=== PATIENT | male | born 1935 | race Caucasian/White ===

== ENCOUNTER 2016-10-31 09:42 | Emergency (ER) | payer MEDICARE, OTHER ==
[2016-10-31 09:55] VITALS: BP 160/97
--- NOTE | 2016-10-31 10:26 | EDM.PDOC ---
ED HPI GENERAL MEDICAL PROBLEM - General Chief Complaint: Back Pain or Injury Stated Complaint: BACK PAIN Time Seen by Provider: 10/31/16 09:56 Source of Information: Reports: Patient History Limitations: Reports: No Limitations - History of Present Illness INITIAL COMMENTS - FREE TEXT/NARRATIVE: The patient is a 81-year-old male with a chief complaint of low back pain. The patient states that he had trouble with his back a couple of years ago. He had an injection and improved. 3-4 weeks ago he fell while fishing and hit the side of his back against the edge of the boat. Since then he's had trouble with pain in his low back that started about a week after the fall. Pain is located in the very low back area on both sides just above the buttocks. The pain is constant and sharp. It is worse with movement. It is better with laying down. He occasionally has shooting pains that go down his legs. These pains are bilateral. No lower extremity weakness or numbness. No incontinence or retention. No fever or recent illness. He was seen at [facility] pain clinic in [facility] and had an injection placed in his low back 3 days ago. However he continues to have pain, so called the clinic, and was told to come to the emergency department "for an MRI". Lower Back Pain Score (Numeric/FACES): 10 - Related Data Allergies Allergy/AdvReac Type Severity Reaction Status Date / Time No Known Allergies Allergy Verified 10/31/16 09:55 Home Meds: Home Meds Hydrocodone/Acetaminophen [Hydrocodon-Acetaminophen 5-325] 1 each PO QID PRN # 24 tablet 10/31/16 [Rx] Moexipril [Univasc] 15 mg PO ACBREAKFAST 10/31/16 [History] Naproxen Sodium [Aleve] 220 mg PO BID PRN #60 tab 10/31/16 [Rx] Pravastatin [Pravachol] 20 mg PO MOTUWETHFR 10/31/16 [History] Verapamil HCl [Verelan] 240 mg PO DAILY 10/31/16 [History] Past Medical History Cardiovascular History: Reports: Hypertension Musculoskeletal History: Reports: Back Pain, Chronic - Past Surgical History GI Surgical History: Reports: Colonoscopy, Hernia, Inguinal Musculoskeletal Surgical History: Reports: Knee Replacement, Other (See Below) Social & Family History - Family History Family Medical History: Noncontributory - Tobacco Use Smoking Status *Q: Never Smoker - Recreational Drug Use Recreational Drug Use: No ED ROS GENERAL - Review of Systems Review Of Systems: See Below Constitutional: Denies: Fever Respiratory: Denies: Shortness of Breath, Cough Cardiovascular: Denies: Chest Pain GI/Abdominal: Denies: Abdominal Pain : Denies: Dysuria, Incontinence, Urinary Retention Musculoskeletal: Reports: Back Pain Neurological: Denies: Numbness, Paresthesia, Difficulty Walking, Weakness ED EXAM,LOWER BACK PAIN/INJURY - Physical Exam Exam: See Below Exam Limited By: No Limitations General Appearance: Alert, WD/WN, No Apparent Distress Eye Exam: Bilateral Eye: PERRL Ears: Normal External Exam Nose: Normal Inspection Throat/Mouth: Normal Inspection, Normal Voice, No Airway Compromise Head: Atraumatic, Normocephalic Neck: Normal Inspection, Supple, Non-Tender, Full Range of Motion Respiratory/Chest: No Respiratory Distress, Lungs Clear, Normal Breath Sounds Cardiovascular: Regular Rate, Rhythm, No Edema Back Exam: Normal Inspection, Other (bilat SI joint TTP, no palpable masses/ deformities, skin normal ). No: CVA Tenderness (L), CVA Tenderness (R), Vertebral Tenderness Neurological: Alert, Normal Mood/Affect, Normal Dorsiflexion, Normal Plantar Flexion, No Motor/Sensory Deficits, Oriented x 3 Psychiatric: Normal Affect, Normal Mood Skin Exam: Warm, Dry, Intact, Normal Color, No Rash Course - Vital Signs Last Recorded V/S: Last Vital Signs Temp 36.4 C 10/31/16 09:48 Pulse 81 10/31/16 09:48 Resp 16 10/31/16 09:48 BP 160/97 H 10/31/16 09:48 Pulse Ox 97 10/31/16 09:48 - Orders/Labs/Meds Orders: Active Orders 24 hr Category Date Time Status Lumbar Spine Min 4V [CR] Stat Exams 10/31/16 10:25 Taken - Re-Assessments/Exams Free Text/Narrative Re-Assessment/Exam: 10/31/16 10:54 Discussed with nurse at [facility] pain clinic in [place] who was able to review telephone note from this AM. States pt was advised to go to ED if severe pain or lower extremity weakness, no mention of MRI. 10/31/16 11:25 X-rays of the lumbar spine shows some degenerative changes but no evidence of fracture or bony metastasis lesions. No indication for MRI as patient has no neurological deficits or symptoms to suggest infection or other emergent explanation of his pain. He was told by the pain clinic that it would take about a week for his injection to be effective. Meanwhile his primary concern is pain control. He does tolerate Aleve, advised him to use that as his first- line medication with hydrocodone as needed for severe pain. He is to follow-up with his primary doctor for further care. Discussed return precautions. Patient and his understood. Departure - Departure Time of Disposition: 11:11 Disposition: Home, Self-Care 01 Clinical Impression: Low back pain Qualifiers: Chronicity: acute Back pain laterality: bilateral Sciatica presence: with sciatica Sciatica laterality: bilateral sciatica Qualified Code(s): M54.42 - Lumbago with sciatica, left side Sciatica Qualifiers: Laterality: bilateral Qualified Code(s): M54.31 - Sciatica, right side - Discharge Information Prescriptions: Hydrocodone/Acetaminophen [Hydrocodon-Acetaminophen 5-325] 1 each PO QID PRN # 24 tablet PRN Reason: Pain Naproxen Sodium [Aleve] 220 mg PO BID PRN #60 tab PRN Reason: Pain Instructions: Sciatica Referrals: Charlie Wilkerson MD [Primary Care Provider] - Forms: ED Department Discharge Additional Instructions: 1. Take aleve as prescribed for pain. Take with food. 2. Take hydrocodone as prescribed for severe pain. This medication may make you sleepy or dizzy or confused. Don't drive when taking this medication. Take the least amount that will control your pain adequately. Take a stool softener while using this medication as it causes constipation. 3. Follow up with Dr. Wilkerson as soon as possible for further care. 4. Return to the ED if: - you have weakness or numbness in the legs - you have difficulty urinating, or incontinence of urine or stool - you have a fever or feel ill - any other concerning symptoms - My Orders Last 24 Hours: My Active Orders 10/31/16 10:25 Lumbar Spine Min 4V [CR] Stat - Assessment/Plan Last 24 Hours: My Active Orders 10/31/16 10:25 Lumbar Spine Min 4V [CR] Stat
--- NOTE | 2016-10-31 11:28 | CR ---
Lumbar spine: AP, lateral and oblique views of the lumbar spine were obtained. Comparison: Previous MRI lumbar spine study of 02/01/15. Diffuse disc space narrowing throughout the lower thoracic and lumbar spine is seen. Diffuse endplate osteophytes are seen. Mild retrolisthesis is noted at L1-L2 and L2-L3. Slight scoliosis is noted. Pedicles are intact. No acute abnormality is seen. Impression: 1. Diffuse disc space narrowing and endplate osteophytes with mild scoliosis. Findings are fairly stable to previous MRI. Diagnostic code #2
== END 2016-10-31 11:26 | disposition home or self-care (01) ==
LOC: JD.ED 09:42
DX: M54.42 Lumbago with sciatica, left side (principal); M54.41 Lumbago with sciatica, right side; I10 Essential (primary) hypertension; Z96.659 Presence of unspecified artificial knee joint; Z79.899 Other long term (current) drug therapy; Z98.890 Other specified postprocedural states
CPT/HCPCS: 72110; 72110-26; 99283

== ENCOUNTER 2016-11-01 07:11 | Inpatient (IN) | payer MEDICARE, OTHER ==
[2016-11-01] MEDS ORDERED: Sodium Chloride 0.9% 10 ML Syringe FLUSH PRN (07:43)
[2016-11-01] MEDS ORDERED: Sodium Chloride 0.9% 1,000 ML IV ONE (07:43)
[2016-11-01] MEDS ORDERED: fentaNYL 100 MCG/2 ML SDV IVPUSH ONE (07:43)
--- NOTE | 2016-11-01 07:44 | EDM.PDOC ---
ED HPI GENERAL MEDICAL PROBLEM - General Chief Complaint: Lower Extremity Injury/Pain Stated Complaint: HIP PAIN Time Seen by Provider: 11/01/16 07:20 Source of Information: Reports: Patient History Limitations: Reports: No Limitations - History of Present Illness INITIAL COMMENTS - FREE TEXT/NARRATIVE: The patient is a 81-year-old male with a chief complaint of left hip pain. He has a history of hypertension and a left knee replacement, is otherwise healthy. A few weeks ago he had a fall in a boat while fishing, hit his low back against the edge of the boat, but did not seem to be injured at the time. Several days later he started to have low back pain. This is been gradually worsening. Initially, the pain was located in the low back area in the back of both of his hips, constant, waxing and waning, occasionally radiating down his legs. He was initially diagnosed with sciatica. He was seen in this emergency department yesterday for this pain at which time lumbar spine films were negative for acute abnormality. He was discharged with naproxen and hydrocodone. He's been taking these medications. He returns to the emergency department because now the pain is localized to the left hip. He states that he has constant pain in that area but it is much worse when he tries to bear weight. He is not really able to get out of bed or walk without assistance now due to pain in the hip. Pain is sharp, constant, nonradiating. No knee pain. No numbness or tingling or weakness. Denies fever or feeling ill. Overnight he took 2 tablets of Aleve 2 tablets of hydrocodone and continues to have fairly severe pain. Treatments INTERN RETAIL: Reports: Other (see below) Other Treatments INTERN RETAIL: hydrocodone Left Hip Pain Score (Numeric/FACES): 10 - Related Data Allergies Allergy/AdvReac Type Severity Reaction Status Date / Time No Known Allergies Allergy Verified 11/01/16 07:21 Home Meds: Home Meds Hydrocodone/Acetaminophen [Hydrocodon-Acetaminophen 5-325] 1 each PO QID PRN # 24 tablet 10/31/16 [Rx] Moexipril [Univasc] 15 mg PO ACBREAKFAST 10/31/16 [History] Naproxen Sodium [Aleve] 220 mg PO BID PRN #60 tab 10/31/16 [Rx] Pravastatin [Pravachol] 20 mg PO MOTUWETHFR 10/31/16 [History] Verapamil HCl [Verelan] 240 mg PO DAILY 10/31/16 [History] Past Medical History Cardiovascular History: Reports: Hypertension Musculoskeletal History: Reports: Back Pain, Chronic - Past Surgical History GI Surgical History: Reports: Colonoscopy, Hernia, Inguinal Musculoskeletal Surgical History: Reports: Knee Replacement, Other (See Below) Social & Family History - Family History Family Medical History: Noncontributory - Tobacco Use Smoking Status *Q: Never Smoker - Caffeine Use Caffeine Use: Reports: None - Recreational Drug Use Recreational Drug Use: No Review of Systems - Review of Systems Review Of Systems: See Below Constitutional: Denies: Fever Respiratory: Reports: No Symptoms Cardiovascular: Denies: Chest Pain GI/Abdominal: Denies: Abdominal Pain Musculoskeletal: Reports: Back Pain, Leg Pain ED EXAM, GENERAL - Physical Exam Exam: See Below Exam Limited By: No Limitations General Appearance: Alert, WD/WN, Mild Distress, Other (Uncomfortable appearing) Eye Exam: Bilateral Eye: EOMI, PERRL Ears: Normal External Exam Nose: Normal Inspection Throat/Mouth: Normal Inspection, Normal Voice, No Airway Compromise Head: Atraumatic, Normocephalic Neck: Normal Inspection, Supple, Non-Tender, Full Range of Motion Respiratory/Chest: No Respiratory Distress, Lungs Clear, Normal Breath Sounds, Chest Non-Tender Cardiovascular: Normal Peripheral Pulses, Regular Rate, Rhythm, No Murmur GI/Abdominal: Soft, Non-Tender, No Distention Back Exam: Normal Inspection, Paraspinal Tenderness (Left lumbar), Other ( Positive straight leg raise bilaterally produces pain in the left back area at about 45, no external abnormality, skin normal, no fluctuance or masses). No: CVA Tenderness (L), CVA Tenderness (R) Extremities: Normal Inspection, Normal Range of Motion, Non-Tender, No Pedal Edema Neurological: Alert, Oriented, Normal Cognition, No Motor/Sensory Deficits Psychiatric: Normal Affect, Normal Mood Skin Exam: Warm, Dry, Intact, Normal Color, No Rash Course - Vital Signs Last Recorded V/S: Last Vital Signs Temp 36.3 C 11/01/16 07:21 Pulse 76 11/01/16 07:21 Resp 20 11/01/16 07:21 BP 190/87 H 11/01/16 07:21 Pulse Ox 99 11/01/16 07:21 - Orders/Labs/Meds Orders: Active Orders 24 hr Category Date Time Status Intake and Output [RC] QSHIFT Care 11/01/16 14:43 Active Oxygen Therapy [RC] PRN Care 11/01/16 14:42 Active Peripheral IV Care [RC] . DIRECTED Care 11/01/16 07:43 Active RT Aerosol Therapy [RC] ASDIRECTED Care 11/01/16 14:44 Active Up With Assistance [RC] ASDIRECTED Care 11/01/16 14:42 Active Up ad Zhanna [RC] ASDIRECTED Care 11/01/16 14:42 Active VTE/DVT Education [RC] 09,21 Care 11/01/16 14:42 Active Vital Signs [RC] Q4H Care 11/01/16 14:42 Active Consult to Case Management [CONS] Routine Cons 11/01/16 14:45 Active Consult to Accelerator Systems Director [CONS] Routine Cons 11/01/16 14:45 Active Consult to Spiritual Care [CONS] Routine Cons 11/01/16 14:45 Active OT Evaluation and Treatment [CONS] Routine Cons 11/01/16 14:45 Active PT Evaluation and Treatment [CONS] Routine Cons 11/01/16 14:45 Active Regular Diet [DIET] Diet 11/01/16 Lunch Active BASIC METABOLIC PANEL,BMP [CHEM] AM Lab 11/02/16 05:11 Ordered BASIC METABOLIC PANEL,BMP [CHEM] AM Lab 11/03/16 05:11 Ordered CBC WITH AUTO DIFF [HEME] AM Lab 11/02/16 05:11 Ordered CBC WITH AUTO DIFF [HEME] AM Lab 11/03/16 05:11 Ordered MAGNESIUM [CHEM] AM Lab 11/02/16 05:11 Ordered MAGNESIUM [CHEM] AM Lab 11/03/16 05:11 Ordered MAGNESIUM [CHEM] AM Lab 11/04/16 05:11 Ordered Acetaminophen [Tylenol] Med 11/01/16 14:42 Active 650 mg PO Q4H PRN Albuterol/Ipratropium [DuoNeb 3.0-0.5 MG/3 ML] Med 11/01/16 14:42 Active 3 ml NEB Q4H PRN Bisacodyl [Dulcolax] Med 11/01/16 14:42 Active 5 mg PO DAILY PRN Docusate Sodium [Colace] Med 11/01/16 21:00 Active 100 mg PO BID Docusate Sodium/Sennosides [Senna Plus] Med 11/01/16 14:42 Active 1 tab PO BID PRN Enoxaparin [Lovenox] Med 11/02/16 09:00 Active 40 mg SUBCUT DAILY Famotidine [Pepcid] Med 11/01/16 21:00 Active 20 mg PO BID HYDROmorphone [Dilaudid] Med 11/01/16 09:45 Active 0.5 mg IVPUSH Q1H PRN HYDROmorphone [Dilaudid] Med 11/01/16 14:42 Active 0.5 mg IVPUSH Q4H PRN LORazepam [Ativan] Med 11/01/16 14:42 Active 1 mg IV Q6H PRN LORazepam [Ativan] Med 11/01/16 14:41 Active 2 mg IVPUSH Q4H PRN Lisinopril [Prinivil] Med 11/02/16 06:00 Active 10 mg PO ACBREAKFAST Magnesium Rep Pharmacy to Dose [Pharmacy to Dose - Med 11/01/16 14:45 Active Magnesium Replacement] 1 dose .XX ASDIRECTED Metoprolol Tartrate [Lopressor] Med 11/01/16 14:41 Active 5 mg IVPUSH Q4H PRN Naproxen [Naprosyn] Med 11/01/16 21:00 Active 500 mg PO BID PRN Ondansetron [Zofran] Med 11/01/16 14:42 Active 4 mg IV Q6H PRN Polyethylene Glycol 3350 [MiraLAX] Med 11/01/16 14:42 Active 17 gm PO DAILY PRN Potassium Rep Pharmacy to Dose [Pharmacy to Dose - Med 11/01/16 14:45 Active Potassium Replacement] 1 dose .XX ASDIRECTED Promethazine [Phenergan] 12.5 mg Med 11/01/16 14:42 Active Sodium Chloride 0.9% [Normal Saline] 50 ml IV Q6H Remove Patch Med 11/04/16 15:30 Active 0 ea TRDERM Q72H Simvastatin [Zocor] Med 11/01/16 14:45 Active 10 mg PO MOTUWETHFR Sodium Chloride 0.9% [Saline Flush] Med 11/01/16 07:43 Active 10 ml FLUSH ASDIRECTED PRN Temazepam [Restoril] Med 11/01/16 14:42 Active 15 mg PO BEDTIME PRN Verapamil [Calan SR] Med 11/02/16 09:00 Active 240 mg PO DAILY fentaNYL [Duragesic] Med 11/01/16 15:30 Active 12 mcg TRDERM Q72H hydrALAZINE [Apresoline] Med 11/01/16 14:41 Active 20 mg IVPUSH Q4H PRN oxyCODONE Med 11/01/16 14:42 Active 5 mg PO Q4H PRN tiZANidine [Zanaflex] Med 11/01/16 15:30 Active 4 mg PO Q6H Ice Pack [Ice Therapy] [OM.PC] Routine Oth 11/01/16 14:48 Ordered Peripheral IV Insertion Adult [OM.PC] Routine Oth 11/01/16 07:43 Ordered Resuscitation Status Routine Resus Stat 11/01/16 14:42 Ordered Medication Orders Acetaminophen (Tylenol) 650 mg PO Q4H PRN PRN Reason: Pain (Mild 1-3)/fever Albuterol/Ipratropium (Duoneb 3.0-0.5 Mg/3 Ml) 3 ml NEB Q4H PRN PRN Reason: Shortness Of Breath/wheezing Bisacodyl (Dulcolax) 5 mg PO DAILY PRN PRN Reason: Constipation Docusate Sodium (Colace) 100 mg PO BID YUKI Enoxaparin Sodium (Lovenox) 40 mg SUBCUT DAILY YUKI Famotidine (Pepcid) 20 mg PO BID YUKI Fentanyl (Duragesic) 12 mcg TRDERM Q72H YUKI Gabapentin (Neurontin) 100 mg PO BID YUKI Hydralazine HCl (Apresoline) 20 mg IVPUSH Q4H PRN PRN Reason: Hypertension Hydromorphone HCl (Dilaudid) 0.5 mg IVPUSH Q1H PRN PRN Reason: Pain Last Admin: 11/01/16 12:41 Dose: 0.5 mg Admin: 11/01/16 10:50 Dose: 0.5 mg Hydromorphone HCl (Dilaudid) 0.5 mg IVPUSH Q4H PRN PRN Reason: Pain (severe 7-10) Promethazine HCl 12.5 mg/ (Sodium Chloride) 50.5 mls @ 100 mls/hr IV Q6H PRN PRN Reason: Nausea/Vomiting Lisinopril (Prinivil) 10 mg PO ACBREAKFAST REPLACED BY [facility] Lorazepam (Ativan) 2 mg IVPUSH Q4H PRN PRN Reason: Seizures Lorazepam (Ativan) 1 mg IV Q6H PRN PRN Reason: Anxiety Magnesium Sulfate (Pharmacy To Dose - Magnesium Replacement) 1 dose .XX ASDIRECTED REPLACED BY [facility] Metoprolol Tartrate (Lopressor) 5 mg IVPUSH Q4H PRN PRN Reason: Tachycardia Miscellaneous Information (Remove Patch) 0 ea TRDERM Q72H REPLACED BY [facility] Naproxen (Naprosyn) 500 mg PO BID PRN PRN Reason: Pain Ondansetron HCl (Zofran) 4 mg IV Q6H PRN PRN Reason: Nausea/Vomiting Oxycodone HCl (Oxycodone) 5 mg PO Q4H PRN PRN Reason: Pain (moderate 4-6) Polyethylene Glycol (Miralax) 17 gm PO DAILY PRN PRN Reason: Constipation Potassium Chloride (Pharmacy To Dose - Potassium Replacement) 1 dose .XX ASDIRECTED REPLACED BY [facility] Senna/Docusate Sodium (Senna Plus) 1 tab PO BID PRN PRN Reason: Constipation Simvastatin (Zocor) 10 mg PO MOTUWETHFR REPLACED BY [facility] Sodium Chloride (Saline Flush) 10 ml FLUSH ASDIRECTED PRN PRN Reason: Keep Vein Open Last Admin: 11/01/16 08:08 Dose: 10 ml Temazepam (Restoril) 15 mg PO BEDTIME PRN PRN Reason: Sleep Tizanidine HCl (Zanaflex) 4 mg PO Q6H REPLACED BY [facility] Verapamil HCl (Calan Sr) 240 mg PO DAILY REPLACED BY [facility] Labs: Laboratory Tests 11/01/16 11/01/16 11/01/16 Range/Units 07:45 07:45 07:45 WBC 9.36 H (4.23-9.07) K/mm3 RBC 5.17 (4.63-6.08) M/mm3 Hgb 16.1 (13.7-17.5) gm/L Hct 46.6 (40.1-51.0) % MCV 90.1 (79.0-92.2) fl MCH 31.1 (25.7-32.2) pg MCHC 34.5 (32.2-35.5) g/dl RDW Std Deviation 42.5 (35.1-43.9) fL Plt Count 199 (163-337) K/mm3 MPV 10.5 (9.4-12.3) fl Neut % (Auto) 75.5 H (34.0-67.9) % Lymph % (Auto) 8.9 L (21.8-53.1) % Grayson % (Auto) 14.1 H (5.3-12.2) % Eos % (Auto) 0.9 (0.8-7.0) Baso % (Auto) 0.2 (0.1-1.2) % Neut # (Auto) 7.07 H (1.78-5.38) K/mm3 Lymph # (Auto) 0.83 L (1.32-3.57) K/mm3 Grayson # (Auto) 1.32 H (0.30-0.82) K/mm3 Eos # (Auto) 0.08 (0.04-0.54) K/mm3 Baso # (Auto) 0.02 (0.01-0.08) K/mm3 Manual Slide Review Abnormal smear ESR 13 (0-15) mm/hr Sodium 132 L (136-145) mEq/L Potassium 3.6 (3.5-5.1) mEq/L Chloride 96 L (98-107) mEq/L Carbon Dioxide 25 (21-32) mEq/L Anion Gap 14.6 (5-15) BUN 19 H (7-18) mg/dL Creatinine 1.1 (0.7-1.3) mg/dL Est Cr Clr Drug Dosing 54.45 mL/min Estimated GFR (MDRD) > 60 (>60) mL/min BUN/Creatinine Ratio 17.3 (14-18) Glucose 117 H (83-115) mg/dL Calcium 9.3 (8.5-10.1) mg/dL Total Bilirubin 1.2 H (0.2-1.0) mg/dL AST 19 (15-37) U/L ALT 17 (16-63) U/L Alkaline Phosphatase 132 H (46-116) U/L C-Reactive Protein 0.9 (<1.0) mg/dL Total Protein 7.5 (6.4-8.2) g/dl Albumin 4.1 (3.4-5.0) g/dl Globulin 3.4 gm/dL Albumin/Globulin Ratio 1.2 (1-2) Meds: Medications Generic Name Dose Route Start Last Admin Trade Name Freq PRN Reason Stop Dose Admin Acetaminophen 650 mg 11/01/16 14:42 Tylenol PO Q4H PRN Pain (Mild 1-3)/fever Albuterol/Ipratropium 3 ml 11/01/16 14:42 Duoneb 3.0-0.5 Mg/3 Ml NEB Q4H PRN Shortness Of Breath/wheezing Bisacodyl 5 mg 11/01/16 14:42 Dulcolax PO DAILY PRN Constipation Docusate Sodium 100 mg 11/01/16 21:00 Colace PO BID REPLACED BY [facility] Enoxaparin Sodium 40 mg 11/02/16 09:00 Lovenox SUBCUT DAILY REPLACED BY [facility] Famotidine 20 mg 11/01/16 21:00 Pepcid PO BID REPLACED BY [facility] Fentanyl 12 mcg 11/01/16 15:30 Duragesic TRDERM Q72H REPLACED BY [facility] Gabapentin 100 mg 11/01/16 15:30 Neurontin PO BID REPLACED BY [facility] Hydralazine HCl 20 mg 11/01/16 14:41 Apresoline IVPUSH Q4H PRN Hypertension Hydromorphone HCl 0.5 mg 11/01/16 09:45 11/01/16 12:41 Dilaudid IVPUSH 0.5 mg Q1H PRN Administration Pain Hydromorphone HCl 0.5 mg 11/01/16 14:42 Dilaudid IVPUSH Q4H PRN Pain (severe 7-10) Promethazine HCl 12.5 mg/ 50.5 mls @ 100 mls/hr 11/01/16 14:42 Sodium Chloride IV Q6H PRN Nausea/Vomiting Lisinopril 10 mg 11/02/16 06:00 Prinivil PO ACBREAKFAST REPLACED BY [facility] Lorazepam 2 mg 11/01/16 14:41 Ativan IVPUSH Q4H PRN Seizures Lorazepam 1 mg 11/01/16 14:42 Ativan IV Q6H PRN Anxiety Magnesium Sulfate 1 dose 11/01/16 14:45 Pharmacy To Dose - Magnesium Replacement .XX ASDIRECTED REPLACED BY [facility] Metoprolol Tartrate 5 mg 11/01/16 14:41 Lopressor IVPUSH Q4H PRN Tachycardia Miscellaneous Information 0 ea 11/04/16 15:30 Remove Patch TRDERM Q72H REPLACED BY [facility] Naproxen 500 mg 11/01/16 21:00 Naprosyn PO BID PRN Pain Ondansetron HCl 4 mg 11/01/16 14:42 Zofran IV Q6H PRN Nausea/Vomiting Oxycodone HCl 5 mg 11/01/16 14:42 Oxycodone PO Q4H PRN Pain (moderate 4-6) Polyethylene Glycol 17 gm 11/01/16 14:42 Miralax PO DAILY PRN Constipation Potassium Chloride 1 dose 11/01/16 14:45 Pharmacy To Dose - Potassium Replacement .XX ASDIRECTED YUKI Senna/Docusate Sodium 1 tab 11/01/16 14:42 Senna Plus PO BID PRN Constipation Simvastatin 10 mg 11/01/16 14:45 Zocor PO MOTUWETHFR REPLACED BY [facility] Sodium Chloride 10 ml 11/01/16 07:43 11/01/16 08:08 Saline Flush FLUSH 10 ml ASDIRECTED PRN Administration Keep Vein Open Temazepam 15 mg 11/01/16 14:42 Restoril PO BEDTIME PRN Sleep Tizanidine HCl 4 mg 11/01/16 15:30 Zanaflex PO Q6H YUKI Verapamil HCl 240 mg 11/02/16 09:00 Calan Sr PO DAILY REPLACED BY [facility] Discontinued Medications Generic Name Dose Route Start Last Admin Trade Name Freq PRN Reason Stop Dose Admin Cyclobenzaprine HCl 10 mg 11/01/16 09:12 11/01/16 09:22 Flexeril PO 11/01/16 09:13 10 mg ONETIME ONE Administration Diazepam 5 mg 11/01/16 14:30 Valium IVPUSH 11/01/16 14:31 ONETIME ONE Fentanyl 50 mcg 11/01/16 07:43 11/01/16 08:09 Sublimaze IVPUSH 11/01/16 07:44 50 mcg ONETIME ONE Administration Gabapentin 100 mg 11/01/16 15:25 Neurontin PO 11/01/16 15:26 ONETIME ONE Hydromorphone HCl 0.5 mg 11/01/16 14:31 11/01/16 16:17 Dilaudid IVPUSH 11/01/16 14:32 0.5 mg ONETIME ONE Administration Sodium Chloride 1,000 mls @ 1,000 mls/hr 11/01/16 07:43 11/01/16 08:08 Normal Saline IV 11/01/16 08:42 1,000 mls/hr ONETIME ONE Administration Ketorolac Tromethamine 30 mg 11/01/16 14:30 11/01/16 16:21 Toradol IVPUSH 11/01/16 14:31 30 mg ONETIME ONE Administration Lidocaine 700 mg 11/01/16 15:00 Lidoderm 5% TOP Q24H YUKI Methylprednisolone Sodium Succinate 125 mg 11/01/16 09:32 11/01/16 09:44 Solu-Medrol IVPUSH 11/01/16 09:33 125 mg ONETIME ONE Administration Tizanidine HCl 4 mg 11/02/16 14:46 Zanaflex PO 11/02/16 14:47 DAILY ONE - Re-Assessments/Exams Free Text/Narrative Re-Assessment/Exam: 11/01/16 09:44 Inflammatory markers negative. Still with marked pain, unable to ambulate. MRI pending, may not be able to be completed until this afternoon. Will also trial cyclobenzaprine and solu-medrol. Still with significant pain after fentanyl. 11/01/16 15:[address] Silveira who agrees that infection is highly unlikely given time course and negative inflammatory markers. She will leave message for the patient's doctor, Dr. Hess, who is expected to return to the office on Friday. Meanwhile, we will admit the patient here for pain control. Discussed with Dr. Huynh who agrees to admit the patient. The patient is still unable to ambulate due to pain and this is after cyclobenzaprine, Solu-Medrol, fentanyl, Dilaudid, diazepam, and Toradol over the course of several hours. 11/01/16 16:53 Departure - Departure Time of Disposition: 15:06 Disposition: Admitted As Inpatient 68 Clinical Impression: Intractable pain Back pain Qualifiers: Back pain location: low back pain Chronicity: acute Back pain laterality: midline Sciatica presence: with sciatica Sciatica laterality: sciatica of left side Qualified Code(s): M54.42 - Lumbago with sciatica, left side Sacral fracture Qualifiers: Encounter type: initial encounter Zone of sacrum fracture: unspecified portion of sacrum Fracture type: closed Qualified Code(s): S32.10XA - Unspecified fracture of sacrum, initial encounter for closed fracture - Discharge Information - My Orders Last 24 Hours: My Active Orders 11/01/16 07:43 Peripheral IV Care [RC] . DIRECTED Sodium Chloride 0.9% [Saline Flush] 10 ml FLUSH ASDIRECTED PRN Peripheral IV Insertion Adult [OM.PC] Routine 11/01/16 09:45 HYDROmorphone [Dilaudid] 0.5 mg IVPUSH Q1H PRN - Assessment/Plan Last 24 Hours: My Active Orders 11/01/16 07:43 Peripheral IV Care [RC] . DIRECTED Sodium Chloride 0.9% [Saline Flush] 10 ml FLUSH ASDIRECTED PRN Peripheral IV Insertion Adult [OM.PC] Routine 11/01/16 09:45 HYDROmorphone [Dilaudid] 0.5 mg IVPUSH Q1H PRN
--- NOTE | 2016-11-01 08:27 | CR ---
Pelvis and left hip: AP view of the pelvis was obtained as well as AP and frog-leg lateral views of the left hip. Comparison: No previous study. Degenerative change is noted within the visualized lower lumbar spine. Vascular calcification is seen. Bony structures are osteopenic. Minimal joint space narrowing is seen within the right hip. Joint space within the left hip is preserved. No acute fracture or other abnormality is seen. Impression: 1. Degenerative change as noted above. Osteopenia and vascular calcification is present. Diagnostic code #2
[2016-11-01] MEDS ORDERED: Cyclobenzaprine 10 MG Tab PO ONE (09:12)
[2016-11-01] MEDS ORDERED: methylPREDNISolone Sodium Succinate 125 MG/2 ML SDV IVPUSH ONE (09:32)
[2016-11-01] MEDS: HYDROmorphone 0.5 MG/0.5 ML Syringe IVPUSH PRN ×2 (10:50→12:41)
--- NOTE | 2016-11-01 13:20 | MR ---
MRI lumbar spine Technique: T1 and T2-weighted axial images were obtained from above the T1-T2 disc inferiorly through the L5-S1 disc. T1, T2 and fat-suppressed inversion recovery sagittal images were reviewed. Comparison: Previous MRI lumbar spine exam of 02/01/15 is available. Findings: T11-T12: Disc space narrowing with Schmorl's node deformity is seen. Slight circumferential disc bulge is noted. No central canal stenosis is seen. Neural foramina not seen well enough to make comment about. T12-L1: Posterior disc space narrowing is seen. Slight Schmorl's node deformity is noted. Slight circumferential disc bulge is seen. No central canal stenosis is seen. Mild bilateral neural foraminal stenosis is seen. L1-L2: Severe disc space narrowing is seen. Mild circumferential disc bulge is present. Posterior disc maintains a concave margin. No central canal stenosis is seen. Neural foramina are patent where the nerve roots exit. L2-L3: Severe disc space narrowing is seen. Circumferential disc bulge is present. Posterior disc maintains a mostly planar margin. Mild to moderate degenerative apophyseal change is seen. No central canal stenosis is noted. Mild right-sided neural foraminal stenosis is seen. Nerve roots appear to exit without definite compromise. L3-L4: Moderate to severe disc space narrowing is seen. Circumferential disc bulge is noted. Mild degenerative apophyseal change is seen. Thickening of the ligamentum flavum is seen. Findings cause mild central canal stenosis. Bilateral neural foraminal stenosis is noted. Nerve roots appear to exit without definite compromise. L4-L5: Severe disc space narrowing is seen. Circumferential disc bulge is noted. Mild degenerative apophyseal change is seen. Thickening of the ligamentum flavum is noted. Moderate to severe central canal stenosis is noted. Neural foramina are narrowed on both sides. Nerve roots appear to exit without definite compromise. L5-S1: Severe disc space narrowing is seen. Fairly severe degenerative apophyseal change is seen. Fairly severe bilateral neural foraminal stenosis is seen Conus medullaris and cauda equina show no abnormal signal or mass. Degenerative dehydration change noted throughout the lower thoracic and lumbar discs. Diffuse anterior endplate osteophytes are seen. Edema is identified within the sacrum which will be described on MRI pelvis exam. Impression: 1. Diffuse degenerative change. Findings remain fairly stable from previous study. No findings to indicate infection within the lumbar spine. Diagnostic code #3
[2016-11-01] MEDS ORDERED: Ketorolac 30 MG/ML SDV IVPUSH ONE (14:30)
[2016-11-01] MEDS ORDERED: HYDROmorphone 1 MG/ML Syringe IVPUSH ONE (14:31)
--- NOTE | 2016-11-01 14:31 | MR ---
MRI pelvis Technique: T1 and T2 fat-suppressed axial; T2 fat-suppressed inversion recovery , T2-weighted, T1-weighted T2 fat-suppressed coronal; thin T1 and T2 fat- suppressed coronal images through the sacrum were obtained as well as T2 fat- suppressed and T1 fat-suppressed sagittal images through the sacrum and coccyx. Findings: Bone marrow edema is identified within the sacrum on both sides. This abnormal signal does not extend across the sacroiliac joint into the iliac bones. On the T1 sequence there is low signal fracture lines being seen in a horizontal location within the upper sacrum. No other bone marrow edema is seen within the pelvis or within the hips. No soft tissue abnormality seen on this exam within the pelvis. No abnormal signal seen within the right or left hips. No muscle edema is identified. Impression: 1. Edema being seen throughout the mid and upper sacrum. Low signal fracture line is seen within the sacrum. Findings most likely due to insufficiency fracture. Since edema does not cross the sacroiliac joint as well as no fluid seen within the sacroiliac joints this is felt not to represent infection. 2. No additional abnormality seen on MRI study of the pelvis. Diagnostic code #3 MTDD
--- NOTE | 2016-11-01 14:40 | PCM.HP ---
H&P History of Present Illness - General Date of Service: 11/01/16 Admit Problem/Dx: Acute Back Pain Source of Information: Patient, Old Records, Provider, RN Notes Reviewed History Limitations: Reports: Physical Impairment - History of Present Illness Initial Comments - Free Text/Narative: This is a 81 yo elderly white male with past medical hx/o hypertension and chronic back pain who presents to the emergency department with left hip pain. His chief complaint is associated to recent a fall in a boat while fishing. Per patient his low back, hit the back of the boat but didn't seem injured at that time. Several days later his back pain seemed to be worse than usual and since then has been gradually worsening. Patient describes his pain as constant and at times waxing and waning. Occasionally the pain radiates down to his legs. Patient was initially seen in the emergency department yesterday for back pain. Initial diagnostic workup revealed no acute abnormality. From there, he was discharged with NSAID and hydrocodone. Patient has been compliant with those medications. However he returns the emergency department for more intense pain localized to his left hip. This pain is aggravated by weight bear. Patient is now unable to get out of bed or walk without assistance due to severe pain. Patient denies any numbness or tingling or weakness. He is able to void and defecate. Initial workup in emergency department shows a CBC remarkable for WBC of 9.36, neutrophil counts of 7.07, lymphocyte count of 0.83, and monocyte count of 1.3 to. His ESR is 13. Chemistry is remarkable for sodium of 132, chloride of 96, BUN of 19, glucose of 117, total bilirubin of 1.2, and alkaline phosphatase of 132. Pelvis and left hip x-ray report reads: Degenerative change noted within the lower lumbar spine. Osteopenia and vascular calcification is present. No acute fracture or other abnormality seen. MRI lumbar spine report reads: Diffuse degenerative change. No findings to indicate infection within the lumbar spine. MRI of the pelvis report reads: Edema seen throughout the median upper sacrum. Low signal fracture line is seen within the sacrum. Finding most likely due to insufficiency fracture. No additional abnormalities seen on MRI study of the pelvis. The patient received initial treatment in ED with cyclobenzaprine, solu-medrol, fentanyl, dilaudid, diazepam, and toradol over the course of several hours. He is being admitted for intractable pain. He is DNR/DNI. Left Hip Pain Score (Numeric/FACES): 10 - Related Data Allergies/Adverse Reactions: Allergies Allergy/AdvReac Type Severity Reaction Status Date / Time No Known Allergies Allergy Verified 11/01/16 07:21 Home Medications: Home Meds Hydrocodone/Acetaminophen [Hydrocodon-Acetaminophen 5-325] 1 each PO QID PRN # 24 tablet 10/31/16 [Rx] Moexipril [Univasc] 15 mg PO ACBREAKFAST 10/31/16 [History] Naproxen Sodium [Aleve] 220 mg PO BID PRN #60 tab 10/31/16 [Rx] Pravastatin [Pravachol] 10 mg PO MOTUWETHFR 10/31/16 [History] Verapamil HCl [Verelan] 240 mg PO DAILY 10/31/16 [History] Past Medical History Cardiovascular History: Reports: Hypertension Musculoskeletal History: Reports: Back Pain, Chronic - Past Surgical History GI Surgical History: Reports: Colonoscopy, Hernia, Inguinal Musculoskeletal Surgical History: Reports: Knee Replacement, Other (See Below) Social & Family History - Family History Family Medical History: Noncontributory - Tobacco Use Smoking Status *Q: Never Smoker Second Hand Smoke Exposure: No - Caffeine Use Caffeine Use: Reports: None - Recreational Drug Use Recreational Drug Use: No H&P Review of Systems - Review of Systems: Review Of Systems: See Below General: Reports: Weakness. Denies: Fever, Chills, Malaise, Fatigue HEENT: Reports: No Symptoms Pulmonary: Denies: Shortness of Breath Gastrointestinal: Denies: Abdominal Pain, Nausea, Vomiting Musculoskeletal: Reports: Back Pain, Leg Pain, Other (pain rdiation to his left thigh stop at the lateral knee) Skin: Denies: Cyanosis, Rash, Wound Psychiatric: Denies: Depression, Anxiety, Agitation, Hallucinations, Suicidal Ideation Neurological: Reports: Pre-Existing Deficit, Difficulty Walking, Weakness, Gait Disturbance. Denies: Confusion Hematologic/Lymphatic: Reports: No Symptoms Immunologic: Reports: No Symptoms Exam - Exam Exam: See Below - Vital Signs Vital Signs: Last Vital Signs Temp 36.3 C 11/01/16 07:21 Pulse 76 11/01/16 07:21 Resp 20 11/01/16 07:21 BP 190/87 H 11/01/16 07:21 Pulse Ox 99 11/01/16 07:21 Weight: 94.347 kg - Exam General: Alert, Oriented, Cooperative. No: Mild Distress HEENT: Conjunctiva Clear, EACs Clear, EOMI, Hearing Intact, Mucosa Moist & [place] , Nares Patent, Normal Nasal Septum, Posterior Pharynx Clear, Pupils Equal, Pupils Reactive, TMs Clear Neck: Supple, Trachea Midline, +2 Carotid Pulse wo Bruit, Full Range of Motion. No: JVD Lungs: Clear to Auscultation, Normal Respiratory Effort Cardiovascular: Regular Rate, Regular Rhythm GI/Abdominal Exam: Normal Bowel Sounds, Soft, Non-Tender, No Organomegaly, No Distention, No Abnormal Bruit, No Mass (Male) Exam: Cremasteric Reflex, Other (No numbness or tingling on inner thighs) Rectal (Males) Exam: Deferred Back Exam: Normal Inspection (unable to inspect due to pain with movement), Decreased Range of Motion, Muscle Spasm, Paraspinal Tenderness, Vertebral Tenderness. No: CVA Tenderness (L), CVA Tenderness (R) Extremities: Normal Inspection, Normal Range of Motion, Non-Tender, No Pedal Edema, Normal Capillary Refill, Other (Positive SLT on left leg) Skin: Warm, Dry, Intact Neuro Extensive - Mental Status: Oriented x3, Normal Cognition, Memory Intact Neuro Extensive - Motor, Sensory, Reflexes: CN II-XII Intact (limited but fairly intact) Psychiatric: Alert, Normal Affect, Normal Mood - Patient Data Lab Results Last 24 hrs: Laboratory Results - last 24 hr 11/01/16 11/01/16 11/01/16 Range/Units 07:45 07:45 07:45 WBC 9.36 H (4.23-9.07) K/mm3 RBC 5.17 (4.63-6.08) M/mm3 Hgb 16.1 (13.7-17.5) gm/L Hct 46.6 (40.1-51.0) % MCV 90.1 (79.0-92.2) fl MCH 31.1 (25.7-32.2) pg MCHC 34.5 (32.2-35.5) g/dl RDW Std Deviation 42.5 (35.1-43.9) fL Plt Count 199 (163-337) K/mm3 MPV 10.5 (9.4-12.3) fl Neut % (Auto) 75.5 H (34.0-67.9) % Lymph % (Auto) 8.9 L (21.8-53.1) % [place] % (Auto) 14.1 H (5.3-12.2) % Eos % (Auto) 0.9 (0.8-7.0) Baso % (Auto) 0.2 (0.1-1.2) % Neut # (Auto) 7.07 H (1.78-5.38) K/mm3 Lymph # (Auto) 0.83 L (1.32-3.57) K/mm3 [place] # (Auto) 1.32 H (0.30-0.82) K/mm3 Eos # (Auto) 0.08 (0.04-0.54) K/mm3 Baso # (Auto) 0.02 (0.01-0.08) K/mm3 Manual Slide Review Abnormal smear ESR 13 (0-15) mm/hr Sodium 132 L (136-145) mEq/L Potassium 3.6 (3.5-5.1) mEq/L Chloride 96 L (98-107) mEq/L Carbon Dioxide 25 (21-32) mEq/L Anion Gap 14.6 (5-15) BUN 19 H (7-18) mg/dL Creatinine 1.1 (0.7-1.3) mg/dL Est Cr Clr Drug Dosing 54.45 mL/min Estimated GFR (MDRD) > 60 (>60) mL/min BUN/Creatinine Ratio 17.3 (14-18) Glucose 117 H (83-115) mg/dL Calcium 9.3 (8.5-10.1) mg/dL Total Bilirubin 1.2 H (0.2-1.0) mg/dL AST 19 (15-37) U/L ALT 17 (16-63) U/L Alkaline Phosphatase 132 H (46-116) U/L C-Reactive Protein 0.9 (<1.0) mg/dL Total Protein 7.5 (6.4-8.2) g/dl Albumin 4.1 (3.4-5.0) g/dl Globulin 3.4 gm/dL Albumin/Globulin Ratio 1.2 (1-2) Result Diagrams: 11/02/16 05:45 11/01/16 07:45 *Q Meaningful Use (ADM) - VTE *Q VTE Criteria *Q: - Stroke *Q Stroke Criteria *Q: - AMI *Q AMI Criteria *Q: Problem List Initiated/Reviewed/Updated: Yes Orders Last 24hrs: Active Orders 24 hr Category Date Time Status Peripheral IV Care [RC] . DIRECTED Care 11/01/16 07:43 Active HYDROmorphone [Dilaudid] Med 11/01/16 09:45 Active 0.5 mg IVPUSH Q1H PRN Sodium Chloride 0.9% [Saline Flush] Med 11/01/16 07:43 Active 10 ml FLUSH ASDIRECTED PRN Peripheral IV Insertion Adult [OM.PC] Routine Oth 11/01/16 07:43 Ordered Medication Orders Hydromorphone HCl (Dilaudid) 0.5 mg IVPUSH Q1H PRN PRN Reason: Pain Last Admin: 11/01/16 12:41 Dose: 0.5 mg Admin: 11/01/16 10:50 Dose: 0.5 mg Sodium Chloride (Saline Flush) 10 ml FLUSH ASDIRECTED PRN PRN Reason: Keep Vein Open Last Admin: 11/01/16 08:08 Dose: 10 ml Assessment/Plan Comment:: Assessment/Plan: Acute: Intractable Back Pain With Hx/o Sciatica - Acute on Chronic: He has received multiple back injection in the past and has seen Dr. Hess in [place] for it - Risk Factor: Hx/o Degenerative Spine Changes, Chronic Back Pain, Hx/o Sciatica - Status Post Mechanical Fall - Stable Sacral Bone Fracture - Supportive Care - Anti-inflammatory agent, anti-spasm, anti-neuropathic pain and narcotic pain meds Acute Sacral Bone Fracture with Edema - S/P Fall - No bladder or Bowel Incontinence - Seen on MRI - ED provider discussed case with Dr. Silveira, Neurosurgeon in [place] - Neurosurgeon felt sacral edema is not related to infection - Supportive care/Pain management and follow up with patient's specialist Dr. Hess Chronic: HTN Diffuse Spinal Degenerative Change Plan: Admit to Med-Surg Routine AM Labs Resume Home Meds Fall Precautions Supportive care PT/OT consult SW/CM for d/c planning Code status: DNR/DNI
[2016-11-01] MEDS ORDERED: Metoprolol Tartrate 5 MG/5 ML SDV IVPUSH PRN (14:41)
[2016-11-01] MEDS ORDERED: LORazepam 2 MG/ML MDV IVPUSH PRN (14:41)
[2016-11-01] MEDS ORDERED: Albuterol/Ipratropium 3.0-0.5 MG/3 ML Neb Soln NEB PRN (14:42)
[2016-11-01] MEDS ORDERED: Acetaminophen 325 MG Tab PO PRN (14:42)
[2016-11-01] MEDS ORDERED: Temazepam 15 MG Cap PO PRN (14:42)
[2016-11-01] MEDS ORDERED: LORazepam 2 MG/ML MDV IV PRN (14:42)
[2016-11-01] MEDS ORDERED: Promethazine 12.5 MG in Sodium Chloride 0.9% 50 ML IV PRN (14:42)
[2016-11-01] MEDS ORDERED: Bisacodyl 5 MG Tab PO PRN (14:42)
[2016-11-01] MEDS ORDERED: Lidocaine 5% 700 MG Patch TOP SCH (15:00)
[2016-11-01] MEDS ORDERED: Gabapentin 100 MG Cap PO ONE (15:25)
[2016-11-01] MEDS ORDERED: tiZANidine 4 MG Tab PO SCH (15:30)
[2016-11-01] MEDS: Simvastatin 10 MG Tab PO SCH (18:06)
[2016-11-01] MEDS: fentaNYL 12 MCG/HR Transdermal Patch TRDERM SCH (18:07)
[2016-11-01] MEDS: Gabapentin 100 MG Cap PO SCH ×2 (18:07→21:03)
[2016-11-01] MEDS: Docusate Sodium 100 MG Cap PO SCH (21:03)
[2016-11-01] MEDS: Famotidine 20 MG Tab PO SCH (21:03)
[2016-11-02] MEDS: tiZANidine 4 MG Tab PO SCH ×4 (00:32→17:09)
[2016-11-02] MEDS: HYDROmorphone 0.5 MG/0.5 ML Syringe IVPUSH PRN ×2 (06:14→23:39)
[2016-11-02] MEDS: Lisinopril 10 MG Tab PO SCH (06:15)
--- NOTE | 2016-11-02 07:44 | PCM.PN ---
- General Info Date of Service: 11/02/16 Admission Dx/Problem (Free Text): Acute Back Pain Subjective Update: Follow Up Functional Status: Reports: Pain Controlled, Tolerating Diet, Urinating Pain Score: 0 - Review of Systems General: Denies: Fever, Weakness, Fatigue, Malaise HEENT: Reports: No Symptoms Pulmonary: Denies: Shortness of Breath Cardiovascular: Denies: Chest Pain, Dyspnea on Exertion Gastrointestinal: Denies: Abdominal Pain, Nausea, Vomiting Genitourinary: Reports: No Symptoms Musculoskeletal: Reports: Back Pain Skin: Reports: No Symptoms Neurological: Reports: Numbness (left leg (not new)), Tingling (left leg (not new)), Difficulty Walking, Gait Disturbance. Denies: Confusion Psychiatric: Denies: Mood Lability, Anxiety, Agitation, Hallucinations Systems Review Comment:: No overnight or acute issues. He slept really good. His pain is controlled, 0 at rest. However it goes up to 10/10 if he tries to get out of bed. He could not sit up due to severe pain on his bottom. His morning labs are fairly unremarkable. He has no new complaints. - Patient Data Vitals - Most Recent: Last Vital Signs Temp 36.7 C 11/02/16 04:15 Pulse 64 11/02/16 04:15 Resp 16 11/02/16 04:15 BP 136/82 11/02/16 06:15 Pulse Ox 94 L 11/02/16 04:15 Weight - Most Recent: 94.347 kg I&O - Last 24 Hours: Intake & Output 11/01/16 11/02/16 11/02/16 22:59 06:59 14:59 Intake Total 240 800 Output Total 1050 Balance 240 -250 Lab Results Last 24 Hours: Laboratory Results - last 24 hr 11/02/16 11/02/16 Range/Units 05:45 05:45 WBC 12.62 H (4.23-9.07) K/mm3 RBC 5.02 (4.63-6.08) M/mm3 Hgb 15.9 (13.7-17.5) gm/L Hct 45.7 (40.1-51.0) % MCV 91.0 (79.0-92.2) fl MCH 31.7 (25.7-32.2) pg MCHC 34.8 (32.2-35.5) g/dl RDW Std Deviation 44.0 H (35.1-43.9) fL Plt Count 206 (163-337) K/mm3 MPV 10.9 (9.4-12.3) fl Neut % (Auto) 79.9 H (34.0-67.9) % Lymph % (Auto) 7.4 L (21.8-53.1) % [place] % (Auto) 12.3 H (5.3-12.2) % Eos % (Auto) 0 L (0.8-7.0) Baso % (Auto) 0.0 L (0.1-1.2) % Neut # (Auto) 10.09 H (1.78-5.38) K/mm3 Lymph # (Auto) 0.93 L (1.32-3.57) K/mm3 [place] # (Auto) 1.55 H (0.30-0.82) K/mm3 Eos # (Auto) 0.00 L (0.04-0.54) K/mm3 Baso # (Auto) 0.00 L (0.01-0.08) K/mm3 Manual Slide Review Abnormal smear Sodium 135 L (136-145) mEq/L Potassium 4.2 (3.5-5.1) mEq/L Chloride 99 (98-107) mEq/L Carbon Dioxide 27 (21-32) mEq/L Anion Gap 13.2 (5-15) BUN 24 H (7-18) mg/dL Creatinine 1.0 (0.7-1.3) mg/dL Est Cr Clr Drug Dosing 61.85 mL/min Estimated GFR (MDRD) > 60 (>60) mL/min BUN/Creatinine Ratio 24.0 H (14-18) Glucose 112 (83-115) mg/dL Calcium 9.2 (8.5-10.1) mg/dL Magnesium 1.9 (1.8-2.4) mg/dl Med Orders - Current: Current Medications Acetaminophen (Tylenol) 650 mg PO Q4H PRN PRN Reason: Pain (Mild 1-3)/fever Albuterol/Ipratropium (Duoneb 3.0-0.5 Mg/3 Ml) 3 ml NEB Q4H PRN PRN Reason: Shortness Of Breath/wheezing Bisacodyl (Dulcolax) 5 mg PO DAILY PRN PRN Reason: Constipation Docusate Sodium (Colace) 100 mg PO BID [facility] Last Admin: 11/01/16 21:03 Dose: Not Given Enoxaparin Sodium (Lovenox) 40 mg SUBCUT DAILY [facility] Famotidine (Pepcid) 20 mg PO BID [facility] Last Admin: 11/01/16 21:03 Dose: Not Given Fentanyl (Duragesic) 12 mcg TRDERM Q72H [facility] Last Admin: 11/01/16 18:07 Dose: 12 mcg Gabapentin (Neurontin) 100 mg PO BID [facility] Last Admin: 11/01/16 21:03 Dose: Not Given Hydralazine HCl (Apresoline) 20 mg IVPUSH Q4H PRN PRN Reason: Hypertension Hydromorphone HCl (Dilaudid) 0.5 mg IVPUSH Q4H PRN PRN Reason: Pain (severe 7-10) Last Admin: 11/02/16 06:14 Dose: 0.5 mg Promethazine HCl 12.5 mg/ (Sodium Chloride) 50.5 mls @ 100 mls/hr IV Q6H PRN PRN Reason: Nausea/Vomiting Lisinopril (Prinivil) 10 mg PO ACBREAKFAST [facility] Last Admin: 11/02/16 06:15 Dose: 10 mg Lorazepam (Ativan) 2 mg IVPUSH Q4H PRN PRN Reason: Seizures Lorazepam (Ativan) 1 mg IV Q6H PRN PRN Reason: Anxiety Magnesium Sulfate (Pharmacy To Dose - Magnesium Replacement) 1 dose .XX ASDIRECTED [facility] Metoprolol Tartrate (Lopressor) 5 mg IVPUSH Q4H PRN PRN Reason: Tachycardia Miscellaneous Information (Remove Patch) 0 ea TRDERM Q72H [facility] Naproxen (Naprosyn) 500 mg PO BID PRN PRN Reason: Pain Ondansetron HCl (Zofran) 4 mg IV Q6H PRN PRN Reason: Nausea/Vomiting Oxycodone HCl (Oxycodone) 5 mg PO Q4H PRN PRN Reason: Pain (moderate 4-6) Polyethylene Glycol (Miralax) 17 gm PO DAILY PRN PRN Reason: Constipation Potassium Chloride (Pharmacy To Dose - Potassium Replacement) 1 dose .XX ASDIRECTED [facility] Senna/Docusate Sodium (Senna Plus) 1 tab PO BID PRN PRN Reason: Constipation Simvastatin (Zocor) 10 mg PO MOTUWETHFR [facility] Last Admin: 11/01/16 18:06 Dose: 10 mg Sodium Chloride (Saline Flush) 10 ml FLUSH ASDIRECTED PRN PRN Reason: Keep Vein Open Last Admin: 11/01/16 08:08 Dose: 10 ml Temazepam (Restoril) 15 mg PO BEDTIME PRN PRN Reason: Sleep Tizanidine HCl (Zanaflex) 4 mg PO Q6H [facility] Last Admin: 11/02/16 06:16 Dose: 4 mg Verapamil HCl (Calan Sr) 240 mg PO DAILY [facility] Discontinued Medications Cyclobenzaprine HCl (Flexeril) 10 mg PO ONETIME ONE Stop: 11/01/16 09:13 Last Admin: 11/01/16 09:22 Dose: 10 mg Diazepam (Valium) 5 mg IVPUSH ONETIME ONE Stop: 11/01/16 14:31 Last Admin: 11/01/16 17:47 Dose: Not Given Fentanyl (Sublimaze) 50 mcg IVPUSH ONETIME ONE Stop: 11/01/16 07:44 Last Admin: 11/01/16 08:09 Dose: 50 mcg Gabapentin (Neurontin) 100 mg PO ONETIME ONE Stop: 11/01/16 15:26 Last Admin: 11/01/16 19:28 Dose: Not Given Hydromorphone HCl (Dilaudid) 0.5 mg IVPUSH Q1H PRN PRN Reason: Pain Last Admin: 11/01/16 12:41 Dose: 0.5 mg Hydromorphone HCl (Dilaudid) 0.5 mg IVPUSH ONETIME ONE Stop: 11/01/16 14:32 Last Admin: 11/01/16 16:17 Dose: 0.5 mg Sodium Chloride (Normal Saline) 1,000 mls @ 1,000 mls/hr IV ONETIME ONE Stop: 11/01/16 08:42 Last Admin: 11/01/16 08:08 Dose: 1,000 mls/hr Ketorolac Tromethamine (Toradol) 30 mg IVPUSH ONETIME ONE Stop: 11/01/16 14:31 Last Admin: 11/01/16 16:21 Dose: 30 mg Lidocaine (Lidoderm 5%) 700 mg TOP Q24H [facility] Last Admin: 11/01/16 19:27 Dose: Not Given Methylprednisolone Sodium Succinate (Solu-Medrol) 125 mg IVPUSH ONETIME ONE Stop: 11/01/16 09:33 Last Admin: 11/01/16 09:44 Dose: 125 mg Tizanidine HCl (Zanaflex) 4 mg PO Q6H [facility] Last Admin: 11/01/16 18:07 Dose: 4 mg Tizanidine HCl (Zanaflex) 4 mg PO DAILY ONE Stop: 11/02/16 14:47 - Exam General: Alert, Oriented, Cooperative, No Acute Distress HEENT: Pupils Equal, Pupils Reactive, EOMI, Mucous Membr. Moist/[place] Neck: Supple, Trachea Midline, No JVD, No Thyromegaly Lungs: Clear to Auscultation, Normal Respiratory Effort Cardiovascular: Regular Rate, Regular Rhythm GI/Abdominal Exam: Normal Bowel Sounds, Soft, Non-Tender, No Organomegaly, No Distention, No Abnormal Bruit, No Mass (Male) Exam: Deferred Back Exam: Other (deferred due to pain) Extremities: Normal Inspection, Normal Range of Motion, Non-Tender, No Pedal Edema, Normal Capillary Refill Peripheral Pulses: 2+: Dorsalis Pedis (L), Dorsalis Pedis (R) Skin: Warm, Dry, Intact Neurological: No New Focal Deficit Psy/Mental Status: Alert, Normal Affect, Normal Mood - Problem List Review Problem List Initiated/Reviewed/Updated: Yes - My Orders Last 24 Hours: My Active Orders 11/01/16 14:42 Resuscitation Status Routine 11/02/16 00:00 tiZANidine [Zanaflex] 4 mg PO Q6H - Plan Plan:: Assessment/Plan: Acute: Intractable Back Pain With Hx/o Sciatica, Improved - Acute on Chronic: He has received multiple back injection in the past and has seen Dr. Hess in [place] for it - Risk Factor: Hx/o Degenerative Spine Changes, Chronic Back Pain, Hx/o Sciatica - Status Post Mechanical Fall - Stable Sacral Bone Fracture - Supportive Care - Anti-inflammatory agent, anti-spasm, anti-neuropathic pain and narcotic pain meds Acute Sacral Bone Fracture with Edema, still bothers him specially when they tried getting him to sit up - S/P Fall - No bladder or Bowel Incontinence - Seen on MRI - ED provider discussed case with Dr. Silveira, Neurosurgeon in [place] - Neurosurgeon felt sacral edema is not related to infection - Supportive care/Pain management and follow up with patient's specialist Dr. Hess Chronic: HTN Diffuse Spinal Degenerative Change Back Pain with Radiculopathy Plan: He is clinically stable Routine AM Labs Continue current treatment Fall Precautions Continue PT/OT SW/CM for d/c planning Code status: DNR/DNI D/c possibly in 1-2 days
[2016-11-02] MEDS: Verapamil 120 MG Tab.ER PO SCH (09:03)
[2016-11-02] MEDS: Docusate Sodium 100 MG Cap PO SCH ×2 (09:04→20:09)
[2016-11-02] MEDS: Famotidine 20 MG Tab PO SCH ×2 (09:04→20:09)
[2016-11-02] MEDS: Enoxaparin 40 MG/0.4 ML Syringe SUBCUT SCH (09:04)
[2016-11-02] MEDS: Gabapentin 100 MG Cap PO SCH ×2 (09:04→20:09)
[2016-11-02] MEDS ORDERED: tiZANidine 4 MG Tab PO ONE (14:46)
[2016-11-02] MEDS: oxyCODONE 5 MG Tab PO PRN ×2 (17:09→21:08)
[2016-11-02] MEDS: hydrALAZINE 20 MG/ML SDV IVPUSH PRN (20:26)
[2016-11-02] MEDS: Ondansetron 4 MG/2 ML SDV IV PRN (21:08)
[2016-11-03] MEDS: tiZANidine 4 MG Tab PO SCH ×4 (00:44→16:59)
[2016-11-03] MEDS: Lisinopril 10 MG Tab PO SCH (06:18)
[2016-11-03] MEDS: Ondansetron 4 MG/2 ML SDV IV PRN (06:23)
--- NOTE | 2016-11-03 07:48 | PCM.PN ---
- General Info Date of Service: 11/03/16 Admission Dx/Problem (Free Text): Acute Back Pain Subjective Update: Follow Up Functional Status: Reports: Pain Controlled, Tolerating Diet, Urinating. Denies : Ambulating, New Symptoms - Review of Systems General: Denies: Fever, Weakness, Fatigue, Malaise, Chills HEENT: Reports: No Symptoms Pulmonary: Denies: Shortness of Breath Cardiovascular: Reports: No Symptoms Gastrointestinal: Denies: Abdominal Pain, Nausea, Vomiting Genitourinary: Reports: No Symptoms Musculoskeletal: Reports: Back Pain Skin: Reports: No Symptoms Neurological: Reports: Difficulty Walking, Gait Disturbance. Denies: Confusion , Numbness, Tingling Psychiatric: Denies: Depression, Anxiety, Agitation, Hallucinations Systems Review Comment:: No significant overnight issues. He had four emesis overnight. He is currently asymptomatic. Pain is controlled at rest but not when he tries to get up or out of bed. HR dropped in the 40s last night. Patient has no new neurologic deficits other than his baseline sciatica/radiculopathy. - Patient Data Vitals - Most Recent: Last Vital Signs Temp 36.7 C 11/03/16 02:53 Pulse 82 11/03/16 02:53 Resp 14 11/03/16 02:53 BP 128/56 L 11/03/16 06:18 Pulse Ox 96 11/03/16 02:53 Weight - Most Recent: 89.766 kg I&O - Last 24 Hours: Intake & Output 11/02/16 11/03/16 11/03/16 22:59 06:59 14:59 Intake Total 1080 800 Output Total 1000 2000 Balance 80 -1200 Lab Results Last 24 Hours: Laboratory Results - last 24 hr 11/03/16 11/03/16 Range/Units 06:10 06:10 WBC 11.92 H (4.23-9.07) K/mm3 RBC 5.09 (4.63-6.08) M/mm3 Hgb 15.8 (13.7-17.5) gm/L Hct 47.0 (40.1-51.0) % MCV 92.3 H (79.0-92.2) fl MCH 31.0 (25.7-32.2) pg MCHC 33.6 (32.2-35.5) g/dl RDW Std Deviation 45.6 H (35.1-43.9) fL Plt Count 213 (163-337) K/mm3 MPV 10.9 (9.4-12.3) fl Neut % (Auto) 77.2 H (34.0-67.9) % Lymph % (Auto) 9.0 L (21.8-53.1) % [place] % (Auto) 12.6 H (5.3-12.2) % Eos % (Auto) 0.3 L (0.8-7.0) Baso % (Auto) 0.2 (0.1-1.2) % Neut # (Auto) 9.22 H (1.78-5.38) K/mm3 Lymph # (Auto) 1.07 L (1.32-3.57) K/mm3 [place] # (Auto) 1.50 H (0.30-0.82) K/mm3 Eos # (Auto) 0.03 L (0.04-0.54) K/mm3 Baso # (Auto) 0.02 (0.01-0.08) K/mm3 Sodium 138 (136-145) mEq/L Potassium 4.4 (3.5-5.1) mEq/L Chloride 100 (98-107) mEq/L Carbon Dioxide 31 (21-32) mEq/L Anion Gap 11.4 (5-15) BUN 32 H (7-18) mg/dL Creatinine 1.1 (0.7-1.3) mg/dL Est Cr Clr Drug Dosing 56.22 mL/min Estimated GFR (MDRD) > 60 (>60) mL/min BUN/Creatinine Ratio 29.1 H (14-18) Glucose 105 (83-115) mg/dL Calcium 9.0 (8.5-10.1) mg/dL Magnesium 2.2 (1.8-2.4) mg/dl Med Orders - Current: Current Medications Acetaminophen (Tylenol) 650 mg PO Q4H PRN PRN Reason: Pain (Mild 1-3)/fever Albuterol/Ipratropium (Duoneb 3.0-0.5 Mg/3 Ml) 3 ml NEB Q4H PRN PRN Reason: Shortness Of Breath/wheezing Bisacodyl (Dulcolax) 5 mg PO DAILY PRN PRN Reason: Constipation Docusate Sodium (Colace) 100 mg PO BID [facility] Last Admin: 11/02/16 20:09 Dose: 100 mg Enoxaparin Sodium (Lovenox) 40 mg SUBCUT DAILY [facility] Last Admin: 11/02/16 09:04 Dose: 40 mg Famotidine (Pepcid) 20 mg PO BID [facility] Last Admin: 11/02/16 20:09 Dose: 20 mg Fentanyl (Duragesic) 12 mcg TRDERM Q72H [facility] Last Admin: 11/01/16 18:07 Dose: 12 mcg Gabapentin (Neurontin) 100 mg PO BID [facility] Last Admin: 11/02/16 20:09 Dose: 100 mg Hydralazine HCl (Apresoline) 20 mg IVPUSH Q4H PRN PRN Reason: Hypertension Last Admin: 11/02/16 20:26 Dose: 20 mg Hydromorphone HCl (Dilaudid) 0.5 mg IVPUSH Q4H PRN PRN Reason: Pain (severe 7-10) Last Admin: 11/02/16 23:39 Dose: 0.5 mg Promethazine HCl 12.5 mg/ (Sodium Chloride) 50.5 mls @ 100 mls/hr IV Q6H PRN PRN Reason: Nausea/Vomiting Lisinopril (Prinivil) 10 mg PO ACBREAKFAST [facility] Last Admin: 11/03/16 06:18 Dose: 10 mg Lorazepam (Ativan) 2 mg IVPUSH Q4H PRN PRN Reason: Seizures Lorazepam (Ativan) 1 mg IV Q6H PRN PRN Reason: Anxiety Magnesium Sulfate (Pharmacy To Dose - Magnesium Replacement) 1 dose .XX ASDIRECTED [facility] Metoprolol Tartrate (Lopressor) 5 mg IVPUSH Q4H PRN PRN Reason: Tachycardia Miscellaneous Information (Remove Patch) 0 ea TRDERM Q72H [facility] Naproxen (Naprosyn) 500 mg PO BID PRN PRN Reason: Pain Ondansetron HCl (Zofran) 4 mg IV Q6H PRN PRN Reason: Nausea/Vomiting Last Admin: 11/03/16 06:23 Dose: 4 mg Oxycodone HCl (Oxycodone) 5 mg PO Q4H PRN PRN Reason: Pain (moderate 4-6) Last Admin: 11/02/16 21:08 Dose: 5 mg Polyethylene Glycol (Miralax) 17 gm PO DAILY PRN PRN Reason: Constipation Potassium Chloride (Pharmacy To Dose - Potassium Replacement) 1 dose .XX ASDIRECTED [facility] Senna/Docusate Sodium (Senna Plus) 1 tab PO BID PRN PRN Reason: Constipation Simvastatin (Zocor) 10 mg PO MOTUWETHFR [facility] Last Admin: 11/01/16 18:06 Dose: 10 mg Sodium Chloride (Saline Flush) 10 ml FLUSH ASDIRECTED PRN PRN Reason: Keep Vein Open Last Admin: 11/01/16 08:08 Dose: 10 ml Temazepam (Restoril) 15 mg PO BEDTIME PRN PRN Reason: Sleep Tizanidine HCl (Zanaflex) 4 mg PO Q6H [facility] Last Admin: 11/03/16 06:18 Dose: 4 mg Verapamil HCl (Calan Sr) 240 mg PO DAILY [facility] Last Admin: 11/02/16 09:03 Dose: 240 mg Discontinued Medications Cyclobenzaprine HCl (Flexeril) 10 mg PO ONETIME ONE Stop: 11/01/16 09:13 Last Admin: 11/01/16 09:22 Dose: 10 mg Diazepam (Valium) 5 mg IVPUSH ONETIME ONE Stop: 11/01/16 14:31 Last Admin: 11/01/16 17:47 Dose: Not Given Fentanyl (Sublimaze) 50 mcg IVPUSH ONETIME ONE Stop: 11/01/16 07:44 Last Admin: 11/01/16 08:09 Dose: 50 mcg Gabapentin (Neurontin) 100 mg PO ONETIME ONE Stop: 11/01/16 15:26 Last Admin: 11/01/16 19:28 Dose: Not Given Hydromorphone HCl (Dilaudid) 0.5 mg IVPUSH Q1H PRN PRN Reason: Pain Last Admin: 11/01/16 12:41 Dose: 0.5 mg Hydromorphone HCl (Dilaudid) 0.5 mg IVPUSH ONETIME ONE Stop: 11/01/16 14:32 Last Admin: 11/01/16 16:17 Dose: 0.5 mg Sodium Chloride (Normal Saline) 1,000 mls @ 1,000 mls/hr IV ONETIME ONE Stop: 11/01/16 08:42 Last Admin: 11/01/16 08:08 Dose: 1,000 mls/hr Ketorolac Tromethamine (Toradol) 30 mg IVPUSH ONETIME ONE Stop: 11/01/16 14:31 Last Admin: 11/01/16 16:21 Dose: 30 mg Lidocaine (Lidoderm 5%) 700 mg TOP Q24H [facility] Last Admin: 11/01/16 19:27 Dose: Not Given Methylprednisolone Sodium Succinate (Solu-Medrol) 125 mg IVPUSH ONETIME ONE Stop: 11/01/16 09:33 Last Admin: 11/01/16 09:44 Dose: 125 mg Tizanidine HCl (Zanaflex) 4 mg PO Q6H [facility] Last Admin: 11/01/16 18:07 Dose: 4 mg Tizanidine HCl (Zanaflex) 4 mg PO DAILY ONE Stop: 11/02/16 14:47 - Exam General: Alert, Oriented, Cooperative, No Acute Distress HEENT: Pupils Equal, Pupils Reactive, EOMI, Mucous Membr. Moist/[place] Neck: Supple, Trachea Midline, No JVD Lungs: Clear to Auscultation, Normal Respiratory Effort Cardiovascular: Regular Rate, Regular Rhythm GI/Abdominal Exam: Normal Bowel Sounds, Soft, Non-Tender, No Organomegaly, No Distention, No Abnormal Bruit, No Mass (Male) Exam: Deferred Back Exam: Muscle Spasm, Vertebral Tenderness, Other (Unable to fully examine due to back with movement) Extremities: Normal Inspection, Normal Range of Motion, Non-Tender, No Pedal Edema, Normal Capillary Refill Peripheral Pulses: 2+: Dorsalis Pedis (L), Dorsalis Pedis (R) Skin: Warm, Dry, Intact Neurological: No New Focal Deficit Psy/Mental Status: Alert, Normal Affect, Normal Mood - Problem List Review Problem List Initiated/Reviewed/Updated: Yes - Plan Plan:: Assessment/Plan: Acute: Intractable Back Pain With Hx/o Sciatica, Improved - Acute on Chronic: He has received multiple back injection in the past and has seen Dr. Hess in [place] for it - Risk Factor: Hx/o Degenerative Spine Changes, Chronic Back Pain, Hx/o Sciatica - Status Post Mechanical Fall - Stable Sacral Bone Fracture - Supportive Care - Anti-inflammatory agent, anti-spasm, anti-neuropathic pain and narcotic pain meds Acute Sacral Bone Fracture with Edema, still bothers him specially when they tried getting him to sit up - S/P Fall - No bladder or Bowel Incontinence - Seen on MRI - ED provider discussed case with Dr. Silveira, Neurosurgeon in [place] - Neurosurgeon felt sacral edema is not related to infection - Supportive care/Pain management and follow up with patient's specialist Dr. Hess - Consider calling Dr. Hess in AM if he back in town - May consider Ortho help with possible spinal injection Leukocytosis - Likely from stress - He is not on steroids - He is so far afebrile - Will continue to monitor S/p Nausea/Vomiting Chronic: HTN Diffuse Spinal Degenerative Change Back Pain with Radiculopathy Plan: He remains clinically stable Routine AM Labs Continue current treatment Fall Precautions Continue PT/OT SW/CM for d/c planning Code status: DNR/DNI D/c possibly in 1-2 days Patient had so much difficulty getting out of bed and could not sit up due to pain from his bottom. He may need short term rehab. PT continues to see him. At this point, they are recommending outpatient PT.
[2016-11-03] MEDS: Docusate Sodium 100 MG Cap PO SCH ×2 (10:08→20:25)
[2016-11-03] MEDS: Gabapentin 100 MG Cap PO SCH ×2 (10:09→20:25)
[2016-11-03] MEDS: Famotidine 20 MG Tab PO SCH ×2 (10:09→20:25)
[2016-11-03] MEDS: Enoxaparin 40 MG/0.4 ML Syringe SUBCUT SCH (10:09)
[2016-11-03] MEDS: oxyCODONE 5 MG Tab PO PRN ×2 (11:28→20:25)
[2016-11-03] MEDS: Verapamil 120 MG Tab.ER PO SCH (11:29)
[2016-11-03] MEDS: hydrALAZINE 20 MG/ML SDV IVPUSH PRN (20:29)
[2016-11-04] MEDS: tiZANidine 4 MG Tab PO SCH ×5 (00:20→23:52)
[2016-11-04] MEDS: Lisinopril 10 MG Tab PO SCH (06:41)
[2016-11-04] MEDS ORDERED: Diphtheria,Pertussis(Acell),Tetanus Vaccine 0.5 ML SDV IM ONE (08:30)
[2016-11-04] MEDS: Docusate Sodium 100 MG Cap PO SCH ×2 (08:33→20:49)
[2016-11-04] MEDS: Famotidine 20 MG Tab PO SCH ×2 (08:33→20:49)
[2016-11-04] MEDS: Verapamil 120 MG Tab.ER PO SCH (08:33)
[2016-11-04] MEDS: Polyethylene Glycol 3350 Powder 17 GM Packet PO PRN (08:33)
[2016-11-04] MEDS: oxyCODONE 5 MG Tab PO PRN ×2 (08:34→15:18)
[2016-11-04] MEDS: Enoxaparin 40 MG/0.4 ML Syringe SUBCUT SCH (08:34)
[2016-11-04] MEDS: Gabapentin 100 MG Cap PO SCH ×2 (08:34→20:49)
--- NOTE | 2016-11-04 13:50 | PCM.PN ---
- General Info Date of Service: 11/04/16 Admission Dx/Problem (Free Text): Acute Back Pain Patient seen this morning on team rounding. Continues to have pain with attempts to get up/stand up and sitting up. He is requiring 2 assist to sit up and stand up. PT attempted to teach log rolling but was unable to do this without increased pain. Once he is up he is able to ambulate with walker with moderate pain per PT reports. He continues to have intermittent radiculopathy down his left leg to mid calf area. No bowel or bladder dysfunction. Feels pain overall may be slightly improved but is vague when trying to answer this. Functional Status: Reports: Tolerating Diet, Ambulating, Urinating - Review of Systems General: Reports: Weakness HEENT: Reports: No Symptoms Pulmonary: Reports: No Symptoms. Denies: Shortness of Breath Cardiovascular: Reports: No Symptoms. Denies: Chest Pain, Palpitations Gastrointestinal: Reports: No Symptoms. Denies: Abdominal Pain, Diarrhea, Nausea, Vomiting Genitourinary: Reports: No Symptoms. Denies: Incontinence, Retention Musculoskeletal: Reports: Back Pain, Leg Pain Neurological: Reports: Tingling, Difficulty Walking Psychiatric: Reports: No Symptoms - Patient Data Vitals - Most Recent: Last Vital Signs Temp 97.3 F 11/04/16 08:31 Pulse 83 11/04/16 08:33 Resp 16 11/04/16 08:31 BP 96/55 L 11/04/16 08:33 Pulse Ox 94 L 11/04/16 08:31 Weight - Most Recent: 195 lb 4.8 oz I&O - Last 24 Hours: Intake & Output 11/03/16 11/04/16 11/04/16 22:59 06:59 14:59 Intake Total 420 1000 120 Output Total 550 700 Balance -130 300 120 Lab Results Last 24 Hours: Laboratory Results - last 24 hr 11/04/16 Range/Units 06:10 Sodium 138 (136-145) mEq/L Potassium 4.6 (3.5-5.1) mEq/L Chloride 102 (98-107) mEq/L Carbon Dioxide 31 (21-32) mEq/L Anion Gap 9.6 (5-15) BUN 27 H (7-18) mg/dL Creatinine 1.2 (0.7-1.3) mg/dL Est Cr Clr Drug Dosing 51.54 mL/min Estimated GFR (MDRD) 58 (>60) mL/min BUN/Creatinine Ratio 22.5 H (14-18) Glucose 98 (83-115) mg/dL Calcium 9.0 (8.5-10.1) mg/dL Magnesium 2.3 (1.8-2.4) mg/dl Med Orders - Current: Current Medications Acetaminophen (Tylenol) 650 mg PO Q4H PRN PRN Reason: Pain (Mild 1-3)/fever Albuterol/Ipratropium (Duoneb 3.0-0.5 Mg/3 Ml) 3 ml NEB Q4H PRN PRN Reason: Shortness Of Breath/wheezing Bisacodyl (Dulcolax) 5 mg PO DAILY PRN PRN Reason: Constipation Docusate Sodium (Colace) 100 mg PO BID [facility] Last Admin: 11/04/16 08:33 Dose: 100 mg Enoxaparin Sodium (Lovenox) 40 mg SUBCUT DAILY [facility] Last Admin: 11/04/16 08:34 Dose: 40 mg Famotidine (Pepcid) 20 mg PO BID [facility] Last Admin: 11/04/16 08:33 Dose: 20 mg Fentanyl (Duragesic) 12 mcg TRDERM Q72H [facility] Last Admin: 11/01/16 18:07 Dose: 12 mcg Gabapentin (Neurontin) 100 mg PO BID [facility] Last Admin: 11/04/16 08:34 Dose: 100 mg Hydralazine HCl (Apresoline) 20 mg IVPUSH Q4H PRN PRN Reason: Hypertension Last Admin: 11/03/16 20:29 Dose: 20 mg Hydromorphone HCl (Dilaudid) 0.5 mg IVPUSH Q4H PRN PRN Reason: Pain (severe 7-10) Last Admin: 11/02/16 23:39 Dose: 0.5 mg Promethazine HCl 12.5 mg/ (Sodium Chloride) 50.5 mls @ 100 mls/hr IV Q6H PRN PRN Reason: Nausea/Vomiting Lisinopril (Prinivil) 10 mg PO ACBREAKFAST [facility] Last Admin: 11/04/16 06:41 Dose: 10 mg Lorazepam (Ativan) 2 mg IVPUSH Q4H PRN PRN Reason: Seizures Lorazepam (Ativan) 1 mg IV Q6H PRN PRN Reason: Anxiety Magnesium Sulfate (Pharmacy To Dose - Magnesium Replacement) 1 dose .XX ASDIRECTED [facility] Metoprolol Tartrate (Lopressor) 5 mg IVPUSH Q4H PRN PRN Reason: Tachycardia Miscellaneous Information (Remove Patch) 0 ea TRDERM Q72H [facility] Naproxen (Naprosyn) 500 mg PO BID PRN PRN Reason: Pain Ondansetron HCl (Zofran) 4 mg IV Q6H PRN PRN Reason: Nausea/Vomiting Last Admin: 11/03/16 06:23 Dose: 4 mg Oxycodone HCl (Oxycodone) 5 mg PO Q4H PRN PRN Reason: Pain (moderate 4-6) Last Admin: 11/04/16 08:34 Dose: 5 mg Polyethylene Glycol (Miralax) 17 gm PO DAILY PRN PRN Reason: Constipation Last Admin: 11/04/16 08:33 Dose: 17 gm Potassium Chloride (Pharmacy To Dose - Potassium Replacement) 1 dose .XX ASDIRECTED [facility] Senna/Docusate Sodium (Senna Plus) 1 tab PO BID PRN PRN Reason: Constipation Simvastatin (Zocor) 10 mg PO MOTUWETHFR [facility] Last Admin: 11/01/16 18:06 Dose: 10 mg Sodium Chloride (Saline Flush) 10 ml FLUSH ASDIRECTED PRN PRN Reason: Keep Vein Open Last Admin: 11/01/16 08:08 Dose: 10 ml Temazepam (Restoril) 15 mg PO BEDTIME PRN PRN Reason: Sleep Tizanidine HCl (Zanaflex) 4 mg PO Q6H [facility] Last Admin: 11/04/16 12:37 Dose: 4 mg Verapamil HCl (Calan Sr) 240 mg PO DAILY [facility] Last Admin: 11/04/16 08:33 Dose: Not Given Discontinued Medications Cyclobenzaprine HCl (Flexeril) 10 mg PO ONETIME ONE Stop: 11/01/16 09:13 Last Admin: 11/01/16 09:22 Dose: 10 mg Diazepam (Valium) 5 mg IVPUSH ONETIME ONE Stop: 11/01/16 14:31 Last Admin: 11/01/16 17:47 Dose: Not Given Diphtheria/Tetanus/Acell Pertussis (Adacel) 0.5 ml IM .ONCE ONE Stop: 08/07/17 08:31 Fentanyl (Sublimaze) 50 mcg IVPUSH ONETIME ONE Stop: 11/01/16 07:44 Last Admin: 11/01/16 08:09 Dose: 50 mcg Gabapentin (Neurontin) 100 mg PO ONETIME ONE Stop: 11/01/16 15:26 Last Admin: 11/01/16 19:28 Dose: Not Given Hydromorphone HCl (Dilaudid) 0.5 mg IVPUSH Q1H PRN PRN Reason: Pain Last Admin: 11/01/16 12:41 Dose: 0.5 mg Hydromorphone HCl (Dilaudid) 0.5 mg IVPUSH ONETIME ONE Stop: 11/01/16 14:32 Last Admin: 11/01/16 16:17 Dose: 0.5 mg Sodium Chloride (Normal Saline) 1,000 mls @ 1,000 mls/hr IV ONETIME ONE Stop: 11/01/16 08:42 Last Admin: 11/01/16 08:08 Dose: 1,000 mls/hr Ketorolac Tromethamine (Toradol) 30 mg IVPUSH ONETIME ONE Stop: 11/01/16 14:31 Last Admin: 11/01/16 16:21 Dose: 30 mg Lidocaine (Lidoderm 5%) 700 mg TOP Q24H [facility] Last Admin: 11/01/16 19:27 Dose: Not Given Methylprednisolone Sodium Succinate (Solu-Medrol) 125 mg IVPUSH ONETIME ONE Stop: 11/01/16 09:33 Last Admin: 11/01/16 09:44 Dose: 125 mg Tizanidine HCl (Zanaflex) 4 mg PO Q6H [facility] Last Admin: 11/01/16 18:07 Dose: 4 mg Tizanidine HCl (Zanaflex) 4 mg PO DAILY ONE Stop: 11/02/16 14:47 - Exam Quality Assessment: DVT Prophylaxis General: Alert, Oriented, Cooperative HEENT: Pupils Equal, Pupils Reactive, EOMI, Mucous Membr. Moist/[place] Neck: Supple Lungs: Clear to Auscultation, Normal Respiratory Effort Cardiovascular: Regular Rate, Regular Rhythm GI/Abdominal Exam: Normal Bowel Sounds, Soft, Non-Tender, No Organomegaly (Male) Exam: Deferred Extremities: Normal Inspection, No Pedal Edema Peripheral Pulses: 2+: Dorsalis Pedis (L), Dorsalis Pedis (R) Psy/Mental Status: Alert, Normal Affect, Normal Mood - Problem List & Annotations (1) Sacral fracture SNOMED Code(s): 472533013 Code(s): S32.10XA - UNSP FRACTURE OF SACRUM, INIT ENCNTR FOR CLOSED FRACTURE Status: Acute Priority: High Current Visit: Yes Qualifiers: Encounter type: initial encounter Zone of sacrum fracture: unspecified portion of sacrum Fracture type: closed Qualified Code(s): S32.10XA - Unspecified fracture of sacrum, initial encounter for closed fracture (2) Intractable pain SNOMED Code(s): 96860870 Code(s): R52 - PAIN, UNSPECIFIED Status: Acute Priority: High Current Visit: Yes (3) Low back pain SNOMED Code(s): 603530996 Code(s): M54.5 - LOW BACK PAIN Status: Acute Priority: High Current Visit: Yes Qualifiers: Chronicity: acute Back pain laterality: bilateral Sciatica presence: with sciatica Sciatica laterality: sciatica of left side Qualified Code(s): M54.42 - Lumbago with sciatica, left side (4) Sciatica SNOMED Code(s): 97339139 Code(s): M54.30 - SCIATICA, UNSPECIFIED SIDE Status: Acute Priority: High Current Visit: Yes Qualifiers: Laterality: left Qualified Code(s): M54.32 - Sciatica, left side - Problem List Review Problem List Initiated/Reviewed/Updated: Yes - Plan Plan:: Assessment/Plan: Acute: Intractable Back Pain With Hx/o Sciatica, Improved - Acute on Chronic: He has received multiple back injection in the past and has seen Dr. Hess in [place] for it - Risk Factor: Hx/o Degenerative Spine Changes, Chronic Back Pain, Hx/o Sciatica - Status Post Mechanical Fall - Stable Sacral Bone Fracture - Supportive Care - Anti-inflammatory agent, anti-spasm, anti-neuropathic pain and narcotic pain meds Acute Sacral Bone Fracture with Edema, still bothers him specially when they tried getting him to sit up - S/P Fall - No bladder or Bowel Incontinence - Seen on MRI - ED provider discussed case with Dr. Silveira, Neurosurgeon in [place] - Neurosurgeon felt sacral edema is not related to infection - Supportive care/Pain management and follow up with patient's specialist Dr. Hess; likely as outpatient Leukocytosis - Likely from stress - He is not on steroids - He is so far afebrile - Will continue to monitor S/p Nausea/Vomiting Chronic: HTN Diffuse Spinal Degenerative Change Back Pain with Radiculopathy Plan: He remains clinically stable Routine AM Labs Continue current treatment Fall Precautions Continue PT/OT SW/CM for d/c planning Code status: DNR/DNI D/c possibly in 1-2 days Patient had so much difficulty getting out of bed and could not sit up due to pain from his bottom. He may need short term rehab. PT continues to see him. At this point, they are recommending outpatient PT.
[2016-11-04] MEDS: fentaNYL 12 MCG/HR Transdermal Patch TRDERM SCH (15:17)
[2016-11-04] MEDS: Simvastatin 10 MG Tab PO SCH (15:18)
[2016-11-04] MEDS: Naproxen 500 MG Tab PO PRN (20:50)
[2016-11-05] MEDS ORDERED: Furosemide 20 MG/2 ML VIAL IVPUSH ONE (00:13)
[2016-11-05] MEDS ORDERED: amLODIPine 5 MG Tab PO ONE (00:14)
[2016-11-05] MEDS: tiZANidine 4 MG Tab PO SCH ×4 (05:38→23:32)
[2016-11-05] MEDS: Lisinopril 10 MG Tab PO SCH (05:38)
--- NOTE | 2016-11-05 07:41 | PCM.PN ---
- General Info Date of Service: 11/05/16 Admission Dx/Problem (Free Text): Acute Back Pain Subjective Update: Follow Up Functional Status: Reports: Pain Controlled, Tolerating Diet, Urinating. Denies : Ambulating - Review of Systems General: Denies: Fever, Weakness, Fatigue, Malaise, Chills HEENT: Reports: No Symptoms Pulmonary: Denies: Shortness of Breath Gastrointestinal: Denies: Abdominal Pain, Nausea, Vomiting Genitourinary: Reports: No Symptoms Musculoskeletal: Reports: Back Pain Skin: Reports: No Symptoms Neurological: Reports: Gait Disturbance. Denies: Confusion, Weakness Psychiatric: Denies: Depression, Anxiety, Hallucinations Systems Review Comment:: No overnight or acute issues. Pain is controlled. He finally had a bowel movement after 5 attempts. He has been ambulating. He still has trouble sitting up but he is much better now. - Patient Data Vitals - Most Recent: Last Vital Signs Temp 36.4 C 11/05/16 04:51 Pulse 72 11/05/16 04:51 Resp 18 11/05/16 04:51 BP 122/73 11/05/16 05:38 Pulse Ox 95 11/05/16 04:51 Weight - Most Recent: 88.677 kg I&O - Last 24 Hours: Intake & Output 11/04/16 11/05/16 11/05/16 22:59 06:59 14:59 Intake Total 1220 1100 Output Total 1200 1675 Balance 20 -575 Lab Results Last 24 Hours: Laboratory Results - last 24 hr 11/05/16 11/05/16 Range/Units 04:35 04:35 WBC 9.55 H (4.23-9.07) K/mm3 RBC 4.82 (4.63-6.08) M/mm3 Hgb 14.9 (13.7-17.5) gm/L Hct 44.9 (40.1-51.0) % MCV 93.2 H (79.0-92.2) fl MCH 30.9 (25.7-32.2) pg MCHC 33.2 (32.2-35.5) g/dl RDW Std Deviation 45.4 H (35.1-43.9) fL Plt Count 196 (163-337) K/mm3 MPV 11.0 (9.4-12.3) fl Neut % (Auto) 64.0 (34.0-67.9) % Lymph % (Auto) 14.0 L (21.8-53.1) % [place] % (Auto) 17.7 H (5.3-12.2) % Eos % (Auto) 3.2 (0.8-7.0) Baso % (Auto) 0.3 (0.1-1.2) % Neut # (Auto) 6.10 H (1.78-5.38) K/mm3 Lymph # (Auto) 1.34 (1.32-3.57) K/mm3 [place] # (Auto) 1.69 H (0.30-0.82) K/mm3 Eos # (Auto) 0.31 (0.04-0.54) K/mm3 Baso # (Auto) 0.03 (0.01-0.08) K/mm3 Manual Slide Review Normal smear Sodium 137 (136-145) mEq/L Potassium 4.1 (3.5-5.1) mEq/L Chloride 101 (98-107) mEq/L Carbon Dioxide 28 (21-32) mEq/L Anion Gap 12.1 (5-15) BUN 23 H (7-18) mg/dL Creatinine 1.1 (0.7-1.3) mg/dL Est Cr Clr Drug Dosing 56.22 mL/min Estimated GFR (MDRD) > 60 (>60) mL/min BUN/Creatinine Ratio 20.9 H (14-18) Glucose 102 (83-115) mg/dL Calcium 8.7 (8.5-10.1) mg/dL Med Orders - Current: Current Medications Acetaminophen (Tylenol) 650 mg PO Q4H PRN PRN Reason: Pain (Mild 1-3)/fever Albuterol/Ipratropium (Duoneb 3.0-0.5 Mg/3 Ml) 3 ml NEB Q4H PRN PRN Reason: Shortness Of Breath/wheezing Bisacodyl (Dulcolax) 5 mg PO DAILY PRN PRN Reason: Constipation Docusate Sodium (Colace) 100 mg PO BID [facility] Last Admin: 11/04/16 20:49 Dose: 100 mg Enoxaparin Sodium (Lovenox) 40 mg SUBCUT DAILY [facility] Last Admin: 11/04/16 08:34 Dose: 40 mg Famotidine (Pepcid) 20 mg PO BID [facility] Last Admin: 11/04/16 20:49 Dose: 20 mg Fentanyl (Duragesic) 12 mcg TRDERM Q72H [facility] Last Admin: 11/04/16 15:17 Dose: 12 mcg Gabapentin (Neurontin) 100 mg PO BID [facility] Last Admin: 11/04/16 20:49 Dose: 100 mg Hydralazine HCl (Apresoline) 20 mg IVPUSH Q4H PRN PRN Reason: Hypertension Last Admin: 11/03/16 20:29 Dose: 20 mg Hydromorphone HCl (Dilaudid) 0.5 mg IVPUSH Q4H PRN PRN Reason: Pain (severe 7-10) Last Admin: 11/02/16 23:39 Dose: 0.5 mg Promethazine HCl 12.5 mg/ (Sodium Chloride) 50.5 mls @ 100 mls/hr IV Q6H PRN PRN Reason: Nausea/Vomiting Lisinopril (Prinivil) 10 mg PO ACBREAKFAST [facility] Last Admin: 11/05/16 05:38 Dose: 10 mg Lorazepam (Ativan) 2 mg IVPUSH Q4H PRN PRN Reason: Seizures Lorazepam (Ativan) 1 mg IV Q6H PRN PRN Reason: Anxiety Magnesium Sulfate (Pharmacy To Dose - Magnesium Replacement) 1 dose .XX ASDIRECTED [facility] Metoprolol Tartrate (Lopressor) 5 mg IVPUSH Q4H PRN PRN Reason: Tachycardia Miscellaneous Information (Remove Patch) 0 ea TRDERM Q72H [facility] Last Admin: 11/04/16 15:19 Dose: 1 ea Naproxen (Naprosyn) 500 mg PO BID PRN PRN Reason: Pain Last Admin: 11/04/16 20:50 Dose: 500 mg Ondansetron HCl (Zofran) 4 mg IV Q6H PRN PRN Reason: Nausea/Vomiting Last Admin: 11/03/16 06:23 Dose: 4 mg Oxycodone HCl (Oxycodone) 5 mg PO Q4H PRN PRN Reason: Pain (moderate 4-6) Last Admin: 11/04/16 15:18 Dose: 5 mg Polyethylene Glycol (Miralax) 17 gm PO DAILY PRN PRN Reason: Constipation Last Admin: 11/04/16 08:33 Dose: 17 gm Potassium Chloride (Pharmacy To Dose - Potassium Replacement) 1 dose .XX ASDIRECTED [facility] Senna/Docusate Sodium (Senna Plus) 1 tab PO BID PRN PRN Reason: Constipation Simvastatin (Zocor) 10 mg PO MOTUWETHFR [facility] Last Admin: 11/04/16 15:18 Dose: 10 mg Sodium Chloride (Saline Flush) 10 ml FLUSH ASDIRECTED PRN PRN Reason: Keep Vein Open Last Admin: 11/01/16 08:08 Dose: 10 ml Temazepam (Restoril) 15 mg PO BEDTIME PRN PRN Reason: Sleep Tizanidine HCl (Zanaflex) 4 mg PO Q6H [facility] Last Admin: 11/05/16 05:38 Dose: 4 mg Verapamil HCl (Calan Sr) 240 mg PO DAILY [facility] Last Admin: 11/04/16 08:33 Dose: Not Given Discontinued Medications Amlodipine Besylate (Norvasc) 5 mg PO ONETIME ONE Stop: 11/05/16 00:15 Last Admin: 11/05/16 01:03 Dose: 5 mg Cyclobenzaprine HCl (Flexeril) 10 mg PO ONETIME ONE Stop: 11/01/16 09:13 Last Admin: 11/01/16 09:22 Dose: 10 mg Diazepam (Valium) 5 mg IVPUSH ONETIME ONE Stop: 11/01/16 14:31 Last Admin: 11/01/16 17:47 Dose: Not Given Diphtheria/Tetanus/Acell Pertussis (Adacel) 0.5 ml IM .ONCE ONE Stop: 11/04/16 08:31 Fentanyl (Sublimaze) 50 mcg IVPUSH ONETIME ONE Stop: 11/01/16 07:44 Last Admin: 11/01/16 08:09 Dose: 50 mcg Furosemide (Lasix) 20 mg IVPUSH ONETIME ONE Stop: 11/05/16 00:14 Last Admin: 11/05/16 01:03 Dose: 20 mg Gabapentin (Neurontin) 100 mg PO ONETIME ONE Stop: 11/01/16 15:26 Last Admin: 11/01/16 19:28 Dose: Not Given Hydromorphone HCl (Dilaudid) 0.5 mg IVPUSH Q1H PRN PRN Reason: Pain Last Admin: 11/01/16 12:41 Dose: 0.5 mg Hydromorphone HCl (Dilaudid) 0.5 mg IVPUSH ONETIME ONE Stop: 11/01/16 14:32 Last Admin: 11/01/16 16:17 Dose: 0.5 mg Sodium Chloride (Normal Saline) 1,000 mls @ 1,000 mls/hr IV ONETIME ONE Stop: 11/01/16 08:42 Last Admin: 11/01/16 08:08 Dose: 1,000 mls/hr Ketorolac Tromethamine (Toradol) 30 mg IVPUSH ONETIME ONE Stop: 11/01/16 14:31 Last Admin: 11/01/16 16:21 Dose: 30 mg Lidocaine (Lidoderm 5%) 700 mg TOP Q24H [facility] Last Admin: 11/01/16 19:27 Dose: Not Given Methylprednisolone Sodium Succinate (Solu-Medrol) 125 mg IVPUSH ONETIME ONE Stop: 11/01/16 09:33 Last Admin: 11/01/16 09:44 Dose: 125 mg Tizanidine HCl (Zanaflex) 4 mg PO Q6H [facility] Last Admin: 11/01/16 18:07 Dose: 4 mg Tizanidine HCl (Zanaflex) 4 mg PO DAILY ONE Stop: 11/02/16 14:47 - Exam General: Alert, Oriented, Cooperative, No Acute Distress HEENT: Pupils Equal, Pupils Reactive, EOMI, Mucous Membr. Moist/[place] Neck: Supple, Trachea Midline, No JVD, No Thyromegaly Lungs: Clear to Auscultation, Normal Respiratory Effort Cardiovascular: Regular Rate, Regular Rhythm GI/Abdominal Exam: Normal Bowel Sounds, Soft, Non-Tender, No Organomegaly, No Distention, No Abnormal Bruit, No Mass (Male) Exam: Deferred Back Exam: Normal Inspection, Decreased Range of Motion Extremities: Normal Inspection, Normal Range of Motion, Non-Tender, No Pedal Edema, Normal Capillary Refill Peripheral Pulses: 2+: Dorsalis Pedis (L), Dorsalis Pedis (R) Skin: Warm, Dry, Intact Neurological: No New Focal Deficit Psy/Mental Status: Alert, Normal Affect, Normal Mood - Problem List Review Problem List Initiated/Reviewed/Updated: Yes - My Orders Last 24 Hours: My Active Orders 11/04/16 07:47 Vaccines to be Administered [RC] 1000 11/06/16 05:11 BMP [BASIC METABOLIC PANEL,BMP] [CHEM] AM - Plan Plan:: Assessment/Plan: Acute: Intractable Back Pain With Hx/o Sciatica, Much Improved - Acute on Chronic: He has received multiple back injection in the past and has seen Dr. Hess in [place] for it - Risk Factor: Hx/o Degenerative Spine Changes, Chronic Back Pain, Hx/o Sciatica - Status Post Mechanical Fall - Stable Sacral Bone Fracture - Supportive Care - Anti-inflammatory agent, anti-spasm, anti-neuropathic pain and narcotic pain meds Acute Sacral Bone Fracture with Edema, Improved - S/P Fall - No bladder or Bowel Incontinence - Seen on MRI - ED provider discussed case with Dr. Silveira, Neurosurgeon in [place] - Neurosurgeon felt sacral edema is not related to infection - Supportive care/Pain management and follow up outpatient with patient's specialist Dr. Hess Leukocytosis, Continues to improve - Likely from stress - He is not on steroids - He is so far afebrile S/p Nausea/Vomiting Chronic: HTN Diffuse Spinal Degenerative Change Back Pain with Radiculopathy Plan: He remains clinically stable and doing much better today Routine AM Labs Continue current treatment Fall Precautions Continue PT/OT SW/CM for d/c planning Code status: DNR/DNI LOS > 96 hrs due to slow response to treatment. He could benefit with additional PT/OT prior to discharge.
[2016-11-05] MEDS: Naproxen 500 MG Tab PO PRN (09:18)
[2016-11-05] MEDS: oxyCODONE 5 MG Tab PO PRN ×2 (09:19→21:11)
[2016-11-05] MEDS: Famotidine 20 MG Tab PO SCH ×2 (09:20→21:11)
[2016-11-05] MEDS: Verapamil 120 MG Tab.ER PO SCH (09:20)
[2016-11-05] MEDS: Polyethylene Glycol 3350 Powder 17 GM Packet PO PRN (09:21)
[2016-11-05] MEDS: Docusate Sodium 100 MG Cap PO SCH ×2 (09:21→21:13)
[2016-11-05] MEDS: Enoxaparin 40 MG/0.4 ML Syringe SUBCUT SCH (09:21)
[2016-11-05] MEDS: Gabapentin 100 MG Cap PO SCH ×2 (09:21→21:13)
[2016-11-05] MEDS: Simvastatin 10 MG Tab PO SCH ×2 (13:19→15:31)
[2016-11-06] MEDS: Lisinopril 10 MG Tab PO SCH ×2 (03:40→05:29)
[2016-11-06] MEDS: tiZANidine 4 MG Tab PO SCH ×2 (05:11→12:05)
[2016-11-06] MEDS: Naproxen 500 MG Tab PO PRN (05:43)
--- NOTE | 2016-11-06 06:58 | PCM.DCSUM1 ---
Discharge Summary - Hospital Course Brief History: This is a 81 yo elderly white male with past medical hx/o hypertension and chronic back pain who presents to the emergency department with worsening back pain and was admitted of medical management of intractable pain. - Discharge Data Discharge Date: 11/06/16 Discharge Disposition: Home, Self-Care 01 Condition: Good - Discharge Diagnosis/Problem(s) (1) Intractable pain SNOMED Code(s): 19551498 ICD Code: R52 - PAIN, UNSPECIFIED Status: Acute Priority: High (2) Sacral fracture SNOMED Code(s): 934854844 ICD Code: S32.10XA - UNSP FRACTURE OF SACRUM, INIT ENCNTR FOR CLOSED FRACTURE Status: Acute Priority: High Qualifiers: Encounter type: initial encounter Zone of sacrum fracture: unspecified portion of sacrum Fracture type: closed Qualified Code(s): S32.10XA - Unspecified fracture of sacrum, initial encounter for closed fracture (3) Sciatica SNOMED Code(s): 95858732 ICD Code: M54.30 - SCIATICA, UNSPECIFIED SIDE Status: Chronic Priority: High Qualifiers: Laterality: left Qualified Code(s): M54.32 - Sciatica, left side (4) Leukocytosis, unspecified SNOMED Code(s): 447418114, 908387950 ICD Code: D72.829 - ELEVATED WHITE BLOOD CELL COUNT, UNSPECIFIED Status: Acute Qualifiers: Leukocytosis type: unspecified Qualified Code(s): D72.829 - Elevated white blood cell count, unspecified (5) Nausea & vomiting SNOMED Code(s): 60927908 ICD Code: R11.2 - NAUSEA WITH VOMITING, UNSPECIFIED Status: Resolved Qualifiers: Vomiting type: unspecified Vomiting Intractability: non-intractable Qualified Code(s): R11.2 - Nausea with vomiting, unspecified - Patient Summary/Data Operative Procedure(s) Performed: None Consults: Tele-consult with Dr. Hess Recommended Follow-up Testing/Procedures: None Hospital Course: The patient was primarily admitted for medical management of intractable back pain with intermittent radiculopathy. Imaging studies showed the patient had stable sacral fracture. [facility] neurosurgeon was consulted and recommended conservative management. Patient was provided supportive care and medications to manage his pain. PT/OT were consulted for exercise and mobilization. Initially patient refused to follow PT/OT's instructions. But after we optimized his pain regimen, his back pain slowly improved. Patient was able to ambulate, stand and sit up without much pain. He also had a good bowel movement yesterday after laying in bed for a few days now. During this admission Dr. Hess was consulted per patient's request. However, he recommended no additional testing or treatment but to continue current medical management. Patient's hospital course was uncomplicated. The rest of his chronic medical illness remained stable during this admission. He is now ready for discharge. He will go home with the same medication regimen as he was on here for continued treatment of his intractable back pain. He was advised to continue PT/ OT outpatient. He was further advised to follow-up with his primary care doctor and to see Dr. Hess in [facility] follow-up on his sacral fracture. The patient expressed understanding and in agreement sudden with the plans as discussed above. All questions were answered. - Patient Instructions Diet: Usual Diet as Tolerated Activity: As Tolerated Driving: Do Not Drive Showering/Bathing: May Shower Notify Provider of: Fever, Increased Pain, Swelling and Redness, Nausea and/or Vomiting Other/Special Instructions: - Please take all medications as directed. - Avoid alcohol while you are taking all your pain medications. - Caution on operating any motor vehicles or machines, newly prescribed medications could imapir your memory or attention. - Follow PT/OT recommendations. - Follow up with your family doctor in 1-2 week. - Recommend you see Dr. Hess in [place] after discharge - Discharge Plan Prescriptions/Med Rec: Bisacodyl 10 mg RC DAILY PRN #10 supp.rect PRN Reason: Constipation Docusate Sodium [Colace] 100 mg PO BID #60 cap Gabapentin [Neurontin] 100 mg PO BID #60 cap Hydrochlorothiazide 12.5 mg PO BID #60 cap fentaNYL [Duragesic] 12 mcg TRDERM Q72H #1 patch tiZANidine [Zanaflex] 4 mg PO Q6H PRN #60 tablet PRN Reason: Other Home Medications: Home Meds Hydrocodone/Acetaminophen [Hydrocodon-Acetaminophen 5-325] 1 each PO QID PRN # 24 tablet 10/31/16 [Rx] Moexipril [Univasc] 15 mg PO ACBREAKFAST 10/31/16 [History] Naproxen Sodium [Aleve] 220 mg PO BID PRN #60 tab 10/31/16 [Rx] Pravastatin [Pravachol] 10 mg PO MOTUWETHFR 10/31/16 [History] Verapamil HCl [Verelan] 240 mg PO DAILY 10/31/16 [History] Bisacodyl 10 mg RC DAILY PRN #10 supp.rect 11/06/16 [Rx] Docusate Sodium [Colace] 100 mg PO BID #60 cap 11/06/16 [Rx] Gabapentin [Neurontin] 100 mg PO BID #60 cap 11/06/16 [Rx] Hydrochlorothiazide 12.5 mg PO BID #60 cap 11/06/16 [Rx] fentaNYL [Duragesic] 12 mcg TRDERM Q72H #1 patch 11/06/16 [Rx] tiZANidine [Zanaflex] 4 mg PO Q6H PRN #60 tablet 11/06/16 [Rx] Patient Handouts: Simple Pelvic Fracture, Adult Referrals: Charlie Wilkerson MD [Primary Care Provider] - Jeroem Hess MD [Consulting Physician] - 11/19/16 1:30 pm (Neurosurgery referral. This appt is in Central Standard Time, 12:30 pm Mountain Time. Please arrive 15 minutes early at the [facility], [address] - Discharge Summary/Plan Comment DC Time >30 min.: Yes (45 mins) Discharge Summary/Plan Comment: Discharge to Home - General Info Date of Service: 11/06/16 Admission Dx/Problem (Free Text: Acute Back Pain Subjective Update: Follow Up Functional Status: Reports: Pain Controlled, Tolerating Diet, Ambulating, Urinating. Denies: New Symptoms - Review of Systems General: Denies: Fever, Weakness, Fatigue, Malaise, Chills HEENT: Reports: No Symptoms Pulmonary: Denies: Shortness of Breath Cardiovascular: Denies: Chest Pain Gastrointestinal: Reports: Flatus. Denies: Abdominal Pain, Constipation, Difficulty Swallowing, Nausea, Vomiting Genitourinary: Reports: No Symptoms Musculoskeletal: Reports: Back Pain, Leg Pain Skin: Denies: Cyanosis Neurological: Reports: Gait Disturbance. Denies: Confusion, Difficulty Walking , Weakness Psychiatric: Reports: No Symptoms - Patient Data Vitals - Most Recent: Last Vital Signs Temp 36.3 C 11/06/16 03:31 Pulse 25 L 11/06/16 03:31 Resp 14 11/06/16 03:31 BP 160/90 H 11/06/16 05:11 Pulse Ox 95 11/06/16 03:31 Weight - Most Recent: 88.224 kg I&O - Last 24 hours: Intake & Output 11/05/16 11/05/16 11/06/16 14:59 22:59 06:59 Intake Total 120 920 500 Output Total 800 2100 Balance 120 120 -1600 Lab Results - Last 24 hrs: Laboratory Results - last 24 hr 11/06/16 Range/Units 05:34 Sodium 136 (136-145) mEq/L Potassium 3.9 (3.5-5.1) mEq/L Chloride 101 (98-107) mEq/L Carbon Dioxide 29 (21-32) mEq/L Anion Gap 9.9 (5-15) BUN 17 (7-18) mg/dL Creatinine 1.1 (0.7-1.3) mg/dL Est Cr Clr Drug Dosing 56.22 mL/min Estimated GFR (MDRD) > 60 (>60) mL/min BUN/Creatinine Ratio 15.5 (14-18) Glucose 103 (83-115) mg/dL Calcium 9.2 (8.5-10.1) mg/dL Med Orders - Current: Current Medications Acetaminophen (Tylenol) 650 mg PO Q4H PRN PRN Reason: Pain (Mild 1-3)/fever Albuterol/Ipratropium (Duoneb 3.0-0.5 Mg/3 Ml) 3 ml NEB Q4H PRN PRN Reason: Shortness Of Breath/wheezing Bisacodyl (Dulcolax) 5 mg PO DAILY PRN PRN Reason: Constipation Docusate Sodium (Colace) 100 mg PO BID [facility] Last Admin: 11/05/16 21:13 Dose: 100 mg Enoxaparin Sodium (Lovenox) 40 mg SUBCUT DAILY [facility] Last Admin: 11/05/16 09:21 Dose: 40 mg Famotidine (Pepcid) 20 mg PO BID [facility] Last Admin: 11/05/16 21:11 Dose: 20 mg Fentanyl (Duragesic) 12 mcg TRDERM Q72H [facility] Last Admin: 11/04/16 15:17 Dose: 12 mcg Gabapentin (Neurontin) 100 mg PO BID [facility] Last Admin: 11/05/16 21:13 Dose: 100 mg Hydromorphone HCl (Dilaudid) 0.5 mg IVPUSH Q4H PRN PRN Reason: Pain (severe 7-10) Last Admin: 11/02/16 23:39 Dose: 0.5 mg Promethazine HCl 12.5 mg/ (Sodium Chloride) 50.5 mls @ 100 mls/hr IV Q6H PRN PRN Reason: Nausea/Vomiting Lisinopril (Prinivil) 10 mg PO ACBREAKFAST [facility] Last Admin: 11/06/16 05:29 Dose: Not Given Lorazepam (Ativan) 2 mg IVPUSH Q4H PRN PRN Reason: Seizures Lorazepam (Ativan) 1 mg IV Q6H PRN PRN Reason: Anxiety Magnesium Sulfate (Pharmacy To Dose - Magnesium Replacement) 1 dose .XX ASDIRECTED [facility] Metoprolol Tartrate (Lopressor) 5 mg IVPUSH Q4H PRN PRN Reason: Tachycardia Miscellaneous Information (Remove Patch) 0 ea TRDERM Q72H [facility] Last Admin: 11/04/16 15:19 Dose: 1 ea Naproxen (Naprosyn) 500 mg PO BID PRN PRN Reason: Pain Last Admin: 11/06/16 05:43 Dose: 500 mg Ondansetron HCl (Zofran) 4 mg IV Q6H PRN PRN Reason: Nausea/Vomiting Last Admin: 11/03/16 06:23 Dose: 4 mg Oxycodone HCl (Oxycodone) 5 mg PO Q4H PRN PRN Reason: Pain (moderate 4-6) Last Admin: 11/05/16 21:11 Dose: 5 mg Polyethylene Glycol (Miralax) 17 gm PO DAILY PRN PRN Reason: Constipation Last Admin: 11/05/16 09:21 Dose: 17 gm Potassium Chloride (Pharmacy To Dose - Potassium Replacement) 1 dose .XX ASDIRECTED [facility] Senna/Docusate Sodium (Senna Plus) 1 tab PO BID PRN PRN Reason: Constipation Simvastatin (Zocor) 10 mg PO MOTUWETHFR [facility] Last Admin: 11/05/16 15:31 Dose: Not Given Sodium Chloride (Saline Flush) 10 ml FLUSH ASDIRECTED PRN PRN Reason: Keep Vein Open Last Admin: 11/01/16 08:08 Dose: 10 ml Temazepam (Restoril) 15 mg PO BEDTIME PRN PRN Reason: Sleep Tizanidine HCl (Zanaflex) 4 mg PO Q6H [facility] Last Admin: 11/06/16 05:11 Dose: 4 mg Verapamil HCl (Calan Sr) 240 mg PO DAILY [facility] Last Admin: 11/05/16 09:20 Dose: 240 mg Discontinued Medications Amlodipine Besylate (Norvasc) 5 mg PO ONETIME ONE Stop: 11/05/16 00:15 Last Admin: 11/05/16 01:03 Dose: 5 mg Cyclobenzaprine HCl (Flexeril) 10 mg PO ONETIME ONE Stop: 11/01/16 09:13 Last Admin: 11/01/16 09:22 Dose: 10 mg Diazepam (Valium) 5 mg IVPUSH ONETIME ONE Stop: 11/01/16 14:31 Last Admin: 11/01/16 17:47 Dose: Not Given Diphtheria/Tetanus/Acell Pertussis (Adacel) 0.5 ml IM .ONCE ONE Stop: 11/04/16 08:31 Fentanyl (Sublimaze) 50 mcg IVPUSH ONETIME ONE Stop: 11/01/16 07:44 Last Admin: 11/01/16 08:09 Dose: 50 mcg Furosemide (Lasix) 20 mg IVPUSH ONETIME ONE Stop: 11/05/16 00:14 Last Admin: 11/05/16 01:03 Dose: 20 mg Gabapentin (Neurontin) 100 mg PO ONETIME ONE Stop: 11/01/16 15:26 Last Admin: 11/01/16 19:28 Dose: Not Given Hydralazine HCl (Apresoline) 20 mg IVPUSH Q4H PRN PRN Reason: Hypertension Last Admin: 11/03/16 20:29 Dose: 20 mg Hydromorphone HCl (Dilaudid) 0.5 mg IVPUSH Q1H PRN PRN Reason: Pain Last Admin: 11/01/16 12:41 Dose: 0.5 mg Hydromorphone HCl (Dilaudid) 0.5 mg IVPUSH ONETIME ONE Stop: 11/01/16 14:32 Last Admin: 11/01/16 16:17 Dose: 0.5 mg Sodium Chloride (Normal Saline) 1,000 mls @ 1,000 mls/hr IV ONETIME ONE Stop: 11/01/16 08:42 Last Admin: 11/01/16 08:08 Dose: 1,000 mls/hr Ketorolac Tromethamine (Toradol) 30 mg IVPUSH ONETIME ONE Stop: 11/01/16 14:31 Last Admin: 11/01/16 16:21 Dose: 30 mg Lidocaine (Lidoderm 5%) 700 mg TOP Q24H [facility] Last Admin: 11/01/16 19:27 Dose: Not Given Methylprednisolone Sodium Succinate (Solu-Medrol) 125 mg IVPUSH ONETIME ONE Stop: 11/01/16 09:33 Last Admin: 11/01/16 09:44 Dose: 125 mg Tizanidine HCl (Zanaflex) 4 mg PO Q6H [facility] Last Admin: 11/01/16 18:07 Dose: 4 mg Tizanidine HCl (Zanaflex) 4 mg PO DAILY ONE Stop: 11/02/16 14:47 - Exam General: Reports: Alert, Oriented, Cooperative, No Acute Distress HEENT: Reports: Pupils Equal, Pupils Reactive, EOMI, Mucous Membr. Moist/[place] Neck: Reports: Supple, Trachea Midline, No JVD, No Thyromegaly Lungs: Reports: Clear to Auscultation, Normal Respiratory Effort Cardiovascular: Reports: Regular Rate, Regular Rhythm GI/Abdominal Exam: Normal Bowel Sounds, Soft, Non-Tender, No Organomegaly, No Distention, No Abnormal Bruit, No Mass (Male) Exam: Deferred Rectal (Males) Exam: Deferred Back Exam: Reports: Normal Inspection, Decreased Range of Motion, Muscle Spasm, Vertebral Tenderness Extremities: Normal Inspection, Normal Range of Motion, Non-Tender, No Pedal Edema, Normal Capillary Refill Skin: Reports: Warm, Dry, Intact Neurological: Reports: No New Focal Deficit Psy/Mental Status: Reports: Alert, Normal Affect, Normal Mood *Q Meaningful Use (DIS) - VTE *Q VTE Criteria *Q: - Stroke *Q Stroke Criteria *Q: - AMI *Q AMI Criteria *Q:
[2016-11-06] MEDS: Docusate Sodium 100 MG Cap PO SCH (08:11)
[2016-11-06] MEDS: Gabapentin 100 MG Cap PO SCH (08:11)
[2016-11-06] MEDS: oxyCODONE 5 MG Tab PO PRN (08:12)
[2016-11-06] MEDS: Enoxaparin 40 MG/0.4 ML Syringe SUBCUT SCH (08:12)
[2016-11-06] MEDS: Famotidine 20 MG Tab PO SCH (08:12)
[2016-11-06] MEDS: Verapamil 120 MG Tab.ER PO SCH (08:18)
[2016-11-06 08:22] VITALS: BP 152/83
[2016-11-06] MEDS ORDERED: fentaNYL 12 MCG/HR Transdermal Patch TRDERM ONE (11:00)
== END 2016-11-06 11:30 | disposition home or self-care (01) | DRG 552 ==
LOC: JD.ED 07:11 → JD.MS 15:25 → UNDOADMIN 15:25 → JD.MS 18:39 → UNDODISIN 11-06 11:30
PROVIDERS: ADMIT Internal Medicine; ATTEND Internal Medicine
DX: M25.552 Pain in left hip (principal); M54.42 Lumbago with sciatica, left side; S32.10XA Unspecified fracture of sacrum, initial encounter for closed fracture; G89.29 Other chronic pain; M54.5 Low back pain; M54.16 Radiculopathy, lumbar region; R11.2 Nausea with vomiting, unspecified; I10 Essential (primary) hypertension; Z96.652 Presence of left artificial knee joint; Z66 Do not resuscitate; V91.29XA Fall due to collision between unspecified watercraft and other watercraft or other object, initial encounter; Z79.899 Other long term (current) drug therapy
CPT/HCPCS: 36415; 72148; 72195; 73502; 80053; 85025; 85652; 86140; 96361; 96374; 96375; 96376; 99285; A9270; J1170 ×2; J2930; J3010; J7040; J7050; 80048; 83735; 97110-GP; 97116-GP; 97162-GP; 97167-GO; 97530-GO; 97530-GP; 97535-GO; 99284; J0360; J1650; J1885; J2405

== ENCOUNTER 2016-11-07 10:12 | Emergency (ER) | payer MEDICARE, OTHER ==
--- NOTE | 2016-11-07 12:11 | EDM.PDOC ---
ED HPI GENERAL MEDICAL PROBLEM - General Chief Complaint: Lower Extremity Injury/Pain Stated Complaint: Low back pain Time Seen by Provider: 11/07/16 10:50 Source of Information: Reports: Patient, RN Notes Reviewed History Limitations: Reports: No Limitations - History of Present Illness INITIAL COMMENTS - FREE TEXT/NARRATIVE: 81 year old male presents to the ED with complaints of severe low back and left hip pain. The pain radiates down his left left. The pain is severe with movement , sitting, and walking but is better when at rest. He was evaluated in the ED for this same complaint on 11/01/16 and was subsequently admitted for intractable pain. He had an MRI which revealed a sacral fracture. Dr. Abrams was consulted and conservative management was recommended. The pain was started on pain medication and was discharged home yesterday. He was referred to PT/OT and was to f/u with Dr. Abrams on 11/19/16. The patient returns today because he feels something needs to be done immediately. He is requesting ambulance transfer to [place] so he can see Dr. Abrams immediately. He feels he needs to be admitted to the hospital in [place]. He says he's willing to pay out of pocket for transfer. Patient denies fever, chills, numbness, tingling, or loss of bowel or bladder function. Left Hip Pain Score (Numeric/FACES): 6 - Related Data Allergies Allergy/AdvReac Type Severity Reaction Status Date / Time No Known Allergies Allergy Verified 11/07/16 11:13 Home Meds: Home Meds Hydrocodone/Acetaminophen [Hydrocodon-Acetaminophen 5-325] 1 each PO QID PRN # 24 tablet 10/31/16 [Rx] Moexipril [Univasc] 15 mg PO ACBREAKFAST 10/31/16 [History] Naproxen Sodium [Aleve] 220 mg PO BID PRN #60 tab 10/31/16 [Rx] Pravastatin [Pravachol] 10 mg PO MOTUWETHFR 10/31/16 [History] Verapamil HCl [Verelan] 240 mg PO DAILY 10/31/16 [History] Bisacodyl 10 mg RC DAILY PRN #10 supp.rect 11/06/16 [Rx] Docusate Sodium [Colace] 100 mg PO BID #60 cap 11/06/16 [Rx] Gabapentin [Neurontin] 100 mg PO BID #60 cap 11/06/16 [Rx] Hydrochlorothiazide 12.5 mg PO BID #60 cap 11/06/16 [Rx] fentaNYL [Duragesic] 12 mcg TRDERM Q72H #1 patch 11/06/16 [Rx] tiZANidine [Zanaflex] 4 mg PO Q6H PRN #60 tablet 11/06/16 [Rx] Past Medical History HEENT History: Reports: Hard of Hearing Cardiovascular History: Reports: Hypertension Musculoskeletal History: Reports: Back Pain, Chronic - Infectious Disease History Infectious Disease History: Reports: Chicken Pox - Past Surgical History GI Surgical History: Reports: Colonoscopy, Hernia, Inguinal Musculoskeletal Surgical History: Reports: Knee Replacement, Other (See Below) Social & Family History - Family History Family Medical History: Noncontributory - Tobacco Use Smoking Status *Q: Never Smoker Second Hand Smoke Exposure: No - Caffeine Use Caffeine Use: Reports: None - Recreational Drug Use Recreational Drug Use: No ED ROS GENERAL - Review of Systems Review Of Systems: See Below Constitutional: Reports: No Symptoms. Denies: Fever, Chills, Diaphoresis Respiratory: Reports: No Symptoms. Denies: Shortness of Breath Cardiovascular: Reports: No Symptoms. Denies: Chest Pain GI/Abdominal: Reports: Abdominal Pain. Denies: Constipation, Diarrhea, Nausea, Vomiting Musculoskeletal: Reports: Back Pain, Joint Pain Skin: Reports: No Symptoms Neurological: Reports: Difficulty Walking. Denies: Numbness, Tingling, Weakness ED EXAM,LOWER BACK PAIN/INJURY - Physical Exam Exam: See Below Exam Limited By: No Limitations General Appearance: Alert, WD/WN, No Apparent Distress, Anxious Respiratory/Chest: No Respiratory Distress, Lungs Clear, Normal Breath Sounds Cardiovascular: Regular Rate, Rhythm GI/Abdominal: Normal Bowel Sounds, Soft, Non-Tender Extremities: Normal Inspection, Normal Range of Motion, Non-Tender Neurological: Alert, Normal Mood/Affect, Normal Dorsiflexion, CN II-XII Intact, Normal Plantar Flexion, No Motor/Sensory Deficits, Oriented x 3 Psychiatric: Anxious, Flat Affect Skin Exam: Warm, Dry, Intact Course - Vital Signs Last Recorded V/S: Last Vital Signs Temp 98.8 F 11/07/16 11:13 Pulse 76 11/07/16 11:13 Resp 20 11/07/16 11:13 BP 164/99 H 11/07/16 11:13 Pulse Ox 100 11/07/16 11:13 - Re-Assessments/Exams Free Text/Narrative Re-Assessment/Exam: The patient was offered pain medication while in the ED but declined. He says the pain is manageable as long as he is lying down. 1200 I called and spoke to Dr. Huynh, Hospitalist who cared for the patient while in the hospital. The patient was requesting transfer to [place] while in the hospital but it was explained to him that Medicare would not pay for transfer as hew as on oral pain medications. Again, Neurosurgery was consulted and recommended conservative management. I then called [facility] and was able to speak to Dr. Abrams who is very familiar with the case. He said that he does not treat sacral fractures. His recommendation would be to consider sacralplasty with interventional radiology. I was then able to speak to IR Dr. Lux. He reviewed the patient's MRI and said he would recommend sacralplasty for this patient and feels it would offer substantial pain relief. He said that unfortunately, the procedure is not covered by insurance and is a philip pay service. He then referred us to his SPORTS PHYSIOTHERAPIST Bonita Izquierdo who arranges these procedures. I called and left a message with Bonita and I am awaiting a phone call back. 11/07/16 12:34 Spoke to Bonita Izquierdo. Will fax over the patient's records and will refer to their clinic for further treatment. They will call the patient to make arrangements. The patient and his were thoroughly educated on plan of care at this time. They are agreeable to treatment plan. Patient was really hoping to have the procedure today. I explained that isn't possible but that the IR clinic is working to get him in as soon as possible. He does not meet inpatient criteria and is well controlled on his outpatient pain medication regimen. Departure - Departure Time of Disposition: 13:02 Disposition: Home, Self-Care 01 Condition: Fair Clinical Impression: Intractable pain Sacral fracture Qualifiers: Encounter type: initial encounter Zone of sacrum fracture: unspecified portion of sacrum Fracture type: closed Qualified Code(s): S32.10XA - Unspecified fracture of sacrum, initial encounter for closed fracture - Discharge Information Referrals: Charlie Wilkerson MD [Primary Care Provider] - Forms: ED Department Discharge Additional Instructions: Continue with your current pain regimen Dr. Lux's staff with the [facility] office will be calling you, likely his Nurse Practitioner Bonita Izquierdo will call you. Their office number is [phone]. Their address is: [facility] [address] Plan will be for you to undergo a sacralplasty as we discussed. Cancel your appointment with Dr. Abrams. Take 1-2 pain pills before driving to [facility]
[2016-11-07 16:28] VITALS: BP 171/108
== END 2016-11-07 13:40 | disposition home or self-care (01) ==
LOC: JD.ED 10:12
DX: S32.10XA Unspecified fracture of sacrum, initial encounter for closed fracture (principal); I10 Essential (primary) hypertension; Z98.890 Other specified postprocedural states; Z79.899 Other long term (current) drug therapy; Z96.649 Presence of unspecified artificial hip joint; X58.XXXA Exposure to other specified factors, initial encounter
CPT/HCPCS: 99283; 99284-25

== ENCOUNTER 2016-11-27 12:38 | Emergency (ER) | payer MEDICARE, OTHER ==
[2016-11-27] MEDS ORDERED: Dextrose 5%-0.9% NaCl 1,000 ML ONE (12:49)
--- NOTE | 2016-11-27 12:54 | EDM.PDOC ---
ED HPI GENERAL MEDICAL PROBLEM - General Chief Complaint: Neurological Problem Stated Complaint: [facility] Time Seen by Provider: 11/27/16 12:40 Source of Information: Reports: Other ( someone called lower from [place] to relay information the patient was being transferred here. Patient is too confused to answer any questions.) History Limitations: Reports: Altered Mental Status ( patient was too confused to be able to understand what was being asked of him. He appears to be hard of hearing as well.) - History of Present Illness INITIAL COMMENTS - FREE TEXT/NARRATIVE: 81-year-old male sent across from the [place] clinic where he apparently was demonstrating altered level of consciousness. he was scheduled for an MRI on his left hip.however the sprinkler repair technician appreciated that he was out of it in terms that he was confused and disoriented and cool and clammy certainly not a candidate to get him up on the table. He was therefore sent to the walk-in clinic whom promptly call the ambulance and sent across the street to the hospital.. Patient went unresponsive and we don't know for what length of time. There was no reported seizure-like activity. Patient is very confused and disoriented as to where he is and what is happened to him acting postictal. Blood sugar here is 157. He reports he is not diabetic. Initial blood pressure is quite low 88 systolic. heart rate is irregular irregularly. There are numerous PVCs. Likely is in sinus rhythm with first-degree AV block. Medication list is being obtained. is not able to provide any useful history as he is too confused. It is unclear whether he received any medication to sedate him for the procedure. Onset: Today Onset Date: 11/27/16 Onset Time: 12:15 Duration: Minutes: Location: Reports: Generalized ( Confusion apparently after experiencing a syncopal event. Is occurred while he was in the MRI over at [place] in the MRI trailer. No history is otherwise availablethere was any seizure-like activity as he is acting postictal.) Quality: Reports: Other Severity: Moderate (ing in any pain) Improves with: Reports: None Context: Reports: Other ( fairly lost consciousness while in an MRI at [place]. He was having an MRI on his left knee looking for potential infection.) Associated Symptoms: Reports: Confusion, Malaise, Other ( Appears obtunded.). Denies: Chest Pain ( Very confused and disoriented upon arrival.), Cough, cough w sputum Treatments GATE WATCH: Reports: Other (see below) - Related Data Allergies Allergy/AdvReac Type Severity Reaction Status Date / Time No Known Allergies Allergy Verified 11/27/16 12:52 Home Meds: Home Meds Hydrocodone/Acetaminophen [Hydrocodon-Acetaminophen 5-325] 1 each PO QID PRN # 24 tablet 10/31/16 [Rx] Moexipril [Univasc] 15 mg PO ACBREAKFAST 10/31/16 [History] Naproxen Sodium [Aleve] 220 mg PO BID PRN #60 tab 10/31/16 [Rx] Pravastatin [Pravachol] 10 mg PO MOTUWETHFR 10/31/16 [History] Verapamil HCl [Verelan] 240 mg PO DAILY 10/31/16 [History] Bisacodyl 10 mg RC DAILY PRN #10 supp.rect 11/06/16 [Rx] Docusate Sodium [Colace] 100 mg PO BID #60 cap 11/06/16 [Rx] Gabapentin [Neurontin] 100 mg PO BID #60 cap 11/06/16 [Rx] Hydrochlorothiazide 12.5 mg PO BID #60 cap 11/06/16 [Rx] fentaNYL [Duragesic] 12 mcg TRDERM Q72H #1 patch 11/06/16 [Rx] tiZANidine [Zanaflex] 4 mg PO Q6H PRN #60 tablet 11/06/16 [Rx] Past Medical History HEENT History: Reports: Hard of Hearing Cardiovascular History: Reports: Hypertension Musculoskeletal History: Reports: Back Pain, Chronic - Infectious Disease History Infectious Disease History: Reports: Chicken Pox - Past Surgical History GI Surgical History: Reports: Colonoscopy, Hernia, Inguinal Musculoskeletal Surgical History: Reports: Knee Replacement, Other (See Below) Social & Family History - Family History Family Medical History: Noncontributory - Tobacco Use Smoking Status *Q: Never Smoker Second Hand Smoke Exposure: No - Caffeine Use Caffeine Use: Reports: None - Recreational Drug Use Recreational Drug Use: No - Living Situation & Occupation Living situation: Reports: Occupation: Retired ED ROS GENERAL - Review of Systems Review Of Systems: See Below Constitutional: Reports: Weakness, Fatigue. Denies: Fever, Chills, Malaise HEENT: Reports: Hearing Loss Respiratory: Denies: Shortness of Breath Cardiovascular: Reports: Blood Pressure Problem. Denies: Chest Pain, Claudication, Orthopnea GI/Abdominal: Reports: Constipation : Reports: Frequency, Other ( Nocturia 3 or 4. Known BPH.) Skin: Reports: Diaphoresis, Other ( Appears to lost control of his bladder. His T-shirt is soaking wet as well.) Neurological: Reports: Confusion, Syncope Psychiatric: Reports: No Symptoms Hematologic/Lymphatic: Reports: No Symptoms Immunologic: Reports: No Symptoms - Physical Exam Exam: See Below Exam Limited By: Altered Mental Status (Has the very confused. Has the picture of a post ictal phase.) General Appearance: Lethargic. No: Anxious (viously disoriented to time and place and is unsure what is happened to him.) Eye Exam: Bilateral Eye: Normal Inspection, PERRL Ears: Normal TMs Throat/Mouth: Normal Inspection, Normal Lips, Normal Oropharynx, Other ( There is no evidence of tongue being bitten or blood in the oral cavity.). No: Evidence of Tongue Biting Head Exam: Atraumatic, Normocephalic Neck: Normal Inspection, Supple. No: Lymphadenopathy (L), Lymphadenopathy (R) Respiratory/Chest: Lungs Clear, Normal Breath Sounds, No Accessory Muscle Use Cardiovascular: No Gallop, No Murmur, No Rub, Irregularly Irregular ( Frequent multifocal PVCs on the monitor.). No: Normal Peripheral Pulses GI/Abdominal: Normal Bowel Sounds, Soft, Non-Tender, No Organomegaly, Other ( Scaphoid abdomen is obese lost weight recently. Large ecchymoses central lower abdomen compatible with low recent Lovenox injections.) Neuro Exam (Abbreviated): CN II-XII Intact. No: Oriented, Normal Cognition, Normal Gait, Normal Reflexes DTR: 0: Patella (R), Patella (L), Achilles (R), Achilles (L), 1+: Bicep (R), Bicep (L) Back Exam: Normal Inspection, Full Range of Motion. No: CVA Tenderness (L), CVA Tenderness (R) Extremities: Other ( Evidence of previous total knee replacement on the left side. Apparently has been done twice. This is what was being MRI today to see if there was any infection in the joint.) Skin Exam: Cool, Diaphoretic, Other ( He is cool and clammy. T-shirt is soaking wet as if he's had water splashed on him. He appears to lost control of his bladder has a short silhouette although water could've been splashed on him as well.) EKG INTERPRETATION EKG Date: 11/27/16 Time: 12:55 Rhythm: NSR Rate (Beats/Min): 63 [place]: Normal P-Wave: Present QRS: Other (Multiple multifocal PVCs present.) ST-T: Other (T waves are inverted in 1 and aVL.) QT: Prolonged (Prolonged at 441.) Course - Vital Signs Last Recorded V/S: Last Vital Signs Temp 35.9 C 11/27/16 15:10 Pulse 76 11/27/16 15:10 Resp 18 11/27/16 15:10 BP 124/73 11/27/16 15:10 Pulse Ox 100 11/27/16 15:10 - Orders/Labs/Meds Orders: Active Orders 24 hr Category Date Time Status EKG Documentation Completion [RC] STAT Care 11/27/16 12:47 Active EKG Documentation Completion [RC] STAT Care 11/27/16 13:15 Inactive Oxygen Therapy [RC] ASDIRECTED Care 11/27/16 12:48 Active Dextrose 5%-0.9% NaCl [Dextrose 5%-Normal Saline] 1,000 Med 11/27/16 13:00 Active ml IV ASDIRECTED Medication Orders Dextrose/Sodium Chloride (Dextrose 5%-Normal Saline) 1,000 mls @ 999 mls/hr IV ASDIRECTED YUKI Last Admin: 11/27/16 12:50 Dose: 999 mls/hr Labs: Laboratory Tests 11/27/16 11/27/16 11/27/16 Range/Units 12:45 13:26 13:26 WBC 10.10 H (4.23-9.07) K/mm3 RBC 2.90 L (4.63-6.08) M/mm3 Hgb 9.1 L (13.7-17.5) gm/L Hct 26.9 L (40.1-51.0) % MCV 92.8 H (79.0-92.2) fl MCH 31.4 (25.7-32.2) pg MCHC 33.8 (32.2-35.5) g/dl RDW Std Deviation 43.9 (35.1-43.9) fL Plt Count 213 (163-337) K/mm3 MPV 8.9 L (9.4-12.3) fl Neutrophils % (Manual) 93 H (40-60) % Band Neutrophils % 1 (0-10) % Lymphocytes % (Manual) 4 L (20-40) % Atypical Lymphs % 0 % Monocytes % (Manual) 2 (2-10) % Eosinophils % (Manual) 0 L (0.8-7.0) % Basophils % (Manual) 0 L (0.2-1.2) Platelet Estimate Adequate Polychromasia 1+ slight Anisocytosis 1+ slight RBC Morph Comment Abnormal PT 11.4 (8.0-13.0) SECONDS INR 1.04 Sodium (136-145) mEq/L Potassium (3.5-5.1) mEq/L Chloride (98-107) mEq/L Carbon Dioxide (21-32) mEq/L Anion Gap (5-15) BUN (7-18) mg/dL Creatinine (0.7-1.3) mg/dL Est Cr Clr Drug Dosing mL/min Estimated GFR (MDRD) (>60) mL/min BUN/Creatinine Ratio (14-18) Glucose (83-115) mg/dL POC Glucose 157 H (83-110) mg/dL Calcium (8.5-10.1) mg/dL Magnesium (1.8-2.4) mg/dl Total Bilirubin (0.2-1.0) mg/dL AST (15-37) U/L ALT (16-63) U/L Alkaline Phosphatase (46-116) U/L CK-MB (CK-2) (0-3.6) ng/ml Troponin I (0.00-0.056) ng/mL C-Reactive Protein (<1.0) mg/dL NT-Pro-B Natriuret Pep (0-450) pg/mL Total Protein (6.4-8.2) g/dl Albumin (3.4-5.0) g/dl Globulin gm/dL Albumin/Globulin Ratio (1-2) 11/27/16 11/27/16 Range/Units 13:26 13:26 WBC (4.23-9.07) K/mm3 RBC (4.63-6.08) M/mm3 Hgb (13.7-17.5) gm/L Hct (40.1-51.0) % MCV (79.0-92.2) fl MCH (25.7-32.2) pg MCHC (32.2-35.5) g/dl RDW Std Deviation (35.1-43.9) fL Plt Count (163-337) K/mm3 MPV (9.4-12.3) fl Neutrophils % (Manual) (40-60) % Band Neutrophils % (0-10) % Lymphocytes % (Manual) (20-40) % Atypical Lymphs % % Monocytes % (Manual) (2-10) % Eosinophils % (Manual) (0.8-7.0) % Basophils % (Manual) (0.2-1.2) Platelet Estimate Polychromasia Anisocytosis RBC Morph Comment PT (8.0-13.0) SECONDS INR Sodium 129 L (136-145) mEq/L Potassium 3.5 (3.5-5.1) mEq/L Chloride 95 L (98-107) mEq/L Carbon Dioxide 24 (21-32) mEq/L Anion Gap 13.5 (5-15) BUN 24 H (7-18) mg/dL Creatinine 1.2 (0.7-1.3) mg/dL Est Cr Clr Drug Dosing 51.54 mL/min Estimated GFR (MDRD) 58 (>60) mL/min BUN/Creatinine Ratio 20.0 H (14-18) Glucose 301 H (83-115) mg/dL POC Glucose (83-110) mg/dL Calcium 8.2 L (8.5-10.1) mg/dL Magnesium 1.6 L (1.8-2.4) mg/dl Total Bilirubin 0.4 (0.2-1.0) mg/dL AST 19 (15-37) U/L ALT 17 (16-63) U/L Alkaline Phosphatase 90 (46-116) U/L CK-MB (CK-2) 0.7 (0-3.6) ng/ml Troponin I 0.019 (0.00-0.056) ng/mL C-Reactive Protein 1.5 H* (<1.0) mg/dL NT-Pro-B Natriuret Pep 165 (0-450) pg/mL Total Protein 5.4 L (6.4-8.2) g/dl Albumin 2.7 L (3.4-5.0) g/dl Globulin 2.7 gm/dL Albumin/Globulin Ratio 1.0 (1-2) Meds: Medications Generic Name Dose Route Start Last Admin Trade Name Rocio PRN Reason Stop Dose Admin Dextrose/Sodium Chloride 1,000 mls @ 999 mls/hr 11/27/16 13:00 11/27/16 12:50 Dextrose 5%-Normal Saline IV 999 mls/hr ASDIRECTED YUKI Administration Discontinued Medications Generic Name Dose Route Start Last Admin Trade Name Rocio PRN Reason Stop Dose Admin Dextrose/Sodium Chloride Confirm 11/27/16 12:49 11/27/16 12:51 Dextrose 5%-Normal Saline Administered 11/27/16 12:50 Not Given Dose 1,000 mls @ as directed .ROUTE .STK-MED ONE Naloxone HCl 1 mg 11/27/16 13:09 11/27/16 13:11 Narcan IVPUSH 11/27/16 13:10 1 mg ONETIME ONE Administration Naloxone HCl Confirm 11/27/16 13:12 11/27/16 13:24 Narcan Administered 11/27/16 13:13 Not Given Dose 0.4 mg .ROUTE .STK-MED ONE - Radiology Interpretation Free Text/Narrative:: 81-year-old male presents to the ED per 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 Patient was scheduled for an MRI of his left hip looking for an infective process. I was able to speak finally to the sprinkler repair technician who states that the patient was very confused and disoriented even before getting on the table. He did have any MRI started. He was confused disoriented cool and clammy and obviously could not understand verbal communication. Recognizing his distress the ambulance was called. He never did lose consciousness completely and exhibited no seizure activity. Apparently the tech feels that the patient did take some oxycodone prior to the procedure but doesn't know of any other medicines he may have taken or received. We knew that he was on a fentanyl patch when he was in hospital but search of his skin did not reveal any signs of a fentanyl patch. Upon arrival in the ED his blood pressure was low such as 84 systolic. He was confused and disoriented and not able to answer any questions verbally except that he did not have any pain. He appears to have lost control of his bladder and is T-shirt was soaking wet as well. I'm not sure if this is all from diaphoresis. Patient has had recent interventional radiology try to help with the severe sacral pain after fracturing his sacrum from a fall 6 weeks ago. He underwent this procedure by Dr. Lux in [place] last week. IV was started he was given D5 normal saline at open. Bedside blood sugar was 157 when we started. He shows sinus rhythm in the 60s with multifocal PVCs. Lab work to be drawn and CT head will be done. A chest x-ray one view will be done as well. D-dimer not ordered as he has had numerous interventional processes as well as evidence of Lovenox injections to his abdominal wall therefore the d-dimer will be positive. I'm now going to go ahead given Narcan one milligram IV and see what kind of response we get. - Re-Assessments/Exams Free Text/Narrative Re-Assessment/Exam: 11/27/16 13:20: there was a prompt improvement in his blood pressure after the Narcan was given. He became somewhat agitated and belligerent because we took away his pain medication. The history suggests that he is taking Flexeril and oxycodone and fairly high concentrations at fairly regular intervals and this is what precipitated his confusional state this morning as well as his hypotension. Patient will be continued to be monitored in the ED until he get his blood work back.CT head reveal age apprropriate changes with diminished density noted within the periventricular white matter and subcortical white matter as well as portions of the basal ganglia due to small vessel ischemic demyelination changes. There is also some slight calcification within the left basal ganglia. No intracranial have hemorrhage mass effect or midline shift is seen. There is scattered extensive atherosclerotic calcifications seen within the carotid siphon and left vertebral vessel. His ECG had revealed sinus rhythm at 71/m with multifocal PVCs. Has a right bundle branch block pattern which is chronic. There is early R-wave transition to suggest right ventricular hypertrophy or pulmonary hypertension. Waves noted in 3 and aVF but with possible old inferior wall myocardial infarction.chest x-ray reveals normal- sized heart and clear lung atkinson.there is tortuous thoracic aorta producing a slightly prominent superior mediastinum due to this. Cord coincidental degenerative changes are appreciated within the left shoulder. Poor inspirational effort appreciated. 11/27/16 14:06 Labs are pending. His white count was 10.10 with differential pending hemoglobin is low at 9.1 hematocrit of 26.9 platelets normal 213,000. Awaiting his chemistry and differential white count. 11/27/16 14:26 remainder of his labs are now back. The differential on his white count at 10.10 is 93% neutrophils and 1% band cells. Sodium is 129 which is low-dose potassium low-normal at 3. 5/4/95 bicarbonate 24 and a gap is 13.5 creatinine is 1.2 EGFR is 58. Glucose is 301 CRP is 1.5. Therefore I will advise him to restrict his fluid intake i.e. less than. Water and taking more Gatorade Powerade or juices. His hemoglobin is low for a man of his age which is likely secondary to recent surgery. I believe he is being followed closely to see if there is an infection in his left hip and that's what the MRI was scheduled for today but it'll have to be rescheduled at this point time. Departure - Departure Time of Disposition: 14:27 Disposition: Home, Self-Care 01 Condition: Fair Clinical Impression: Altered level of consciousness Adverse effects of medication Qualifiers: Encounter type: initial encounter Qualified Code(s): T88.7XXA - Unspecified adverse effect of drug or medicament, initial encounter Hypotension Qualifiers: Hypotension type: hypotension due to drug Qualified Code(s): I95.2 - Hypotension due to drugs - Discharge Information Instructions: Confusion, Hypotension Referrals: Charlie Wilkerson MD [Primary Care Provider] - Forms: ED Department Discharge Additional Instructions: evaluation in the emergency room today carried out due to presentation to [facility] today for MRI of your left hip. The MRI was never completed because you had altered level of consciousness with confusional and disoriented state. You could barely walk in your blood pressure was identified to be quite low. It appears that the combination of oxycodone and Flexeril taken this morning prior to the MRI contributed to lowering of your blood pressure and your confusional disoriented state. Flexeril is usually taken only at bedtime to help sleep but does place you at risk of falling. Pain medication can lower your blood pressure especially if he have not had much to eat or drink. CT of the brain today revealed no signs of stroke or injury. There is age-related changes. Chest x-ray was normal heart tracing revealed several extra steps in the heartbeat but no other signs of heart attack or injury. Lab work reveals a normal white count however you are anemic with a hemoglobin of only 9.1. This would contribute to low blood pressure due to poor circulation of oxygen to your brain term transiently. The other problem identified was a low serum sodium level at 129. Normal is 140. This is secondary to taking in too much water and on the juices or electrolytes. Suggest supplementing with Gatorade Powerade and/or other juices instead appear water to restore her electrolyte status. Therefore you're discharged home in the care of your . MRI of your left hip will have to be rebooked at a later date. I will send the booking slip over to the x-ray department and have them call you with the date and time for MRI of your left hip and lumbar spine. I would suggest discontinuing the Flexeril completely as I find it too sedating an older patients making a very prone to fall leading and causing confusion. May continue the gabapentin for the sciatica pain and pain mid tablet as needed. Pain medication taken every 4-6 hours as needed with some food in the stomach. - My Orders Last 24 Hours: My Active Orders 11/27/16 12:47 EKG Documentation Completion [RC] STAT 11/27/16 12:48 Oxygen Therapy [RC] ASDIRECTED 11/27/16 13:00 Dextrose 5%-0.9% NaCl [Dextrose 5%-Normal Saline] 1,000 ml IV ASDIRECTED 11/27/16 13:15 EKG Documentation Completion [RC] STAT - Assessment/Plan Last 24 Hours: My Active Orders 11/27/16 12:47 EKG Documentation Completion [RC] STAT 11/27/16 12:48 Oxygen Therapy [RC] ASDIRECTED 11/27/16 13:00 Dextrose 5%-0.9% NaCl [Dextrose 5%-Normal Saline] 1,000 ml IV ASDIRECTED 11/27/16 13:15 EKG Documentation Completion [RC] STAT
[2016-11-27] MEDS ORDERED: Dextrose 5%-0.9% NaCl 1,000 ML IV SCH (13:00)
[2016-11-27] MEDS ORDERED: Naloxone 0.4 MG/ML SDV ONE (13:12)
--- NOTE | 2016-11-27 13:14 | CT ---
Head CT Technique: Multiple axial sections through the brain were obtained. Intravenous contrast was not utilized. Comparison: No previous intracranial imaging. Findings: Ventricles along with basal cisterns and sulci over the convexities are moderately prominent. Diminished density is noted within the periventricular white matter and subcortical white matter as well as within portions of the basal ganglia which is felt compatible with small vessel ischemic demyelination change. Slight basal ganglia calcification is noted on the left side. No evidence of intracranial hemorrhage. No midline shift or mass effect is seen. Atherosclerotic calcification is seen within the carotid siphon and left vertebral vessel. Bone window settings shows the visualized sinuses to appear clear. No acute calvarial abnormality is appreciated. Impression: 1. Senescent change as described above. No acute intracranial abnormality is identified. Diagnostic code #2
--- NOTE | 2016-11-27 14:09 | CR ---
Chest: Portable view of the chest was obtained. Comparison: No previous chest x-ray. Heart size is normal. Tortuous thoracic aorta is seen. Slightly prominent superior mediastinum is seen most likely representing tortuous great vessels. Lungs are clear with no acute infiltrates. Degenerative change is noted within the left shoulder. Impression: 1. Incidental findings. Nothing acute is suspected. Diagnostic code #2
[2016-11-27 15:34] VITALS: BP 124/73
== END 2016-11-27 15:10 | disposition home or self-care (01) ==
LOC: JD.ED 12:38
DX: R40.4 Transient alteration of awareness (principal); T88.7XXA Unspecified adverse effect of drug or medicament, initial encounter; I95.2 Hypotension due to drugs; I10 Essential (primary) hypertension; Z98.890 Other specified postprocedural states; Z96.659 Presence of unspecified artificial knee joint; Z79.899 Other long term (current) drug therapy
CPT/HCPCS: 36415; 70450; 71010; 80053; 82553; 82962; 83735; 83880; 84484; 85025; 85610; 86140; 93005; 96361; 96374; 99285; J2310; J7042

== ENCOUNTER 2016-12-18 09:20 | Inpatient (IN) | payer MEDICARE, OTHER ==
[~2016-12-18 09:20] MED LIST: Polyethylene Glycol/Electrolytes 4,000 ML Bottle PO ONE
[2016-12-18] MEDS ORDERED: Sodium Chloride 0.9% 10 ML Syringe FLUSH PRN (09:43)
[2016-12-18] MEDS ORDERED: Famotidine 20 MG/2 ML SDV IVPUSH ONE (09:54)
[2016-12-18] MEDS ORDERED: Sodium Chloride 0.9% 500 ML IV ONE (09:54)
--- NOTE | 2016-12-18 09:54 | EDM.PDOC ---
ED HPI GENERAL MEDICAL PROBLEM - General Chief Complaint: Syncope Stated Complaint: [facility] Time Seen by Provider: 12/18/16 09:53 Source of Information: Reports: Patient, RN Notes Reviewed - History of Present Illness INITIAL COMMENTS - FREE TEXT/NARRATIVE: 81-year-old gentleman has been referred here from the clinic after a presyncopal event. He was in for routine follow-up visit with history of prior fall and pelvic fracture about 1 month ago. He apparently has been doing okay from that standpoint. He did require interventional radiology treatment at [facility], details unknown at this time after a 3 or 4 day hospitalization here in [place]. He states his discharge home after the interventional radiology procedure. He states that he has had lower energy than usual this past month also episodes of lightheadedness and dizziness when standing and walking. States that his stools have been dark, sometimes black for the past week or 2. Should be dated that to a laxative that he takes on a regular basis. He did have 2 or 3 bowel movements yesterday. Does not recall how dark they were but has not ever visualized gross blood. He does get intermittent heartburn but denies any significant abdominal discomfort over the past one or 2 weeks. There has been no nausea or vomiting. When at the clinic he states he became weak, lightheaded and dizzy and may of had brief syncope of about 20 or 30 seconds. He was laid down on the floor and recovered quite quickly. He does feel back to normal at time of my exam. He's had no chest pain or difficulty breathing. He is not on any known blood thinner type therapy at this time. - Related Data Allergies Allergy/AdvReac Type Severity Reaction Status Date / Time No Known Allergies Allergy Verified 12/18/16 09:32 Home Meds: Home Meds Moexipril [Univasc] 15 mg PO ACBREAKFAST 10/31/16 [History] Pravastatin [Pravachol] 10 mg PO MOTUWETHFR 10/31/16 [History] Verapamil HCl [Verelan] 240 mg PO DAILY 10/31/16 [History] Acetaminophen/oxyCODONE [Percocet 325-5 MG] 1 - 2 tab PO QID PRN 12/18/16 [ History] Polyethylene Glycol 3350 [MiraLAX] 1 pack PO DAILY 12/18/16 [History] Past Medical History HEENT History: Reports: Hard of Hearing Cardiovascular History: Reports: High Cholesterol, Hypertension Musculoskeletal History: Reports: Back Pain, Chronic Hematologic History: Reports: Anemia - Infectious Disease History Infectious Disease History: Reports: Chicken Pox - Past Surgical History GI Surgical History: Reports: Colonoscopy, Hernia, Inguinal Musculoskeletal Surgical History: Reports: Knee Replacement Social & Family History - Family History Family Medical History: Noncontributory - Tobacco Use Smoking Status *Q: Never Smoker Second Hand Smoke Exposure: No - Caffeine Use Caffeine Use: Reports: None - Recreational Drug Use Recreational Drug Use: No - Living Situation & Occupation Living situation: Reports: Occupation: Retired ED ROS GENERAL - Review of Systems Review Of Systems: See Below Constitutional: Reports: Malaise, Weakness (Generalized), Fatigue HEENT: Denies: Sinus Problem, Throat Pain Respiratory: Denies: Shortness of Breath, Pleuritic Chest Pain, Hemoptysis GI/Abdominal: Reports: Abdominal Pain (Occasional heartburn or acid reflux type discomfort, no abdominal pain at this time), Melena (Patient has had dark stools at least intermittently for the past week or 2). Denies: Diarrhea Musculoskeletal: Reports: No Symptoms Skin: Reports: No Symptoms Neurological: Reports: Dizziness - Physical Exam Exam: See Below General Appearance: Alert, No Apparent Distress Eye Exam: Bilateral Eye: PERRL Throat/Mouth: Normal Inspection, Normal Oropharynx Head Exam: Atraumatic. No: Facial Swelling Neck: Supple, Full Range of Motion Respiratory/Chest: No Respiratory Distress, Lungs Clear, Normal Breath Sounds Cardiovascular: Regular Rate, Rhythm GI/Abdominal: Soft, Non-Tender. No: Guarding Rectal (Males) Exam: Heme + Stool, Other (dark brown to black stool, moderately heme positive. ) Neuro Exam (Abbreviated): Alert, Oriented, No Motor/Sensory Deficits Extremities: Normal Inspection, Normal Range of Motion Skin Exam: Warm, Dry, Normal Color Course - Vital Signs Last Recorded V/S: Last Vital Signs Temp 97.4 F 12/18/16 09:25 Pulse 57 L 12/18/16 09:25 Resp 16 12/18/16 09:25 BP 130/96 H 12/18/16 09:25 Pulse Ox 100 12/18/16 09:25 Orthostatic Blood Pressure [ 129/75 Standing] Orthostatic Blood Pressure [ 134/80 Sitting] Orthostatic Blood Pressure [ 161/65 Supine] - Orders/Labs/Meds Orders: Active Orders 24 hr Category Date Time Status EKG 12 Lead [EKG Documentation Completion] [RC] STAT Care 12/18/16 09:44 Active Peripheral IV Care [RC] . DIRECTED Care 12/18/16 09:44 Active Sodium Chloride 0.9% [Normal Saline] 1,000 ml Med 12/18/16 10:40 Active IV ONETIME Sodium Chloride 0.9% [Saline Flush] Med 12/18/16 09:43 Active 10 ml FLUSH ASDIRECTED PRN Peripheral IV Insertion Adult [OM.PC] Stat Oth 12/18/16 09:44 Ordered Medication Orders Sodium Chloride (Normal Saline) 1,000 mls @ 150 mls/hr IV ONETIME ONE Stop: 12/18/16 17:19 Sodium Chloride (Saline Flush) 10 ml FLUSH ASDIRECTED PRN PRN Reason: Keep Vein Open Last Admin: 12/18/16 09:46 Dose: 10 ml Labs: Laboratory Tests 12/18/16 12/18/16 Range/Units 10:05 10:05 WBC 7.92 (4.23-9.07) K/mm3 RBC 3.06 L (4.63-6.08) M/mm3 Hgb 9.1 L (13.7-17.5) gm/L Hct 28.2 L (40.1-51.0) % MCV 92.2 (79.0-92.2) fl MCH 29.7 (25.7-32.2) pg MCHC 32.3 (32.2-35.5) g/dl RDW Std Deviation 49.2 H (35.1-43.9) fL Plt Count 311 (163-337) K/mm3 MPV 8.3 L (9.4-12.3) fl Neut % (Auto) 80.2 H (34.0-67.9) % Lymph % (Auto) 6.6 L (21.8-53.1) % [place] % (Auto) 11.9 (5.3-12.2) % Eos % (Auto) 0.8 (0.8-7.0) Baso % (Auto) 0.1 (0.1-1.2) % Neut # (Auto) 6.36 H (1.78-5.38) K/mm3 Lymph # (Auto) 0.52 L (1.32-3.57) K/mm3 [place] # (Auto) 0.94 H (0.30-0.82) K/mm3 Eos # (Auto) 0.06 (0.04-0.54) K/mm3 Baso # (Auto) 0.01 (0.01-0.08) K/mm3 Manual Slide Review Abnormal smear Sodium 132 L (136-145) mEq/L Potassium 3.7 (3.5-5.1) mEq/L Chloride 96 L (98-107) mEq/L Carbon Dioxide 28 (21-32) mEq/L Anion Gap 11.7 (5-15) BUN 9 (7-18) mg/dL Creatinine 0.9 (0.7-1.3) mg/dL Est Cr Clr Drug Dosing 68.72 mL/min Estimated GFR (MDRD) > 60 (>60) mL/min BUN/Creatinine Ratio 10.0 L (14-18) Glucose 117 H (83-115) mg/dL Calcium 8.5 (8.5-10.1) mg/dL Total Bilirubin 0.4 (0.2-1.0) mg/dL AST 15 (15-37) U/L ALT 12 L (16-63) U/L Alkaline Phosphatase 85 (46-116) U/L Total Protein 6.0 L (6.4-8.2) g/dl Albumin 2.8 L (3.4-5.0) g/dl Globulin 3.2 gm/dL Albumin/Globulin Ratio 0.9 L (1-2) Meds: Medications Generic Name Dose Route Start Last Admin Trade Name Freq PRN Reason Stop Dose Admin Sodium Chloride 1,000 mls @ 150 mls/hr 12/18/16 10:40 Normal Saline IV 12/18/16 17:19 ONETIME ONE Sodium Chloride 10 ml 12/18/16 09:43 12/18/16 09:46 Saline Flush FLUSH 10 ml ASDIRECTED PRN Administration Keep Vein Open Discontinued Medications Generic Name Dose Route Start Last Admin Trade Name Freq PRN Reason Stop Dose Admin Famotidine 20 mg 12/18/16 09:54 12/18/16 10:05 Pepcid IVPUSH 12/18/16 09:55 20 mg ONETIME ONE Administration Sodium Chloride 500 mls @ 999 mls/hr 12/18/16 09:54 12/18/16 10:04 Normal Saline IV 12/18/16 10:24 999 mls/hr .BOLUS ONE Administration Departure - Departure Time of Disposition: 12:05 Disposition: Admitted As Inpatient 68 Condition: Fair Clinical Impression: Upper GI hemorrhage Syncope Qualifiers: Syncope type: unspecified Qualified Code(s): R55 - Syncope and collapse Anemia Qualifiers: Anemia type: unspecified type Qualified Code(s): D64.9 - Anemia, unspecified - Discharge Information Referrals: Charlie Wilkerson MD [Primary Care Provider] - Forms: ED Department Discharge ED Communication - Discussed Case With (1) Discussed Case With (1): Admitting Provider (Betzy, decision to admit this at about 11:40) - My Orders Last 24 Hours: My Active Orders 12/18/16 09:43 Sodium Chloride 0.9% [Saline Flush] 10 ml FLUSH ASDIRECTED PRN 12/18/16 09:44 EKG 12 Lead [EKG Documentation Completion] [RC] STAT Peripheral IV Care [RC] . DIRECTED Peripheral IV Insertion Adult [OM.PC] Stat 12/18/16 10:40 Sodium Chloride 0.9% [Normal Saline] 1,000 ml IV ONETIME - Assessment/Plan Last 24 Hours: My Active Orders 12/18/16 09:43 Sodium Chloride 0.9% [Saline Flush] 10 ml FLUSH ASDIRECTED PRN 12/18/16 09:44 EKG 12 Lead [EKG Documentation Completion] [RC] STAT Peripheral IV Care [RC] . DIRECTED Peripheral IV Insertion Adult [OM.PC] Stat 12/18/16 10:40 Sodium Chloride 0.9% [Normal Saline] 1,000 ml IV ONETIME
[2016-12-18] MEDS ORDERED: Sodium Chloride 0.9% 1,000 ML IV ONE (10:40)
--- NOTE | 2016-12-18 13:49 | PCM.HP ---
H&P History of Present Illness - General Date of Service: 12/18/16 Admit Problem/Dx: GI Bleed Source of Information: Patient, Family, Old Records, Provider, RN Notes Reviewed History Limitations: Reports: No Limitations - History of Present Illness Initial Comments - Free Text/Narative: This is a 81 yo elderly white female with past medical hx/o impaired hearing, hypertension, hypercholesterolemia, chronic back pain, anemia, and history of pelvic fracture status post IR procedure who presents to his primary care's office after an episode of presyncope. Patient reports low energy state more than usual, lightheadedness and dizziness when standing and walking. Patient reports his stools have been dark and sometimes black for the past week or so. He denies taking any [id number] NSAIDs. Patient reports no history of GI bleed, diverticulosis or hemorrhoids. No peptic ulcers disease or GERD but admits to having acid reflux from time to time. He denies any nausea or vomiting. No signs of systemic infections. His initial workup in the emergency department shows a CBC remarkable for RBC of 3.06, hemoglobin of 9.1, hematocrit of 28.2, RDW 29.2, MPV of 8.3, neutrophils of 80.2 %, and lymphocytes of 6.6%. His chemistry is remarkable for sodium of 132, chloride of 96, glucose of 117, ALT of 12, total protein of 6, albumin of 2.8. Patient is being admitted for workup of presyncopal episode in relation to melena. He is full code. - Related Data Allergies/Adverse Reactions: Allergies Allergy/AdvReac Type Severity Reaction Status Date / Time No Known Allergies Allergy Verified 12/18/16 09:32 Home Medications: Home Meds Moexipril [Univasc] 15 mg PO DAILY 10/31/16 [History] Pravastatin [Pravachol] 10 mg PO BEDTIME 10/31/16 [History] Verapamil HCl [Verelan] 240 mg PO BEDTIME 10/31/16 [History] Acetaminophen/oxyCODONE [Percocet 325-5 MG] 1 - 2 tab PO QID PRN 12/18/16 [ History] Polyethylene Glycol 3350 [MiraLAX] 1 pack PO DAILY 12/18/16 [History] Past Medical History HEENT History: Reports: Hard of Hearing Cardiovascular History: Reports: High Cholesterol, Hypertension Musculoskeletal History: Reports: Back Pain, Chronic Hematologic History: Reports: Anemia - Infectious Disease History Infectious Disease History: Reports: Chicken Pox - Past Surgical History GI Surgical History: Reports: Colonoscopy, Hernia, Inguinal Musculoskeletal Surgical History: Reports: Knee Replacement Social & Family History - Family History Family Medical History: Noncontributory - Tobacco Use Smoking Status *Q: Never Smoker Second Hand Smoke Exposure: No - Caffeine Use Caffeine Use: Reports: None - Recreational Drug Use Recreational Drug Use: No - Living Situation & Occupation Living situation: Reports: Occupation: Retired H&P Review of Systems - Review of Systems: Review Of Systems: See Below General: Reports: Malaise, Weakness. Denies: Fever, Chills HEENT: Reports: No Symptoms Pulmonary: Denies: Shortness of Breath Cardiovascular: Reports: Other. Denies: Chest Pain, Palpitations, Dyspnea on Exertion, Lightheadedness, Syncope Gastrointestinal: Reports: Flatus, Melena, Other (Acid Reflux). Denies: Abdominal Pain, Anorexia, Black Stool, Bloody Stool, Constipation, Diarrhea, Decreased Appetite, Difficulty Swallowing, Distension, Hematemesis, Nausea, Vomiting Genitourinary: Reports: No Symptoms Musculoskeletal: Reports: No Symptoms Skin: Denies: Jaundice, Pallor, Diaphoresis Psychiatric: Denies: Confusion, Depression, Mood Lability, Anxiety, Agitation, Cravings, Hallucinations, Suicidal Ideation Neurological: Reports: Dizziness, Weakness, Gait Disturbance. Denies: Confusion , Difficulty Walking Hematologic/Lymphatic: Reports: No Symptoms Immunologic: Reports: No Symptoms Exam - Exam Exam: See Below - Vital Signs Vital Signs: Last Vital Signs Temp 36.3 C 12/18/16 09:25 Pulse 57 L 12/18/16 09:25 Resp 16 12/18/16 09:25 BP 130/96 H 12/18/16 09:25 Pulse Ox 100 12/18/16 09:25 Orthostatic Blood Pressure [ 129/75 Standing] Orthostatic Blood Pressure [ 134/80 Sitting] Orthostatic Blood Pressure [ 161/65 Supine] Weight: 78.925 kg - Exam General: Alert, Oriented, Cooperative, Mild Distress HEENT: Conjunctiva Clear, EACs Clear, EOMI, Hearing Intact, Mucosa Moist & [place] , Nares Patent, Normal Nasal Septum, Posterior Pharynx Clear, Pupils Equal, Pupils Reactive Neck: Supple, Trachea Midline, Full Range of Motion. No: JVD Lungs: Clear to Auscultation, Normal Respiratory Effort Cardiovascular: Regular Rate, Regular Rhythm GI/Abdominal Exam: Normal Bowel Sounds, Soft, Non-Tender, No Organomegaly, No Distention, No Abnormal Bruit (Male) Exam: Deferred Rectal (Males) Exam: Deferred Back Exam: CVA Tenderness (R), Decreased Range of Motion Extremities: Normal Inspection, Normal Range of Motion, Non-Tender, No Pedal Edema, Normal Capillary Refill Skin: Warm, Dry, Intact Neuro Extensive - Mental Status: Oriented x3, Normal Cognition, Memory Intact Neuro Extensive - Motor, Sensory, Reflexes: CN II-XII Intact, Abnormal Gait Psychiatric: Alert, Normal Affect, Normal Mood - Patient Data Lab Results Last 24 hrs: Laboratory Results - last 24 hr 12/18/16 12/18/16 Range/Units 10:05 10:05 WBC 7.92 (4.23-9.07) K/mm3 RBC 3.06 L (4.63-6.08) M/mm3 Hgb 9.1 L (13.7-17.5) gm/L Hct 28.2 L (40.1-51.0) % MCV 92.2 (79.0-92.2) fl MCH 29.7 (25.7-32.2) pg MCHC 32.3 (32.2-35.5) g/dl RDW Std Deviation 49.2 H (35.1-43.9) fL Plt Count 311 (163-337) K/mm3 MPV 8.3 L (9.4-12.3) fl Neut % (Auto) 80.2 H (34.0-67.9) % Lymph % (Auto) 6.6 L (21.8-53.1) % [place] % (Auto) 11.9 (5.3-12.2) % Eos % (Auto) 0.8 (0.8-7.0) Baso % (Auto) 0.1 (0.1-1.2) % Neut # (Auto) 6.36 H (1.78-5.38) K/mm3 Lymph # (Auto) 0.52 L (1.32-3.57) K/mm3 [place] # (Auto) 0.94 H (0.30-0.82) K/mm3 Eos # (Auto) 0.06 (0.04-0.54) K/mm3 Baso # (Auto) 0.01 (0.01-0.08) K/mm3 Manual Slide Review Abnormal smear Sodium 132 L (136-145) mEq/L Potassium 3.7 (3.5-5.1) mEq/L Chloride 96 L (98-107) mEq/L Carbon Dioxide 28 (21-32) mEq/L Anion Gap 11.7 (5-15) BUN 9 (7-18) mg/dL Creatinine 0.9 (0.7-1.3) mg/dL Est Cr Clr Drug Dosing 68.72 mL/min Estimated GFR (MDRD) > 60 (>60) mL/min BUN/Creatinine Ratio 10.0 L (14-18) Glucose 117 H (83-115) mg/dL Calcium 8.5 (8.5-10.1) mg/dL Total Bilirubin 0.4 (0.2-1.0) mg/dL AST 15 (15-37) U/L ALT 12 L (16-63) U/L Alkaline Phosphatase 85 (46-116) U/L Total Protein 6.0 L (6.4-8.2) g/dl Albumin 2.8 L (3.4-5.0) g/dl Globulin 3.2 gm/dL Albumin/Globulin Ratio 0.9 L (1-2) Result Diagrams: 12/18/16 10:05 12/18/16 10:05 *Q Meaningful Use (ADM) - VTE *Q VTE Criteria *Q: - Stroke *Q Stroke Criteria *Q: - AMI *Q AMI Criteria *Q: Problem List Initiated/Reviewed/Updated: Yes Orders Last 24hrs: Active Orders 24 hr Category Date Time Status EKG 12 Lead [EKG Documentation Completion] [RC] STAT Care 12/18/16 09:44 Active Peripheral IV Care [RC] . DIRECTED Care 12/18/16 09:44 Active Sodium Chloride 0.9% [Normal Saline] 1,000 ml Med 12/18/16 10:40 Active IV ONETIME Sodium Chloride 0.9% [Saline Flush] Med 12/18/16 09:43 Active 10 ml FLUSH ASDIRECTED PRN Peripheral IV Insertion Adult [OM.PC] Stat Oth 12/18/16 09:44 Ordered Medication Orders Sodium Chloride (Normal Saline) 1,000 mls @ 150 mls/hr IV ONETIME ONE Stop: 12/18/16 17:19 Sodium Chloride (Saline Flush) 10 ml FLUSH ASDIRECTED PRN PRN Reason: Keep Vein Open Last Admin: 12/18/16 09:46 Dose: 10 ml Assessment/Plan Comment:: Assessment/Plan: Acute: Pre-syncopal Episode - Risk Factors: BP Meds, Poor Fluid Intake and Anemia - Received initial IV fluid in ED - Fall Precautions - Check for Orthotasis - Head CT scan, 2D echo and Carotid U/S Anemia - Had Black stools - Hemoccult not done yet - Hgb is 9.1 - Consult Dr. Weathers for further evaluation Black Tarry Stools/Melena - Denies using any NSAIDS - No hx/o PUD or GERD - Likely Upper GI in etiology - Supportive Care - Anti-acids and GS consult Chronic: Impaired Hearing HTN HLD Chronic Back Pain Anemia Hx/o Pelvic Fracture S/p IR Procedure Plan: Admit to Med-Surg Routine AM Labs Resume Home Meds Fall Precautions PO status as per Dr. Weathers PT/OT consult SW/CM for d/c planning Consult GS Code status: 1
[2016-12-18] MEDS ORDERED: LORazepam 2 MG/ML MDV IV PRN (13:55)
[2016-12-18] MEDS ORDERED: Ondansetron 4 MG/2 ML SDV IV PRN (13:55)
[2016-12-18] MEDS ORDERED: Acetaminophen 325 MG Tab PO PRN (13:55)
[2016-12-18] MEDS ORDERED: Promethazine 12.5 MG in Sodium Chloride 0.9% 50 ML IV PRN (13:55)
[2016-12-18] MEDS ORDERED: Polyethylene Glycol 3350 Powder 17 GM Packet PO PRN (13:55)
[2016-12-18] MEDS ORDERED: Docusate Sodium 100 MG Cap PO PRN (13:55)
[2016-12-18] MEDS ORDERED: Acetaminophen/HYDROcodone 325-5 MG Tab PO PRN (13:55)
[2016-12-18] MEDS ORDERED: Temazepam 7.5 MG Cap PO PRN (13:55)
[2016-12-18] MEDS ORDERED: Bisacodyl 5 MG Tab PO PRN (13:55)
[2016-12-18] MEDS ORDERED: HYDROmorphone 0.5 MG/0.5 ML Syringe IVPUSH PRN (13:55)
[2016-12-18] MEDS ORDERED: Albuterol/Ipratropium 3.0-0.5 MG/3 ML Neb Soln NEB PRN (13:55)
[2016-12-18] MEDS ORDERED: Simvastatin 10 MG Tab PO SCH (14:15)
[2016-12-18] MEDS ORDERED: hydrALAZINE 20 MG/ML SDV IVPUSH PRN (14:17)
[2016-12-18] MEDS ORDERED: Metoprolol Tartrate 5 MG/5 ML SDV IVPUSH PRN (14:17)
[2016-12-18] MEDS ORDERED: LORazepam 2 MG/ML MDV IVPUSH PRN (14:17)
--- NOTE | 2016-12-18 15:16 | CT ---
Head CT Technique: Multiple axial sections through the brain were obtained. Intravenous contrast was not utilized. Comparison: Previous head CT study of 11/27/16. Findings: Ventricles along with basal cisterns and sulci over the convexities are moderately prominent. Mild areas of diminished density are seen within the periventricular and subcortical white matter as well as basal ganglia which is compatible with small vessel ischemic demyelination change. Minimal basal ganglia calcification is incidentally noted. Atherosclerotic change is seen within the left vertebral vessel and within the carotid siphon. No evidence of intracranial hemorrhage. No midline shift or mass effect is seen. Bone window settings were reviewed which show no acute calvarial abnormality. Retention cysts are seen within the right maxillary sinus measuring 2.1 cm and within the left maxillary sinus measuring 5 mm. Minimal areas of mucosal thickening are seen within the ethmoid sinuses. Impression: 1. Incidental sinus findings. 2. Senescent change as noted above. 3. No acute intracranial abnormality is identified on noncontrast head CT study. Diagnostic code #2
--- NOTE | 2016-12-18 16:51 | PCM.CONSN ---
- General Info Date of Service: 12/18/16 - Patient Data Vitals - Most Recent: Last Vital Signs Temp 97.4 F 12/18/16 09:25 Pulse 81 12/18/16 14:40 Resp 12 12/18/16 14:40 BP 163/91 H 12/18/16 14:40 Pulse Ox 98 12/18/16 14:40 Weight - Most Recent: 78.925 kg I&O - Last 24 Hours: Intake & Output 12/18/16 12/18/16 12/18/16 07:59 15:59 23:59 Intake Total 1500 Balance 1500 Med Orders - Current: Current Medications Acetaminophen (Tylenol) 650 mg PO Q4H PRN PRN Reason: Pain (Mild 1-3)/fever Hydrocodone Bitart/Acetaminophen ([place] 325-5 Mg) 1 tab PO Q4H PRN PRN Reason: Pain (moderate 4-6) Albuterol/Ipratropium (Duoneb 3.0-0.5 Mg/3 Ml) 3 ml NEB Q4H PRN PRN Reason: Shortness Of Breath/wheezing Bisacodyl (Dulcolax) 5 mg PO DAILY PRN PRN Reason: Constipation Docusate Sodium (Colace) 100 mg PO BID PRN PRN Reason: Constipation Hydralazine HCl (Apresoline) 20 mg IVPUSH Q4H PRN PRN Reason: Hypertension Hydromorphone HCl (Dilaudid) 0.25 mg IVPUSH Q2H PRN PRN Reason: Pain (severe 7-10) Sodium Chloride (Normal Saline) 1,000 mls @ 150 mls/hr IV ONETIME ONE Stop: 12/18/16 17:19 Last Admin: 12/18/16 15:31 Dose: Not Given Dextrose/Sodium Chloride (Dextrose 5%-1/2 Ns) 1,000 mls @ 125 mls/hr IV ASDIRECTED YUKI Promethazine HCl 12.5 mg/ (Sodium Chloride) 50.5 mls @ 100 mls/hr IV Q6H PRN PRN Reason: Nausea/Vomiting Lisinopril (Prinivil) 10 mg PO ACBREAKFAST YUKI Lorazepam (Ativan) 0.5 mg IV Q6H PRN PRN Reason: Anxiety Lorazepam (Ativan) 2 mg IVPUSH Q4H PRN PRN Reason: Seizures Magnesium Sulfate (Pharmacy To Dose - Magnesium Replacement) 1 dose .XX ASDIRECTED [facility] Metoprolol Tartrate (Lopressor) 5 mg IVPUSH Q4H PRN PRN Reason: Tachycardia Ondansetron HCl (Zofran) 4 mg IV Q6H PRN PRN Reason: Nausea/Vomiting Polyethylene Glycol (Miralax) 17 gm PO DAILY PRN PRN Reason: Constipation Polyethylene Glycol (Miralax) 17 gm PO DAILY [facility] Potassium Chloride (Pharmacy To Dose - Potassium Replacement) 1 dose .XX ASDIRECTED [facility] Senna/Docusate Sodium (Senna Plus) 1 tab PO BID PRN PRN Reason: Constipation Simvastatin (Zocor) 5 mg PO MOTUWETHFR [facility] Sodium Chloride (Saline Flush) 10 ml FLUSH ASDIRECTED PRN PRN Reason: Keep Vein Open Last Admin: 12/18/16 09:46 Dose: 10 ml Temazepam (Restoril) 7.5 mg PO BEDTIME PRN PRN Reason: Sleep Verapamil HCl (Calan Sr) 240 mg PO DAILY [facility] Discontinued Medications Famotidine (Pepcid) 20 mg IVPUSH ONETIME ONE Stop: 12/18/16 09:55 Last Admin: 12/18/16 10:05 Dose: 20 mg Sodium Chloride (Normal Saline) 500 mls @ 999 mls/hr IV .BOLUS ONE Stop: 12/18/16 10:24 Last Admin: 12/18/16 10:04 Dose: 999 mls/hr Consult PN Assessment/Plan Procedures: Procedures ASSAY OF MAGNESIUM (11/27/16) ASSAY OF NATRIURETIC PEPTIDE (11/27/16) ASSAY OF TROPONIN QUANT (11/27/16) C-REACTIVE PROTEIN (11/27/16) CHEST X-RAY 1 VIEW FRONTAL (11/27/16) COMPLETE CBC W/AUTO DIFF WBC (11/27/16) COMPREHEN METABOLIC PANEL (11/27/16) CREATINE MB FRACTION (11/27/16) CT HEAD/BRAIN W/O DYE (11/27/16) ELECTROCARDIOGRAM TRACING (11/27/16) EMERGENCY DEPT VISIT (11/27/16) EMERGENCY DEPT VISIT (11/07/16) EMERGENCY DEPT VISIT (11/01/16) EMERGENCY DEPT VISIT (10/31/16) EMERGENCY DEPT VISIT (08/26/15) GAIT TRAINING THERAPY (11/01/16) GLUCOSE BLOOD TEST (11/27/16) HYDRATE IV INFUSION ADD-ON (11/27/16) METABOLIC PANEL TOTAL CA (11/01/16) MRI LUMBAR SPINE W/O DYE (11/01/16) MRI PELVIS W/O DYE (11/01/16) OT EVAL HIGH COMPLEX 60 MIN (11/01/16) PROTHROMBIN TIME (11/27/16) PT EVAL MOD COMPLEX 30 MIN (11/01/16) RBC SED RATE AUTOMATED (11/01/16) ROUTINE VENIPUNCTURE (11/27/16) SELF CARE MNGMENT TRAINING (11/01/16) THER/PROPH/DIAG INJ IV PUSH (11/27/16) THER/PROPH/DIAG IV INF INIT (09/30/15) THERAPEUTIC ACTIVITIES (11/01/16) THERAPEUTIC EXERCISES (11/01/16) TX/PRO/DX INJ NEW DRUG ADDON (11/01/16) TX/PRO/DX INJ SAME DRUG FIELD OPERATOR (11/01/16) X-RAY EXAM HIP UNI 2-3 VIEWS (11/01/16) X-RAY EXAM L-2 SPINE 4/>VWS (10/31/16) Problem List Initiated/Reviewed/Updated: Yes My Orders Last 24 Hours: My Active Orders 12/18/16 06:00 KCl/Na Sulf,Bicarb,Cl/PEG 3351 [GoLytely] 4,000 ml PO ONETIME ONE 12/18/16 16:48 Verify Patient Consent Obtain [RC] ASDIRECTED 12/18/16 Dinner Clear Liquid Diet [DIET] Nothing per Oral After Midnight Diet [DIET] 12/19/16 11:00 Schedule Procedure [COMM] Routine Plan: surgical consult dictated MARK
--- NOTE | 2016-12-18 16:59 | US ---
Carotid ultrasound: Duplex and color flow imaging was obtained of the carotid arteries. Mild to moderate amount of scattered plaque identified within the distal common, carotid bulb and proximal internal and external carotid arteries. Most of the plaque appears to be calcified showing irregular surface margins. Velocity measurements Right side: CCA has a peak systolic velocity of 0.69 m/s. ICA has a peak systolic velocity of 0.99 m/s and peak end-diastolic velocity of 0.32 m/s. ECA has a peak systolic velocity of 0.91 m/s. Vertebral artery not visualized ICA/CCA ratio is 1.43. Left side: CCA has a peak systolic velocity of 0.96 m/s. ICA has a peak systolic velocity of 0.86 m/s and peak end-diastolic velocity of 0.26 m/s. ECA has a peak systolic velocity of 1.13 m/s. Vertebral artery has a peak systolic velocity of 0.59 m/s. Impression: 1. Mild to moderate amount of scattered plaque which is mostly calcified showing irregular surface margins. 2. Velocity measurements within both internal carotid arteries correspond to stenosis in the range of 1-49%. 3. Nonvisualized right vertebral artery, difficult to exclude occlusion. CTA or MRA neck study could be considered on a nonemergent basis to further evaluate. Diagnostic code #3
[2016-12-18] MEDS: Dextrose 5%-0.45% NaCl 1,000 ML IV SCH (17:48)
[2016-12-18] MEDS: Verapamil 120 MG Tab.ER PO SCH ×2 (18:51→21:03)
[2016-12-18] MEDS ORDERED: Polyethylene Glycol/Electrolytes 4,000 ML Bottle PO ONE (19:00)
[2016-12-18] MEDS: Simvastatin 10 MG Tab PO SCH (20:17)
[2016-12-19] MEDS: Dextrose 5%-0.45% NaCl 1,000 ML IV SCH ×3 (01:19→20:39)
[2016-12-19] MEDS ORDERED: Lisinopril 10 MG Tab PO SCH (06:00)
[2016-12-19] MEDS: Polyethylene Glycol 3350 Powder 17 GM Packet PO SCH (08:21)
--- NOTE | 2016-12-19 08:48 | CONS ---
CONSULTING PHYSICIAN: Jasen Weathers MD DATE OF CONSULTATION: 12/18/2016 HISTORY OF PRESENT ILLNESS: This is a 81-year-old, who has seen Dr. Wilkerson in the office over an issue of low hemoglobin and possible bleeding, when he became dizzy and faint. He was placed on the floor and then brought here through the ambulance to the emergency room, and then admitted for possible GI bleed. He gives a history of last 3 weeks of black tarry stools and his hemoglobin has dropped to 9.1. The patient has over the last 3 weeks had a history of fall with injury to his pelvis or hip. It is unclear where his surgery was. Percutaneous surgery was done and issue resolved. He has, over the summer, had an infected knee which has resolved with antibiotics. He denies any use of non-steroidals. The last colonoscopy was about 3 years ago and possibly due for another one now. He has chronic back pain, hypertension, and hard of hearing. SOCIAL HISTORY: Noncontributory. He has never smoked or drank. No recreational drug. ALLERGIES: No known allergies. REVIEW OF SYSTEMS: No chest pain, shortness of breath, cough, hoarseness, or wheezing. He does have little fainting and weakness. LABORATORY DATA: A 12-lead EKG is pending. Lab work shows platelet count normal range. Creatinine is 0.9 with estimated creatinine greater than 60. PHYSICAL EXAMINATION: GENERAL: Reveals an alert, cooperative male. VITAL SIGNS: Blood pressure 160/91, pulse 81, sats normal. EYES: Sclerae white. Extraocular muscle motion normal. Oral cavity: Healthy mucous membrane with mouth and tongue. NECK: Supple. No nodes. No thyromegaly. LUNGS: Clear. No rales, rhonchi, fremitus, or dullness. HEART: Heart tones: No S3, S4. There is jugular venous distention. ABDOMEN: Soft. No tenderness, guarding, or rebound. NEUROLOGIC: Normal. Cranial nerves 3 through 12 intact. No sensorineural deficit. SKIN: Warm and dry. PSYCHIATRIC: Normal. ASSESSMENT: 1. Anemia. 2. History of black tarry stools. 3. Fainting episode. PLAN: For upper GI endoscopy and EGD. Discussed the procedure, the risks, and the complications. He understands and consents. MMODAL /[id number]
[2016-12-19] MEDS ORDERED: Verapamil 120 MG Tab.ER PO SCH (09:00)
[2016-12-19] MEDS ORDERED: Famotidine 20 MG/2 ML SDV IVPUSH SCH (09:30)
[2016-12-19] MEDS ORDERED: Potassium Chloride 20 MEQ Tab.ER PO SCH (09:30)
--- NOTE | 2016-12-19 10:40 | PCM.PREANE ---
Preanesthetic Assessment - Anesthesia/Transfusion/Family Hx Anesthesia History: Prior Anesthesia Without Reaction Family History of Anesthesia Reaction: No Transfusion History: No Prior Transfusion(s) - Review of Systems General: No Symptoms Pulmonary: No Symptoms Cardiovascular: No Symptoms Gastrointestinal: No Symptoms Neurological: No Symptoms Other: Reports: Easy Bleeding - Physical Assessment NPO Status Date: 12/19/16 NPO Status Time: 12:00 Pulse: 60 O2 Sat by Pulse Oximetry: 98 Respiratory Rate: 14 Blood Pressure: 128/83 Temperature: 37.2 C Vital Signs: Last Vital Signs Temp 37.2 C 12/19/16 07:58 Pulse 98 12/19/16 07:58 Resp 14 12/19/16 07:58 BP 128/83 12/19/16 07:58 Pulse Ox 84 L 12/19/16 07:58 Orthostatic Blood Pressure [ 126/99 Standing] Orthostatic Blood Pressure [ 129/98 Sitting] Orthostatic Blood Pressure [ 143/68 Supine] Height: 1.78 m Weight: 78.834 kg ASA Class: 2 Mental Status: Alert & Oriented x3 Airway Class: Mallampati = 1 Dentition: Reports: Normal Dentition Thyro-Mental Finger Breadths: 3 Mouth Opening Finger Breadths: 3 ROM/Head Extension: Full Lungs: Clear to Auscultation, Normal Respiratory Effort Cardiovascular: Regular Rate, Regular Rhythm - Lab Values: Laboratory Last Values WBC 6.58 K/mm3 (4.23-9.07) 12/19/16 05:53 RBC 2.83 M/mm3 (4.63-6.08) L 12/19/16 05:53 Hgb 8.4 gm/L (13.7-17.5) L 12/19/16 05:53 Hct 26.2 % (40.1-51.0) L 12/19/16 05:53 MCV 92.6 fl (79.0-92.2) H 12/19/16 05:53 MCH 29.7 pg (25.7-32.2) 12/19/16 05:53 MCHC 32.1 g/dl (32.2-35.5) L 12/19/16 05:53 RDW Std Deviation 49.6 fL (35.1-43.9) H 12/19/16 05:53 Plt Count 265 K/mm3 (163-337) 12/19/16 05:53 MPV 8.9 fl (9.4-12.3) L 12/19/16 05:53 Neut % (Auto) 71.2 % (34.0-67.9) H 12/19/16 05:53 Lymph % (Auto) 11.1 % (21.8-53.1) L 12/19/16 05:53 [place] % (Auto) 15.8 % (5.3-12.2) H 12/19/16 05:53 Eos % (Auto) 1.4 (0.8-7.0) 12/19/16 05:53 Baso % (Auto) 0.2 % (0.1-1.2) 12/19/16 05:53 Neut # (Auto) 4.69 K/mm3 (1.78-5.38) 12/19/16 05:53 Lymph # (Auto) 0.73 K/mm3 (1.32-3.57) L 12/19/16 05:53 [place] # (Auto) 1.04 K/mm3 (0.30-0.82) H 12/19/16 05:53 Eos # (Auto) 0.09 K/mm3 (0.04-0.54) 12/19/16 05:53 Baso # (Auto) 0.01 K/mm3 (0.01-0.08) 12/19/16 05:53 Manual Slide Review Abnormal smear 12/19/16 05:53 Sodium 135 mEq/L (136-145) L 12/19/16 05:53 Potassium 3.4 mEq/L (3.5-5.1) L 12/19/16 05:53 Chloride 102 mEq/L (98-107) 12/19/16 05:53 Carbon Dioxide 25 mEq/L (21-32) 12/19/16 05:53 Anion Gap 11.4 (5-15) 12/19/16 05:53 BUN 5 mg/dL (7-18) L 12/19/16 05:53 Creatinine 0.8 mg/dL (0.7-1.3) 12/19/16 05:53 Est Cr Clr Drug Dosing 77.31 mL/min 12/19/16 05:53 Estimated GFR (MDRD) > 60 mL/min (>60) 12/19/16 05:53 BUN/Creatinine Ratio 6.3 (14-18) L 12/19/16 05:53 Glucose 137 mg/dL (83-115) H 12/19/16 05:53 Calcium 8.4 mg/dL (8.5-10.1) L 12/19/16 05:53 Magnesium 1.8 mg/dl (1.8-2.4) 12/19/16 05:53 Total Bilirubin 0.4 mg/dL (0.2-1.0) 12/18/16 10:05 AST 15 U/L (15-37) 12/18/16 10:05 ALT 12 U/L (16-63) L 12/18/16 10:05 Alkaline Phosphatase 85 U/L (46-116) 12/18/16 10:05 Total Protein 6.0 g/dl (6.4-8.2) L 12/18/16 10:05 Albumin 2.8 g/dl (3.4-5.0) L 12/18/16 10:05 Globulin 3.2 gm/dL 12/18/16 10:05 Albumin/Globulin Ratio 0.9 (1-2) L 12/18/16 10:05 Urine Color Light yellow (Yellow) 12/18/16 17:30 Urine Appearance Clear (Clear) 12/18/16 17:30 Urine pH 7.0 (5.0-8.0) 12/18/16 17:30 Ur Specific [place] 1.015 (1.005-1.030) 12/18/16 17:30 Urine Protein Negative (Negative) 12/18/16 17:30 Urine Glucose (UA) Negative (Negative) 12/18/16 17:30 Urine Ketones Negative (Negative) 12/18/16 17:30 Urine Occult Blood Negative (Negative) 12/18/16 17:30 Urine Nitrite Negative (Negative) 12/18/16 17:30 Urine Bilirubin Negative (Negative) 12/18/16 17:30 Urine Urobilinogen 0.2 (0.2-1.0) 12/18/16 17:30 Ur Leukocyte Esterase Negative (Negative) 12/18/16 17:30 Urine RBC Not seen /hpf (0-5) 12/18/16 17:30 Urine WBC Not seen /hpf (0-5) 12/18/16 17:30 Ur Epithelial Cells Not seen /hpf (0-5) 12/18/16 17:30 Urine Bacteria Not seen /hpf (FEW) 12/18/16 17:30 Urine Mucus Not seen /hpf (FEW) 12/18/16 17:30 - Allergies Allergies/Adverse Reactions: Allergies Allergy/AdvReac Type Severity Reaction Status Date / Time No Known Allergies Allergy Verified 12/18/16 09:32 - Anesthesia Plan Pre-Op Medication Ordered: None - Acknowledgements Anesthesia Type Planned: MAC Pt an Appropriate Candidate for the Planned Anesthesia: Yes Alternatives and Risks of Anesthesia Discussed w Pt/Guardian: Yes Pt/Guardian Understands and Agrees with Anesthesia Plan: Yes PreAnesthesia Questionnaire HEENT History: Reports: Hard of Hearing Cardiovascular History: Reports: High Cholesterol, Hypertension Musculoskeletal History: Reports: Back Pain, Chronic Hematologic History: Reports: Anemia - Infectious Disease History Infectious Disease History: Reports: Chicken Pox - Past Surgical History GI Surgical History: Reports: Colonoscopy, Hernia, Inguinal Musculoskeletal Surgical History: Reports: Knee Replacement - SUBSTANCE USE Smoking Status *Q: Never Smoker Second Hand Smoke Exposure: No Days Per Week of Alcohol Use: 0 Number of Drinks Per Day: 0 Total Drinks Per Week: 0 Recreational Drug Use History: No - HOME MEDS Home Medications: Home Meds Moexipril [Univasc] 15 mg PO DAILY 10/31/16 [History] Pravastatin [Pravachol] 10 mg PO BEDTIME 10/31/16 [History] Verapamil HCl [Verelan] 240 mg PO BEDTIME 10/31/16 [History] Acetaminophen/oxyCODONE [Percocet 325-5 MG] 1 - 2 tab PO QID PRN 12/18/16 [ History] Polyethylene Glycol 3350 [MiraLAX] 1 pack PO DAILY 12/18/16 [History] - CURRENT (IN HOUSE) MEDS Current Meds: Current Medications Acetaminophen (Tylenol) 650 mg PO Q4H PRN PRN Reason: Pain (Mild 1-3)/fever Hydrocodone Bitart/Acetaminophen ([place] 325-5 Mg) 1 tab PO Q4H PRN PRN Reason: Pain (moderate 4-6) Albuterol/Ipratropium (Duoneb 3.0-0.5 Mg/3 Ml) 3 ml NEB Q4H PRN PRN Reason: Shortness Of Breath/wheezing Bisacodyl (Dulcolax) 5 mg PO DAILY PRN PRN Reason: Constipation Docusate Sodium (Colace) 100 mg PO BID PRN PRN Reason: Constipation Famotidine (Pepcid) 20 mg IVPUSH BID [facility] Last Admin: 12/19/16 10:01 Dose: 20 mg Hydralazine HCl (Apresoline) 20 mg IVPUSH Q4H PRN PRN Reason: Hypertension Hydromorphone HCl (Dilaudid) 0.25 mg IVPUSH Q2H PRN PRN Reason: Pain (severe 7-10) Last Admin: 12/19/16 08:55 Dose: 0.25 mg Dextrose/Sodium Chloride (Dextrose 5%-1/2 Ns) 1,000 mls @ 125 mls/hr IV ASDIRECTED [facility] Last Admin: 12/19/16 09:28 Dose: 125 mls/hr Promethazine HCl 12.5 mg/ (Sodium Chloride) 50.5 mls @ 100 mls/hr IV Q6H PRN PRN Reason: Nausea/Vomiting Lisinopril (Prinivil) 10 mg PO ACBREAKFAST [facility] Last Admin: 12/19/16 07:18 Dose: 10 mg Lorazepam (Ativan) 0.5 mg IV Q6H PRN PRN Reason: Anxiety Lorazepam (Ativan) 2 mg IVPUSH Q4H PRN PRN Reason: Seizures Magnesium Sulfate (Pharmacy To Dose - Magnesium Replacement) 1 dose .XX ASDIRECTED [facility] Metoprolol Tartrate (Lopressor) 5 mg IVPUSH Q4H PRN PRN Reason: Tachycardia Ondansetron HCl (Zofran) 4 mg IV Q6H PRN PRN Reason: Nausea/Vomiting Polyethylene Glycol (Miralax) 17 gm PO DAILY PRN PRN Reason: Constipation Polyethylene Glycol (Miralax) 17 gm PO DAILY [facility] Last Admin: 12/19/16 08:21 Dose: Not Given Potassium Chloride (Pharmacy To Dose - Potassium Replacement) 1 dose .XX ASDIRECTED [facility] Potassium Chloride (Klor-Con M20) 40 meq PO Q4H [facility] Stop: 12/19/16 19:01 Senna/Docusate Sodium (Senna Plus) 1 tab PO BID PRN PRN Reason: Constipation Simvastatin (Zocor) 5 mg PO MoTuWeThFr@2100 [facility] Last Admin: 12/18/16 20:17 Dose: 5 mg Sodium Chloride (Saline Flush) 10 ml FLUSH ASDIRECTED PRN PRN Reason: Keep Vein Open Last Admin: 12/18/16 09:46 Dose: 10 ml Temazepam (Restoril) 7.5 mg PO BEDTIME PRN PRN Reason: Sleep Verapamil HCl (Calan Sr) 240 mg PO BEDTIME [facility] Last Admin: 12/18/16 21:03 Dose: Not Given Discontinued Medications Famotidine (Pepcid) 20 mg IVPUSH ONETIME ONE Stop: 12/18/16 09:55 Last Admin: 12/18/16 10:05 Dose: 20 mg Sodium Chloride (Normal Saline) 500 mls @ 999 mls/hr IV .BOLUS ONE Stop: 12/18/16 10:24 Last Admin: 12/18/16 10:04 Dose: 999 mls/hr Sodium Chloride (Normal Saline) 1,000 mls @ 150 mls/hr IV ONETIME ONE Stop: 12/18/16 17:19 Last Admin: 12/18/16 15:31 Dose: Not Given Polyethylene Glycol/Electrolytes (Golytely) 4,000 ml PO ONETIME ONE Stop: 12/18/16 06:01 Last Admin: 12/18/16 18:50 Dose: Not Given Polyethylene Glycol/Electrolytes (Golytely) 4,000 ml PO ONETIME ONE Stop: 12/18/16 19:01 Last Admin: 12/18/16 20:17 Dose: 4,000 ml Potassium Chloride (Klor-Con M20) 40 meq PO Q4H [facility] Stop: 12/19/16 13:31 Simvastatin (Zocor) 5 mg PO MOTUWETHFR [facility] Last Admin: 12/18/16 17:14 Dose: Not Given Verapamil HCl (Calan Sr) 240 mg PO DAILY [facility]
[2016-12-19] MEDS ORDERED: fentaNYL 100 MCG/2 ML SDV ONE (11:19)
[2016-12-19] MEDS ORDERED: Lidocaine 1% 4 ML ONE (11:20)
[2016-12-19] MEDS ORDERED: Propofol 200 MG/20 ML SDV ONE ×2 (11:20→11:49)
--- NOTE | 2016-12-19 11:44 | PCM.OPNOTE ---
- General Post-Op/Procedure Note Date of Surgery/Procedure: 12/19/16 Operative Procedure(s): egd with bx/colonoscopy Findings: large duodenal ulcer in the posterior portion of the bulb Pre Op Diagnosis: gi bleeding anemia Post-Op Diagnosis: Same Anesthesia Technique: MAC Primary Surgeon: Jasen Weathers EBL in mLs: 0 Complications: None Condition: Good Free Text/Narrative:: Intake & Output 12/18/16 12/19/16 12/19/16 23:59 07:59 15:59 Intake Total 1750 5149 Output Total 500 800 Balance 1250 4349
--- NOTE | 2016-12-19 11:54 | PCM48HPAN ---
Post Anesthesia Note - EVALUATION WITHIN 48HRS OF ANESTHETIC Vital Signs in Normal Range: Yes Patient Participated in Evaluation: Yes Respiratory Function Stable: Yes Airway Patent: Yes Cardiovascular Function Stable: Yes Hydration Status Stable: Yes Pain Control Satisfactory: Yes Nausea and Vomiting Control Satisfactory: Yes Mental Status Recovered: Yes
[2016-12-19] MEDS ORDERED: Pantoprazole 40 MG Vial ONE (12:48)
[2016-12-19] MEDS: Sucralfate Suspension 1 GM/10 ML Cup PO SCH ×3 (13:11→23:25)
[2016-12-19] MEDS: Pantoprazole 80 MG in Sodium Chloride 0.9% 100 ML IV SCH ×2 (13:11→23:35)
--- NOTE | 2016-12-19 13:18 | PCM.PN ---
- General Info Date of Service: 12/19/16 Admission Dx/Problem (Free Text): GI Bleed Subjective Update: Follow Up Functional Status: Reports: Pain Controlled, Ambulating, Urinating, New Symptoms (He did not sleep well last night due to frequent bathroom breaks) - Review of Systems General: Denies: Fever, Weakness, Fatigue, Malaise, Chills HEENT: Reports: No Symptoms Pulmonary: Denies: Shortness of Breath Cardiovascular: Denies: Chest Pain Gastrointestinal: Denies: Abdominal Pain, Nausea, Vomiting Genitourinary: Reports: No Symptoms Musculoskeletal: Reports: No Symptoms Skin: Denies: Cyanosis, Jaundice, Mottled, Pallor, Diaphoresis, Rash Neurological: Reports: Difficulty Walking, Gait Disturbance. Denies: Confusion , Dizziness, Headache, Numbness, Seizure, Syncope, Tingling, Weakness Psychiatric: Denies: Confusion, Depression, Mood Lability, Anxiety, Agitation, Cravings, Hallucinations, Homicidal Ideation Systems Review Comment:: No significant or overnight or acute issues. His Hgb this am is 8.4 and K is 3.4. He has no new complaints. - Patient Data Vitals - Most Recent: Last Vital Signs Temp 37.2 C 12/19/16 10:43 Pulse 60 12/19/16 10:43 Resp 14 12/19/16 10:43 BP 128/83 12/19/16 10:43 Pulse Ox 98 12/19/16 10:43 Orthostatic Blood Pressure [ 126/99 Standing] Orthostatic Blood Pressure [ 129/98 Sitting] Orthostatic Blood Pressure [ 143/68 Supine] Weight - Most Recent: 78.834 kg I&O - Last 24 Hours: Intake & Output 12/18/16 12/19/16 12/19/16 22:59 06:59 14:59 Intake Total 1750 5149 Output Total 500 800 Balance 1250 4349 Imaging Impressions - Last 24 Hours: 2-D echo: Left ventricular ejection fraction 60-65%. No significant valvular dysfunctions. No regional wall motion abnormalities. Lab Results Last 24 Hours: Laboratory Results - last 24 hr 12/18/16 12/19/16 12/19/16 Range/Units 17:30 05:53 05:53 WBC 6.58 (4.23-9.07) K/mm3 RBC 2.83 L (4.63-6.08) M/mm3 Hgb 8.4 L (13.7-17.5) gm/L Hct 26.2 L (40.1-51.0) % MCV 92.6 H (79.0-92.2) fl MCH 29.7 (25.7-32.2) pg MCHC 32.1 L (32.2-35.5) g/dl RDW Std Deviation 49.6 H (35.1-43.9) fL Plt Count 265 (163-337) K/mm3 MPV 8.9 L (9.4-12.3) fl Neut % (Auto) 71.2 H (34.0-67.9) % Lymph % (Auto) 11.1 L (21.8-53.1) % [place] % (Auto) 15.8 H (5.3-12.2) % Eos % (Auto) 1.4 (0.8-7.0) Baso % (Auto) 0.2 (0.1-1.2) % Neut # (Auto) 4.69 (1.78-5.38) K/mm3 Lymph # (Auto) 0.73 L (1.32-3.57) K/mm3 [place] # (Auto) 1.04 H (0.30-0.82) K/mm3 Eos # (Auto) 0.09 (0.04-0.54) K/mm3 Baso # (Auto) 0.01 (0.01-0.08) K/mm3 Manual Slide Review Abnormal smear Sodium 135 L (136-145) mEq/L Potassium 3.4 L (3.5-5.1) mEq/L Chloride 102 (98-107) mEq/L Carbon Dioxide 25 (21-32) mEq/L Anion Gap 11.4 (5-15) BUN 5 L (7-18) mg/dL Creatinine 0.8 (0.7-1.3) mg/dL Est Cr Clr Drug Dosing 77.31 mL/min Estimated GFR (MDRD) > 60 (>60) mL/min BUN/Creatinine Ratio 6.3 L (14-18) Glucose 137 H (83-115) mg/dL Calcium 8.4 L (8.5-10.1) mg/dL Magnesium 1.8 (1.8-2.4) mg/dl Urine Color Light yellow (Yellow) Urine Appearance Clear (Clear) Urine pH 7.0 (5.0-8.0) Ur Specific [place] 1.015 (1.005-1.030) Urine Protein Negative (Negative) Urine Glucose (UA) Negative (Negative) Urine Ketones Negative (Negative) Urine Occult Blood Negative (Negative) Urine Nitrite Negative (Negative) Urine Bilirubin Negative (Negative) Urine Urobilinogen 0.2 (0.2-1.0) Ur Leukocyte Esterase Negative (Negative) Urine RBC Not seen (0-5) /hpf Urine WBC Not seen (0-5) /hpf Ur Epithelial Cells Not seen (0-5) /hpf Urine Bacteria Not seen (FEW) /hpf Urine Mucus Not seen (FEW) /hpf [place] Results Last 24 Hours: Microbiology 12/18/16 14:16 Stool Occult Blood (NENO) - Final Stool / Feces POSITIVE OCCULT BLOOD Med Orders - Current: Current Medications Acetaminophen (Tylenol) 650 mg PO Q4H PRN PRN Reason: Pain (Mild 1-3)/fever Hydrocodone Bitart/Acetaminophen ([place] 325-5 Mg) 1 tab PO Q4H PRN PRN Reason: Pain (moderate 4-6) Albuterol/Ipratropium (Duoneb 3.0-0.5 Mg/3 Ml) 3 ml NEB Q4H PRN PRN Reason: Shortness Of Breath/wheezing Bisacodyl (Dulcolax) 5 mg PO DAILY PRN PRN Reason: Constipation Docusate Sodium (Colace) 100 mg PO BID PRN PRN Reason: Constipation Hydralazine HCl (Apresoline) 20 mg IVPUSH Q4H PRN PRN Reason: Hypertension Hydromorphone HCl (Dilaudid) 0.25 mg IVPUSH Q2H PRN PRN Reason: Pain (severe 7-10) Last Admin: 12/19/16 08:55 Dose: 0.25 mg Dextrose/Sodium Chloride (Dextrose 5%-1/2 Ns) 1,000 mls @ 125 mls/hr IV ASDIRECTED [facility] Last Admin: 12/19/16 09:28 Dose: 125 mls/hr Promethazine HCl 12.5 mg/ (Sodium Chloride) 50.5 mls @ 100 mls/hr IV Q6H PRN PRN Reason: Nausea/Vomiting Pantoprazole Sodium 80 mg/ (Sodium Chloride) 100 mls @ 10 mls/hr IV .Continuous [facility] Last Admin: 12/19/16 13:11 Dose: 10 mls/hr Lisinopril (Prinivil) 10 mg PO ACBREAKFAST [facility] Last Admin: 12/19/16 07:18 Dose: 10 mg Lorazepam (Ativan) 0.5 mg IV Q6H PRN PRN Reason: Anxiety Lorazepam (Ativan) 2 mg IVPUSH Q4H PRN PRN Reason: Seizures Magnesium Sulfate (Pharmacy To Dose - Magnesium Replacement) 1 dose .XX ASDIRECTED [facility] Metoprolol Tartrate (Lopressor) 5 mg IVPUSH Q4H PRN PRN Reason: Tachycardia Ondansetron HCl (Zofran) 4 mg IV Q6H PRN PRN Reason: Nausea/Vomiting Polyethylene Glycol (Miralax) 17 gm PO DAILY PRN PRN Reason: Constipation Polyethylene Glycol (Miralax) 17 gm PO DAILY [facility] Last Admin: 12/19/16 08:21 Dose: Not Given Potassium Chloride (Pharmacy To Dose - Potassium Replacement) 1 dose .XX ASDIRECTED [facility] Potassium Chloride (Klor-Con M20) 40 meq PO Q4H [facility] Stop: 12/19/16 19:01 Senna/Docusate Sodium (Senna Plus) 1 tab PO BID PRN PRN Reason: Constipation Simvastatin (Zocor) 5 mg PO MoTuWeThFr@2100 [facility] Last Admin: 12/18/16 20:17 Dose: 5 mg Sodium Chloride (Saline Flush) 10 ml FLUSH ASDIRECTED PRN PRN Reason: Keep Vein Open Last Admin: 12/18/16 09:46 Dose: 10 ml Sucralfate (Carafate) 1 gm PO Q6H [facility] Last Admin: 12/19/16 13:11 Dose: 1 gm Temazepam (Restoril) 7.5 mg PO BEDTIME PRN PRN Reason: Sleep Verapamil HCl (Calan Sr) 240 mg PO BEDTIME [facility] Last Admin: 12/18/16 21:03 Dose: Not Given Discontinued Medications Famotidine (Pepcid) 20 mg IVPUSH ONETIME ONE Stop: 12/18/16 09:55 Last Admin: 12/18/16 10:05 Dose: 20 mg Famotidine (Pepcid) 20 mg IVPUSH BID [facility] Last Admin: 12/19/16 10:01 Dose: 20 mg Fentanyl (Sublimaze) Confirm Administered Dose 100 mcg .ROUTE .STK-MED ONE Stop: 12/19/16 11:20 Sodium Chloride (Normal Saline) 500 mls @ 999 mls/hr IV .BOLUS ONE Stop: 12/18/16 10:24 Last Admin: 12/18/16 10:04 Dose: 999 mls/hr Sodium Chloride (Normal Saline) 1,000 mls @ 150 mls/hr IV ONETIME ONE Stop: 12/18/16 17:19 Last Admin: 12/18/16 15:31 Dose: Not Given Lidocaine HCl (Xylocaine-Mpf 1%) Confirm Administered Dose 4 mls @ as directed .ROUTE .STK-MED ONE Stop: 12/19/16 11:21 Pantoprazole Sodium (Protonix Iv) Confirm Administered Dose 80 mg .ROUTE .STK -MED ONE Stop: 12/19/16 12:49 Polyethylene Glycol/Electrolytes (Golytely) 4,000 ml PO ONETIME ONE Stop: 12/18/16 06:01 Last Admin: 12/18/16 18:50 Dose: Not Given Polyethylene Glycol/Electrolytes (Golytely) 4,000 ml PO ONETIME ONE Stop: 12/18/16 19:01 Last Admin: 12/18/16 20:17 Dose: 4,000 ml Potassium Chloride (Klor-Con M20) 40 meq PO Q4H [facility] Stop: 12/19/16 13:31 Last Admin: 12/19/16 11:37 Dose: Not Given Propofol (Diprivan 20 Ml) Confirm Administered Dose 200 mg .ROUTE .STK-MED ONE Stop: 12/19/16 11:21 Propofol (Diprivan 20 Ml) Confirm Administered Dose 200 mg .ROUTE .STK-MED ONE Stop: 12/19/16 11:50 Simvastatin (Zocor) 5 mg PO MOTUWETHFR [facility] Last Admin: 12/18/16 17:14 Dose: Not Given Verapamil HCl (Calan Sr) 240 mg PO DAILY [facility] - Exam General: Alert, Oriented, Cooperative, No Acute Distress HEENT: Pupils Equal, Pupils Reactive, EOMI, Mucous Membr. Moist/[place] Neck: Supple, Trachea Midline, No JVD Lungs: Clear to Auscultation, Normal Respiratory Effort Cardiovascular: Regular Rate, Regular Rhythm GI/Abdominal Exam: Normal Bowel Sounds, Soft, Non-Tender, No Organomegaly, No Distention, No Abnormal Bruit, No Mass (Male) Exam: Deferred Back Exam: Normal Inspection, Decreased Range of Motion Extremities: Normal Inspection, Normal Range of Motion, Non-Tender, No Pedal Edema, Normal Capillary Refill Peripheral Pulses: 2+: Dorsalis Pedis (L), Dorsalis Pedis (R) Skin: Warm, Dry, Intact Neurological: No New Focal Deficit Psy/Mental Status: Alert, Normal Affect, Normal Mood - Problem List Review Problem List Initiated/Reviewed/Updated: Yes - My Orders Last 24 Hours: My Active Orders 12/18/16 14:16 Precautions [COMM] Routine 12/18/16 14:17 LORazepam [Ativan] 2 mg IVPUSH Q4H PRN Metoprolol Tartrate [Lopressor] 5 mg IVPUSH Q4H PRN hydrALAZINE [Apresoline] 20 mg IVPUSH Q4H PRN 12/18/16 14:30 Magnesium Rep Pharmacy to Dose [Pharmacy to Dose - Magnesium Replacement] 1 dose .XX ASDIRECTED Potassium Rep Pharmacy to Dose [Pharmacy to Dose - Potassium Replacement] 1 dose .XX ASDIRECTED 12/18/16 18:16 Verapamil [Calan SR] 240 mg PO BEDTIME 12/18/16 18:57 Simvastatin [Zocor] 5 mg PO MoTuWeThFr@2100 12/18/16 19:19 Orthostatic Vital Signs [RC] ASDIRECTED 12/19/16 15:00 Potassium Chloride [Klor-Con M20] 40 meq PO Q4H - Plan Plan:: Assessment/Plan: Acute: Pre-syncopal Episode - Risk Factors: BP Meds, Poor Fluid Intake and Anemia - Received initial IV fluid in ED - Fall Precautions - Orthotasis negative - Head CT scan: No acute intracranial abnormalities - 2D echo: Left ventricular ejection fraction of 60-65%. - Carotid U/S: Mild to moderate amount of scattered plaque which is mostly calcified showing irregular surface margins. Non-visualized right vertebral artery, difficult to exclude occlusion. CTA or MRA neck study on non -emergent basis for further evaluation (defer outpatient) Anemia - Had Black stools - Hemoccult not done yet - Hgb is 9.1 ---> 8.4 - Consult Dr. Weathers for further evaluation Black Tarry Stools/Melena - Denies using any NSAIDS - No hx/o PUD or GERD - Likely Upper GI in etiology - Supportive Care - Anti-acids and GS consult - Scheduled for endoscopy today Chronic: Impaired Hearing HTN HLD Chronic Back Pain Anemia Hx/o Pelvic Fracture S/p IR Procedure Plan: He is clinically stable Routine AM Labs Fall Precautions Continue PT/OT SW/CM for d/c planning Additional orders as above and pending endoscopy Code status: 1
[2016-12-19] MEDS: Potassium Chloride 20 MEQ Tab.ER PO SCH ×2 (15:18→18:53)
[2016-12-19] MEDS ORDERED: diphenhydrAMINE 50 MG/ML SDV IVPUSH ONE (20:10)
[2016-12-19] MEDS ORDERED: Dexamethasone 4 MG/ML SDV IVPUSH ONE (20:10)
[2016-12-19] MEDS: Simvastatin 10 MG Tab PO SCH (20:51)
[2016-12-19] MEDS: Verapamil 120 MG Tab.ER PO SCH (20:53)
[2016-12-19] MEDS: Hydrochlorothiazide 25 MG Tab PO SCH (23:25)
[2016-12-20] MEDS: Dextrose 5%-0.45% NaCl 1,000 ML IV SCH (04:44)
[2016-12-20] MEDS: Sucralfate Suspension 1 GM/10 ML Cup PO SCH ×4 (07:37→23:00)
[2016-12-20] MEDS: Hydrochlorothiazide 25 MG Tab PO SCH ×2 (07:38→13:45)
[2016-12-20] MEDS: Lisinopril 10 MG Tab PO SCH (07:38)
--- NOTE | 2016-12-20 08:24 | OR ---
DATE OF OPERATION: 12/19/2016 SURGEON: Jasen Weathers MD PREOPERATIVE DIAGNOSIS: GI bleed, anemia. POSTOPERATIVE DIAGNOSIS: GI bleed, anemia. OPERATION PERFORMED: EGD with biopsy. FINDINGS: Second portion of the duodenum normal, but the posterior bulb showed a large ulcer measuring approximately a little over 1 cm. Edges showed some inflamed granulation tissue and some duodenitis in the duodenal bulb. Pyloric channel was unremarkable. Antrum, body and cardia of the stomach and fundus were normal. The GE junction showed some irritation and irregularity, and this was biopsied. It was located at 41 cm. The balance of the esophagus was free of any disease. ANESTHESIA: IV sedation. DESCRIPTION OF PROCEDURE: The patient was taken to the operating room, placed in supine position, connected to monitoring equipment, given IV sedation, and placed in the left lateral position and bite block was inserted. Video Olympus gastroscope was placed in the posterior oropharynx and threaded past the cricopharyngeus, down the esophagus, and into the stomach. The stomach was insufflated and the scope placed in the duodenal bulb, which showed inflammation consistent with duodenitis. It was passed down to the second portion of the duodenum, was normal and as it pulled out, the posterior portion of the duodenal bulb showed a large 1 cm plus ulcer with granulation tissue around it. There were 2 black spots noted, but no bone red spots. The duodenal bulb was biopsied. The scope was pulled through the antrum, pyloric channel was normal. Biopsies of the antrum were performed. Body and cardia and fundus of stomach unremarkable. J-maneuver was performed and did not see any hiatal hernia. Scope was withdrawn. The GE junction was located at 40 cm. This showed irregularity and some inflammation, and this was biopsied. The rest of the esophagus viewed as the scope was withdrawn and was normal. The patient tolerated the procedure well. IV sedation was continued for colonoscopy. ESTIMATED BLOOD LOSS: MMODAL /[id number]
[2016-12-20] MEDS ORDERED: Dexamethasone 4 MG/ML SDV IVPUSH ONE (08:30)
[2016-12-20] MEDS ORDERED: diphenhydrAMINE 50 MG/ML SDV IVPUSH ONE (08:30)
[2016-12-20] MEDS: Pantoprazole 80 MG in Sodium Chloride 0.9% 100 ML IV SCH ×2 (09:43→21:29)
[2016-12-20] MEDS: Polyethylene Glycol 3350 Powder 17 GM Packet PO SCH (10:01)
[2016-12-20] MEDS ORDERED: Magnesium Sulfate/Water 2 GM in Premix Bag 1 BAG IV ONE (13:24)
--- NOTE | 2016-12-20 13:35 | PCM.PN ---
- General Info Date of Service: 12/20/16 Admission Dx/Problem (Free Text): GI Bleed Ramírez is seen this morning, resting comfortably in bed. Denies c/o pain. No abd pain or discomfort, no nausea. Has not had BM. Tolerated full liquid breakfast and is hungry for "real food". Does still feel fatigued and tired. Finishing iron infusion now; no ADR noted thus far. Functional Status: Reports: Pain Controlled, Tolerating Diet, Ambulating, Urinating. Denies: New Symptoms - Review of Systems General: Reports: Weakness, Fatigue, Appetite. Denies: Fever HEENT: Reports: No Symptoms Pulmonary: Reports: No Symptoms. Denies: Shortness of Breath, Cough Cardiovascular: Reports: No Symptoms. Denies: Chest Pain, Palpitations Gastrointestinal: Reports: No Symptoms. Denies: Abdominal Pain, Diarrhea, Nausea, Vomiting Genitourinary: Reports: No Symptoms - Patient Data Vitals - Most Recent: Last Vital Signs Temp 97.2 F 12/20/16 12:06 Pulse 80 12/20/16 12:06 Resp 18 12/20/16 12:06 BP 135/98 H 12/20/16 12:06 Pulse Ox 99 12/20/16 12:06 Orthostatic Blood Pressure [ 126/99 Standing] Orthostatic Blood Pressure [ 129/98 Sitting] Orthostatic Blood Pressure [ 143/68 Supine] Weight - Most Recent: 172 lb I&O - Last 24 Hours: Intake & Output 12/19/16 12/20/16 12/20/16 22:59 06:59 14:59 Intake Total 2043 1589 300 Output Total 550 2600 Balance 1493 -1011 300 Lab Results Last 24 Hours: Laboratory Results - last 24 hr 12/20/16 12/20/16 Range/Units 06:04 06:04 WBC 4.18 L (4.23-9.07) K/mm3 RBC 3.10 L (4.63-6.08) M/mm3 Hgb 9.1 L (13.7-17.5) gm/L Hct 28.9 L (40.1-51.0) % MCV 93.2 H (79.0-92.2) fl MCH 29.4 (25.7-32.2) pg MCHC 31.5 L (32.2-35.5) g/dl RDW Std Deviation 51.1 H (35.1-43.9) fL Plt Count 285 (163-337) K/mm3 MPV 9.1 L (9.4-12.3) fl Neut % (Auto) 85.9 H (34.0-67.9) % Lymph % (Auto) 5.7 L (21.8-53.1) % [place] % (Auto) 7.2 (5.3-12.2) % Eos % (Auto) 0.5 L (0.8-7.0) Baso % (Auto) 0.2 (0.1-1.2) % Neut # (Auto) 3.59 (1.78-5.38) K/mm3 Lymph # (Auto) 0.24 L (1.32-3.57) K/mm3 [place] # (Auto) 0.30 (0.30-0.82) K/mm3 Eos # (Auto) 0.02 L (0.04-0.54) K/mm3 Baso # (Auto) 0.01 (0.01-0.08) K/mm3 Manual Slide Review Abnormal smear Sodium 134 L (136-145) mEq/L Potassium 4.1 (3.5-5.1) mEq/L Chloride 101 (98-107) mEq/L Carbon Dioxide 24 (21-32) mEq/L Anion Gap 13.1 (5-15) BUN 2 L (7-18) mg/dL Creatinine 0.8 (0.7-1.3) mg/dL Est Cr Clr Drug Dosing 77.31 mL/min Estimated GFR (MDRD) > 60 (>60) mL/min BUN/Creatinine Ratio 2.5 L (14-18) Glucose 168 H (83-115) mg/dL Calcium 8.6 (8.5-10.1) mg/dL Magnesium 1.5 L (1.8-2.4) mg/dl Neno Results Last 24 Hours: Microbiology 12/18/16 17:30 Urine Culture - Final Urine, Voided MIXED MISHA SUGGESTIVE OF CONTAMINATION. Med Orders - Current: Current Medications Acetaminophen (Tylenol) 650 mg PO Q4H PRN PRN Reason: Pain (Mild 1-3)/fever Hydrocodone Bitart/Acetaminophen ([place] 325-5 Mg) 1 tab PO Q4H PRN PRN Reason: Pain (moderate 4-6) Albuterol/Ipratropium (Duoneb 3.0-0.5 Mg/3 Ml) 3 ml NEB Q4H PRN PRN Reason: Shortness Of Breath/wheezing Bisacodyl (Dulcolax) 5 mg PO DAILY PRN PRN Reason: Constipation Docusate Sodium (Colace) 100 mg PO BID PRN PRN Reason: Constipation Hydralazine HCl (Apresoline) 20 mg IVPUSH Q4H PRN PRN Reason: Hypertension Hydrochlorothiazide (Hydrochlorothiazide) 25 mg PO BIDDIURETIC [facility] Last Admin: 12/20/16 07:38 Dose: 25 mg Hydromorphone HCl (Dilaudid) 0.25 mg IVPUSH Q2H PRN PRN Reason: Pain (severe 7-10) Last Admin: 12/19/16 08:55 Dose: 0.25 mg Promethazine HCl 12.5 mg/ (Sodium Chloride) 50.5 mls @ 100 mls/hr IV Q6H PRN PRN Reason: Nausea/Vomiting Pantoprazole Sodium 80 mg/ (Sodium Chloride) 100 mls @ 10 mls/hr IV .Continuous [facility] Last Admin: 12/20/16 09:43 Dose: 10 mls/hr Magnesium Sulfate 2 gm/ Premix 50 mls @ 25 mls/hr IV ONETIME ONE Stop: 12/20/16 15:23 Lisinopril (Prinivil) 20 mg PO ACBREAKFAST [facility] Last Admin: 12/20/16 07:38 Dose: 20 mg Lorazepam (Ativan) 0.5 mg IV Q6H PRN PRN Reason: Anxiety Lorazepam (Ativan) 2 mg IVPUSH Q4H PRN PRN Reason: Seizures Magnesium Sulfate (Pharmacy To Dose - Magnesium Replacement) 1 dose .XX ASDIRECTED [facility] Metoprolol Tartrate (Lopressor) 5 mg IVPUSH Q4H PRN PRN Reason: Tachycardia Ondansetron HCl (Zofran) 4 mg IV Q6H PRN PRN Reason: Nausea/Vomiting Polyethylene Glycol (Miralax) 17 gm PO DAILY PRN PRN Reason: Constipation Polyethylene Glycol (Miralax) 17 gm PO DAILY [facility] Last Admin: 12/20/16 10:01 Dose: 17 gm Potassium Chloride (Pharmacy To Dose - Potassium Replacement) 1 dose .XX ASDIRECTED YUKI Senna/Docusate Sodium (Senna Plus) 1 tab PO BID PRN PRN Reason: Constipation Simvastatin (Zocor) 5 mg PO [id number] [facility] Last Admin: 12/19/16 20:51 Dose: 5 mg Sodium Chloride (Saline Flush) 10 ml FLUSH ASDIRECTED PRN PRN Reason: Keep Vein Open Last Admin: 12/18/16 09:46 Dose: 10 ml Sucralfate (Carafate) 1 gm PO Q6H [facility] Last Admin: 12/20/16 11:27 Dose: 1 gm Temazepam (Restoril) 7.5 mg PO BEDTIME PRN PRN Reason: Sleep Verapamil HCl (Calan Sr) 240 mg PO BEDTIME [facility] Last Admin: 12/19/16 20:53 Dose: 240 mg Discontinued Medications Dexamethasone (Dexamethasone) 4 mg IVPUSH ONETIME ONE Stop: 12/19/16 20:11 Last Admin: 12/19/16 20:54 Dose: 4 mg Dexamethasone (Dexamethasone) 4 mg IVPUSH ONETIME ONE Stop: 12/20/16 08:31 Last Admin: 12/20/16 09:46 Dose: 4 mg Diphenhydramine HCl (Benadryl) 25 mg IVPUSH ONETIME ONE Stop: 12/19/16 20:11 Last Admin: 12/19/16 20:54 Dose: 25 mg Diphenhydramine HCl (Benadryl) 25 mg IVPUSH ONETIME ONE Stop: 12/20/16 08:31 Last Admin: 12/20/16 09:47 Dose: 25 mg Famotidine (Pepcid) 20 mg IVPUSH ONETIME ONE Stop: 12/18/16 09:55 Last Admin: 12/18/16 10:05 Dose: 20 mg Famotidine (Pepcid) 20 mg IVPUSH BID [facility] Last Admin: 12/19/16 10:01 Dose: 20 mg Fentanyl (Sublimaze) Confirm Administered Dose 100 mcg .ROUTE .STK-MED ONE Stop: 12/19/16 11:20 Sodium Chloride (Normal Saline) 500 mls @ 999 mls/hr IV .BOLUS ONE Stop: 12/18/16 10:24 Last Admin: 12/18/16 10:04 Dose: 999 mls/hr Sodium Chloride (Normal Saline) 1,000 mls @ 150 mls/hr IV ONETIME ONE Stop: 12/18/16 17:19 Last Admin: 12/18/16 15:31 Dose: Not Given Dextrose/Sodium Chloride (Dextrose 5%-1/2 Ns) 1,000 mls @ 125 mls/hr IV ASDIRECTED YUKI Last Admin: 12/20/16 04:44 Dose: 125 mls/hr Lidocaine HCl (Xylocaine-Mpf 1%) Confirm Administered Dose 4 mls @ as directed .ROUTE .STK-MED ONE Stop: 12/19/16 11:21 Iron Sucrose 200 mg/ Sodium (Chloride) 260 mls @ 83 mls/hr IV ONETIME ONE Stop: 12/19/16 23:13 Last Admin: 12/19/16 23:19 Dose: Not Given Sodium Ferric Gluconat/Sucrose (250 mg/ Sodium Chloride) 120 mls @ 60 mls/hr IV ONETIME ONE Stop: 12/19/16 22:29 Last Admin: 12/19/16 23:19 Dose: Not Given Sodium Ferric Gluconat/Sucrose (250 mg/ Sodium Chloride) 120 mls @ 60 mls/hr IV ONETIME ONE Stop: 12/20/16 10:59 Last Admin: 12/20/16 09:45 Dose: 60 mls/hr Lisinopril (Prinivil) 10 mg PO ACBREAKFAST [facility] Last Admin: 12/19/16 07:18 Dose: 10 mg Pantoprazole Sodium (Protonix Iv) Confirm Administered Dose 80 mg .ROUTE .STK -MED ONE Stop: 12/19/16 12:49 Last Admin: 12/19/16 15:13 Dose: Not Given Polyethylene Glycol/Electrolytes (Golytely) 4,000 ml PO ONETIME ONE Stop: 12/18/16 06:01 Last Admin: 12/18/16 18:50 Dose: Not Given Polyethylene Glycol/Electrolytes (Golytely) 4,000 ml PO ONETIME ONE Stop: 12/18/16 19:01 Last Admin: 12/18/16 20:17 Dose: 4,000 ml Potassium Chloride (Klor-Con M20) 40 meq PO Q4H YUKI Stop: 12/19/16 13:31 Last Admin: 12/19/16 11:37 Dose: Not Given Potassium Chloride (Klor-Con M20) 40 meq PO Q4H YUKI Stop: 12/19/16 19:01 Last Admin: 12/19/16 18:53 Dose: 40 meq Propofol (Diprivan 20 Ml) Confirm Administered Dose 200 mg .ROUTE .STK-MED ONE Stop: 12/19/16 11:21 Propofol (Diprivan 20 Ml) Confirm Administered Dose 200 mg .ROUTE .STK-MED ONE Stop: 12/19/16 11:50 Simvastatin (Zocor) 5 mg PO MOTUWETHFR [facility] Last Admin: 12/18/16 17:14 Dose: Not Given Verapamil HCl (Calan Sr) 240 mg PO DAILY YUKI - Exam Quality Assessment: DVT Prophylaxis (SCD's) General: Alert, Oriented, Cooperative, No Acute Distress HEENT: Pupils Equal, EOMI, Mucous Membr. Moist/Drain Neck: Supple Lungs: Clear to Auscultation, Normal Respiratory Effort Cardiovascular: Regular Rate, Regular Rhythm GI/Abdominal Exam: Normal Bowel Sounds, Soft, Non-Tender, No Distention. No: Guarding, Rigid, Rebound, Tender (Male) Exam: Deferred Back Exam: Normal Inspection Extremities: Normal Inspection, No Pedal Edema, Normal Capillary Refill Peripheral Pulses: 1+: Dorsalis Pedis (L), Dorsalis Pedis (R) Neurological: No New Focal Deficit Psy/Mental Status: Alert, Normal Affect, Normal Mood - Problem List & Annotations (1) Duodenal ulcer SNOMED Code(s): 16221566 Code(s): K26.9 - DUODENAL ULCER, UNSP ACUTE OR CHRONIC, W/O HEMOR OR PERF Status: Acute Priority: High Current Visit: Yes (2) Upper GI hemorrhage SNOMED Code(s): 16712101 Code(s): K92.2 - GASTROINTESTINAL HEMORRHAGE, UNSPECIFIED Status: Acute Priority: High Current Visit: Yes (3) Anemia SNOMED Code(s): 174366859 Code(s): D64.9 - ANEMIA, UNSPECIFIED Status: Acute Priority: High Current Visit: Yes Qualifiers: Anemia type: other cause Other causes of anemia: acute posthemorrhagic Qualified Code(s): D62 - Acute posthemorrhagic anemia (4) Syncope SNOMED Code(s): 760215778 Code(s): R55 - SYNCOPE AND COLLAPSE Status: Resolved Priority: High Current Visit: Yes Qualifiers: Syncope type: unspecified Qualified Code(s): R55 - Syncope and collapse - Problem List Review Problem List Initiated/Reviewed/Updated: Yes - My Orders Last 24 Hours: My Active Orders 12/20/16 13:24 Magnesium Sulfate/Water [Magnesium Sulfate 2 GM in Water 50 ML] 2 gm Premix Bag 1 bag IV ONETIME 12/20/16 Lunch Full Liquid Diet [DIET] 12/21/16 05:11 CBC WITH AUTO DIFF [HEME] AM - Plan Plan:: Assessment/Plan: Acute: Duodenal Ulcer -Via EGD done yesterday with Dr. Weathers -Protonix drip per Dr. Weathers -Carafate -Advance diet per Dr. Weathers direction; tolerated full liq breakfast well this am and is hungry. -Taking in adequate PO fluids now, will DC IVF Pre-syncopal Episode--Resolved - Risk Factors: BP Meds, Poor Fluid Intake and Anemia---etiology is duodenal ulcer/GIB - Received initial IV fluid in ED - Fall Precautions - Orthotasis negative - Head CT scan: No acute intracranial abnormalities - 2D echo: Left ventricular ejection fraction of 60-65%. - Carotid U/S: Mild to moderate amount of scattered plaque which is mostly calcified showing irregular surface margins. Non-visualized right vertebral artery, difficult to exclude occlusion. CTA or MRA neck study on non -emergent basis for further evaluation (defer outpatient) Anemia--etiology as above- duodenal ulcer - Iron infusion today- tolerated well thus far - Had Black stools - Hemoccult stool is + - Hgb is 9.1 ---> 8.4-- up to 9.1 today - Consult Dr. Weathers for further evaluation; as noted above Black Tarry Stools/Melena - Denies using any NSAIDS - No hx/o PUD or GERD - Upper GI in etiology - Supportive Care - Anti-acids and GS consult Hypomagnesemia -Replete and cont close monitoring with daily lab Hypokalemia -Replete and cont close monitoring with daily lab Chronic: Impaired Hearing HTN HLD Chronic Back Pain Anemia Hx/o Pelvic Fracture S/p IR Procedure Plan: He is clinically stable; doing much better today, feels and looks better Routine AM Labs Fall Precautions Continue PT/OT SW/CM for d/c planning--likely dc home in next 24-48 hours pending continues to have forward progress. Additional orders as above Code status: 1
[2016-12-20] MEDS: Simvastatin 10 MG Tab PO SCH (21:24)
[2016-12-20] MEDS: Verapamil 120 MG Tab.ER PO SCH (21:25)
[2016-12-21] MEDS: Hydrochlorothiazide 25 MG Tab PO SCH (05:00)
[2016-12-21] MEDS: Lisinopril 10 MG Tab PO SCH (05:00)
[2016-12-21] MEDS: Sucralfate Suspension 1 GM/10 ML Cup PO SCH ×2 (05:00→11:29)
[2016-12-21] MEDS ORDERED: Magnesium Sulfate/Water 2 GM in Premix Bag 1 BAG IV ONE (09:30)
[2016-12-21] MEDS: Polyethylene Glycol 3350 Powder 17 GM Packet PO SCH (09:36)
--- NOTE | 2016-12-21 10:18 | PCM.DCSUM1 ---
Discharge Summary - Hospital Course Brief History: This is a 81 yo elderly white female with past medical hx/o impaired hearing, hypertension, hypercholesterolemia, chronic back pain, anemia , and history of pelvic fracture status post IR procedure who presents to his primary care's office after an episode of presyncope. Patient was found to have reduced level of Hgb and was admitted for anemia work up. - Discharge Data Discharge Date: 12/21/16 Discharge Disposition: Home, Self-Care 01 Condition: Good - Discharge Diagnosis/Problem(s) (1) Near syncope SNOMED Code(s): 013266701 ICD Code: R55 - SYNCOPE AND COLLAPSE Status: Resolved Current Visit: Yes (2) Anemia SNOMED Code(s): 493943350 ICD Code: D64.9 - ANEMIA, UNSPECIFIED Status: Acute Priority: High Current Visit: Yes Qualifiers: Anemia type: other cause Other causes of anemia: acute posthemorrhagic Qualified Code(s): D62 - Acute posthemorrhagic anemia (3) Duodenal ulcer SNOMED Code(s): 82757472 ICD Code: K26.9 - DUODENAL ULCER, UNSP ACUTE OR CHRONIC, W/O HEMOR OR PERF Status: Acute Priority: High Current Visit: Yes (4) Upper GI hemorrhage SNOMED Code(s): 37191538 ICD Code: K92.2 - GASTROINTESTINAL HEMORRHAGE, UNSPECIFIED Status: Resolved Priority: High Current Visit: Yes - Patient Summary/Data Operative Procedure(s) Performed: egd with bx/colonoscopy Complications: None Consults: Dr. Weathers Labs Pending at D/C: None Recommended Follow-up Testing/Procedures: CBC in 2 weeks with follow up appointment with Dr. Weathers Hospital Course: Patient was primarily admitted for near syncopal episode. On presentation, he was found to have a reduced level of hemoglobin at 9.1. His baseline hemoglobin was in the 14-15 range. Patient underwent anemia workup to include endoscopic procedures performed by Dr. Weathers. The patient tolerated the procedure well without complications. Patient was found to have a large duodenal ulcer. He was put on PPI and Carafate along with his H2 sherman for treatment of his duodenal ulcer. He also received one-time infusion of iron prior to discharge to further improve his Hgb level. His is hospital course was uncomplicated. The rest of his chronic medical illness remained stable during his admission. Patient was advised to avoid acidic foods and NSAIDs. Patient is now stable for discharge. He will go home with triple therapy of PPI, H2 sherman and Carafate. He is to follow-up with Dr. Weathers in 2 weeks for biopsy result and a repeat CBC. He is to come back or seek immediate care should his symptom persist or get worse. Patient expressed understanding and in agreement with the plans as discussed above. All questions were answered. - Patient Instructions Diet: Usual Diet as Tolerated Activity: As Tolerated Driving: Do Not Drive Showering/Bathing: May Shower Notify Provider of: Fever, Increased Pain, Swelling and Redness, Nausea and/or Vomiting Other/Special Instructions: - Please take all medications as directed. - Avoid acidic foods! - Absolutely NO NSADs!: Motrin, Ibuprofen, Aleve, BC or Goody's Powder. - Follow up with Dr. Weathers in 2 weeks. - Call or See your family doctor if your symptoms persist or get worse - Discharge Plan Prescriptions/Med Rec: Famotidine 20 mg PO BID #30 tablet Pantoprazole Sodium [Protonix] 40 mg PO DAILY #30 tablet. Sucralfate [Carafate] 1 gm PO Q6H #120 cup Home Medications: Home Meds Moexipril [Univasc] 15 mg PO DAILY 10/31/16 [History] Pravastatin [Pravachol] 10 mg PO BEDTIME 10/31/16 [History] Verapamil HCl [Verelan] 240 mg PO BEDTIME 10/31/16 [History] Acetaminophen/oxyCODONE [Percocet 325-5 MG] 1 - 2 tab PO QID PRN 12/18/16 [ History] Polyethylene Glycol 3350 [MiraLAX] 1 pack PO DAILY 12/18/16 [History] Famotidine 20 mg PO BID #30 tablet 12/21/16 [Rx] Pantoprazole Sodium [Protonix] 40 mg PO DAILY #30 tablet. 12/21/16 [Rx] Sucralfate [Carafate] 1 gm PO Q6H #120 cup 12/21/16 [Rx] Patient Handouts: Near-Syncope, [id number], Gastrointestinal Bleeding, Easy- to-Read Referrals: Charlie Wilkerson MD [Primary Care Provider] - - Discharge Summary/Plan Comment DC Time >30 min.: Yes (45 mins) Discharge Summary/Plan Comment: Discharge to Home - General Info Date of Service: 12/21/16 Admission Dx/Problem (Free Text: GI Bleed Ramírez is seen this morning, resting comfortably in bed. Denies c/o pain. No abd pain or discomfort, no nausea. Has not had BM. Tolerated full liquid breakfast and is hungry for "real food". Does still feel fatigued and tired. Finishing iron infusion now; no ADR noted thus far. Subjective Update: Follow Up Functional Status: Reports: Pain Controlled, Tolerating Diet, Ambulating, Urinating. Denies: New Symptoms - Review of Systems General: Denies: Fever, Weakness, Fatigue, Malaise, Chills HEENT: Reports: No Symptoms Pulmonary: Denies: Shortness of Breath, Cough Cardiovascular: Denies: Chest Pain, Palpitations, Dyspnea on Exertion, Edema, Lightheadedness Gastrointestinal: Reports: Flatus. Denies: Abdominal Pain, Decreased Appetite, Difficulty Swallowing, Hematochezia, Melena, Nausea, Vomiting Genitourinary: Reports: No Symptoms Musculoskeletal: Reports: No Symptoms Skin: Denies: Cyanosis, Jaundice, Mottled, Pallor, Diaphoresis, Rash Neurological: Denies: Confusion, Difficulty Walking, Weakness, Gait Disturbance Psychiatric: Denies: Confusion, Depression, Anxiety, Agitation, Hallucinations Systems Review Comment: No overnight or acute issues. His Hgb is 9.3 this am better than his admission level. He reports no rectal bleed or black stools. He feels good and has no new complaints. - Patient Data Vitals - Most Recent: Last Vital Signs Temp 36.7 C 12/21/16 04:42 Pulse 69 12/21/16 04:42 Resp 16 12/21/16 04:42 BP 117/65 12/21/16 05:00 Pulse Ox 98 12/21/16 04:42 Orthostatic Blood Pressure [ 126/99 Standing] Orthostatic Blood Pressure [ 129/98 Sitting] Orthostatic Blood Pressure [ 143/68 Supine] Weight - Most Recent: 77.61 kg I&O - Last 24 hours: Intake & Output 12/20/16 12/21/16 12/21/16 22:59 06:59 14:59 Intake Total 2009 Output Total 0153 5762 Balance -1415 -1500 Lab Results - Last 24 hrs: Laboratory Results - last 24 hr 12/21/16 12/21/16 Range/Units 07:19 07:19 WBC 11.01 H (4.23-9.07) K/mm3 RBC 3.13 L (4.63-6.08) M/mm3 Hgb 9.3 L (13.7-17.5) gm/L Hct 28.9 L (40.1-51.0) % MCV 92.3 H (79.0-92.2) fl MCH 29.7 (25.7-32.2) pg MCHC 32.2 (32.2-35.5) g/dl RDW Std Deviation 50.8 H (35.1-43.9) fL Plt Count 327 (163-337) K/mm3 MPV 8.7 L (9.4-12.3) fl Neut % (Auto) 79.7 H (34.0-67.9) % Lymph % (Auto) 7.1 L (21.8-53.1) % [place] % (Auto) 12.6 H (5.3-12.2) % Eos % (Auto) 0.1 L (0.8-7.0) Baso % (Auto) 0.1 (0.1-1.2) % Neut # (Auto) 8.78 H (1.78-5.38) K/mm3 Lymph # (Auto) 0.78 L (1.32-3.57) K/mm3 [place] # (Auto) 1.39 H (0.30-0.82) K/mm3 Eos # (Auto) 0.01 L (0.04-0.54) K/mm3 Baso # (Auto) 0.01 (0.01-0.08) K/mm3 Manual Slide Review Abnormal smear Sodium 135 L (136-145) mEq/L Potassium 3.7 (3.5-5.1) mEq/L Chloride 101 (98-107) mEq/L Carbon Dioxide 26 (21-32) mEq/L Anion Gap 11.7 (5-15) BUN 6 L (7-18) mg/dL Creatinine 1.0 (0.7-1.3) mg/dL Est Cr Clr Drug Dosing 61.85 mL/min Estimated GFR (MDRD) > 60 (>60) mL/min BUN/Creatinine Ratio 6.0 L (14-18) Glucose 106 (83-115) mg/dL Calcium 8.9 (8.5-10.1) mg/dL Magnesium 1.8 (1.8-2.4) mg/dl MARYCARMEN Results - Last 24 hrs: Microbiology 12/18/16 17:30 Urine Culture - Final Urine, Voided MIXED MISHA SUGGESTIVE OF CONTAMINATION. Med Orders - Current: Current Medications Acetaminophen (Tylenol) 650 mg PO Q4H PRN PRN Reason: Pain (Mild 1-3)/fever Hydrocodone Bitart/Acetaminophen ([place] 325-5 Mg) 1 tab PO Q4H PRN PRN Reason: Pain (moderate 4-6) Albuterol/Ipratropium (Duoneb 3.0-0.5 Mg/3 Ml) 3 ml NEB Q4H PRN PRN Reason: Shortness Of Breath/wheezing Bisacodyl (Dulcolax) 5 mg PO DAILY PRN PRN Reason: Constipation Docusate Sodium (Colace) 100 mg PO BID PRN PRN Reason: Constipation Hydralazine HCl (Apresoline) 20 mg IVPUSH Q4H PRN PRN Reason: Hypertension Hydrochlorothiazide (Hydrochlorothiazide) 25 mg PO BIDDIURETIC YUKI Last Admin: 12/21/16 05:00 Dose: 25 mg Hydromorphone HCl (Dilaudid) 0.25 mg IVPUSH Q2H PRN PRN Reason: Pain (severe 7-10) Last Admin: 12/19/16 08:55 Dose: 0.25 mg Promethazine HCl 12.5 mg/ (Sodium Chloride) 50.5 mls @ 100 mls/hr IV Q6H PRN PRN Reason: Nausea/Vomiting Pantoprazole Sodium 80 mg/ (Sodium Chloride) 100 mls @ 10 mls/hr IV .Continuous YUKI Last Admin: 12/20/16 21:29 Dose: 10 mls/hr Magnesium Sulfate 2 gm/ Premix 50 mls @ 25 mls/hr IV ONETIME ONE Stop: 12/21/16 11:29 Last Admin: 12/21/16 09:36 Dose: 25 mls/hr Lisinopril (Prinivil) 20 mg PO ACBREAKFAST YUKI Last Admin: 12/21/16 05:00 Dose: 20 mg Lorazepam (Ativan) 0.5 mg IV Q6H PRN PRN Reason: Anxiety Lorazepam (Ativan) 2 mg IVPUSH Q4H PRN PRN Reason: Seizures Magnesium Sulfate (Pharmacy To Dose - Magnesium Replacement) 1 dose .XX ASDIRECTED [facility] Metoprolol Tartrate (Lopressor) 5 mg IVPUSH Q4H PRN PRN Reason: Tachycardia Ondansetron HCl (Zofran) 4 mg IV Q6H PRN PRN Reason: Nausea/Vomiting Polyethylene Glycol (Miralax) 17 gm PO DAILY PRN PRN Reason: Constipation Polyethylene Glycol (Miralax) 17 gm PO DAILY [facility] Last Admin: 12/21/16 09:36 Dose: Not Given Potassium Chloride (Pharmacy To Dose - Potassium Replacement) 1 dose .XX ASDIRECTED [facility] Senna/Docusate Sodium (Senna Plus) 1 tab PO BID PRN PRN Reason: Constipation Simvastatin (Zocor) 5 mg PO [id number] [facility] Last Admin: 12/20/16 21:24 Dose: 5 mg Sodium Chloride (Saline Flush) 10 ml FLUSH ASDIRECTED PRN PRN Reason: Keep Vein Open Last Admin: 12/18/16 09:46 Dose: 10 ml Sucralfate (Carafate) 1 gm PO Q6H [facility] Last Admin: 12/21/16 05:00 Dose: 1 gm Temazepam (Restoril) 7.5 mg PO BEDTIME PRN PRN Reason: Sleep Verapamil HCl (Calan Sr) 240 mg PO BEDTIME [facility] Last Admin: 12/20/16 21:25 Dose: 240 mg Discontinued Medications Dexamethasone (Dexamethasone) 4 mg IVPUSH ONETIME ONE Stop: 12/19/16 20:11 Last Admin: 12/19/16 20:54 Dose: 4 mg Dexamethasone (Dexamethasone) 4 mg IVPUSH ONETIME ONE Stop: 12/20/16 08:31 Last Admin: 12/20/16 09:46 Dose: 4 mg Diphenhydramine HCl (Benadryl) 25 mg IVPUSH ONETIME ONE Stop: 12/19/16 20:11 Last Admin: 12/19/16 20:54 Dose: 25 mg Diphenhydramine HCl (Benadryl) 25 mg IVPUSH ONETIME ONE Stop: 12/20/16 08:31 Last Admin: 12/20/16 09:47 Dose: 25 mg Famotidine (Pepcid) 20 mg IVPUSH ONETIME ONE Stop: 12/18/16 09:55 Last Admin: 12/18/16 10:05 Dose: 20 mg Famotidine (Pepcid) 20 mg IVPUSH BID [facility] Last Admin: 12/19/16 10:01 Dose: 20 mg Fentanyl (Sublimaze) Confirm Administered Dose 100 mcg .ROUTE .STK-MED ONE Stop: 12/19/16 11:20 Sodium Chloride (Normal Saline) 500 mls @ 999 mls/hr IV .BOLUS ONE Stop: 12/18/16 10:24 Last Admin: 12/18/16 10:04 Dose: 999 mls/hr Sodium Chloride (Normal Saline) 1,000 mls @ 150 mls/hr IV ONETIME ONE Stop: 12/18/16 17:19 Last Admin: 12/18/16 15:31 Dose: Not Given Dextrose/Sodium Chloride (Dextrose 5%-1/2 Ns) 1,000 mls @ 125 mls/hr IV ASDIRECTED [facility] Last Admin: 12/20/16 04:44 Dose: 125 mls/hr Lidocaine HCl (Xylocaine-Mpf 1%) Confirm Administered Dose 4 mls @ as directed .ROUTE .STK-MED ONE Stop: 12/19/16 11:21 Iron Sucrose 200 mg/ Sodium (Chloride) 260 mls @ 83 mls/hr IV ONETIME ONE Stop: 12/19/16 23:13 Last Admin: 12/19/16 23:19 Dose: Not Given Sodium Ferric Gluconat/Sucrose (250 mg/ Sodium Chloride) 120 mls @ 60 mls/hr IV ONETIME ONE Stop: 12/19/16 22:29 Last Admin: 12/19/16 23:19 Dose: Not Given Sodium Ferric Gluconat/Sucrose (250 mg/ Sodium Chloride) 120 mls @ 60 mls/hr IV ONETIME ONE Stop: 12/20/16 10:59 Last Admin: 12/20/16 09:45 Dose: 60 mls/hr Magnesium Sulfate 2 gm/ Premix 50 mls @ 25 mls/hr IV ONETIME ONE Stop: 12/20/16 15:23 Last Admin: 12/20/16 13:45 Dose: 25 mls/hr Lisinopril (Prinivil) 10 mg PO ACBREAKFAST [facility] Last Admin: 12/19/16 07:18 Dose: 10 mg Pantoprazole Sodium (Protonix Iv) Confirm Administered Dose 80 mg .ROUTE .STK -MED ONE Stop: 12/19/16 12:49 Last Admin: 12/19/16 15:13 Dose: Not Given Polyethylene Glycol/Electrolytes (Golytely) 4,000 ml PO ONETIME ONE Stop: 12/18/16 06:01 Last Admin: 12/18/16 18:50 Dose: Not Given Polyethylene Glycol/Electrolytes (Golytely) 4,000 ml PO ONETIME ONE Stop: 12/18/16 19:01 Last Admin: 12/18/16 20:17 Dose: 4,000 ml Potassium Chloride (Klor-Con M20) 40 meq PO Q4H [facility] Stop: 12/19/16 13:31 Last Admin: 12/19/16 11:37 Dose: Not Given Potassium Chloride (Klor-Con M20) 40 meq PO Q4H YUKI Stop: 12/19/16 19:01 Last Admin: 12/19/16 18:53 Dose: 40 meq Propofol (Diprivan 20 Ml) Confirm Administered Dose 200 mg .ROUTE .STK-MED ONE Stop: 12/19/16 11:21 Propofol (Diprivan 20 Ml) Confirm Administered Dose 200 mg .ROUTE .STK-MED ONE Stop: 12/19/16 11:50 Simvastatin (Zocor) 5 mg PO MOTUWETHFR [facility] Last Admin: 12/18/16 17:14 Dose: Not Given Verapamil HCl (Calan Sr) 240 mg PO DAILY YUKI - Exam General: Reports: Alert, Oriented, Cooperative, No Acute Distress HEENT: Reports: Pupils Equal, Pupils Reactive, EOMI, Mucous Membr. Moist/[place] Neck: Reports: Supple, Trachea Midline, No JVD, No Thyromegaly Lungs: Reports: Clear to Auscultation, Normal Respiratory Effort Cardiovascular: Reports: Regular Rate, Regular Rhythm GI/Abdominal Exam: Normal Bowel Sounds, Soft, Non-Tender, No Organomegaly, No Distention, No Abnormal Bruit, No Mass (Male) Exam: Deferred Rectal (Males) Exam: Deferred Back Exam: Reports: Normal Inspection, Decreased Range of Motion, Muscle Spasm Extremities: Normal Inspection, Normal Range of Motion, Non-Tender, No Pedal Edema, Normal Capillary Refill Skin: Reports: Warm, Dry, Intact Neurological: Reports: No New Focal Deficit Psy/Mental Status: Reports: Alert, Normal Affect, Normal Mood *Q Meaningful Use (DIS) - VTE *Q VTE Criteria *Q: - Stroke *Q Stroke Criteria *Q: - AMI *Q AMI Criteria *Q:
[2016-12-21 13:49] VITALS: BP 120/69
--- NOTE | 2017-01-09 11:12 | OR ---
DATE OF OPERATION: 12/19/2016 SURGEON: Jaesn Weathers MD PREOPERATIVE DIAGNOSIS: Gastrointestinal bleed, anemia. POSTOPERATIVE DIAGNOSIS: Gastrointestinal bleed, anemia. OPERATION PERFORMED: Colonoscopy to cecum. FINDINGS: Some diverticulosis, mild internal hemorrhoids. There are no angiodysplasia, neoplasias, large tumor masses, ulcerations, or bleeding lesions. DESCRIPTION OF PROCEDURE: The patient having been taken to the GI room and connected monitoring equipment, given IV sedation for upper GI endoscopy, the IV sedation was continued for colonoscopy. He was placed in the left lateral position. Perianal area inspected, unremarkable. Rectal exam showed good sphincter tone. A video Olympus colonoscope was then introduced into the rectum and threaded up without problem to the cecum, where the ileocecal valve and appendicular orifice was noted. Prep was adequate. [place] Cleansing Score grade B and the scope was slowly withdrawn showing the cecum, ascending colon, transverse colon, descending colon, sigmoid colon, and rectum. Retroflexed view was done. Some diverticulosis was noted. There was no evidence of lesions that could cause GI bleeding in the colon. The patient tolerated the procedure and sent to recovery room in a stable condition. ANESTHESIA: ESTIMATED BLOOD LOSS: MMODAL /[id number]
== END 2016-12-21 13:11 | disposition home or self-care (01) | DRG 312 ==
LOC: SUPCPDRO 09:20 → JD.ED 09:20 → UNDOADMIN 14:06 → JD.MS 14:06
PROVIDERS: ADMIT Internal Medicine; ATTEND Internal Medicine
PROC: 0DB98ZX Excision of Duodenum, Via Natural or Artificial Opening Endoscopic, Diagnostic (ICD-10-PCS; principal; 2016-12-19)
PROC: 0DB48ZX Excision of Esophagogastric Junction, Via Natural or Artificial Opening Endoscopic, Diagnostic (ICD-10-PCS; 2016-12-19)
PROC: 0DB68ZX Excision of Stomach, Via Natural or Artificial Opening Endoscopic, Diagnostic (ICD-10-PCS; 2016-12-19)
PROC: 0DJD8ZZ Inspection of Lower Intestinal Tract, Via Natural or Artificial Opening Endoscopic (ICD-10-PCS; 2016-12-19)
DX: K92.2 Gastrointestinal hemorrhage, unspecified (principal); R55 Syncope and collapse; K92.1 Melena; D64.9 Anemia, unspecified; E78.00 Pure hypercholesterolemia, unspecified; I10 Essential (primary) hypertension; E78.5 Hyperlipidemia, unspecified; G89.29 Other chronic pain; M54.9 Dorsalgia, unspecified; H91.90 Unspecified hearing loss, unspecified ear; K57.30 Diverticulosis of large intestine without perforation or abscess without bleeding; K64.8 Other hemorrhoids; Z79.899 Other long term (current) drug therapy; Z96.659 Presence of unspecified artificial knee joint
CPT/HCPCS: 93880; 96361; 82270; 99285; 93005; 96374; 85025; 36415; 80053; J7040; J7050; 00810; 70450; 70450-26; 80048; 81001; 82272; 83013; 83735; 87086; 88305; 93306; 97161-GP; 97165-GO; 99223; 99232; 99239; A9270-GY; C9113; J1100; J1170; J1200; J2704; J2916; J3010; J3475; J7030; J7042

== ENCOUNTER 2019-10-31 17:47 | Emergency (ER) | payer MEDICARE, OTHER ==
[2019-10-31 18:10] VITALS: BP 203/115; PULSE 76
[2019-10-31] MEDS ORDERED: Acetaminophen 325 MG Tab PO ONE (19:13)
[2019-10-31] MEDS ORDERED: predniSONE 20 MG Tab PO ONE (19:14)
--- NOTE | 2019-10-31 19:16 | CR ---
Lumbar spine: AP, lateral and coned-down lateral view centered to the lumbosacral junction were obtained. Comparison: Prior lumbar spine plain film study of 10/31/16. Diffuse disc space narrowing is seen throughout the lower thoracic and lumbar spine. Diffuse anterior and lateral endplate osteophytes are seen. Cement appears to be present within both sides of the sacrum as an interval change from prior exam. Minimal scoliosis is noted. Mild vascular calcification seen. Nothing acute is appreciated. Impression: 1. Diffuse degenerative change. Cement is noted within both sides of the sacrum. Minimal scoliosis. 2. Nothing acute is appreciated on three-view lumbar spine study. Diagnostic code #2 This report was dictated in MDT
--- NOTE | 2019-10-31 19:22 | EDM.PDOC ---
ED HPI GENERAL MEDICAL PROBLEM - General Chief Complaint: Back Pain or Injury Stated Complaint: BACK PAIN Time Seen by Provider: 10/31/19 18:28 Source of Information: Reports: Patient History Limitations: Reports: No Limitations - History of Present Illness INITIAL COMMENTS - FREE TEXT/NARRATIVE: Patient is an 84 year old male who presents to he ER with c/o right buttocks pain that started Friday. He states that he was mowing the lawn on a riding lawnmower which was bumpy for an extended period of time on Friday afternoon. Shortly thereafter he developed pain in his rt buttock. Pain is worse with sitting and improves with standing or lying down. Pain does not radiate down his leg. He was been icing it throughout that day which he states does help, but pain returns. He has take OTC aleve with little relieve. He denies a previous history of similar pain. Right Buttock Pain Score (Numeric/FACES): 8 - Related Data Allergies Allergy/AdvReac Type Severity Reaction Status Date / Time No Known Allergies Allergy Verified 10/31/19 18:09 Home Meds: Home Meds Moexipril [Univasc] 15 mg PO DAILY 10/31/16 [History] Verapamil HCl [Verelan] 240 mg PO BEDTIME 10/31/16 [History] Polyethylene Glycol 3350 [MiraLAX] 1 pack PO DAILY PRN 12/18/16 [History] Lovastatin [Altoprev] 20 mg PO DAILY 10/31/19 [History] predniSONE [Prednisone] 20 mg PO ASDIRECTED #11 tablet 10/31/19 [Rx] Past Medical History HEENT History: Reports: Hard of Hearing Cardiovascular History: Reports: High Cholesterol, Hypertension Musculoskeletal History: Reports: Back Pain, Chronic Hematologic History: Reports: Anemia - Infectious Disease History Infectious Disease History: Reports: Chicken Pox - Past Surgical History GI Surgical History: Reports: Colonoscopy, Hernia, Inguinal Musculoskeletal Surgical History: Reports: Knee Replacement Social & Family History - Family History Family Medical History: Noncontributory - Tobacco Use Smoking Status *Q: Never Smoker - Caffeine Use Caffeine Use: Reports: None - Recreational Drug Use Recreational Drug Use: No - Living Situation & Occupation Living situation: Reports: Occupation: Retired ED ROS GENERAL - Review of Systems Review Of Systems: See Below Constitutional: Reports: No Symptoms. Denies: Fever, Chills, Weakness HEENT: Reports: No Symptoms Respiratory: Reports: No Symptoms Cardiovascular: Reports: No Symptoms Endocrine: Reports: No Symptoms GI/Abdominal: Reports: No Symptoms : Reports: No Symptoms Musculoskeletal: Reports: Other (right buttocks pain) Skin: Reports: No Symptoms Neurological: Reports: No Symptoms Psychiatric: Reports: No Symptoms Hematologic/Lymphatic: Reports: No Symptoms Immunologic: Reports: No Symptoms ED EXAM,LOWER BACK PAIN/INJURY - Physical Exam Exam: See Below General Appearance: Alert, WD/WN, No Apparent Distress Respiratory/Chest: No Respiratory Distress, Lungs Clear, Normal Breath Sounds, No Accessory Muscle Use, Chest Non-Tender Cardiovascular: Normal Peripheral Pulses, Regular Rate, Rhythm, No Edema, No Gallop, No JVD, No Murmur, No Rub Back Exam: Normal Inspection, Full Range of Motion, NT Extremities: Other (tenderness to palpation over the right SI joint.) Neurological: Alert, Normal Mood/Affect, Normal Dorsiflexion, CN II-XII Intact, Normal Plantar Flexion, Normal Gait, Normal Reflexes, No Motor/Sensory Deficits, Oriented x 3 Skin Exam: Warm, Dry, Intact, Normal Color, No Rash Course - Vital Signs Last Recorded V/S: Last Vital Signs Temp 97.6 F 10/31/19 18:04 Pulse 76 10/31/19 18:04 Resp 16 10/31/19 18:04 BP 203/115 H 10/31/19 18:04 Pulse Ox 98 10/31/19 18:04 - Orders/Labs/Meds Meds: Medications Discontinued Medications Generic Name Dose Route Start Last Admin Trade Name Freq PRN Reason Stop Dose Admin Acetaminophen 975 mg 10/31/19 19:13 10/31/19 19:28 Tylenol PO 10/31/19 19:14 975 mg NOW ONE Administration Prednisone 20 mg 10/31/19 19:14 10/31/19 19:29 Prednisone PO 10/31/19 19:15 20 mg ONETIME ONE Administration - Re-Assessments/Exams Free Text/Narrative Re-Assessment/Exam: On exam, patient has tenderness directly over his right-sided SI joint. X-rays were completed of the lumbar spine and right hip and pelvis. There were no abnormalities seen with the exception of degenerative changes. Patient's blood pressure was initially found to be elevated at 203/115. Recheck showed a blood pressure of 189/100. Recommended that we monitor the patient to ensure the blood pressure comes on, however he states he would like to go home. He is not concerned with his elevated blood pressure and states that he is "been in pain for 2 days "which is why his blood pressure is elevated. Patient was given a dose of Tylenol and prednisone in the ER. A prescription for prednisone has been sent to [facility] pharmacy. We will discharge home with recommendations to monitor his blood pressure and follow-up with his primary care doctor. Discharge instructions as documented. Departure - Departure Time of Disposition: 19:35 Disposition: Home, Self-Care 01 Condition: Good Clinical Impression: SI (sacroiliac) joint inflammation - Discharge Information *PRESCRIPTION DRUG MONITORING PROGRAM REVIEWED*: No *COPY OF PRESCRIPTION DRUG MONITORING REPORT IN PATIENT MAIRA: No Prescriptions: predniSONE [Prednisone] 20 mg PO ASDIRECTED #11 tablet Instructions: Sacroiliac Joint Dysfunction Referrals: Charlie Wilkerson MD [Primary Care Provider] - Forms: ED Department Discharge Additional Instructions: You were seen in the emergency department for pain to your right buttocks. Xrays were completed and were found to be overall normal with the exception of arthritis. While in the ER, you received tylenol and prednisone. A prescription for prednisone which is an antiinflammatory has been sent to the [facility]. Take this as prescribed. You may continue to ice over the are intermittently and use over the counter tylenol for pain. Recommend that you call tomorrow to schedule a follow-up appointment with your primary care provider. Return to the ER for any worsening symptoms. Sepsis Event Note (ED) - Evaluation Sepsis Screening Result: No Definite Risk
--- NOTE | 2019-10-31 20:11 | CR ---
Pelvis and right hip: AP view of the pelvis was obtained as well as AP and frog-leg lateral views of the right hip. Slight chondrocalcinosis is noted within the superior labrum. Cement is noted within both sides of the sacrum. Disc space narrowing is noted within the lower lumbar spine. Mild joint space narrowing is seen within the superior right hip. Bony structures are osteopenic. No discrete fracture or other abnormality is appreciated. Impression: 1. Degenerative change as noted above. Vertebroplasty cement is seen within both sides of the sacrum. Osteopenia is present. 2. Nothing acute is appreciated. Diagnostic code #2 This report was dictated in MDT
== END 2019-10-31 19:43 | disposition home or self-care (01) ==
LOC: JD.ED 17:47
DX: M46.1 Sacroiliitis, not elsewhere classified (principal); E78.00 Pure hypercholesterolemia, unspecified; I10 Essential (primary) hypertension; Z79.899 Other long term (current) drug therapy
CPT/HCPCS: 72100; 73502; 99283; A9270; J7512

== ENCOUNTER 2019-11-14 13:54 | Emergency (ER) | payer MEDICARE, OTHER ==
[2019-11-14] MEDS ORDERED: Mupirocin Oint 22 GM Tube TOP ONE (14:08)
--- NOTE | 2019-11-14 14:13 | EDM.PDOC ---
ED HPI GENERAL MEDICAL PROBLEM - General Chief Complaint: Skin Complaint Stated Complaint: SORE ON R LEG Time Seen by Provider: 11/14/19 13:56 Source of Information: Reports: Patient History Limitations: Reports: No Limitations - History of Present Illness INITIAL COMMENTS - FREE TEXT/NARRATIVE: 84-year-old male presents to the ED with an open wound in his right groin that he discovered this morning after showering. He has been placing Kenalog cream on the area for a lengthy period of time due to a rash in this area which most likely unfortunately was fungal or candidal purposes. The wound opened up today and was bleeding. He states it sore in his right in the groin crease. No systemic signs of infection such as fever chills nausea or vomiting. He was wondering if other medicines that he was taking were contributing to this problem and they are not. Onset: Today, Sudden Onset Date: 11/14/19 Onset Time: 10:00 Duration: Hour(s):, Getting Worse (Wound continues to ooze blood.) Location: Reports: Lower Extremity, Right (The wound is in the right groin at the crease between the leg and torso.) Quality: Reports: Burning, Sharp, Stabbing Severity: Moderate Improves with: Reports: None Worsens with: Reports: Other (And ambulation touch and walking.) Context: Reports: Other (He claims spontaneous occurrence discovered in the shower this morning but it looks to me like it has been chronic and just discovered this morning.). Denies: Activity, Exercise, Lifting, Sick Contact, Trauma Associated Symptoms: Reports: No Other Symptoms Treatments [employer]PER[employer]: Reports: Other (see below) (None.) - Related Data Allergies Allergy/AdvReac Type Severity Reaction Status Date / Time No Known Allergies Allergy Verified 11/14/19 14:00 Home Meds: Home Meds Moexipril [Univasc] 15 mg PO DAILY 10/31/16 [History] Verapamil HCl [Verelan] 240 mg PO BEDTIME 10/31/16 [History] Polyethylene Glycol 3350 [MiraLAX] 1 pack PO DAILY PRN 12/18/16 [History] Lovastatin [Altoprev] 20 mg PO DAILY 10/31/19 [History] Doxycycline [Vibra-Tabs] 100 mg PO Q12HR #24 tab 11/14/19 [Rx] Past Medical History HEENT History: Reports: Hard of Hearing Cardiovascular History: Reports: High Cholesterol, Hypertension Musculoskeletal History: Reports: Back Pain, Chronic Hematologic History: Reports: Anemia - Infectious Disease History Infectious Disease History: Reports: Chicken Pox - Past Surgical History GI Surgical History: Reports: Colonoscopy, Hernia, Inguinal Musculoskeletal Surgical History: Reports: Knee Replacement Social & Family History - Family History Family Medical History: Noncontributory - Caffeine Use Caffeine Use: Reports: None - Living Situation & Occupation Living situation: Reports: Occupation: Retired ED ROS GENERAL - Review of Systems Review Of Systems: See Below Constitutional: Denies: Fever, Chills, Malaise, Weakness, Fatigue, Decreased Appetite, Weight Loss HEENT: Reports: Glasses Cardiovascular: Reports: Blood Pressure Problem Endocrine: Reports: No Symptoms GI/Abdominal: Reports: No Symptoms : Reports: Frequency, Other (Nocturia x2 or 3.) Musculoskeletal: Reports: Joint Pain (Knees hips lower back shoulders at times) Skin: Reports: Other (Skin breakdown right groin that he noticed today. Appears to me that it is been a chronic problem that finally just broke down.) Neurological: Reports: No Symptoms Psychiatric: Reports: No Symptoms Hematologic/Lymphatic: Reports: No Symptoms Immunologic: Reports: No Symptoms ED EXAM, SKIN/RASH Exam: See Below Exam Limited By: No Limitations General Appearance: Alert, WD/WN, No Apparent Distress, Other (Temperature is 36.6 heart rate 78 sinus respiratory to 16 pulse ox 97 blood pressure markedly elevated on initial assessment at 202/113. He did slowly come down to 184/94) Extremities: Other (Examination was primarily to the right groin in the inguinal crease joining the pelvis to the leg. He has approximately a 3 cm linear laceration that is approximately 1/4 inch deep in this area with tissue exposed. There is mild surrounding erythema around the wound as if it was infected. He reports due to itchy has been placing Kenalog cream on this area for a lengthy period of time. I suspect he probably had a primary candidiasis infection that became secondarily infected causing the skin to breakdown and the wound to form. He just discovered the wound this morning.) Psychiatric: Normal Affect, Normal Mood Skin: Warm, Dry, Normal Color, Wound/Incision (He has an open wound along the right inguinal skin fold that he discovered this morning with no known trauma.) Location, Skin: Groin (Right groin) Course - Vital Signs Last Recorded V/S: Last Vital Signs Temp 36.6 C 11/14/19 13:55 Pulse 78 11/14/19 13:55 Resp 16 11/14/19 13:55 BP 202/113 H 11/14/19 13:55 Pulse Ox 97 11/14/19 13:55 - Orders/Labs/Meds Meds: Medications Discontinued Medications Generic Name Dose Route Start Last Admin Trade Name Rocio PRN Reason Stop Dose Admin Mupirocin 15 gm 11/14/19 14:08 Bactroban Oint TOP 11/14/19 14:09 ONETIME ONE - Radiology Interpretation Free Text/Narrative:: 84-year-old male presents the ED with a open wound in the right inguinal crease of his leg. He states he discovered it this morning in the shower. By history has been placing Kenalog cream in this area for a lengthy period of time due to itch which I presume is likely due to candidiasis as it is in his skin fold. It appears this may have precipitated wound breakdown information of a linear open wound. The wound is approximately 3 cm in length and 1/4 inch deep. It is been actively bleeding as if it was torn open this morning. Plan will be to daily cleanse the wound with soap and water in the shower. Then apply topical Bactroban ointment and use oral antibiotic doxycycline 100 mg twice daily for the next 12 days to clear up infection. If he is not completely cleared up in 10 days time he is to follow-up with his personal care physician. Departure - Departure Time of Disposition: 14:09 Disposition: Home, Self-Care 01 Condition: Fair Clinical Impression: Non-healing right groin open wound Qualifiers: Encounter type: initial encounter Qualified Code(s): S31.103A - Unspecified open wound of abdominal wall, right lower quadrant without penetration into peritoneal cavity, initial encounter - Discharge Information *PRESCRIPTION DRUG MONITORING PROGRAM REVIEWED*: Not Applicable *COPY OF PRESCRIPTION DRUG MONITORING REPORT IN PATIENT MAIRA: Not Applicable Prescriptions: Doxycycline [Vibra-Tabs] 100 mg PO Q12HR #24 tab Instructions: Skin Tear Referrals: Charlie Wilkerson MD [Primary Care Provider] - Forms: ED Department Discharge Additional Instructions: Evaluation in the emergency room today in regards to an open laceration or wound to the inner aspect of your right groin. The skin is obviously broke down in the skin crease likely due to a original yeast infection that became secondarily infected with bacterial infection and then broke down the skin. There is approximately a 3 cm linear laceration in the inner right groin that has been bleeding. It appears that it was infected or is still mildly infected. But is to cleanse the area daily with soap and water. Showering is fine. Suggest soap such as Dove or Ivory. Then apply topical antibiotic Bactroban that was given to you through the ED on the area and covered to keep clean and from clothing rubbing on the area. You will need to take oral antibiotic doxycycline 100 mg twice daily for the next 12 days to clear up infection completely. If wound is not healing appropriately in 7 to 10 days time you should be reviewed in the clinic or return to the ED. Sepsis Event Note (ED) - Focused Exam Vital Signs: Vital Signs Temp Pulse Resp BP Pulse Ox 11/14/19 13:55 36.6 C 78 16 202/113 H 97
[2019-11-14 14:30] VITALS: BP 200/100; PULSE 66
== END 2019-11-14 14:35 | disposition home or self-care (01) ==
LOC: JD.ED 13:54
DX: S31.113A Laceration without foreign body of abdominal wall, right lower quadrant without penetration into peritoneal cavity, initial encounter (principal); E78.00 Pure hypercholesterolemia, unspecified; I10 Essential (primary) hypertension; Z79.899 Other long term (current) drug therapy; X58.XXXA Exposure to other specified factors, initial encounter
CPT/HCPCS: 99282; A9270; 99283

== ENCOUNTER 2020-12-11 14:47 | Inpatient (IN) | payer MEDICARE, OTHER ==
--- NOTE | 2020-12-11 14:57 | EDM.PDOC ---
ED HPI GENERAL MEDICAL PROBLEM - General Chief Complaint: General Stated Complaint: [facility] Time Seen by Provider: 12/11/20 14:55 Source of Information: Reports: Patient, EMS History Limitations: Reports: Physical Impairment (very hard of hearing. ) - History of Present Illness INITIAL COMMENTS - FREE TEXT/NARRATIVE: 85-year-old male presents to the ED per [facility]. History of generalized weakness starting yesterday. No recognized fever by him but definitely is febrile upon arrival in the ED. He claims he has a nonproductive cough. He has complete loss of appetite although he did have a few crackers this morning and a sip of milk. No diarrhea no vomiting although he is complaining of nausea at the time I seen him in the ED. He scraped up the anterior aspect of his left leg yesterday. Usually does not have to use a walker around home but he started using it yesterday due to weakness and fear of falling. He is concerned that he may have contracted coronavirus. He did receive the majority of vaccine he believes in March and May of this year. Cough is nonproductive. Denies any problems with urinary hesitancy although his flow was quite slow. Nocturia x2 and sometimes 3. No definitive chills or rigors. Apparently he fell while trying to get to the door after the doorbell rang just before arrival in the ED. Ambulance was summoned to his fall inside his home. He states he did not get hurt from this fall. Onset: Gradual Onset Date: 12/10/20 (Noted to feel weak yesterday.) Duration: Day(s):, Getting Worse Location: Reports: Generalized (With loss of appetite and mild nonproductive cough) Quality: Reports: Other (Generalized weakness) Severity: Moderate Improves with: Reports: Rest Worsens with: Reports: Other (Very weak when he tries to get up and stand or walk) Context: Reports: Trauma (Fall at home while using his walker trying to get to the door after the doorbell ring.). Denies: Activity ( or get to the bathroom), Exercise, Lifting, Sick Contact Associated Symptoms: Reports: Cough, Fever/Chills, Malaise, Nausea/Vomiting, Shortness of Breath, Weakness (Mild nausea without vomiting generalized severe weakness particular trying to get to the bathroom from the bedroom.). 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 (see below) (Only medications as prescribed) - Related Data Allergies Allergy/AdvReac Type Severity Reaction Status Date / Time No Known Allergies Allergy Verified 12/11/20 14:58 Home Meds: Home Meds Moexipril [Univasc] 15 mg PO DAILY 10/31/16 [History] Verapamil HCl [Verelan] 240 mg PO BEDTIME 10/31/16 [History] Polyethylene Glycol 3350 [MiraLAX] 1 pack PO DAILY PRN 12/18/16 [History] Lovastatin [Altoprev] 20 mg PO DAILY 10/31/19 [History] Doxycycline [Vibra-Tabs] 100 mg PO Q12HR #24 tab 11/14/19 [Rx] Past Medical History HEENT History: Reports: Hard of Hearing Cardiovascular History: Reports: High Cholesterol, Hypertension Musculoskeletal History: Reports: Back Pain, Chronic Hematologic History: Reports: Anemia - Infectious Disease History Infectious Disease History: Reports: Chicken Pox - Past Surgical History GI Surgical History: Reports: Colonoscopy, Hernia, Inguinal Musculoskeletal Surgical History: Reports: Knee Replacement Social & Family History - Family History Family Medical History: No Pertinent Family History - Caffeine Use Caffeine Use: Reports: None - Living Situation & Occupation Living situation: Reports: Occupation: Retired ED ROS GENERAL - Review of Systems Review Of Systems: See Below Constitutional: Reports: Fatigue, Decreased Appetite HEENT: Reports: Glasses, Other (Apparently has some degree of macular degeneration as well) Respiratory: Reports: Shortness of Breath, Cough. Denies: Wheezing (Mild COPD), Pleuritic Chest Pain, Sputum (Currently has a nonproductive cough), Hemoptysis Cardiovascular: Reports: Blood Pressure Problem, Dyspnea on Exertion. Denies: Chest Pain, Claudication, Edema, Lightheadedness, Orthopnea (On medication for hypertension) Endocrine: Reports: Fatigue (Sometimes) GI/Abdominal: Reports: Constipation : Reports: Frequency, Other (Slow urinary stream. Nocturia x2-3 nightly) Musculoskeletal: Reports: Back Pain, Joint Pain (Knees hips neck at times) Skin: Reports: Bruising (Jerzy.) Neurological: Reports: Dizziness, Difficulty Walking (Particular the last day or 2.), Weakness. Denies: Confusion, Headache, Numbness, Syncope, Tingling, Tremors, Trouble Speaking ( Has a walker and started using it yesterday after he fell), Change in Speech Psychiatric: Reports: No Symptoms Hematologic/Lymphatic: Reports: No Symptoms Immunologic: Reports: No Symptoms ED EXAM, GENERAL - Physical Exam Exam: See Below Exam Limited By: Physical Impairment (He is very hard of hearing) General Appearance: Alert, WD/WN, No Apparent Distress, Other (Patient is definitely febrile on examination nurses recorded temperature 36.9 but he is definitely much warmer than this. Heart rate is 103 at the bedside respiratory rate is 18 with O2 sats of 93 to 94%. BP 130/83) Eye Exam: Bilateral Eye: Normal Inspection (No blepharal pallor or scleral icterus), PERRL Ears: Normal TMs Throat/Mouth: Normal Inspection, Normal Oropharynx, Other (Tongue is mildly coated and dry.) Head: Atraumatic, Normocephalic, Other (No outward signs of facial or head trauma) Neck: Normal Inspection, Limited Range of Motion (Loss of 10 degrees lateral extension and flexion loss of 5 degrees flexion loss of 10 degrees extension of the neck). No: Full Range of Motion, Carotid Bruit, Lymphadenopathy (L), Lymphadenopathy (R) Respiratory/Chest: Lungs Clear (Decreased air entry the lower 20% lung atkinson posteriorly), Normal Breath Sounds, Respiratory Distress (Mildly tachypneic at rest.), Decreased Breath Sounds. No: Rhonchi, Wheezing Cardiovascular: Regular Rate, Rhythm, No Gallop, No Murmur, No Rub. No: Normal Peripheral Pulses, No Edema Peripheral Pulses: 1+: Posterior Tibial (L), Posterior Tibial (R), Dorsalis Pedis (L), Dorsalis Pedis (R), 2+: Carotid (L), Carotid (R) GI/Abdominal: Normal Bowel Sounds, Soft, Non-Tender, No Organomegaly, No Abnormal Bruit, No Mass, Pelvis Stable, Rebound. No: Guarding, Rigid Back Exam: No: CVA Tenderness (L), CVA Tenderness (R) Extremities: Normal Inspection, No Pedal Edema, Pedal Edema (Trace pedal edema both lower extremities), Other (Patient has numerous superficial abrasions left anterior lopez which appear to be recent) Neurological: Alert, Oriented, CN II-XII Intact, Normal Cognition Psychiatric: Normal Affect, Normal Mood Skin Exam: Warm, Dry, Intact, Normal Color, No Rash #1 Interpretation EKG Date: 12/11/20 Time: 15:37 Rhythm: NSR Rate (Beats/Min): 100 (Frequent premature atrial contractions and premature ventricular contractions) [place]: LAD-Left [place] Deviation (-19 degrees) P-Wave: Present QRS: Other (Q waves present in leads II, III and aVF 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) ST-T: Other (Diffuse early repolarization pattern T wave inversion V4 to V6.) QT: Prolonged (Moderately prolonged) EKG Interpretation Comments: Abnormal ECG Course - Vital Signs Last Recorded V/S: Last Vital Signs Temp 36.3 C 12/11/20 18:35 Pulse 103 H 12/11/20 14:55 Resp 18 12/11/20 14:55 BP 130/83 12/11/20 14:55 Pulse Ox 96 12/11/20 16:14 - Orders/Labs/Meds Orders: Active Orders 24 hr Category Date Time Status Oxygen Therapy [RC] ASDIRECTED Care 12/11/20 16:14 Active BLOOD CULTURE [MREF] Stat Lab 12/11/20 15:33 Received BLOOD CULTURE [MREF] Stat Lab 12/11/20 15:36 Received Dextrose 5%-0.9% NaCl [Dextrose 5%-Normal Saline] 1,000 Med 12/11/20 15:15 Active ml IV ASDIRECTED Blood Culture x2 Reflex Set [OM.PC] Stat Oth 12/11/20 15:08 Ordered Medication Orders Dextrose/Sodium Chloride (Dextrose 5%-Normal Saline) 1,000 mls @ 250 mls/hr IV ASDIRECTED [facility] Last Admin: 12/11/20 15:40 Dose: 250 mls/hr Documented by: EDUARDO Labs: Laboratory Tests 12/11/20 12/11/20 12/11/20 Range/Units 15:06 15:33 15:33 WBC 17.87 H (4.23-9.07) K/mm3 RBC 5.10 (4.63-6.08) M/mm3 Hgb 16.1 (13.7-17.5) gm/dl Hct 46.3 (40.1-51.0) % MCV 90.8 (79.0-92.2) fl MCH 31.6 (25.7-32.2) pg MCHC 34.8 (32.2-35.5) g/dl RDW Std Deviation 42.6 (35.1-43.9) fL Plt Count 130 L (163-337) K/mm3 MPV 10.8 (9.4-12.3) fl Neutrophils % (Manual) 81 H (40-60) % Band Neutrophils % 0 (0-10) % Lymphocytes % (Manual) 6 L (20-40) % Atypical Lymphs % 0 % Monocytes % (Manual) 13 H (2-10) % Eosinophils % (Manual) 0 L (0.8-7.0) % Basophils % (Manual) 0 L (0.2-1.2) Platelet Estimate Adequate RBC Morph Comment Normal PT 12.3 H (9.7-12.0) SECONDS INR 1.11 APTT (21.7-31.4) SECONDS Sodium (136-145) mEq/L Potassium (3.5-5.1) mEq/L Chloride (98-107) mEq/L Carbon Dioxide (21-32) mEq/L Anion Gap (5-15) BUN (7-18) mg/dL Creatinine (0.7-1.3) mg/dL Est Cr Clr Drug Dosing mL/min Estimated GFR (MDRD) (>60) mL/min BUN/Creatinine Ratio (14-18) Glucose (70-99) mg/dL Lactic Acid (0.4-2.0) mmol/L Calcium (8.5-10.1) mg/dL Magnesium (1.8-2.4) mg/dL Total Bilirubin (0.2-1.0) mg/dL AST (15-37) U/L ALT (16-63) U/L Alkaline Phosphatase (46-116) U/L Troponin I (0.00-0.056) ng/mL C-Reactive Protein (<1.0) mg/dL NT-Pro-B Natriuret Pep (0-450) pg/mL Total Protein (6.4-8.2) g/dl Albumin (3.4-5.0) g/dl Globulin gm/dL Albumin/Globulin Ratio (1-2) Urine Color (Yellow) Urine Appearance (Clear) Urine pH (5.0-8.0) Ur Specific [place] (1.005-1.030) Urine Protein (Negative) Urine Glucose (UA) (Negative) Urine Ketones (Negative) Urine Occult Blood (Negative) Urine Nitrite (Negative) Urine Bilirubin (Negative) Urine Urobilinogen (0.2-1.0) Ur Leukocyte Esterase (Negative) U Hyaline Cast (Auto) (0-5) /lpf Urine RBC (0-5) /hpf Urine WBC (0-5) /hpf Ur Squamous Epith Cells (0-5) /hpf Urine Bacteria (FEW) /hpf Urine Mucus (FEW) /hpf SARS-CoV-2 RNA (ERWIN) Negative (NEGATIVE) 12/11/20 12/11/20 12/11/20 Range/Units 15:33 15:33 15:33 WBC (4.23-9.07) K/mm3 RBC (4.63-6.08) M/mm3 Hgb (13.7-17.5) gm/dl Hct (40.1-51.0) % MCV (79.0-92.2) fl MCH (25.7-32.2) pg MCHC (32.2-35.5) g/dl RDW Std Deviation (35.1-43.9) fL Plt Count (163-337) K/mm3 MPV (9.4-12.3) fl Neutrophils % (Manual) (40-60) % Band Neutrophils % (0-10) % Lymphocytes % (Manual) (20-40) % Atypical Lymphs % % Monocytes % (Manual) (2-10) % Eosinophils % (Manual) (0.8-7.0) % Basophils % (Manual) (0.2-1.2) Platelet Estimate RBC Morph Comment PT (9.7-12.0) SECONDS INR APTT 30.0 (21.7-31.4) SECONDS Sodium 124 L D (136-145) mEq/L Potassium 4.0 (3.5-5.1) mEq/L Chloride 90 L D (98-107) mEq/L Carbon Dioxide 23 (21-32) mEq/L Anion Gap 15.0 (5-15) BUN 34 H (7-18) mg/dL Creatinine 1.4 H (0.7-1.3) mg/dL Est Cr Clr Drug Dosing 1.46 mL/min Estimated GFR (MDRD) 48 (>60) mL/min BUN/Creatinine Ratio 24.3 H (14-18) Glucose 132 H (70-99) mg/dL Lactic Acid 2.0 (0.4-2.0) mmol/L Calcium 8.4 L (8.5-10.1) mg/dL Magnesium 2.0 (1.8-2.4) mg/dL Total Bilirubin 2.6 H (0.2-1.0) mg/dL AST 40 H (15-37) U/L ALT 40 (16-63) U/L Alkaline Phosphatase 59 (46-116) U/L Troponin I 0.034 (0.00-0.056) ng/mL C-Reactive Protein 3.7 H* (<1.0) mg/dL NT-Pro-B Natriuret Pep (0-450) pg/mL Total Protein 7.0 (6.4-8.2) g/dl Albumin 3.3 L (3.4-5.0) g/dl Globulin 3.7 gm/dL Albumin/Globulin Ratio 0.9 L (1-2) Urine Color (Yellow) Urine Appearance (Clear) Urine pH (5.0-8.0) Ur Specific [place] (1.005-1.030) Urine Protein (Negative) Urine Glucose (UA) (Negative) Urine Ketones (Negative) Urine Occult Blood (Negative) Urine Nitrite (Negative) Urine Bilirubin (Negative) Urine Urobilinogen (0.2-1.0) Ur Leukocyte Esterase (Negative) U Hyaline Cast (Auto) (0-5) /lpf Urine RBC (0-5) /hpf Urine WBC (0-5) /hpf Ur Squamous Epith Cells (0-5) /hpf Urine Bacteria (FEW) /hpf Urine Mucus (FEW) /hpf SARS-CoV-2 RNA (ERWIN) (NEGATIVE) 12/11/20 12/11/20 Range/Units 15:33 16:49 WBC (4.23-9.07) K/mm3 RBC (4.63-6.08) M/mm3 Hgb (13.7-17.5) gm/dl Hct (40.1-51.0) % MCV (79.0-92.2) fl MCH (25.7-32.2) pg MCHC (32.2-35.5) g/dl RDW Std Deviation (35.1-43.9) fL Plt Count (163-337) K/mm3 MPV (9.4-12.3) fl Neutrophils % (Manual) (40-60) % Band Neutrophils % (0-10) % Lymphocytes % (Manual) (20-40) % Atypical Lymphs % % Monocytes % (Manual) (2-10) % Eosinophils % (Manual) (0.8-7.0) % Basophils % (Manual) (0.2-1.2) Platelet Estimate RBC Morph Comment PT (9.7-12.0) SECONDS INR APTT (21.7-31.4) SECONDS Sodium (136-145) mEq/L Potassium (3.5-5.1) mEq/L Chloride (98-107) mEq/L Carbon Dioxide (21-32) mEq/L Anion Gap (5-15) BUN (7-18) mg/dL Creatinine (0.7-1.3) mg/dL Est Cr Clr Drug Dosing mL/min Estimated GFR (MDRD) (>60) mL/min BUN/Creatinine Ratio (14-18) Glucose (70-99) mg/dL Lactic Acid (0.4-2.0) mmol/L Calcium (8.5-10.1) mg/dL Magnesium (1.8-2.4) mg/dL Total Bilirubin (0.2-1.0) mg/dL AST (15-37) U/L ALT (16-63) U/L Alkaline Phosphatase (46-116) U/L Troponin I (0.00-0.056) ng/mL C-Reactive Protein (<1.0) mg/dL NT-Pro-B Natriuret Pep 665 H (0-450) pg/mL Total Protein (6.4-8.2) g/dl Albumin (3.4-5.0) g/dl Globulin gm/dL Albumin/Globulin Ratio (1-2) Urine Color Yellow (Yellow) Urine Appearance Clear (Clear) Urine pH 5.5 (5.0-8.0) Ur Specific [place] > or = 1.030 (1.005-1.030) Urine Protein 2+ H (Negative) Urine Glucose (UA) Negative (Negative) Urine Ketones 1+ H (Negative) Urine Occult Blood 2+ H (Negative) Urine Nitrite Positive H (Negative) Urine Bilirubin 2+ H (Negative) Urine Urobilinogen 1.0 (0.2-1.0) Ur Leukocyte Esterase Negative (Negative) U Hyaline Cast (Auto) 0-5 (0-5) /lpf Urine RBC 10-20 H (0-5) /hpf Urine WBC 0-5 (0-5) /hpf Ur Squamous Epith Cells 0-5 (0-5) /hpf Urine Bacteria Many H (FEW) /hpf Urine Mucus Moderate H (FEW) /hpf SARS-CoV-2 RNA (ERWIN) (NEGATIVE) Meds: Medications Generic Name Dose Route Start Last Admin Trade Name Freq PRN Reason Stop Dose Admin Dextrose/Sodium Chloride 1,000 mls @ 250 mls/hr 12/11/20 15:15 12/11/20 15:40 Dextrose 5%-Normal Saline IV 250 mls/hr ASDIRECTED YUKI Administration Discontinued Medications Generic Name Dose Route Start Last Admin Trade Name Freq PRN Reason Stop Dose Admin Acetaminophen 650 mg 12/11/20 15:05 12/11/20 15:40 Acetaminophen 325 Mg Tab PO 12/11/20 15:06 650 mg ONETIME ONE Administration Ceftriaxone Sodium 2 gm/ 100 mls @ 200 mls/hr 12/11/20 16:37 12/11/20 16:50 Sodium Chloride IV 12/11/20 17:06 200 mls/hr ONETIME ONE Administration Metoclopramide HCl 7.5 mg 12/11/20 15:05 12/11/20 15:40 Metoclopramide 10 Mg/2 Ml Sdv IVPUSH 12/11/20 15:06 7.5 mg ONETIME ONE Administration - Radiology Interpretation Free Text/Narrative:: 85-year-old male presents to the ED for evaluation of generalized weakness with fall at home prior to coming to the ED. The doorbell rang and he was using his walker to go to the door when he lost his balance and fell to the floor. He states he started to feel unwell yesterday with increased weakness and a fall skin scraping up his left anterior leg yesterday. He started using his walker after this. Normally he does not need it. Patient was unaware that he had a fever he had loss of appetite took only few crackers this morning. Tongue is dry and coated and he appears volume depleted. He has a mild nonproductive cough. Ear nose and throat exam is otherwise normal he denies any dysuria urgency or frequency. He has received his [employer] Covid vaccinations back in March and May of this year. Plan he will require septic work-up and a repeat coronavirus screen. IV will be D5 normal saline to 50 mils per hour Tylenol 650 mg p.o. after Reglan 7.5 mg IV for nausea relief. - Re-Assessments/Exams Free Text/Narrative Re-Assessment/Exam: 12/11/20 16:12 portable chest x-ray reveals left hemidiaphragm to be elevated. Additional density is seen slightly above the hemidiaphragm presumably due to atelectasis. Cannot exclude a pleural effusion in this area. lungs otherwise are clear. Heart size is normal. Tortuous thoracic aorta is appreciated. Degenerative changes seen within the left shoulder. Elevated left hemidiaphragm which is an interval change from previous chest x-rays etiology for this is unclear. 12/11/20 16:27 White count is elevated at 17.87 differential pending. Hemoglobin is 16.1 with hematocrit of 46.3 platelet counts 130,000 slightly low. PT is 12.3 with an INR of 1.11 slightly elevated and PTT is 30.0. COVID-19 screen is negative. 12/11/20 16:33 patient's is in the room and I did discuss with both him and his that his Covid test is negative as the had grave concerns about this. He does appear to have an infection somewhere else. Apparently all samples including blood tests and urine tests have been collected. I am going to go ahead and start him on Rocephin 2 g IV at this time. 12/11/20 17:40 Differential on the white count is 81% neutrophils no bands cells and 6% lymphocytes. PT was 12.3 with an INR of 1.11 and a PTT of 30. Sodium is very low at 124 with a potassium of 4.0 chloride is 90 with a bicarb of 23. Anion anion gap is 15.0 BUN is 34 with a creatinine of 1.4 and a GFR of 48. Glucose is 132 lactic acid is 2.0 calcium is 8.4 with a magnesium of 2.0 bilirubin elevated at 2.6 AST is 40 with an ALT of 40 and an alk phosphatase of 59. Troponin I is less than 0. 034. C-reactive protein is 3.7 BNP is 665 total protein 7.0 with an albumin fraction of 3.3 urinalysis shows 2+ proteinuria 1+ ketonuria 2+ occult blood positive nitrate 2+ bilirubin negative leukocyte esterase 10-20 RBCs per high-power field and no white cells with many bacteria COVID-19 screen was negative. Source of infection therefore is not apparent. I am going to CT his chest to look behind his heart and the left lower lung field. O2 sats are staying at 97% on 2 L/min heart rate is 88 and sinus. 12/11/20 18:52 CT of the chest has been completed without IV contrast due to poor kidney function. Thoracic aorta is slightly ectatic with atherosclerotic calcification. Diffuse coronary artery calcification is appreciated. Mediastinum shows scattered lymph nodes which are within normal limits. Calcified lymph nodes are seen within portions of the mediastinum and left hilar region. No axillary adenopathy is seen. No pericardial thickening is seen. Small portion of the visualized upper abdominal structures show a cyst within the left kidney which measures 3.4 cm. Several calcifications are seen adjacent or within the wall of the cyst. Second cyst is also noted within the left kidney measuring 1.8 cm calcifications are felt to be incidental given the patient's age. Lung window settings were reviewed. Slight parenchymal density is noted within the left lung base. This could represent a small area of pneumonia lungs otherwise are clear without additional acute parenchymal changes. Bone window settings were reviewed which show diffuse degenerative change throughout the spine. No definite acute osseous abnormality is appreciated. Slight parenchymal density within the left lung base identified 12/11/20 19:00: I have spoken to on-call hospitalist Dr. Reyes and he is excepted the patient to the only bed that is available at this time. Patient will be admitted with left lower lobar pneumonia mild confusion ( delirium due to fever and mild hyoxia) and hyponatremia . Bridge orders will be written by me. Departure - Departure Time of Disposition: 19:31 Disposition: Admitted As Inpatient 68 Condition: Fair Clinical Impression: Acute febrile illness, Delirium, Hypoxia, Dilutional hyponatremia Left lower lobe pneumonia Qualifiers: Pneumonia type: due to unspecified organism Qualified Code(s): J18.9 - Pneumonia, unspecified organism - Discharge Information *PRESCRIPTION DRUG MONITORING PROGRAM REVIEWED*: Not Applicable *COPY OF PRESCRIPTION DRUG MONITORING REPORT IN PATIENT MAIRA: Not Applicable Sepsis Event Note (ED) - Focused Exam Vital Signs: Vital Signs Temp Temp Pulse Resp BP Pulse Ox Pulse Ox 12/11/20 18:35 36.3 C 12/11/20 16:14 96 12/11/20 15:40 38.0 C 12/11/20 14:55 36.9 C 103 H 18 130/83 93 L - My Orders Last 24 Hours: My Active Orders 12/11/20 15:08 Blood Culture x2 Reflex Set [OM.PC] Stat 12/11/20 15:15 Dextrose 5%-0.9% NaCl [Dextrose 5%-Normal Saline] 1,000 ml IV ASDIRECTED 12/11/20 15:33 BLOOD CULTURE [MREF] Stat 12/11/20 15:36 BLOOD CULTURE [MREF] Stat 12/11/20 16:14 Oxygen Therapy [RC] ASDIRECTED - Assessment/Plan Last 24 Hours: My Active Orders 12/11/20 15:08 Blood Culture x2 Reflex Set [OM.PC] Stat 12/11/20 15:15 Dextrose 5%-0.9% NaCl [Dextrose 5%-Normal Saline] 1,000 ml IV ASDIRECTED 12/11/20 15:33 BLOOD CULTURE [MREF] Stat 12/11/20 15:36 BLOOD CULTURE [MREF] Stat 12/11/20 16:14 Oxygen Therapy [RC] ASDIRECTED
[2020-12-11] MEDS ORDERED: Metoclopramide 10 MG/2 ML SDV IVPUSH ONE (15:05)
[2020-12-11] MEDS ORDERED: Acetaminophen 325 MG Tab PO ONE (15:05)
[2020-12-11] MEDS ORDERED: Dextrose 5%-0.9% NaCl 1,000 ML IV SCH (15:15)
--- NOTE | 2020-12-11 15:40 | CR ---
Chest: Frontal view of the chest was obtained. Comparison: Prior chest x-rays of 11/27/16 and 05/23/10. Left hemidiaphragm is elevated. Additional density is seen slightly above the hemidiaphragm presumably due to atelectasis. Lungs otherwise are clear. Heart size is normal. Tortuous thoracic aorta is seen. Degenerative change is seen within the left shoulder. Impression: 1. Elevated left hemidiaphragm which is an interval change from previous chest x-rays. Etiology is not known on this chest x-ray. 2. Density presumably due to area of atelectasis within the left base. 3. Other incidental findings. Diagnostic code #2
[2020-12-11] MEDS ORDERED: cefTRIAXone 2 GM in Sodium Chloride 0.9% 100 ML IV ONE (16:37)
--- NOTE | 2020-12-11 18:44 | CT ---
CT chest Technique: Multiple axial sections through the chest were obtained. Intravenous contrast was not utilized. Reconstructed coronal and sagittal images were obtained. Comparison: Prior chest x-ray performed earlier on the same day (2:55 PM). Findings: Thoracic aorta is slightly ectatic with atherosclerotic calcification. Diffuse coronary artery calcification is seen. Mediastinum shows scattered lymph nodes which are within normal limits. Calcified lymph nodes are seen within portions of the mediastinum and left hilar region. No axillary adenopathy is seen. No pericardial thickening is seen. Small portion of the visualized upper abdominal structures show a cyst within the left kidney which measures 3.4 cm. Several calcifications are seen adjacent or within the wall of the cyst. Second cyst is also noted within the left kidney measuring 1.8 cm. Calcifications are felt to be incidental given the patient's age. Lung window settings were reviewed. Slight parenchymal density is noted within the left lung base. This could represent a small area of pneumonia. Lungs otherwise are clear without additional acute parenchymal change. Bone window settings were reviewed which show diffuse degenerative change throughout the spine. No definite acute osseous abnormality is appreciated. Impression: 1. Slight parenchymal density within the left lung base which could represent a small area of pneumonia. 2. Other findings are believed to be nonacute as described above. Diagnostic code #3
--- NOTE | 2020-12-11 19:41 | PCM.HP.2 ---
H&P History of Present Illness - General Date of Service: 12/11/20 Admit Problem/Dx: Admission Diagnosis/Problem Admission Diagnosis/Problem Generalized weakness, Fall. - History of Present Illness Initial Comments - Free Text/Narative: Aga is an 85 y/o Male brought to the ED by the [facility] ambulance for generalized weakness and a fall at home. His called the ambulance because he fell at home while ambulating. He is very hard of hearing and unable to give a good history. Most of the information was obtained from the and the ED staff. The patient has had a non productive cough for a couple of days. He has also had a poor appetite the last for at least the same amount of time. He received both his vaccine shots earlier this year. He lives with his and she has had no respiratory symptoms. He also denies having been around any sick contacts. His COVID 19 test in the ED was negative. In the ED he was noted to have a low grade temperature. - Related Data Allergies/Adverse Reactions: Allergies Allergy/AdvReac Type Severity Reaction Status Date / Time No Known Allergies Allergy Verified 12/11/20 14:58 Home Medications: Home Meds Moexipril [Univasc] 15 mg PO DAILY 10/31/16 [History] Verapamil HCl [Verelan] 240 mg PO BEDTIME 10/31/16 [History] Polyethylene Glycol 3350 [MiraLAX] 1 pack PO DAILY PRN 12/18/16 [History] Lovastatin 1 tab PO BEDTIME 12/11/20 [History] Past Medical History HEENT History: Reports: Hard of Hearing Cardiovascular History: Reports: High Cholesterol, Hypertension Musculoskeletal History: Reports: Back Pain, Chronic Hematologic History: Reports: Anemia - Infectious Disease History Infectious Disease History: Reports: Chicken Pox - Past Surgical History Cardiovascular Surgical History: Reports: None GI Surgical History: Reports: Colonoscopy, Hernia, Inguinal Musculoskeletal Surgical History: Reports: Knee Replacement Other Musculoskeletal Surgeries/Procedures:: back fusion surgery Social & Family History - Family History Family Medical History: No Pertinent Family History - Tobacco Use Tobacco Use Status *Q: Never Tobacco User - Caffeine Use Caffeine Use: Reports: None - Living Situation & Occupation Living situation: Reports: Occupation: Retired H&P Review of Systems - Review of Systems: Review Of Systems: See Below Free Text/Narrative: General: As per HPI CVS: He denies any chest pain, orthonea or PND lungs: As per HPI PA: no nausea, vomiting, abd pain or diarrhea DALY: Denies any dysuria, frequency or urgency Neuro: Denies any seizures, tremors or focal weaknesses. Exam - Exam Exam: See Below (See exam) - Vital Signs Vital Signs: Last Vital Signs Temp 97.3 F 12/11/20 18:35 Pulse 103 H 12/11/20 14:55 Resp 18 12/11/20 14:55 BP 130/83 12/11/20 14:55 Pulse Ox 96 12/11/20 16:14 Weight: 5 lb 11 oz - Exam Physical Exam Comments:: General: Elderly male. Sleepy but arousable. Very hard of hearing. HEENT: NC, AT, PERRLA, EOMI CVS: S1S2 RRR. No murmurs, rubs or gallops. lungs: diminished breath sounds in the left base. No rales or wheezes. pa: soft, non tender. Bowel sounds. ext: no clubbing, cyanosis or edema neuro: moves all extremities - Patient Data Lab Results Last 24 hrs: Laboratory Results - last 24 hr 12/11/20 12/11/20 12/11/20 Range/Units 15:06 15:33 15:33 WBC 17.87 H (4.23-9.07) K/mm3 RBC 5.10 (4.63-6.08) M/mm3 Hgb 16.1 (13.7-17.5) gm/dl Hct 46.3 (40.1-51.0) % MCV 90.8 (79.0-92.2) fl MCH 31.6 (25.7-32.2) pg MCHC 34.8 (32.2-35.5) g/dl RDW Std Deviation 42.6 (35.1-43.9) fL Plt Count 130 L (163-337) K/mm3 MPV 10.8 (9.4-12.3) fl Neutrophils % (Manual) 81 H (40-60) % Band Neutrophils % 0 (0-10) % Lymphocytes % (Manual) 6 L (20-40) % Atypical Lymphs % 0 % Monocytes % (Manual) 13 H (2-10) % Eosinophils % (Manual) 0 L (0.8-7.0) % Basophils % (Manual) 0 L (0.2-1.2) Platelet Estimate Adequate RBC Morph Comment Normal PT 12.3 H (9.7-12.0) SECONDS INR 1.11 APTT (21.7-31.4) SECONDS Sodium (136-145) mEq/L Potassium (3.5-5.1) mEq/L Chloride (98-107) mEq/L Carbon Dioxide (21-32) mEq/L Anion Gap (5-15) BUN (7-18) mg/dL Creatinine (0.7-1.3) mg/dL Est Cr Clr Drug Dosing mL/min Estimated GFR (MDRD) (>60) mL/min BUN/Creatinine Ratio (14-18) Glucose (70-99) mg/dL Lactic Acid (0.4-2.0) mmol/L Calcium (8.5-10.1) mg/dL Magnesium (1.8-2.4) mg/dL Total Bilirubin (0.2-1.0) mg/dL AST (15-37) U/L ALT (16-63) U/L Alkaline Phosphatase (46-116) U/L Troponin I (0.00-0.056) ng/mL C-Reactive Protein (<1.0) mg/dL NT-Pro-B Natriuret Pep (0-450) pg/mL Total Protein (6.4-8.2) g/dl Albumin (3.4-5.0) g/dl Globulin gm/dL Albumin/Globulin Ratio (1-2) Urine Color (Yellow) Urine Appearance (Clear) Urine pH (5.0-8.0) Ur Specific [place] (1.005-1.030) Urine Protein (Negative) Urine Glucose (UA) (Negative) Urine Ketones (Negative) Urine Occult Blood (Negative) Urine Nitrite (Negative) Urine Bilirubin (Negative) Urine Urobilinogen (0.2-1.0) Ur Leukocyte Esterase (Negative) U Hyaline Cast (Auto) (0-5) /lpf Urine RBC (0-5) /hpf Urine WBC (0-5) /hpf Ur Squamous Epith Cells (0-5) /hpf Urine Bacteria (FEW) /hpf Urine Mucus (FEW) /hpf SARS-CoV-2 RNA (ERWIN) Negative (NEGATIVE) 12/11/20 12/11/20 12/11/20 Range/Units 15:33 15:33 15:33 WBC (4.23-9.07) K/mm3 RBC (4.63-6.08) M/mm3 Hgb (13.7-17.5) gm/dl Hct (40.1-51.0) % MCV (79.0-92.2) fl MCH (25.7-32.2) pg MCHC (32.2-35.5) g/dl RDW Std Deviation (35.1-43.9) fL Plt Count (163-337) K/mm3 MPV (9.4-12.3) fl Neutrophils % (Manual) (40-60) % Band Neutrophils % (0-10) % Lymphocytes % (Manual) (20-40) % Atypical Lymphs % % Monocytes % (Manual) (2-10) % Eosinophils % (Manual) (0.8-7.0) % Basophils % (Manual) (0.2-1.2) Platelet Estimate RBC Morph Comment PT (9.7-12.0) SECONDS INR APTT 30.0 (21.7-31.4) SECONDS Sodium 124 L D (136-145) mEq/L Potassium 4.0 (3.5-5.1) mEq/L Chloride 90 L D (98-107) mEq/L Carbon Dioxide 23 (21-32) mEq/L Anion Gap 15.0 (5-15) BUN 34 H (7-18) mg/dL Creatinine 1.4 H (0.7-1.3) mg/dL Est Cr Clr Drug Dosing 1.46 mL/min Estimated GFR (MDRD) 48 (>60) mL/min BUN/Creatinine Ratio 24.3 H (14-18) Glucose 132 H (70-99) mg/dL Lactic Acid 2.0 (0.4-2.0) mmol/L Calcium 8.4 L (8.5-10.1) mg/dL Magnesium 2.0 (1.8-2.4) mg/dL Total Bilirubin 2.6 H (0.2-1.0) mg/dL AST 40 H (15-37) U/L ALT 40 (16-63) U/L Alkaline Phosphatase 59 (46-116) U/L Troponin I 0.034 (0.00-0.056) ng/mL C-Reactive Protein 3.7 H* (<1.0) mg/dL NT-Pro-B Natriuret Pep (0-450) pg/mL Total Protein 7.0 (6.4-8.2) g/dl Albumin 3.3 L (3.4-5.0) g/dl Globulin 3.7 gm/dL Albumin/Globulin Ratio 0.9 L (1-2) Urine Color (Yellow) Urine Appearance (Clear) Urine pH (5.0-8.0) Ur Specific [place] (1.005-1.030) Urine Protein (Negative) Urine Glucose (UA) (Negative) Urine Ketones (Negative) Urine Occult Blood (Negative) Urine Nitrite (Negative) Urine Bilirubin (Negative) Urine Urobilinogen (0.2-1.0) Ur Leukocyte Esterase (Negative) U Hyaline Cast (Auto) (0-5) /lpf Urine RBC (0-5) /hpf Urine WBC (0-5) /hpf Ur Squamous Epith Cells (0-5) /hpf Urine Bacteria (FEW) /hpf Urine Mucus (FEW) /hpf SARS-CoV-2 RNA (ERWIN) (NEGATIVE) 12/11/20 12/11/20 Range/Units 15:33 16:49 WBC (4.23-9.07) K/mm3 RBC (4.63-6.08) M/mm3 Hgb (13.7-17.5) gm/dl Hct (40.1-51.0) % MCV (79.0-92.2) fl MCH (25.7-32.2) pg MCHC (32.2-35.5) g/dl RDW Std Deviation (35.1-43.9) fL Plt Count (163-337) K/mm3 MPV (9.4-12.3) fl Neutrophils % (Manual) (40-60) % Band Neutrophils % (0-10) % Lymphocytes % (Manual) (20-40) % Atypical Lymphs % % Monocytes % (Manual) (2-10) % Eosinophils % (Manual) (0.8-7.0) % Basophils % (Manual) (0.2-1.2) Platelet Estimate RBC Morph Comment PT (9.7-12.0) SECONDS INR APTT (21.7-31.4) SECONDS Sodium (136-145) mEq/L Potassium (3.5-5.1) mEq/L Chloride (98-107) mEq/L Carbon Dioxide (21-32) mEq/L Anion Gap (5-15) BUN (7-18) mg/dL Creatinine (0.7-1.3) mg/dL Est Cr Clr Drug Dosing mL/min Estimated GFR (MDRD) (>60) mL/min BUN/Creatinine Ratio (14-18) Glucose (70-99) mg/dL Lactic Acid (0.4-2.0) mmol/L Calcium (8.5-10.1) mg/dL Magnesium (1.8-2.4) mg/dL Total Bilirubin (0.2-1.0) mg/dL AST (15-37) U/L ALT (16-63) U/L Alkaline Phosphatase (46-116) U/L Troponin I (0.00-0.056) ng/mL C-Reactive Protein (<1.0) mg/dL NT-Pro-B Natriuret Pep 665 H (0-450) pg/mL Total Protein (6.4-8.2) g/dl Albumin (3.4-5.0) g/dl Globulin gm/dL Albumin/Globulin Ratio (1-2) Urine Color Yellow (Yellow) Urine Appearance Clear (Clear) Urine pH 5.5 (5.0-8.0) Ur Specific [place] > or = 1.030 (1.005-1.030) Urine Protein 2+ H (Negative) Urine Glucose (UA) Negative (Negative) Urine Ketones 1+ H (Negative) Urine Occult Blood 2+ H (Negative) Urine Nitrite Positive H (Negative) Urine Bilirubin 2+ H (Negative) Urine Urobilinogen 1.0 (0.2-1.0) Ur Leukocyte Esterase Negative (Negative) U Hyaline Cast (Auto) 0-5 (0-5) /lpf Urine RBC 10-20 H (0-5) /hpf Urine WBC 0-5 (0-5) /hpf Ur Squamous Epith Cells 0-5 (0-5) /hpf Urine Bacteria Many H (FEW) /hpf Urine Mucus Moderate H (FEW) /hpf SARS-CoV-2 RNA (ERWIN) (NEGATIVE) Result Diagrams: 12/12/20 04:50 12/12/20 04:50 Sepsis Event Note - Evaluation Sepsis Screening Result: Severe Sepsis Risk - Focused Exam Vital Signs: Vital Signs Temp Temp Pulse Resp BP Pulse Ox Pulse Ox 12/11/20 18:35 97.3 F 12/11/20 16:14 96 12/11/20 15:40 100.4 F 12/11/20 14:55 98.4 F 103 H 18 130/83 93 L - Problem List (1) Left lower lobe pneumonia SNOMED Code(s): 289897552 ICD Code: J18.9 - PNEUMONIA, UNSPECIFIED ORGANISM Status: Acute Current Visit: Yes Qualifiers: Pneumonia type: due to unspecified organism Qualified Code(s): J18.9 - Pne umonia, unspecified organism (2) Hyponatremia SNOMED Code(s): 89011154 ICD Code: E87.1 - HYPO-OSMOLALITY AND HYPONATREMIA Status: Acute Current Visit: Yes (3) Presbycusis SNOMED Code(s): 75649606 ICD Code: H91.10 - PRESBYCUSIS, UNSPECIFIED EAR Status: Acute Current Visit: Yes (4) DNR (do not resuscitate) Status: Acute Current Visit: Yes (5) Sepsis due to pneumonia SNOMED Code(s): 73204694 ICD Code: J18.9 - PNEUMONIA, UNSPECIFIED ORGANISM; A41.9 - SEPSIS, UNSPECIFIED ORGANISM Status: Acute Current Visit: Yes Problem List Initiated/Reviewed/Updated: Yes Orders Last 24hrs: Active Orders 24 hr Category Date Time Status Admission Status [Patient Status] [ADT] Routine ADT 12/11/20 19:13 Active Oxygen Therapy [RC] ASDIRECTED Care 12/11/20 16:14 Active BLOOD CULTURE [MREF] Stat Lab 12/11/20 15:33 Received BLOOD CULTURE [MREF] Stat Lab 12/11/20 15:36 Received Dextrose 5%-0.9% NaCl [Dextrose 5%-Normal Saline] 1,000 Med 12/11/20 15:15 Active ml IV ASDIRECTED Blood Culture x2 Reflex Set [OM.PC] Stat Oth 12/11/20 15:08 Ordered Medication Orders Dextrose/Sodium Chloride (Dextrose 5%-Normal Saline) 1,000 mls @ 250 mls/hr IV ASDIRECTED YUKI Last Admin: 12/11/20 15:40 Dose: 250 mls/hr Documented by: EDUARDO Assessment/Plan Comment:: Community acquired pneumonia Admit pt to the medical floor Start pt on Abx. Rocephin and doxycyline. Check blood cultures Sepsis due to pneumonia IV Abx and hydration ELSIE Hydration. Follow bun/cr. Avoid nephrotoxins. Hyponatremia Continue with hydration. Follow BMP Presbycusis Prolonged QT Avoid QT prolonging medications. DNR status DVT propylaxis SQ heparin - Mortality Measure Prognosis:: Good
[2020-12-11] MEDS ORDERED: Docusate Sodium 100 MG Cap PO PRN (20:23)
[2020-12-11] MEDS ORDERED: Ondansetron 4 MG Tab.DIS PO PRN (20:23)
[2020-12-11] MEDS ORDERED: Dextrose 5%-0.45% NaCl 1,000 ML IV SCH (20:30)
[2020-12-11] MEDS ORDERED: Polyethylene Glycol 3350 Powder 17 GM Packet PO PRN (21:30)
[2020-12-12] MEDS: Pantoprazole 40 MG Tab.CR PO SCH (05:20)
[2020-12-12] MEDS: Potassium Chloride 10 MEQ in Premix Bag 1 BAG IV SCH ×4 (08:58→13:15)
[2020-12-12] MEDS: Doxycycline 100 MG Cap PO SCH ×2 (09:00→20:00)
[2020-12-12] MEDS: Lisinopril 10 MG Tab PO SCH (09:00)
--- NOTE | 2020-12-12 10:00 | PCM.PRNOTE ---
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 MA interval is 198ms QRS is 161 ms and the QTc interval is prolonged at 503 ms.
[2020-12-12] MEDS ORDERED: Enoxaparin 40 MG/0.4 ML Syringe SUBCUT SCH (11:00)
[2020-12-12] MEDS ORDERED: Sodium Chloride 0.9% 250 ML IV SCH (12:45)
--- NOTE | 2020-12-12 13:04 | PCM.PN ---
- General Info Date of Service: 12/12/20 Admission Dx/Problem (Free Text): Admission Diagnosis/Problem Admission Diagnosis/Problem Generalized weakness, Fall. Subjective Update: Patient is very hard of hearing. Ultimately he just started to ignore me when I asked him questions. What I did get was that he is not having any pain or feel short of breath. Functional Status: Reports: Pain Controlled - Review of Systems General: Reports: Fever (100.4) HEENT: Reports: No Symptoms Pulmonary: Reports: No Symptoms Cardiovascular: Reports: No Symptoms Gastrointestinal: Reports: No Symptoms Musculoskeletal: Reports: No Symptoms - Patient Data Vitals - Most Recent: Last Vital Signs Temp 99.0 F 12/12/20 08:53 Pulse 98 12/12/20 08:53 Resp 14 12/12/20 08:53 BP 162/62 H 12/12/20 09:00 Pulse Ox 96 12/12/20 09:57 Weight - Most Recent: 182 lb 12.8 oz I&O - Last 24 Hours: Intake & Output 12/11/20 12/12/20 12/12/20 22:59 06:59 14:59 Intake Total 758 Output Total 400 Balance 358 Lab Results Last 24 Hours: Laboratory Results - last 24 hr 12/11/20 12/11/20 12/11/20 Range/Units 15:06 15:33 15:33 WBC 17.87 H (4.23-9.07) K/mm3 RBC 5.10 (4.63-6.08) M/mm3 Hgb 16.1 (13.7-17.5) gm/dl Hct 46.3 (40.1-51.0) % MCV 90.8 (79.0-92.2) fl MCH 31.6 (25.7-32.2) pg MCHC 34.8 (32.2-35.5) g/dl RDW Std Deviation 42.6 (35.1-43.9) fL Plt Count 130 L (163-337) K/mm3 MPV 10.8 (9.4-12.3) fl Neut % (Auto) (34.0-67.9) % Lymph % (Auto) (21.8-53.1) % Hill % (Auto) (5.3-12.2) % Eos % (Auto) (0.8-7.0) Baso % (Auto) (0.1-1.2) % Neut # (Auto) (1.78-5.38) K/mm3 Lymph # (Auto) (1.32-3.57) K/mm3 Hill # (Auto) (0.30-0.82) K/mm3 Eos # (Auto) (0.04-0.54) K/mm3 Baso # (Auto) (0.01-0.08) K/mm3 Neutrophils % (Manual) 81 H (40-60) % Band Neutrophils % 0 (0-10) % Lymphocytes % (Manual) 6 L (20-40) % Atypical Lymphs % 0 % Monocytes % (Manual) 13 H (2-10) % Eosinophils % (Manual) 0 L (0.8-7.0) % Basophils % (Manual) 0 L (0.2-1.2) Manual Slide Review Platelet Estimate Adequate RBC Morph Comment Normal PT 12.3 H (9.7-12.0) SECONDS INR 1.11 APTT (21.7-31.4) SECONDS Sodium (136-145) mEq/L Potassium (3.5-5.1) mEq/L Chloride (98-107) mEq/L Carbon Dioxide (21-32) mEq/L Anion Gap (5-15) BUN (7-18) mg/dL Creatinine (0.7-1.3) mg/dL Est Cr Clr Drug Dosing mL/min Estimated GFR (MDRD) (>60) mL/min BUN/Creatinine Ratio (14-18) Glucose (70-99) mg/dL Lactic Acid (0.4-2.0) mmol/L Calcium (8.5-10.1) mg/dL Magnesium (1.8-2.4) mg/dL Total Bilirubin (0.2-1.0) mg/dL AST (15-37) U/L ALT (16-63) U/L Alkaline Phosphatase (46-116) U/L Troponin I (0.00-0.056) ng/mL C-Reactive Protein (<1.0) mg/dL NT-Pro-B Natriuret Pep (0-450) pg/mL Total Protein (6.4-8.2) g/dl Albumin (3.4-5.0) g/dl Globulin gm/dL Albumin/Globulin Ratio (1-2) Urine Color (Yellow) Urine Appearance (Clear) Urine pH (5.0-8.0) Ur Specific [place] (1.005-1.030) Urine Protein (Negative) Urine Glucose (UA) (Negative) Urine Ketones (Negative) Urine Occult Blood (Negative) Urine Nitrite (Negative) Urine Bilirubin (Negative) Urine Urobilinogen (0.2-1.0) Ur Leukocyte Esterase (Negative) U Hyaline Cast (Auto) (0-5) /lpf Urine RBC (0-5) /hpf Urine WBC (0-5) /hpf Ur Squamous Epith Cells (0-5) /hpf Urine Bacteria (FEW) /hpf Urine Mucus (FEW) /hpf SARS-CoV-2 RNA (ERWIN) Negative (NEGATIVE) 12/11/20 12/11/20 12/11/20 Range/Units 15:33 15:33 15:33 WBC (4.23-9.07) K/mm3 RBC (4.63-6.08) M/mm3 Hgb (13.7-17.5) gm/dl Hct (40.1-51.0) % MCV (79.0-92.2) fl MCH (25.7-32.2) pg MCHC (32.2-35.5) g/dl RDW Std Deviation (35.1-43.9) fL Plt Count (163-337) K/mm3 MPV (9.4-12.3) fl Neut % (Auto) (34.0-67.9) % Lymph % (Auto) (21.8-53.1) % Hill % (Auto) (5.3-12.2) % Eos % (Auto) (0.8-7.0) Baso % (Auto) (0.1-1.2) % Neut # (Auto) (1.78-5.38) K/mm3 Lymph # (Auto) (1.32-3.57) K/mm3 Hill # (Auto) (0.30-0.82) K/mm3 Eos # (Auto) (0.04-0.54) K/mm3 Baso # (Auto) (0.01-0.08) K/mm3 Neutrophils % (Manual) (40-60) % Band Neutrophils % (0-10) % Lymphocytes % (Manual) (20-40) % Atypical Lymphs % % Monocytes % (Manual) (2-10) % Eosinophils % (Manual) (0.8-7.0) % Basophils % (Manual) (0.2-1.2) Manual Slide Review Platelet Estimate RBC Morph Comment PT (9.7-12.0) SECONDS INR APTT 30.0 (21.7-31.4) SECONDS Sodium 124 L D (136-145) mEq/L Potassium 4.0 (3.5-5.1) mEq/L Chloride 90 L D (98-107) mEq/L Carbon Dioxide 23 (21-32) mEq/L Anion Gap 15.0 (5-15) BUN 34 H (7-18) mg/dL Creatinine 1.4 H (0.7-1.3) mg/dL Est Cr Clr Drug Dosing 1.46 mL/min Estimated GFR (MDRD) 48 (>60) mL/min BUN/Creatinine Ratio 24.3 H (14-18) Glucose 132 H (70-99) mg/dL Lactic Acid 2.0 (0.4-2.0) mmol/L Calcium 8.4 L (8.5-10.1) mg/dL Magnesium 2.0 (1.8-2.4) mg/dL Total Bilirubin 2.6 H (0.2-1.0) mg/dL AST 40 H (15-37) U/L ALT 40 (16-63) U/L Alkaline Phosphatase 59 (46-116) U/L Troponin I 0.034 (0.00-0.056) ng/mL C-Reactive Protein 3.7 H* (<1.0) mg/dL NT-Pro-B Natriuret Pep (0-450) pg/mL Total Protein 7.0 (6.4-8.2) g/dl Albumin 3.3 L (3.4-5.0) g/dl Globulin 3.7 gm/dL Albumin/Globulin Ratio 0.9 L (1-2) Urine Color (Yellow) Urine Appearance (Clear) Urine pH (5.0-8.0) Ur Specific [place] (1.005-1.030) Urine Protein (Negative) Urine Glucose (UA) (Negative) Urine Ketones (Negative) Urine Occult Blood (Negative) Urine Nitrite (Negative) Urine Bilirubin (Negative) Urine Urobilinogen (0.2-1.0) Ur Leukocyte Esterase (Negative) U Hyaline Cast (Auto) (0-5) /lpf Urine RBC (0-5) /hpf Urine WBC (0-5) /hpf Ur Squamous Epith Cells (0-5) /hpf Urine Bacteria (FEW) /hpf Urine Mucus (FEW) /hpf SARS-CoV-2 RNA (ERWIN) (NEGATIVE) 12/11/20 12/11/20 12/12/20 Range/Units 15:33 16:49 04:50 WBC 14.85 H (4.23-9.07) K/mm3 RBC 4.76 (4.63-6.08) M/mm3 Hgb 15.1 (13.7-17.5) gm/dl Hct 43.9 (40.1-51.0) % MCV 92.2 (79.0-92.2) fl MCH 31.7 (25.7-32.2) pg MCHC 34.4 (32.2-35.5) g/dl RDW Std Deviation 42.8 (35.1-43.9) fL Plt Count 128 L (163-337) K/mm3 MPV 11.3 (9.4-12.3) fl Neut % (Auto) 82.5 H (34.0-67.9) % Lymph % (Auto) 3.2 L (21.8-53.1) % Hill % (Auto) 13.7 H (5.3-12.2) % Eos % (Auto) 0.1 L (0.8-7.0) Baso % (Auto) 0.1 (0.1-1.2) % Neut # (Auto) 12.26 H (1.78-5.38) K/mm3 Lymph # (Auto) 0.48 L (1.32-3.57) K/mm3 [place] # (Auto) 2.03 H (0.30-0.82) K/mm3 Eos # (Auto) 0.01 L (0.04-0.54) K/mm3 Baso # (Auto) 0.01 (0.01-0.08) K/mm3 Neutrophils % (Manual) (40-60) % Band Neutrophils % (0-10) % Lymphocytes % (Manual) (20-40) % Atypical Lymphs % % Monocytes % (Manual) (2-10) % Eosinophils % (Manual) (0.8-7.0) % Basophils % (Manual) (0.2-1.2) Manual Slide Review Abnormal smear Platelet Estimate RBC Morph Comment PT (9.7-12.0) SECONDS INR APTT (21.7-31.4) SECONDS Sodium (136-145) mEq/L Potassium (3.5-5.1) mEq/L Chloride (98-107) mEq/L Carbon Dioxide (21-32) mEq/L Anion Gap (5-15) BUN (7-18) mg/dL Creatinine (0.7-1.3) mg/dL Est Cr Clr Drug Dosing mL/min Estimated GFR (MDRD) (>60) mL/min BUN/Creatinine Ratio (14-18) Glucose (70-99) mg/dL Lactic Acid (0.4-2.0) mmol/L Calcium (8.5-10.1) mg/dL Magnesium (1.8-2.4) mg/dL Total Bilirubin (0.2-1.0) mg/dL AST (15-37) U/L ALT (16-63) U/L Alkaline Phosphatase (46-116) U/L Troponin I (0.00-0.056) ng/mL C-Reactive Protein (<1.0) mg/dL NT-Pro-B Natriuret Pep 665 H (0-450) pg/mL Total Protein (6.4-8.2) g/dl Albumin (3.4-5.0) g/dl Globulin gm/dL Albumin/Globulin Ratio (1-2) Urine Color Yellow (Yellow) Urine Appearance Clear (Clear) Urine pH 5.5 (5.0-8.0) Ur Specific [place] > or = 1.030 (1.005-1.030) Urine Protein 2+ H (Negative) Urine Glucose (UA) Negative (Negative) Urine Ketones 1+ H (Negative) Urine Occult Blood 2+ H (Negative) Urine Nitrite Positive H (Negative) Urine Bilirubin 2+ H (Negative) Urine Urobilinogen 1.0 (0.2-1.0) Ur Leukocyte Esterase Negative (Negative) U Hyaline Cast (Auto) 0-5 (0-5) /lpf Urine RBC 10-20 H (0-5) /hpf Urine WBC 0-5 (0-5) /hpf Ur Squamous Epith Cells 0-5 (0-5) /hpf Urine Bacteria Many H (FEW) /hpf Urine Mucus Moderate H (FEW) /hpf SARS-CoV-2 RNA (ERWIN) (NEGATIVE) 12/12/20 Range/Units 04:50 WBC (4.23-9.07) K/mm3 RBC (4.63-6.08) M/mm3 Hgb (13.7-17.5) gm/dl Hct (40.1-51.0) % MCV (79.0-92.2) fl MCH (25.7-32.2) pg MCHC (32.2-35.5) g/dl RDW Std Deviation (35.1-43.9) fL Plt Count (163-337) K/mm3 MPV (9.4-12.3) fl Neut % (Auto) (34.0-67.9) % Lymph % (Auto) (21.8-53.1) % Hill % (Auto) (5.3-12.2) % Eos % (Auto) (0.8-7.0) Baso % (Auto) (0.1-1.2) % Neut # (Auto) (1.78-5.38) K/mm3 Lymph # (Auto) (1.32-3.57) K/mm3 Hill # (Auto) (0.30-0.82) K/mm3 Eos # (Auto) (0.04-0.54) K/mm3 Baso # (Auto) (0.01-0.08) K/mm3 Neutrophils % (Manual) (40-60) % Band Neutrophils % (0-10) % Lymphocytes % (Manual) (20-40) % Atypical Lymphs % % Monocytes % (Manual) (2-10) % Eosinophils % (Manual) (0.8-7.0) % Basophils % (Manual) (0.2-1.2) Manual Slide Review Platelet Estimate RBC Morph Comment PT (9.7-12.0) SECONDS INR APTT (21.7-31.4) SECONDS Sodium 130 L (136-145) mEq/L Potassium 3.2 L (3.5-5.1) mEq/L Chloride 96 L (98-107) mEq/L Carbon Dioxide 25 (21-32) mEq/L Anion Gap 12.2 (5-15) BUN 27 H (7-18) mg/dL Creatinine 1.1 (0.7-1.3) mg/dL Est Cr Clr Drug Dosing 54.19 mL/min Estimated GFR (MDRD) > 60 (>60) mL/min BUN/Creatinine Ratio 24.5 H (14-18) Glucose 122 H (70-99) mg/dL Lactic Acid (0.4-2.0) mmol/L Calcium 7.7 L (8.5-10.1) mg/dL Magnesium (1.8-2.4) mg/dL Total Bilirubin (0.2-1.0) mg/dL AST (15-37) U/L ALT (16-63) U/L Alkaline Phosphatase (46-116) U/L Troponin I (0.00-0.056) ng/mL C-Reactive Protein (<1.0) mg/dL NT-Pro-B Natriuret Pep (0-450) pg/mL Total Protein (6.4-8.2) g/dl Albumin (3.4-5.0) g/dl Globulin gm/dL Albumin/Globulin Ratio (1-2) Urine Color (Yellow) Urine Appearance (Clear) Urine pH (5.0-8.0) Ur Specific [place] (1.005-1.030) Urine Protein (Negative) Urine Glucose (UA) (Negative) Urine Ketones (Negative) Urine Occult Blood (Negative) Urine Nitrite (Negative) Urine Bilirubin (Negative) Urine Urobilinogen (0.2-1.0) Ur Leukocyte Esterase (Negative) U Hyaline Cast (Auto) (0-5) /lpf Urine RBC (0-5) /hpf Urine WBC (0-5) /hpf Ur Squamous Epith Cells (0-5) /hpf Urine Bacteria (FEW) /hpf Urine Mucus (FEW) /hpf SARS-CoV-2 RNA (ERWIN) (NEGATIVE) Med Orders - Current: Current Medications Docusate Sodium (Docusate Sodium 100 Mg Cap) 100 mg PO Q12H PRN PRN Reason: Constipation Doxycycline Hyclate (Doxycycline 100 Mg Cap) 100 mg PO Q12HR YUKI Stop: 12/21/20 21:01 Last Admin: 12/12/20 09:00 Dose: 100 mg Documented by: Enoxaparin Sodium (Enoxaparin 40 Mg/0.4 Ml Syringe) 40 mg SUBCUT Q24H [facility] Last Admin: 12/12/20 11:43 Dose: 40 mg Documented by: Sodium Chloride (Normal Saline) 250 mls @ 100 mls/hr IV ASDIRECTED [facility] Last Admin: 12/12/20 12:55 Dose: 100 mls/hr Documented by: Lisinopril (Lisinopril 10 Mg Tab) 10 mg PO DAILY [facility] Last Admin: 12/12/20 09:00 Dose: 10 mg Documented by: Ondansetron HCl (Ondansetron 4 Mg Tab.Dis) 4 mg PO Q4H PRN PRN Reason: nausea, able to take PO Pantoprazole Sodium (Pantoprazole 40 Mg Tab.Cr) 40 mg PO ACBREAKFAST [facility] Last Admin: 12/12/20 05:20 Dose: 40 mg Documented by: Polyethylene Glycol (Polyethylene Glycol 3350 Powder 17 Gm Packet) 17 gm PO DAILY PRN PRN Reason: Constipation Simvastatin (Simvastatin 10 Mg Tab) 10 mg PO BEDTIME [facility] Verapamil HCl (Verapamil 120 Mg Cap.Er) 240 mg PO BEDTIME [facility] Discontinued Medications Acetaminophen (Acetaminophen 325 Mg Tab) 650 mg PO ONETIME ONE Stop: 12/11/20 15:06 Last Admin: 12/11/20 15:40 Dose: 650 mg Documented by: Dextrose/Sodium Chloride (Dextrose 5%-Normal Saline) 1,000 mls @ 250 mls/hr IV ASDIRECTED [facility] Last Admin: 12/11/20 15:40 Dose: 250 mls/hr Documented by: Ceftriaxone Sodium 2 gm/ (Sodium Chloride) 100 mls @ 200 mls/hr IV ONETIME ONE Stop: 12/11/20 17:06 Last Admin: 12/11/20 16:50 Dose: 200 mls/hr Documented by: Dextrose/Sodium Chloride (Dextrose 5%-1/2 Ns) 1,000 mls @ 75 mls/hr IV ASDI RECTED [facility] Stop: 12/12/20 09:31 Last Admin: 12/11/20 21:07 Dose: 75 mls/hr Documented by: Potassium Chloride 10 meq/ (Premix) 100 mls @ 100 mls/hr IV Q1H [facility] Stop: 12/12/20 11:59 Last Admin: 12/12/20 11:40 Dose: 100 mls/hr Documented by: Metoclopramide HCl (Metoclopramide 10 Mg/2 Ml Sdv) 7.5 mg IVPUSH ONETIME ONE Stop: 12/11/20 15:06 Last Admin: 12/11/20 15:40 Dose: 7.5 mg Documented by: - Exam Quality Assessment: No: Supplemental Oxygen General: Alert HEENT: Pupils Equal, Mucous Membr. Moist/[place], Other (Hard of hearing) Neck: Supple Lungs: Normal Respiratory Effort, Crackles (Bibasilar) Cardiovascular: Regular Rate, Regular Rhythm GI/Abdominal Exam: Normal Bowel Sounds, Soft, No Organomegaly, No Distention, No Abnormal Bruit Extremities: Normal Inspection, Normal Range of Motion, Non-Tender, No Pedal Edema, Normal Capillary Refill - Patient Data Lab Results Last 24 hrs: Laboratory Results - last 24 hr 12/11/20 12/11/20 12/11/20 Range/Units 15:06 15:33 15:33 WBC 17.87 H (4.23-9.07) K/mm3 RBC 5.10 (4.63-6.08) M/mm3 Hgb 16.1 (13.7-17.5) gm/dl Hct 46.3 (40.1-51.0) % MCV 90.8 (79.0-92.2) fl MCH 31.6 (25.7-32.2) pg MCHC 34.8 (32.2-35.5) g/dl RDW Std Deviation 42.6 (35.1-43.9) fL Plt Count 130 L (163-337) K/mm3 MPV 10.8 (9.4-12.3) fl Neut % (Auto) (34.0-67.9) % Lymph % (Auto) (21.8-53.1) % Hill % (Auto) (5.3-12.2) % Eos % (Auto) (0.8-7.0) Baso % (Auto) (0.1-1.2) % Neut # (Auto) (1.78-5.38) K/mm3 Lymph # (Auto) (1.32-3.57) K/mm3 Hill # (Auto) (0.30-0.82) K/mm3 Eos # (Auto) (0.04-0.54) K/mm3 Baso # (Auto) (0.01-0.08) K/mm3 Neutrophils % (Manual) 81 H (40-60) % Band Neutrophils % 0 (0-10) % Lymphocytes % (Manual) 6 L (20-40) % Atypical Lymphs % 0 % Monocytes % (Manual) 13 H (2-10) % Eosinophils % (Manual) 0 L (0.8-7.0) % Basophils % (Manual) 0 L (0.2-1.2) Manual Slide Review Platelet Estimate Adequate RBC Morph Comment Normal PT 12.3 H (9.7-12.0) SECONDS INR 1.11 APTT (21.7-31.4) SECONDS Sodium (136-145) mEq/L Potassium (3.5-5.1) mEq/L Chloride (98-107) mEq/L Carbon Dioxide (21-32) mEq/L Anion Gap (5-15) BUN (7-18) mg/dL Creatinine (0.7-1.3) mg/dL Est Cr Clr Drug Dosing mL/min Estimated GFR (MDRD) (>60) mL/min BUN/Creatinine Ratio (14-18) Glucose (70-99) mg/dL Lactic Acid (0.4-2.0) mmol/L Calcium (8.5-10.1) mg/dL Magnesium (1.8-2.4) mg/dL Total Bilirubin (0.2-1.0) mg/dL AST (15-37) U/L ALT (16-63) U/L Alkaline Phosphatase (46-116) U/L Troponin I (0.00-0.056) ng/mL C-Reactive Protein (<1.0) mg/dL NT-Pro-B Natriuret Pep (0-450) pg/mL Total Protein (6.4-8.2) g/dl Albumin (3.4-5.0) g/dl Globulin gm/dL Albumin/Globulin Ratio (1-2) Urine Color (Yellow) Urine Appearance (Clear) Urine pH (5.0-8.0) Ur Specific [place] (1.005-1.030) Urine Protein (Negative) Urine Glucose (UA) (Negative) Urine Ketones (Negative) Urine Occult Blood (Negative) Urine Nitrite (Negative) Urine Bilirubin (Negative) Urine Urobilinogen (0.2-1.0) Ur Leukocyte Esterase (Negative) U Hyaline Cast (Auto) (0-5) /lpf Urine RBC (0-5) /hpf Urine WBC (0-5) /hpf Ur Squamous Epith Cells (0-5) /hpf Urine Bacteria (FEW) /hpf Urine Mucus (FEW) /hpf SARS-CoV-2 RNA (ERWIN) Negative (NEGATIVE) 12/11/20 12/11/20 12/11/20 Range/Units 15:33 15:33 15:33 WBC (4.23-9.07) K/mm3 RBC (4.63-6.08) M/mm3 Hgb (13.7-17.5) gm/dl Hct (40.1-51.0) % MCV (79.0-92.2) fl MCH (25.7-32.2) pg MCHC (32.2-35.5) g/dl RDW Std Deviation (35.1-43.9) fL Plt Count (163-337) K/mm3 MPV (9.4-12.3) fl Neut % (Auto) (34.0-67.9) % Lymph % (Auto) (21.8-53.1) % Hill % (Auto) (5.3-12.2) % Eos % (Auto) (0.8-7.0) Baso % (Auto) (0.1-1.2) % Neut # (Auto) (1.78-5.38) K/mm3 Lymph # (Auto) (1.32-3.57) K/mm3 [place] # (Auto) (0.30-0.82) K/mm3 Eos # (Auto) (0.04-0.54) K/mm3 Baso # (Auto) (0.01-0.08) K/mm3 Neutrophils % (Manual) (40-60) % Band Neutrophils % (0-10) % Lymphocytes % (Manual) (20-40) % Atypical Lymphs % % Monocytes % (Manual) (2-10) % Eosinophils % (Manual) (0.8-7.0) % Basophils % (Manual) (0.2-1.2) Manual Slide Review Platelet Estimate RBC Morph Comment PT (9.7-12.0) SECONDS INR APTT 30.0 (21.7-31.4) SECONDS Sodium 124 L D (136-145) mEq/L Potassium 4.0 (3.5-5.1) mEq/L Chloride 90 L D (98-107) mEq/L Carbon Dioxide 23 (21-32) mEq/L Anion Gap 15.0 (5-15) BUN 34 H (7-18) mg/dL Creatinine 1.4 H (0.7-1.3) mg/dL Est Cr Clr Drug Dosing 1.46 mL/min Estimated GFR (MDRD) 48 (>60) mL/min BUN/Creatinine Ratio 24.3 H (14-18) Glucose 132 H (70-99) mg/dL Lactic Acid 2.0 (0.4-2.0) mmol/L Calcium 8.4 L (8.5-10.1) mg/dL Magnesium 2.0 (1.8-2.4) mg/dL Total Bilirubin 2.6 H (0.2-1.0) mg/dL AST 40 H (15-37) U/L ALT 40 (16-63) U/L Alkaline Phosphatase 59 (46-116) U/L Troponin I 0.034 (0.00-0.056) ng/mL C-Reactive Protein 3.7 H* (<1.0) mg/dL NT-Pro-B Natriuret Pep (0-450) pg/mL Total Protein 7.0 (6.4-8.2) g/dl Albumin 3.3 L (3.4-5.0) g/dl Globulin 3.7 gm/dL Albumin/Globulin Ratio 0.9 L (1-2) Urine Color (Yellow) Urine Appearance (Clear) Urine pH (5.0-8.0) Ur Specific [place] (1.005-1.030) Urine Protein (Negative) Urine Glucose (UA) (Negative) Urine Ketones (Negative) Urine Occult Blood (Negative) Urine Nitrite (Negative) Urine Bilirubin (Negative) Urine Urobilinogen (0.2-1.0) Ur Leukocyte Esterase (Negative) U Hyaline Cast (Auto) (0-5) /lpf Urine RBC (0-5) /hpf Urine WBC (0-5) /hpf Ur Squamous Epith Cells (0-5) /hpf Urine Bacteria (FEW) /hpf Urine Mucus (FEW) /hpf SARS-CoV-2 RNA (ERWIN) (NEGATIVE) 12/11/20 12/11/20 12/12/20 Range/Units 15:33 16:49 04:50 WBC 14.85 H (4.23-9.07) K/mm3 RBC 4.76 (4.63-6.08) M/mm3 Hgb 15.1 (13.7-17.5) gm/dl Hct 43.9 (40.1-51.0) % MCV 92.2 (79.0-92.2) fl MCH 31.7 (25.7-32.2) pg MCHC 34.4 (32.2-35.5) g/dl RDW Std Deviation 42.8 (35.1-43.9) fL Plt Count 128 L (163-337) K/mm3 MPV 11.3 (9.4-12.3) fl Neut % (Auto) 82.5 H (34.0-67.9) % Lymph % (Auto) 3.2 L (21.8-53.1) % Hill % (Auto) 13.7 H (5.3-12.2) % Eos % (Auto) 0.1 L (0.8-7.0) Baso % (Auto) 0.1 (0.1-1.2) % Neut # (Auto) 12.26 H (1.78-5.38) K/mm3 Lymph # (Auto) 0.48 L (1.32-3.57) K/mm3 [place] # (Auto) 2.03 H (0.30-0.82) K/mm3 Eos # (Auto) 0.01 L (0.04-0.54) K/mm3 Baso # (Auto) 0.01 (0.01-0.08) K/mm3 Neutrophils % (Manual) (40-60) % Band Neutrophils % (0-10) % Lymphocytes % (Manual) (20-40) % Atypical Lymphs % % Monocytes % (Manual) (2-10) % Eosinophils % (Manual) (0.8-7.0) % Basophils % (Manual) (0.2-1.2) Manual Slide Review Abnormal smear Platelet Estimate RBC Morph Comment PT (9.7-12.0) SECONDS INR APTT (21.7-31.4) SECONDS Sodium (136-145) mEq/L Potassium (3.5-5.1) mEq/L Chloride (98-107) mEq/L Carbon Dioxide (21-32) mEq/L Anion Gap (5-15) BUN (7-18) mg/dL Creatinine (0.7-1.3) mg/dL Est Cr Clr Drug Dosing mL/min Estimated GFR (MDRD) (>60) mL/min BUN/Creatinine Ratio (14-18) Glucose (70-99) mg/dL Lactic Acid (0.4-2.0) mmol/L Calcium (8.5-10.1) mg/dL Magnesium (1.8-2.4) mg/dL Total Bilirubin (0.2-1.0) mg/dL AST (15-37) U/L ALT (16-63) U/L Alkaline Phosphatase (46-116) U/L Troponin I (0.00-0.056) ng/mL C-Reactive Protein (<1.0) mg/dL NT-Pro-B Natriuret Pep 665 H (0-450) pg/mL Total Protein (6.4-8.2) g/dl Albumin (3.4-5.0) g/dl Globulin gm/dL Albumin/Globulin Ratio (1-2) Urine Color Yellow (Yellow) Urine Appearance Clear (Clear) Urine pH 5.5 (5.0-8.0) Ur Specific [place] > or = 1.030 (1.005-1.030) Urine Protein 2+ H (Negative) Urine Glucose (UA) Negative (Negative) Urine Ketones 1+ H (Negative) Urine Occult Blood 2+ H (Negative) Urine Nitrite Positive H (Negative) Urine Bilirubin 2+ H (Negative) Urine Urobilinogen 1.0 (0.2-1.0) Ur Leukocyte Esterase Negative (Negative) U Hyaline Cast (Auto) 0-5 (0-5) /lpf Urine RBC 10-20 H (0-5) /hpf Urine WBC 0-5 (0-5) /hpf Ur Squamous Epith Cells 0-5 (0-5) /hpf Urine Bacteria Many H (FEW) /hpf Urine Mucus Moderate H (FEW) /hpf SARS-CoV-2 RNA (ERWIN) (NEGATIVE) 12/12/20 Range/Units 04:50 WBC (4.23-9.07) K/mm3 RBC (4.63-6.08) M/mm3 Hgb (13.7-17.5) gm/dl Hct (40.1-51.0) % MCV (79.0-92.2) fl MCH (25.7-32.2) pg MCHC (32.2-35.5) g/dl RDW Std Deviation (35.1-43.9) fL Plt Count (163-337) K/mm3 MPV (9.4-12.3) fl Neut % (Auto) (34.0-67.9) % Lymph % (Auto) (21.8-53.1) % Hill % (Auto) (5.3-12.2) % Eos % (Auto) (0.8-7.0) Baso % (Auto) (0.1-1.2) % Neut # (Auto) (1.78-5.38) K/mm3 Lymph # (Auto) (1.32-3.57) K/mm3 [place] # (Auto) (0.30-0.82) K/mm3 Eos # (Auto) (0.04-0.54) K/mm3 Baso # (Auto) (0.01-0.08) K/mm3 Neutrophils % (Manual) (40-60) % Band Neutrophils % (0-10) % Lymphocytes % (Manual) (20-40) % Atypical Lymphs % % Monocytes % (Manual) (2-10) % Eosinophils % (Manual) (0.8-7.0) % Basophils % (Manual) (0.2-1.2) Manual Slide Review Platelet Estimate RBC Morph Comment PT (9.7-12.0) SECONDS INR APTT (21.7-31.4) SECONDS Sodium 130 L (136-145) mEq/L Potassium 3.2 L (3.5-5.1) mEq/L Chloride 96 L (98-107) mEq/L Carbon Dioxide 25 (21-32) mEq/L Anion Gap 12.2 (5-15) BUN 27 H (7-18) mg/dL Creatinine 1.1 (0.7-1.3) mg/dL Est Cr Clr Drug Dosing 54.19 mL/min Estimated GFR (MDRD) > 60 (>60) mL/min BUN/Creatinine Ratio 24.5 H (14-18) Glucose 122 H (70-99) mg/dL Lactic Acid (0.4-2.0) mmol/L Calcium 7.7 L (8.5-10.1) mg/dL Magnesium (1.8-2.4) mg/dL Total Bilirubin (0.2-1.0) mg/dL AST (15-37) U/L ALT (16-63) U/L Alkaline Phosphatase (46-116) U/L Troponin I (0.00-0.056) ng/mL C-Reactive Protein (<1.0) mg/dL NT-Pro-B Natriuret Pep (0-450) pg/mL Total Protein (6.4-8.2) g/dl Albumin (3.4-5.0) g/dl Globulin gm/dL Albumin/Globulin Ratio (1-2) Urine Color (Yellow) Urine Appearance (Clear) Urine pH (5.0-8.0) Ur Specific [place] (1.005-1.030) Urine Protein (Negative) Urine Glucose (UA) (Negative) Urine Ketones (Negative) Urine Occult Blood (Negative) Urine Nitrite (Negative) Urine Bilirubin (Negative) Urine Urobilinogen (0.2-1.0) Ur Leukocyte Esterase (Negative) U Hyaline Cast (Auto) (0-5) /lpf Urine RBC (0-5) /hpf Urine WBC (0-5) /hpf Ur Squamous Epith Cells (0-5) /hpf Urine Bacteria (FEW) /hpf Urine Mucus (FEW) /hpf SARS-CoV-2 RNA (ERWIN) (NEGATIVE) Result Diagrams: 12/12/20 04:50 12/12/20 04:50 Sepsis Event Note - Evaluation Sepsis Screening Result: No Definite Risk - Focused Exam Vital Signs: Vital Signs Temp Pulse Resp BP Pulse Ox Pulse Ox 12/12/20 09:57 96 12/12/20 09:00 162/62 H 12/12/20 08:53 99.0 F 98 14 162/62 H 94 L 12/12/20 05:17 99.0 F 79 18 176/71 H 93 L - Problem List & Annotations (1) CAP (community acquired pneumonia) SNOMED Code(s): 052058654 Code(s): J18.9 - PNEUMONIA, UNSPECIFIED ORGANISM Status: Acute Current Visit: Yes (2) Delirium SNOMED Code(s): 3555940 Code(s): R41.0 - DISORIENTATION, UNSPECIFIED Status: Acute Current Visit: Yes (3) Dilutional hyponatremia SNOMED Code(s): 618861421 Code(s): E87.1 - HYPO-OSMOLALITY AND HYPONATREMIA Status: Acute Current Visit: Yes (4) Left lower lobe pneumonia SNOMED Code(s): 307744443 Code(s): J18.9 - PNEUMONIA, UNSPECIFIED ORGANISM Status: Acute Current Visit: Yes Qualifiers: Pneumonia type: due to unspecified organism Qualified Code(s): J18.9 - Pneumonia, unspecified organism - Problem List Review Problem List Initiated/Reviewed/Updated: Yes - My Orders Last 24 Hours: My Active Orders 12/12/20 11:00 Enoxaparin [Lovenox] 40 mg SUBCUT Q24H 12/12/20 12:45 Sodium Chloride 0.9% [Normal Saline] 250 ml IV ASDIRECTED - Plan Plan:: Community acquired pneumonia Admit pt to the medical floor Rocephin and doxycyline. Check blood cultures Sepsis due to pneumonia -resolved Continue IV antibiotics ELSIE BUN to creatinine ratio is still greater than 20, but renal function is improved. Creatinine is down to 1.1. Stop IV fluids after this bag. Follow bun/cr. Avoid nephrotoxins. Hyponatremia Much improved overnight. Sodium is up to 130. Continue to monitor Hypertension Continuing home meds Blood pressure still high with most recent 162/60 Continue to monitor Presbycusis Try to get hearing aids from family Prolonged QT Avoid QT prolonging medications. DNR status DVT propylaxis SQ heparin
[2020-12-12] MEDS: Verapamil 120 MG Cap.ER PO SCH (20:00)
[2020-12-12] MEDS: Simvastatin 10 MG Tab PO SCH (20:01)
[2020-12-13] MEDS: Pantoprazole 40 MG Tab.CR PO SCH (05:16)
--- NOTE | 2020-12-13 07:08 | PCM.PN ---
- General Info Date of Service: 12/13/20 Admission Dx/Problem (Free Text): Admission Diagnosis/Problem Admission Diagnosis/Problem Generalized weakness, Fall. Subjective Update: Nurse reports he had a large amount of dark bloody stool last night. Functional Status: Reports: Pain Controlled - Review of Systems General: Reports: Other (Patient was sleeping and did not wake up from my exam.) - Patient Data Vitals - Most Recent: Last Vital Signs Temp 99.7 F 12/12/20 23:17 Pulse 96 12/12/20 23:17 Resp 18 12/12/20 23:17 BP 121/60 12/12/20 23:17 Pulse Ox 93 L 12/12/20 23:17 Weight - Most Recent: 181 lb 3.2 oz I&O - Last 24 Hours: Intake & Output 12/12/20 12/13/20 12/13/20 22:59 06:59 14:59 Intake Total 1845 650 Output Total 500 Balance 1345 650 Lab Results Last 24 Hours: Laboratory Results - last 24 hr 12/13/20 Range/Units 05:40 WBC 12.11 H (4.23-9.07) K/mm3 RBC 3.52 L (4.63-6.08) M/mm3 Hgb 11.2 L D (13.7-17.5) gm/dl Hct 33.5 L (40.1-51.0) % MCV 95.2 H D (79.0-92.2) fl MCH 31.8 (25.7-32.2) pg MCHC 33.4 (32.2-35.5) g/dl RDW Std Deviation 43.3 (35.1-43.9) fL Plt Count 126 L (163-337) K/mm3 MPV 11.2 (9.4-12.3) fl Neut % (Auto) 74.1 H (34.0-67.9) % Lymph % (Auto) 6.9 L (21.8-53.1) % [place] % (Auto) 17.8 H (5.3-12.2) % Eos % (Auto) 0.3 L (0.8-7.0) Baso % (Auto) 0.2 (0.1-1.2) % Neut # (Auto) 8.97 H (1.78-5.38) K/mm3 Lymph # (Auto) 0.84 L (1.32-3.57) K/mm3 [place] # (Auto) 2.16 H (0.30-0.82) K/mm3 Eos # (Auto) 0.04 (0.04-0.54) K/mm3 Baso # (Auto) 0.02 (0.01-0.08) K/mm3 Med Orders - Current: Current Medications Docusate Sodium (Docusate Sodium 100 Mg Cap) 100 mg PO Q12H PRN PRN Reason: Constipation Doxycycline Hyclate (Doxycycline 100 Mg Cap) 100 mg PO Q12HR [facility] Stop: 12/21/20 21:01 Last Admin: 12/12/20 20:00 Dose: 100 mg Documented by: Enoxaparin Sodium (Enoxaparin 40 Mg/0.4 Ml Syringe) 40 mg SUBCUT Q24H [facility] Last Admin: 12/12/20 11:43 Dose: 40 mg Documented by: Lisinopril (Lisinopril 10 Mg Tab) 10 mg PO DAILY [facility] Last Admin: 12/12/20 09:00 Dose: 10 mg Documented by: Ondansetron HCl (Ondansetron 4 Mg Tab.Dis) 4 mg PO Q4H PRN PRN Reason: nausea, able to take PO Pantoprazole Sodium (Pantoprazole 40 Mg Tab.Cr) 40 mg PO ACBREAKFAST [facility] Last Admin: 12/13/20 05:16 Dose: 40 mg Documented by: Polyethylene Glycol (Polyethylene Glycol 3350 Powder 17 Gm Packet) 17 gm PO DAILY PRN PRN Reason: Constipation Simvastatin (Simvastatin 10 Mg Tab) 10 mg PO BEDTIME [facility] Last Admin: 12/12/20 20:01 Dose: 10 mg Documented by: Verapamil HCl (Verapamil 120 Mg Cap.Er) 240 mg PO BEDTIME [facility] Last Admin: 12/12/20 20:00 Dose: 240 mg Documented by: Discontinued Medications Acetaminophen (Acetaminophen 325 Mg Tab) 650 mg PO ONETIME ONE Stop: 12/11/20 15:06 Last Admin: 12/11/20 15:40 Dose: 650 mg Documented by: Dextrose/Sodium Chloride (Dextrose 5%-Normal Saline) 1,000 mls @ 250 mls/hr IV ASDIRECTED [facility] Last Admin: 12/11/20 15:40 Dose: 250 mls/hr Documented by: Ceftriaxone Sodium 2 gm/ (Sodium Chloride) 100 mls @ 200 mls/hr IV ONETIME ONE Stop: 12/11/20 17:06 Last Admin: 12/11/20 16:50 Dose: 200 mls/hr Documented by: Dextrose/Sodium Chloride (Dextrose 5%-1/2 Ns) 1,000 mls @ 75 mls/hr IV ASDIRECTED [facility] Stop: 12/12/20 09:31 Last Admin: 12/11/20 21:07 Dose: 75 mls/hr Documented by: Potassium Chloride 10 meq/ (Premix) 100 mls @ 100 mls/hr IV Q1H [facility] Stop: 12/12/20 11:59 Last Admin: 12/12/20 13:15 Dose: 100 mls/hr Documented by: Sodium Chloride (Normal Saline) 250 mls @ 100 mls/hr IV ASDIRECTED [facility] Last Admin: 12/12/20 12:55 Dose: 100 mls/hr Documented by: Metoclopramide HCl (Metoclopramide 10 Mg/2 Ml Sdv) 7.5 mg IVPUSH ONETIME ONE Stop: 12/11/20 15:06 Last Admin: 12/11/20 15:40 Dose: 7.5 mg Documented by: - Exam Quality Assessment: No: Supplemental Oxygen HEENT: Pupils Equal Neck: Supple Lungs: Clear to Auscultation, Normal Respiratory Effort Cardiovascular: Regular Rate, Regular Rhythm GI/Abdominal Exam: Normal Bowel Sounds, Soft, Non-Tender, No Distention - Patient Data Lab Results Last 24 hrs: Laboratory Results - last 24 hr 12/13/20 Range/Units 05:40 WBC 12.11 H (4.23-9.07) K/mm3 RBC 3.52 L (4.63-6.08) M/mm3 Hgb 11.2 L D (13.7-17.5) gm/dl Hct 33.5 L (40.1-51.0) % MCV 95.2 H D (79.0-92.2) fl MCH 31.8 (25.7-32.2) pg MCHC 33.4 (32.2-35.5) g/dl RDW Std Deviation 43.3 (35.1-43.9) fL Plt Count 126 L (163-337) K/mm3 MPV 11.2 (9.4-12.3) fl Neut % (Auto) 74.1 H (34.0-67.9) % Lymph % (Auto) 6.9 L (21.8-53.1) % [place] % (Auto) 17.8 H (5.3-12.2) % Eos % (Auto) 0.3 L (0.8-7.0) Baso % (Auto) 0.2 (0.1-1.2) % Neut # (Auto) 8.97 H (1.78-5.38) K/mm3 Lymph # (Auto) 0.84 L (1.32-3.57) K/mm3 [place] # (Auto) 2.16 H (0.30-0.82) K/mm3 Eos # (Auto) 0.04 (0.04-0.54) K/mm3 Baso # (Auto) 0.02 (0.01-0.08) K/mm3 Result Diagrams: 12/13/20 05:40 12/13/20 05:40 Sepsis Event Note - Evaluation Sepsis Screening Result: No Definite Risk - Focused Exam Vital Signs: Vital Signs Temp Pulse Resp BP Pulse Ox 12/12/20 23:17 99.7 F 96 18 121/60 93 L 12/12/20 20:00 91 101/55 L 12/12/20 19:56 99.5 F 91 16 101/55 L 94 L - Problem List & Annotations (1) CAP (community acquired pneumonia) SNOMED Code(s): 550556683 Code(s): J18.9 - PNEUMONIA, UNSPECIFIED ORGANISM Status: Acute Current Visit: Yes (2) Delirium SNOMED Code(s): 7341687 Code(s): R41.0 - DISORIENTATION, UNSPECIFIED Status: Acute Current Visit: Yes (3) Dilutional hyponatremia SNOMED Code(s): 282355732 Code(s): E87.1 - HYPO-OSMOLALITY AND HYPONATREMIA Status: Acute Current Visit: Yes (4) Left lower lobe pneumonia SNOMED Code(s): 892476458 Code(s): J18.9 - PNEUMONIA, UNSPECIFIED ORGANISM Status: Acute Current Visit: Yes Qualifiers: Pneumonia type: due to unspecified organism Qualified Code(s): J18.9 - Pneumonia, unspecified organism - Problem List Review Problem List Initiated/Reviewed/Updated: Yes - My Orders Last 24 Hours: My Active Orders 12/12/20 11:00 Enoxaparin [Lovenox] 40 mg SUBCUT Q24H - Plan Plan:: GI bleed Hemoglobin dropped from 15-11.2 -Stopped enoxaparin and switch to SCDs -Switched Protonix from p.o. to 40 mg twice daily IV -Recheck hemoglobin this afternoon. Community acquired pneumonia Rocephin and doxycyline. Check blood cultures Sepsis due to pneumonia -resolved Continue IV antibiotics ELSIE BUN to creatinine ratio is still greater than 20, but renal function is improved. Creatinine is down to 1.1. Stop IV fluids after this bag. Follow bun/cr. Avoid nephrotoxins. Hyponatremia Stable Sodium is up to 130. Continue to monitor Hypertension Continuing home meds Blood pressure improved this morning to 120/60 Continue to monitor Presbycusis Try to get hearing aids from family Prolonged QT Avoid QT prolonging medications. DNR status DVT propylaxis SCDs
[2020-12-13] MEDS: Pantoprazole 40 MG Vial IVPUSH SCH ×2 (09:43→22:14)
[2020-12-13] MEDS: Doxycycline 100 MG Cap PO SCH ×2 (09:43→10:18)
[2020-12-13] MEDS ORDERED: Sodium Chloride 0.9% 500 ML IV ONE ×2 (09:50→11:40)
[2020-12-13] MEDS ORDERED: Sodium Chloride 0.9% 1,000 ML ONE (09:52)
--- NOTE | 2020-12-13 09:54 | PCM.SN.2 ---
- Free Text/Narrative Note: 1000 Called to patient bedside due to patient having decreasing mentation and low blood pressure. Blood pressure was in the 80s over 60s systolic. Nursing noted continued black stools. Patient was arousable and verbal. He denied any pain. I spoke with his who said that decades ago he did have an upper GI bleed. Patient does have a smell of upper GI bleed. He had significant bruising along his left side of his neck that is new. Lovenox was held this morning. 40 mg of IV push Protonix given. 500 mL of normal saline ordered for bolus. CBC, INR, PT, PTT ordered. Patient placed on telemetry. 1400 Patient continues to be confused and obtunded. Respiratory rate is elevated in the upper 20s to 30s. Lactic acid did come back at 1.0, blood pressure and heart rate are stable and within normal limits. Patient was given 1.5 L bolus, started on vancomycin. Rocephin was delayed by approximately 18 hours secondary to emergency room order being a one-time only and it not being restarted within patient arrived on the floor. Hemoglobin is stable with repeat as well as CMP. Bilirubin is actually lower. We will continue monitoring closely. Repeat blood count this afternoon. Time Documentation
[2020-12-13] MEDS: Lisinopril 10 MG Tab PO SCH (09:56)
[2020-12-13] MEDS: cefTRIAXone 2 GM in Sodium Chloride 0.9% 100 ML IV SCH (11:07)
[2020-12-13] MEDS ORDERED: Sodium Chloride 0.9% 1,000 ML IV SCH ×2 (11:30→19:30)
[2020-12-13] MEDS ORDERED: Sodium Chloride 0.9% 1,000 ML IV ONE (11:32)
[2020-12-13] MEDS ORDERED: Vancomycin 1.75 GM in Sodium Chloride 0.9% 500 ML IV ONE (12:30)
[2020-12-13] MEDS: Doxycycline 100 MG in Sodium Chloride 0.9% 100 ML IV SCH (14:35)
[2020-12-13] MEDS: Verapamil 120 MG Cap.ER PO SCH (22:09)
[2020-12-13] MEDS: Simvastatin 10 MG Tab PO SCH (22:13)
[2020-12-14] MEDS ORDERED: Vancomycin 1 GM, Vancomycin 250 MG in Sodium Chloride 0.9% 250 ML IV SCH (01:00)
[2020-12-14] MEDS: Doxycycline 100 MG in Sodium Chloride 0.9% 100 ML IV SCH ×2 (01:15→12:52)
--- NOTE | 2020-12-14 09:13 | PCM.PN ---
- General Info Date of Service: 12/14/20 Admission Dx/Problem (Free Text): Admission Diagnosis/Problem Admission Diagnosis/Problem Generalized weakness, Fall. Functional Status: Reports: Pain Controlled - Review of Systems General: Reports: Fatigue HEENT: Reports: No Symptoms Pulmonary: Reports: No Symptoms Cardiovascular: Reports: No Symptoms - Patient Data Vitals - Most Recent: Last Vital Signs Temp 97.3 F 12/14/20 08:38 Pulse 67 12/14/20 08:38 Resp 16 12/14/20 08:38 BP 124/65 12/14/20 08:38 Pulse Ox 100 12/14/20 08:38 Weight - Most Recent: 186 lb 3 oz I&O - Last 24 Hours: Intake & Output 12/13/20 12/14/20 12/14/20 22:59 06:59 14:59 Intake Total 3253 1533 Output Total 2650 1400 550 Balance 603 133 -550 Lab Results Last 24 Hours: Laboratory Results - last 24 hr 12/13/20 12/13/20 12/13/20 Range/Units 10:05 10:05 10:05 WBC 12.58 H (4.23-9.07) K/mm3 RBC 3.55 L (4.63-6.08) M/mm3 Hgb 11.3 L (13.7-17.5) gm/dl Hct 33.5 L (40.1-51.0) % MCV 94.4 H (79.0-92.2) fl MCH 31.8 (25.7-32.2) pg MCHC 33.7 (32.2-35.5) g/dl RDW Std Deviation 42.8 (35.1-43.9) fL Plt Count 127 L (163-337) K/mm3 MPV 10.7 (9.4-12.3) fl Neut % (Auto) 74.5 H (34.0-67.9) % Lymph % (Auto) 7.3 L (21.8-53.1) % [place] % (Auto) 16.8 H (5.3-12.2) % Eos % (Auto) 0.3 L (0.8-7.0) Baso % (Auto) 0.2 (0.1-1.2) % Neut # (Auto) 9.38 H (1.78-5.38) K/mm3 Lymph # (Auto) 0.92 L (1.32-3.57) K/mm3 [place] # (Auto) 2.11 H (0.30-0.82) K/mm3 Eos # (Auto) 0.04 (0.04-0.54) K/mm3 Baso # (Auto) 0.02 (0.01-0.08) K/mm3 Manual Slide Review PT 11.8 (9.7-12.0) SECONDS INR 1.07 APTT 32.6 H (21.7-31.4) SECONDS Sodium (136-145) mEq/L Potassium (3.5-5.1) mEq/L Chloride (98-107) mEq/L Carbon Dioxide (21-32) mEq/L Anion Gap (5-15) BUN (7-18) mg/dL Creatinine (0.7-1.3) mg/dL Est Cr Clr Drug Dosing mL/min Estimated GFR (MDRD) (>60) mL/min BUN/Creatinine Ratio (14-18) Glucose (70-99) mg/dL Lactic Acid (0.4-2.0) mmol/L Calcium (8.5-10.1) mg/dL Total Bilirubin (0.2-1.0) mg/dL AST (15-37) U/L ALT (16-63) U/L Alkaline Phosphatase (46-116) U/L Total Protein (6.4-8.2) g/dl Albumin (3.4-5.0) g/dl Globulin gm/dL Albumin/Globulin Ratio (1-2) Procalcitonin ng/mL MRSA (PCR) 12/13/20 12/13/20 12/13/20 Range/Units 11:15 12:10 12:10 WBC (4.23-9.07) K/mm3 RBC (4.63-6.08) M/mm3 Hgb (13.7-17.5) gm/dl Hct (40.1-51.0) % MCV (79.0-92.2) fl MCH (25.7-32.2) pg MCHC (32.2-35.5) g/dl RDW Std Deviation (35.1-43.9) fL Plt Count (163-337) K/mm3 MPV (9.4-12.3) fl Neut % (Auto) (34.0-67.9) % Lymph % (Auto) (21.8-53.1) % [place] % (Auto) (5.3-12.2) % Eos % (Auto) (0.8-7.0) Baso % (Auto) (0.1-1.2) % Neut # (Auto) (1.78-5.38) K/mm3 Lymph # (Auto) (1.32-3.57) K/mm3 [place] # (Auto) (0.30-0.82) K/mm3 Eos # (Auto) (0.04-0.54) K/mm3 Baso # (Auto) (0.01-0.08) K/mm3 Manual Slide Review PT (9.7-12.0) SECONDS INR APTT (21.7-31.4) SECONDS Sodium 132 L (136-145) mEq/L Potassium 4.0 (3.5-5.1) mEq/L Chloride 102 (98-107) mEq/L Carbon Dioxide 24 (21-32) mEq/L Anion Gap 10.0 (5-15) BUN 49 H (7-18) mg/dL Creatinine 1.0 (0.7-1.3) mg/dL Est Cr Clr Drug Dosing 59.61 mL/min Estimated GFR (MDRD) > 60 (>60) mL/min BUN/Creatinine Ratio 49.0 H (14-18) Glucose 110 H (70-99) mg/dL Lactic Acid 1.0 (0.4-2.0) mmol/L Calcium 7.3 L (8.5-10.1) mg/dL Total Bilirubin 0.8 (0.2-1.0) mg/dL AST 28 (15-37) U/L ALT 22 (16-63) U/L Alkaline Phosphatase 39 L (46-116) U/L Total Protein 4.8 L (6.4-8.2) g/dl Albumin 2.1 L (3.4-5.0) g/dl Globulin 2.7 gm/dL Albumin/Globulin Ratio 0.8 L (1-2) Procalcitonin 0.14 H ng/mL MRSA (PCR) 09/15/21 09/15/21 09/16/21 Range/Units 17:22 23:15 06:20 WBC 10.64 H 8.29 (4.23-9.07) K/mm3 RBC 3.48 L 3.06 L (4.63-6.08) M/mm3 Hgb 11.0 L 9.6 L (13.7-17.5) gm/dl Hct 33.1 L 29.3 L (40.1-51.0) % MCV 95.1 H 95.8 H (79.0-92.2) fl MCH 31.6 31.4 (25.7-32.2) pg MCHC 33.2 32.8 (32.2-35.5) g/dl RDW Std Deviation 43.8 43.7 (35.1-43.9) fL Plt Count 125 L 126 L (163-337) K/mm3 MPV 10.6 10.3 (9.4-12.3) fl Neut % (Auto) 74.8 H 78.3 H (34.0-67.9) % Lymph % (Auto) 8.2 L 6.0 L (21.8-53.1) % [place] % (Auto) 14.8 H 12.1 (5.3-12.2) % Eos % (Auto) 1.0 2.5 (0.8-7.0) Baso % (Auto) 0.2 0.1 (0.1-1.2) % Neut # (Auto) 7.95 H 6.49 H (1.78-5.38) K/mm3 Lymph # (Auto) 0.87 L 0.50 L (1.32-3.57) K/mm3 [place] # (Auto) 1.58 H 1.00 H (0.30-0.82) K/mm3 Eos # (Auto) 0.11 0.21 (0.04-0.54) K/mm3 Baso # (Auto) 0.02 0.01 (0.01-0.08) K/mm3 Manual Slide Review Abnormal smear PT (9.7-12.0) SECONDS INR APTT (21.7-31.4) SECONDS Sodium (136-145) mEq/L Potassium (3.5-5.1) mEq/L Chloride (98-107) mEq/L Carbon Dioxide (21-32) mEq/L Anion Gap (5-15) BUN (7-18) mg/dL Creatinine (0.7-1.3) mg/dL Est Cr Clr Drug Dosing mL/min Estimated GFR (MDRD) (>60) mL/min BUN/Creatinine Ratio (14-18) Glucose (70-99) mg/dL Lactic Acid (0.4-2.0) mmol/L Calcium (8.5-10.1) mg/dL Total Bilirubin (0.2-1.0) mg/dL AST (15-37) U/L ALT (16-63) U/L Alkaline Phosphatase (46-116) U/L Total Protein (6.4-8.2) g/dl Albumin (3.4-5.0) g/dl Globulin gm/dL Albumin/Globulin Ratio (1-2) Procalcitonin ng/mL MRSA (PCR) Negative 12/14/20 Range/Units 06:20 WBC (4.23-9.07) K/mm3 RBC (4.63-6.08) M/mm3 Hgb (13.7-17.5) gm/dl Hct (40.1-51.0) % MCV (79.0-92.2) fl MCH (25.7-32.2) pg MCHC (32.2-35.5) g/dl RDW Std Deviation (35.1-43.9) fL Plt Count (163-337) K/mm3 MPV (9.4-12.3) fl Neut % (Auto) (34.0-67.9) % Lymph % (Auto) (21.8-53.1) % [place] % (Auto) (5.3-12.2) % Eos % (Auto) (0.8-7.0) Baso % (Auto) (0.1-1.2) % Neut # (Auto) (1.78-5.38) K/mm3 Lymph # (Auto) (1.32-3.57) K/mm3 [place] # (Auto) (0.30-0.82) K/mm3 Eos # (Auto) (0.04-0.54) K/mm3 Baso # (Auto) (0.01-0.08) K/mm3 Manual Slide Review PT (9.7-12.0) SECONDS INR APTT (21.7-31.4) SECONDS Sodium 137 (136-145) mEq/L Potassium 3.9 (3.5-5.1) mEq/L Chloride 106 (98-107) mEq/L Carbon Dioxide 21 (21-32) mEq/L Anion Gap 13.9 (5-15) BUN 26 H (7-18) mg/dL Creatinine 0.7 (0.7-1.3) mg/dL Est Cr Clr Drug Dosing 85.16 mL/min Estimated GFR (MDRD) > 60 (>60) mL/min BUN/Creatinine Ratio 37.1 H (14-18) Glucose 109 H (70-99) mg/dL Lactic Acid (0.4-2.0) mmol/L Calcium 7.4 L (8.5-10.1) mg/dL Total Bilirubin 0.8 (0.2-1.0) mg/dL AST 26 (15-37) U/L ALT 25 (16-63) U/L Alkaline Phosphatase 40 L (46-116) U/L Total Protein 4.9 L (6.4-8.2) g/dl Albumin 2.2 L (3.4-5.0) g/dl Globulin 2.7 gm/dL Albumin/Globulin Ratio 0.8 L (1-2) Procalcitonin ng/mL MRSA (PCR) [place] Results Last 24 Hours: Microbiology 12/13/20 16:30 Stool Occult Blood ([facility]) - Final Stool / Feces 12/11/20 15:36 Blood Culture - Preliminary Blood - Venous - Iv Start 12/11/20 15:33 Blood Culture - Preliminary Blood - Venous - Lab Draw Med Orders - Current: Current Medications Docusate Sodium (Docusate Sodium 100 Mg Cap) 100 mg PO Q12H PRN PRN Reason: Constipation Ceftriaxone Sodium 2 gm/ (Sodium Chloride) 100 mls @ 200 mls/hr IV Q24H [facility] Last Admin: 12/13/20 11:07 Dose: 200 mls/hr Documented by: Doxycycline Hyclate 100 mg/ (Sodium Chloride) 100 mls @ 100 mls/hr IV Q12H [facility] Last Admin: 12/14/20 01:15 Dose: 100 mls/hr Documented by: Sodium Chloride (Normal Saline) 1,000 mls @ 50 mls/hr IV ASDIRECTED [facility] Last Admin: 12/14/20 01:15 Dose: 50 mls/hr Documented by: Lisinopril (Lisinopril 10 Mg Tab) 10 mg PO DAILY [facility] Last Admin: 12/13/20 09:56 Dose: Not Given Documented by: Ondansetron HCl (Ondansetron 4 Mg Tab.Dis) 4 mg PO Q4H PRN PRN Reason: nausea, able to take PO Pantoprazole Sodium (Pantoprazole 40 Mg Vial) 40 mg IVPUSH Q12H [facility] Last Admin: 12/13/20 22:14 Dose: 40 mg Documented by: Polyethylene Glycol (Polyethylene Glycol 3350 Powder 17 Gm Packet) 17 gm PO DAILY PRN PRN Reason: Constipation Simvastatin (Simvastatin 10 Mg Tab) 10 mg PO BEDTIME [facility] Last Admin: 12/13/20 22:13 Dose: 10 mg Documented by: Verapamil HCl (Verapamil 120 Mg Cap.Er) 240 mg PO BEDTIME [facility] Last Admin: 12/13/20 22:09 Dose: 240 mg Documented by: Discontinued Medications Acetaminophen (Acetaminophen 325 Mg Tab) 650 mg PO ONETIME ONE Stop: 12/11/20 15:06 Last Admin: 12/11/20 15:40 Dose: 650 mg Documented by: Doxycycline Hyclate (Doxycycline 100 Mg Cap) 100 mg PO Q12HR [facility] Stop: 12/21/20 21:01 Last Admin: 12/13/20 10:18 Dose: Not Given Documented by: Enoxaparin Sodium (Enoxaparin 40 Mg/0.4 Ml Syringe) 40 mg SUBCUT Q24H [facility] Last Admin: 12/12/20 11:43 Dose: 40 mg Documented by: Dextrose/Sodium Chloride (Dextrose 5%-Normal Saline) 1,000 mls @ 250 mls/hr IV ASDIRECTED [facility] Last Admin: 12/11/20 15:40 Dose: 250 mls/hr Documented by: Ceftriaxone Sodium 2 gm/ (Sodium Chloride) 100 mls @ 200 mls/hr IV ONETIME ONE Stop: 12/11/20 17:06 Last Admin: 12/11/20 16:50 Dose: 200 mls/hr Documented by: Dextrose/Sodium Chloride (Dextrose 5%-1/2 Ns) 1,000 mls @ 75 mls/hr IV ASDIRECTED [facility] Stop: 12/12/20 09:31 Last Admin: 12/11/20 21:07 Dose: 75 mls/hr Documented by: Potassium Chloride 10 meq/ (Premix) 100 mls @ 100 mls/hr IV Q1H [facility] Stop: 12/12/20 11:59 Last Admin: 12/12/20 13:15 Dose: 100 mls/hr Documented by: Sodium Chloride (Normal Saline) 250 mls @ 100 mls/hr IV ASDIRECTED [facility] Last Admin: 12/12/20 12:55 Dose: 100 mls/hr Documented by: Sodium Chloride (Normal Saline) 500 mls @ 999 mls/hr IV .BOLUS ONE Stop: 12/13/20 10:20 Last Admin: 12/13/20 09:55 Dose: 999 mls/hr Documented by: Sodium Chloride (Normal Saline) Confirm Administered Dose 1,000 mls @ as directed .ROUTE .STK-MED ONE Stop: 12/13/20 09:53 Last Admin: 12/13/20 09:56 Dose: Not Given Documented by: Sodium Chloride (Normal Saline) 1,000 mls @ 125 mls/hr IV ASDIRECTED [facility] Last Admin: 12/13/20 13:32 Dose: 125 mls/hr Documented by: Sodium Chloride (Normal Saline) 1,000 mls @ 999 mls/hr IV ONETIME ONE Stop: 12/13/20 12:32 Last Admin: 12/13/20 12:52 Dose: 999 mls/hr Documented by: Vancomycin HCl 1.75 gm/ Sodium (Chloride) 500 mls @ 250 mls/hr IV ONETIME ONE Stop: 12/13/20 14:29 Last Admin: 12/13/20 12:54 Dose: 250 mls/hr Documented by: Vancomycin HCl 1 gm/Vancomycin HCl 250 mg/ Sodium Chloride 250 mls @ 166.667 mls/hr IV Q12H [facility] Last Admin: 12/14/20 01:16 Dose: 166.667 mls/hr Documented by: Sodium Chloride (Normal Saline) 500 mls @ 999 mls/hr IV .BOLUS ONE Stop: 12/13/20 12:10 Last Admin: 12/13/20 12:52 Dose: 999 mls/hr Documented by: Metoclopramide HCl (Metoclopramide 10 Mg/2 Ml Sdv) 7.5 mg IVPUSH ONETIME ONE Stop: 12/11/20 15:06 Last Admin: 12/11/20 15:40 Dose: 7.5 mg Documented by: Pantoprazole Sodium (Pantoprazole 40 Mg Tab.Cr) 40 mg PO [facility]AKFAST [facility] Last Admin: 12/13/20 05:16 Dose: 40 mg Documented by: Vancomycin HCl (Pharmacy To Dose - Vancomycin) 0 dose .XX ASDIRECTED PRN PRN Reason: RX TO DOSE VANCO - Exam Quality Assessment: No: Supplemental Oxygen Urinary Catheter Total Time: 0Days 0Hours General: Alert (Less tired today) HEENT: Pupils Equal Neck: Supple Lungs: Crackles. No: Normal Respiratory Effort (Mild increase in rate) Cardiovascular: Regular Rate, Regular Rhythm GI/Abdominal Exam: Normal Bowel Sounds, Soft, Non-Tender, No Distention Back Exam: Normal Inspection Extremities: Normal Inspection, Non-Tender, Pedal Edema (1+) Skin: Warm, Dry, Intact Psy/Mental Status: Alert, Normal Affect, Normal Mood - Patient Data Lab Results Last 24 hrs: Laboratory Results - last 24 hr 12/13/20 12/13/20 12/13/20 Range/Units 10:05 10:05 10:05 WBC 12.58 H (4.23-9.07) K/mm3 RBC 3.55 L (4.63-6.08) M/mm3 Hgb 11.3 L (13.7-17.5) gm/dl Hct 33.5 L (40.1-51.0) % MCV 94.4 H (79.0-92.2) fl MCH 31.8 (25.7-32.2) pg MCHC 33.7 (32.2-35.5) g/dl RDW Std Deviation 42.8 (35.1-43.9) fL Plt Count 127 L (163-337) K/mm3 MPV 10.7 (9.4-12.3) fl Neut % (Auto) 74.5 H (34.0-67.9) % Lymph % (Auto) 7.3 L (21.8-53.1) % [place] % (Auto) 16.8 H (5.3-12.2) % Eos % (Auto) 0.3 L (0.8-7.0) Baso % (Auto) 0.2 (0.1-1.2) % Neut # (Auto) 9.38 H (1.78-5.38) K/mm3 Lymph # (Auto) 0.92 L (1.32-3.57) K/mm3 [place] # (Auto) 2.11 H (0.30-0.82) K/mm3 Eos # (Auto) 0.04 (0.04-0.54) K/mm3 Baso # (Auto) 0.02 (0.01-0.08) K/mm3 Manual Slide Review PT 11.8 (9.7-12.0) SECONDS INR 1.07 APTT 32.6 H (21.7-31.4) SECONDS Sodium (136-145) mEq/L Potassium (3.5-5.1) mEq/L Chloride (98-107) mEq/L Carbon Dioxide (21-32) mEq/L Anion Gap (5-15) BUN (7-18) mg/dL Creatinine (0.7-1.3) mg/dL Est Cr Clr Drug Dosing mL/min Estimated GFR (MDRD) (>60) mL/min BUN/Creatinine Ratio (14-18) Glucose (70-99) mg/dL Lactic Acid (0.4-2.0) mmol/L Calcium (8.5-10.1) mg/dL Total Bilirubin (0.2-1.0) mg/dL AST (15-37) U/L ALT (16-63) U/L Alkaline Phosphatase (46-116) U/L Total Protein (6.4-8.2) g/dl Albumin (3.4-5.0) g/dl Globulin gm/dL Albumin/Globulin Ratio (1-2) Procalcitonin ng/mL MRSA (PCR) 12/13/20 12/13/20 12/13/20 Range/Units 11:15 12:10 12:10 WBC (4.23-9.07) K/mm3 RBC (4.63-6.08) M/mm3 Hgb (13.7-17.5) gm/dl Hct (40.1-51.0) % MCV (79.0-92.2) fl MCH (25.7-32.2) pg MCHC (32.2-35.5) g/dl RDW Std Deviation (35.1-43.9) fL Plt Count (163-337) K/mm3 MPV (9.4-12.3) fl Neut % (Auto) (34.0-67.9) % Lymph % (Auto) (21.8-53.1) % [place] % (Auto) (5.3-12.2) % Eos % (Auto) (0.8-7.0) Baso % (Auto) (0.1-1.2) % Neut # (Auto) (1.78-5.38) K/mm3 Lymph # (Auto) (1.32-3.57) K/mm3 [place] # (Auto) (0.30-0.82) K/mm3 Eos # (Auto) (0.04-0.54) K/mm3 Baso # (Auto) (0.01-0.08) K/mm3 Manual Slide Review PT (9.7-12.0) SECONDS INR APTT (21.7-31.4) SECONDS Sodium 132 L (136-145) mEq/L Potassium 4.0 (3.5-5.1) mEq/L Chloride 102 (98-107) mEq/L Carbon Dioxide 24 (21-32) mEq/L Anion Gap 10.0 (5-15) BUN 49 H (7-18) mg/dL Creatinine 1.0 (0.7-1.3) mg/dL Est Cr Clr Drug Dosing 59.61 mL/min Estimated GFR (MDRD) > 60 (>60) mL/min BUN/Creatinine Ratio 49.0 H (14-18) Glucose 110 H (70-99) mg/dL Lactic Acid 1.0 (0.4-2.0) mmol/L Calcium 7.3 L (8.5-10.1) mg/dL Total Bilirubin 0.8 (0.2-1.0) mg/dL AST 28 (15-37) U/L ALT 22 (16-63) U/L Alkaline Phosphatase 39 L (46-116) U/L Total Protein 4.8 L (6.4-8.2) g/dl Albumin 2.1 L (3.4-5.0) g/dl Globulin 2.7 gm/dL Albumin/Globulin Ratio 0.8 L (1-2) Procalcitonin 0.14 H ng/mL MRSA (PCR) 09/12/13/20 12/14/20 Range/Units 17:22 23:15 06:20 WBC 10.64 H 8.29 (4.23-9.07) K/mm3 RBC 3.48 L 3.06 L (4.63-6.08) M/mm3 Hgb 11.0 L 9.6 L (13.7-17.5) gm/dl Hct 33.1 L 29.3 L (40.1-51.0) % MCV 95.1 H 95.8 H (79.0-92.2) fl MCH 31.6 31.4 (25.7-32.2) pg MCHC 33.2 32.8 (32.2-35.5) g/dl RDW Std Deviation 43.8 43.7 (35.1-43.9) fL Plt Count 125 L 126 L (163-337) K/mm3 MPV 10.6 10.3 (9.4-12.3) fl Neut % (Auto) 74.8 H 78.3 H (34.0-67.9) % Lymph % (Auto) 8.2 L 6.0 L (21.8-53.1) % [place] % (Auto) 14.8 H 12.1 (5.3-12.2) % Eos % (Auto) 1.0 2.5 (0.8-7.0) Baso % (Auto) 0.2 0.1 (0.1-1.2) % Neut # (Auto) 7.95 H 6.49 H (1.78-5.38) K/mm3 Lymph # (Auto) 0.87 L 0.50 L (1.32-3.57) K/mm3 [place] # (Auto) 1.58 H 1.00 H (0.30-0.82) K/mm3 Eos # (Auto) 0.11 0.21 (0.04-0.54) K/mm3 Baso # (Auto) 0.02 0.01 (0.01-0.08) K/mm3 Manual Slide Review Abnormal smear PT (9.7-12.0) SECONDS INR APTT (21.7-31.4) SECONDS Sodium (136-145) mEq/L Potassium (3.5-5.1) mEq/L Chloride (98-107) mEq/L Carbon Dioxide (21-32) mEq/L Anion Gap (5-15) BUN (7-18) mg/dL Creatinine (0.7-1.3) mg/dL Est Cr Clr Drug Dosing mL/min Estimated GFR (MDRD) (>60) mL/min BUN/Creatinine Ratio (14-18) Glucose (70-99) mg/dL Lactic Acid (0.4-2.0) mmol/L Calcium (8.5-10.1) mg/dL Total Bilirubin (0.2-1.0) mg/dL AST (15-37) U/L ALT (16-63) U/L Alkaline Phosphatase (46-116) U/L Total Protein (6.4-8.2) g/dl Albumin (3.4-5.0) g/dl Globulin gm/dL Albumin/Globulin Ratio (1-2) Procalcitonin ng/mL MRSA (PCR) Negative 12/14/20 Range/Units 06:20 WBC (4.23-9.07) K/mm3 RBC (4.63-6.08) M/mm3 Hgb (13.7-17.5) gm/dl Hct (40.1-51.0) % MCV (79.0-92.2) fl MCH (25.7-32.2) pg MCHC (32.2-35.5) g/dl RDW Std Deviation (35.1-43.9) fL Plt Count (163-337) K/mm3 MPV (9.4-12.3) fl Neut % (Auto) (34.0-67.9) % Lymph % (Auto) (21.8-53.1) % [place] % (Auto) (5.3-12.2) % Eos % (Auto) (0.8-7.0) Baso % (Auto) (0.1-1.2) % Neut # (Auto) (1.78-5.38) K/mm3 Lymph # (Auto) (1.32-3.57) K/mm3 [place] # (Auto) (0.30-0.82) K/mm3 Eos # (Auto) (0.04-0.54) K/mm3 Baso # (Auto) (0.01-0.08) K/mm3 Manual Slide Review PT (9.7-12.0) SECONDS INR APTT (21.7-31.4) SECONDS Sodium 137 (136-145) mEq/L Potassium 3.9 (3.5-5.1) mEq/L Chloride 106 (98-107) mEq/L Carbon Dioxide 21 (21-32) mEq/L Anion Gap 13.9 (5-15) BUN 26 H (7-18) mg/dL Creatinine 0.7 (0.7-1.3) mg/dL Est Cr Clr Drug Dosing 85.16 mL/min Estimated GFR (MDRD) > 60 (>60) mL/min BUN/Creatinine Ratio 37.1 H (14-18) Glucose 109 H (70-99) mg/dL Lactic Acid (0.4-2.0) mmol/L Calcium 7.4 L (8.5-10.1) mg/dL Total Bilirubin 0.8 (0.2-1.0) mg/dL AST 26 (15-37) U/L ALT 25 (16-63) U/L Alkaline Phosphatase 40 L (46-116) U/L Total Protein 4.9 L (6.4-8.2) g/dl Albumin 2.2 L (3.4-5.0) g/dl Globulin 2.7 gm/dL Albumin/Globulin Ratio 0.8 L (1-2) Procalcitonin ng/mL MRSA (PCR) Result Diagrams: 12/14/20 06:20 12/14/20 06:20 [place] Results Last 24 hrs: Microbiology 12/13/20 16:30 Stool Occult Blood ([facility]) - Final Stool / Feces 12/11/20 15:36 Blood Culture - Preliminary Blood - Venous - Iv Start 12/11/20 15:33 Blood Culture - Preliminary Blood - Venous - Lab Draw Sepsis Event Note - Evaluation Sepsis Screening Result: No Definite Risk - Focused Exam Vital Signs: Vital Signs Temp Temp Pulse Pulse Resp BP BP 12/14/20 08:38 97.3 F 67 16 124/65 12/14/20 04:22 97.5 F 71 20 146/73 H 146/73 H 12/14/20 01:43 98.6 F 72 20 125/77 12/13/20 22:16 98.1 F 85 20 144/91 H 12/13/20 22:09 85 144/91 H Pulse Ox 12/14/20 08:38 100 12/14/20 04:22 96 12/14/20 01:43 96 12/13/20 22:16 95 12/13/20 22:09 - Problem List & Annotations (1) CAP (community acquired pneumonia) SNOMED Code(s): 594112601 Code(s): J18.9 - PNEUMONIA, UNSPECIFIED ORGANISM Status: Acute Current Visit: Yes (2) Delirium SNOMED Code(s): 8010833 Code(s): R41.0 - DISORIENTATION, UNSPECIFIED Status: Acute Current Visit: Yes (3) Dilutional hyponatremia SNOMED Code(s): 000679410 Code(s): E87.1 - HYPO-OSMOLALITY AND HYPONATREMIA Status: Acute Current Visit: Yes (4) Left lower lobe pneumonia SNOMED Code(s): 269061584 Code(s): J18.9 - PNEUMONIA, UNSPECIFIED ORGANISM Status: Acute Current Visit: Yes Qualifiers: Pneumonia type: due to unspecified organism Qualified Code(s): J18.9 - Pneumonia, unspecified organism - Problem List Review Problem List Initiated/Reviewed/Updated: Yes - My Orders Last 24 Hours: My Active Orders 12/13/20 09:15 Pantoprazole [ProTONIX IV] 40 mg IVPUSH Q12H 12/13/20 09:16 Antiembolic Devices [RC] PER UNIT ROUTINE SCD [Sequential Compression Device] [OM.PC] Routine 12/13/20 09:58 Code Status [Resuscitation Status] Routine 12/13/20 10:03 Patient Status [ADT] Routine 12/13/20 Lunch Clear Liquid Diet [DIET] cefTRIAXone [Rocephin] 2 gm Sodium Chloride 0.9% [Normal Saline] 100 ml IV Q24H 12/13/20 12:30 Doxycycline [Vibramycin] 100 mg Sodium Chloride 0.9% [Normal Saline] 100 ml IV Q12H 12/13/20 16:20 Urinary Catheter Assessment [RC] 10,16,22,04 12/13/20 16:30 Insert Urinary Catheter [OM.PC] Q24H 12/13/20 19:30 Sodium Chloride 0.9% [Normal Saline] 1,000 ml IV ASDIRECTED 12/14/20 08:06 Renew/Continue Urinary Catheter [OM.PC] Routine 12/15/20 05:11 CMP [COMPREHENSIVE METABOLIC PN,CMP] [CHEM] AM 12/16/20 05:11 CMP [COMPREHENSIVE METABOLIC PN,CMP] [CHEM] AM - Plan Plan:: GI bleed Hemoglobin dropped from 15-11.2-> today 9.6 -Today's decrease may be due to hemodilution -Stopped enoxaparin and switch to SCDs -Switched Protonix from p.o. to 40 mg twice daily IV -Recheck hemoglobin this afternoon. Community acquired pneumonia -Rocephin and doxycyline. -Blood cultures pending, but neg so far Sepsis due to pneumonia -resolved -Continue IV antibiotics -started on vanc, but MRSA screen was negative. -procalcitonin=0.14 -stop vancomycin ELSIE-resolved BUN to creatinine ratio is still greater than 20, likely due to upper GI bleed Given fluids yesterday 2/2 concerns for sepsis Sepsis ruled out. Stop IV fluids Follow bun/cr. Avoid nephrotoxins. Hyponatremia resolved Sodium is up to 137. Continue to monitor Hypertension Continuing home meds Blood pressure improved this morning to 120/60 Continue to monitor Presbycusis Try to get hearing aids from family Prolonged QT Avoid QT prolonging medications. DNR status DVT propylaxis SCDs Patient is hospitalized for >96 hours due to severity of illness, comorbidities, and age.
[2020-12-14] MEDS: Lisinopril 10 MG Tab PO SCH (09:24)
[2020-12-14] MEDS: Pantoprazole 40 MG Vial IVPUSH SCH ×2 (09:24→21:10)
[2020-12-14] MEDS: cefTRIAXone 2 GM in Sodium Chloride 0.9% 100 ML IV SCH (11:24)
--- NOTE | 2020-12-14 12:12 | PCM.PN ---
- General Info Date of Service: 12/14/20 Admission Dx/Problem (Free Text): Admission Diagnosis/Problem Admission Diagnosis/Problem Generalized weakness, Fall. Subjective Update: Patient is improved today. He is much more alert and cooperative. He had nothing to eat over the last 24 hours and did not eat breakfast today. Functional Status: Reports: Pain Controlled - Review of Systems General: Reports: Fatigue HEENT: Reports: No Symptoms Pulmonary: Reports: No Symptoms Cardiovascular: Reports: No Symptoms - Patient Data Vitals - Most Recent: Last Vital Signs Temp 97.3 F 12/14/20 08:38 Pulse 67 12/14/20 08:38 Resp 16 12/14/20 08:38 BP 124/65 12/14/20 09:24 Pulse Ox 100 12/14/20 08:38 Weight - Most Recent: 186 lb 3 oz I&O - Last 24 Hours: Intake & Output 12/13/20 12/14/20 12/14/20 22:59 06:59 14:59 Intake Total 3253 1533 Output Total 2650 1400 550 Balance 603 133 -550 Lab Results Last 24 Hours: Laboratory Results - last 24 hr 12/13/20 12/13/20 12/13/20 Range/Units 11:15 12:10 12:10 WBC (4.23-9.07) K/mm3 RBC (4.63-6.08) M/mm3 Hgb (13.7-17.5) gm/dl Hct (40.1-51.0) % MCV (79.0-92.2) fl MCH (25.7-32.2) pg MCHC (32.2-35.5) g/dl RDW Std Deviation (35.1-43.9) fL Plt Count (163-337) K/mm3 MPV (9.4-12.3) fl Neut % (Auto) (34.0-67.9) % Lymph % (Auto) (21.8-53.1) % [place] % (Auto) (5.3-12.2) % Eos % (Auto) (0.8-7.0) Baso % (Auto) (0.1-1.2) % Neut # (Auto) (1.78-5.38) K/mm3 Lymph # (Auto) (1.32-3.57) K/mm3 [place] # (Auto) (0.30-0.82) K/mm3 Eos # (Auto) (0.04-0.54) K/mm3 Baso # (Auto) (0.01-0.08) K/mm3 Manual Slide Review Sodium 132 L (136-145) mEq/L Potassium 4.0 (3.5-5.1) mEq/L Chloride 102 (98-107) mEq/L Carbon Dioxide 24 (21-32) mEq/L Anion Gap 10.0 (5-15) BUN 49 H (7-18) mg/dL Creatinine 1.0 (0.7-1.3) mg/dL Est Cr Clr Drug Dosing 59.61 mL/min Estimated GFR (MDRD) > 60 (>60) mL/min BUN/Creatinine Ratio 49.0 H (14-18) Glucose 110 H (70-99) mg/dL Lactic Acid 1.0 (0.4-2.0) mmol/L Calcium 7.3 L (8.5-10.1) mg/dL Total Bilirubin 0.8 (0.2-1.0) mg/dL AST 28 (15-37) U/L ALT 22 (16-63) U/L Alkaline Phosphatase 39 L (46-116) U/L Total Protein 4.8 L (6.4-8.2) g/dl Albumin 2.1 L (3.4-5.0) g/dl Globulin 2.7 gm/dL Albumin/Globulin Ratio 0.8 L (1-2) Procalcitonin 0.14 H ng/mL MRSA (PCR) 12/13/20 12/13/20 12/14/20 Range/Units 17:22 23:15 06:20 WBC 10.64 H 8.29 (4.23-9.07) K/mm3 RBC 3.48 L 3.06 L (4.63-6.08) M/mm3 Hgb 11.0 L 9.6 L (13.7-17.5) gm/dl Hct 33.1 L 29.3 L (40.1-51.0) % MCV 95.1 H 95.8 H (79.0-92.2) fl MCH 31.6 31.4 (25.7-32.2) pg MCHC 33.2 32.8 (32.2-35.5) g/dl RDW Std Deviation 43.8 43.7 (35.1-43.9) fL Plt Count 125 L 126 L (163-337) K/mm3 MPV 10.6 10.3 (9.4-12.3) fl Neut % (Auto) 74.8 H 78.3 H (34.0-67.9) % Lymph % (Auto) 8.2 L 6.0 L (21.8-53.1) % [place] % (Auto) 14.8 H 12.1 (5.3-12.2) % Eos % (Auto) 1.0 2.5 (0.8-7.0) Baso % (Auto) 0.2 0.1 (0.1-1.2) % Neut # (Auto) 7.95 H 6.49 H (1.78-5.38) K/mm3 Lymph # (Auto) 0.87 L 0.50 L (1.32-3.57) K/mm3 [place] # (Auto) 1.58 H 1.00 H (0.30-0.82) K/mm3 Eos # (Auto) 0.11 0.21 (0.04-0.54) K/mm3 Baso # (Auto) 0.02 0.01 (0.01-0.08) K/mm3 Manual Slide Review Abnormal smear Sodium (136-145) mEq/L Potassium (3.5-5.1) mEq/L Chloride (98-107) mEq/L Carbon Dioxide (21-32) mEq/L Anion Gap (5-15) BUN (7-18) mg/dL Creatinine (0.7-1.3) mg/dL Est Cr Clr Drug Dosing mL/min Estimated GFR (MDRD) (>60) mL/min BUN/Creatinine Ratio (14-18) Glucose (70-99) mg/dL Lactic Acid (0.4-2.0) mmol/L Calcium (8.5-10.1) mg/dL Total Bilirubin (0.2-1.0) mg/dL AST (15-37) U/L ALT (16-63) U/L Alkaline Phosphatase (46-116) U/L Total Protein (6.4-8.2) g/dl Albumin (3.4-5.0) g/dl Globulin gm/dL Albumin/Globulin Ratio (1-2) Procalcitonin ng/mL MRSA (PCR) Negative 12/14/20 Range/Units 06:20 WBC (4.23-9.07) K/mm3 RBC (4.63-6.08) M/mm3 Hgb (13.7-17.5) gm/dl Hct (40.1-51.0) % MCV (79.0-92.2) fl MCH (25.7-32.2) pg MCHC (32.2-35.5) g/dl RDW Std Deviation (35.1-43.9) fL Plt Count (163-337) K/mm3 MPV (9.4-12.3) fl Neut % (Auto) (34.0-67.9) % Lymph % (Auto) (21.8-53.1) % [place] % (Auto) (5.3-12.2) % Eos % (Auto) (0.8-7.0) Baso % (Auto) (0.1-1.2) % Neut # (Auto) (1.78-5.38) K/mm3 Lymph # (Auto) (1.32-3.57) K/mm3 [place] # (Auto) (0.30-0.82) K/mm3 Eos # (Auto) (0.04-0.54) K/mm3 Baso # (Auto) (0.01-0.08) K/mm3 Manual Slide Review Sodium 137 (136-145) mEq/L Potassium 3.9 (3.5-5.1) mEq/L Chloride 106 (98-107) mEq/L Carbon Dioxide 21 (21-32) mEq/L Anion Gap 13.9 (5-15) BUN 26 H (7-18) mg/dL Creatinine 0.7 (0.7-1.3) mg/dL Est Cr Clr Drug Dosing 85.16 mL/min Estimated GFR (MDRD) > 60 (>60) mL/min BUN/Creatinine Ratio 37.1 H (14-18) Glucose 109 H (70-99) mg/dL Lactic Acid (0.4-2.0) mmol/L Calcium 7.4 L (8.5-10.1) mg/dL Total Bilirubin 0.8 (0.2-1.0) mg/dL AST 26 (15-37) U/L ALT 25 (16-63) U/L Alkaline Phosphatase 40 L (46-116) U/L Total Protein 4.9 L (6.4-8.2) g/dl Albumin 2.2 L (3.4-5.0) g/dl Globulin 2.7 gm/dL Albumin/Globulin Ratio 0.8 L (1-2) Procalcitonin ng/mL MRSA (PCR) [place] Results Last 24 Hours: Microbiology 12/13/20 16:30 Stool Occult Blood (NENO) - Final Stool / Feces 12/11/20 15:36 Blood Culture - Preliminary Blood - Venous - Iv Start 12/11/20 15:33 Blood Culture - Preliminary Blood - Venous - Lab Draw Med Orders - Current: Current Medications Docusate Sodium (Docusate Sodium 100 Mg Cap) 100 mg PO Q12H PRN PRN Reason: Constipation Ceftriaxone Sodium 2 gm/ (Sodium Chloride) 100 mls @ 200 mls/hr IV Q24H [facility] Last Admin: 12/14/20 11:24 Dose: 200 mls/hr Documented by: Doxycycline Hyclate 100 mg/ (Sodium Chloride) 100 mls @ 100 mls/hr IV Q12H [facility] Last Admin: 12/14/20 01:15 Dose: 100 mls/hr Documented by: Sodium Chloride (Normal Saline) 1,000 mls @ 50 mls/hr IV ASDIRECTED [facility] Last Admin: 12/14/20 01:15 Dose: 50 mls/hr Documented by: Latanoprost (Latanoprost 0.005% Ophth Soln 2.5 Ml Bottle) 0 ml EYEBOTH BEDTIME [facility] Lisinopril (Lisinopril 10 Mg Tab) 10 mg PO DAILY [facility] Last Admin: 12/14/20 09:24 Dose: 10 mg Documented by: Ondansetron HCl (Ondansetron 4 Mg Tab.Dis) 4 mg PO Q4H PRN PRN Reason: nausea, able to take PO Pantoprazole Sodium (Pantoprazole 40 Mg Vial) 40 mg IVPUSH Q12H [facility] Last Admin: 12/14/20 09:24 Dose: 40 mg Documented by: Polyethylene Glycol (Polyethylene Glycol 3350 Powder 17 Gm Packet) 17 gm PO DAILY PRN PRN Reason: Constipation Simvastatin (Simvastatin 10 Mg Tab) 10 mg PO BEDTIME [facility] Last Admin: 12/13/20 22:13 Dose: 10 mg Documented by: Timolol Maleate (Timolol Maleate 0.5% Ophth Soln 5 Ml Bottle) 0 ml EYEBOTH DAILY [facility] Verapamil HCl (Verapamil 120 Mg Cap.Er) 240 mg PO BEDTIME [facility] Last Admin: 12/13/20 22:09 Dose: 240 mg Documented by: Discontinued Medications Acetaminophen (Acetaminophen 325 Mg Tab) 650 mg PO ONETIME ONE Stop: 12/11/20 15:06 Last Admin: 12/11/20 15:40 Dose: 650 mg Documented by: Doxycycline Hyclate (Doxycycline 100 Mg Cap) 100 mg PO Q12HR [facility] Stop: 12/21/20 21:01 Last Admin: 12/13/20 10:18 Dose: Not Given Documented by: Enoxaparin Sodium (Enoxaparin 40 Mg/0.4 Ml Syringe) 40 mg SUBCUT Q24H [facility] Last Admin: 12/12/20 11:43 Dose: 40 mg Documented by: Dextrose/Sodium Chloride (Dextrose 5%-Normal Saline) 1,000 mls @ 250 mls/hr IV ASDIRECTED [facility] Last Admin: 12/11/20 15:40 Dose: 250 mls/hr Documented by: Ceftriaxone Sodium 2 gm/ (Sodium Chloride) 100 mls @ 200 mls/hr IV ONETIME ONE Stop: 12/11/20 17:06 Last Admin: 12/11/20 16:50 Dose: 200 mls/hr Documented by: Dextrose/Sodium Chloride (Dextrose 5%-1/2 Ns) 1,000 mls @ 75 mls/hr IV ASDIRECTED [facility] Stop: 12/12/20 09:31 Last Admin: 12/11/20 21:07 Dose: 75 mls/hr Documented by: Potassium Chloride 10 meq/ (Premix) 100 mls @ 100 mls/hr IV Q1H [facility] Stop: 12/12/20 11:59 Last Admin: 12/12/20 13:15 Dose: 100 mls/hr Documented by: Sodium Chloride (Normal Saline) 250 mls @ 100 mls/hr IV ASDIRECTED [facility] Last Admin: 12/12/20 12:55 Dose: 100 mls/hr Documented by: Sodium Chloride (Normal Saline) 500 mls @ 999 mls/hr IV .BOLUS ONE Stop: 12/13/20 10:20 Last Admin: 12/13/20 09:55 Dose: 999 mls/hr Documented by: Sodium Chloride (Normal Saline) Confirm Administered Dose 1,000 mls @ as directed .ROUTE .STK-MED ONE Stop: 12/13/20 09:53 Last Admin: 12/13/20 09:56 Dose: Not Given Documented by: Sodium Chloride (Normal Saline) 1,000 mls @ 125 mls/hr IV ASDIRECTED [facility] Last Admin: 12/13/20 13:32 Dose: 125 mls/hr Documented by: Sodium Chloride (Normal Saline) 1,000 mls @ 999 mls/hr IV ONETIME ONE Stop: 12/13/20 12:32 Last Admin: 12/13/20 12:52 Dose: 999 mls/hr Documented by: Vancomycin HCl 1.75 gm/ Sodium (Chloride) 500 mls @ 250 mls/hr IV ONETIME ONE Stop: 12/13/20 14:29 Last Admin: 12/13/20 12:54 Dose: 250 mls/hr Documented by: Vancomycin HCl 1 gm/Vancomycin HCl 250 mg/ Sodium Chloride 250 mls @ 166.667 mls/hr IV Q12H [facility] Last Admin: 12/14/20 01:16 Dose: 166.667 mls/hr Documented by: Sodium Chloride (Normal Saline) 500 mls @ 999 mls/hr IV .BOLUS ONE Stop: 12/13/20 12:10 Last Admin: 12/13/20 12:52 Dose: 999 mls/hr Documented by: Metoclopramide HCl (Metoclopramide 10 Mg/2 Ml Sdv) 7.5 mg IVPUSH ONETIME ONE Stop: 12/11/20 15:06 Last Admin: 12/11/20 15:40 Dose: 7.5 mg Documented by: Pantoprazole Sodium (Pantoprazole 40 Mg Tab.Cr) 40 mg PO ACBREAKFAST [facility] Last Admin: 12/13/20 05:16 Dose: 40 mg Documented by: Vancomycin HCl (Pharmacy To Dose - Vancomycin) 0 dose .XX ASDIRECTED PRN PRN Reason: RX TO DOSE VANCO - Exam Quality Assessment: No: Supplemental Oxygen Urinary Catheter Total Time: 0Days 4Hours General: Lethargic Neck: Supple Lungs: Normal Respiratory Effort, Crackles (Bibasilar) Cardiovascular: Regular Rate, Regular Rhythm GI/Abdominal Exam: Normal Bowel Sounds, Soft, Non-Tender, No Distention Extremities: Normal Inspection, Non-Tender, No Pedal Edema - Patient Data Lab Results Last 24 hrs: Laboratory Results - last 24 hr 12/13/20 12/13/20 12/13/20 Range/Units 11:15 12:10 12:10 WBC (4.23-9.07) K/mm3 RBC (4.63-6.08) M/mm3 Hgb (13.7-17.5) gm/dl Hct (40.1-51.0) % MCV (79.0-92.2) fl MCH (25.7-32.2) pg MCHC (32.2-35.5) g/dl RDW Std Deviation (35.1-43.9) fL Plt Count (163-337) K/mm3 MPV (9.4-12.3) fl Neut % (Auto) (34.0-67.9) % Lymph % (Auto) (21.8-53.1) % [place] % (Auto) (5.3-12.2) % Eos % (Auto) (0.8-7.0) Baso % (Auto) (0.1-1.2) % Neut # (Auto) (1.78-5.38) K/mm3 Lymph # (Auto) (1.32-3.57) K/mm3 [place] # (Auto) (0.30-0.82) K/mm3 Eos # (Auto) (0.04-0.54) K/mm3 Baso # (Auto) (0.01-0.08) K/mm3 Manual Slide Review Sodium 132 L (136-145) mEq/L Potassium 4.0 (3.5-5.1) mEq/L Chloride 102 (98-107) mEq/L Carbon Dioxide 24 (21-32) mEq/L Anion Gap 10.0 (5-15) BUN 49 H (7-18) mg/dL Creatinine 1.0 (0.7-1.3) mg/dL Est Cr Clr Drug Dosing 59.61 mL/min Estimated GFR (MDRD) > 60 (>60) mL/min BUN/Creatinine Ratio 49.0 H (14-18) Glucose 110 H (70-99) mg/dL Lactic Acid 1.0 (0.4-2.0) mmol/L Calcium 7.3 L (8.5-10.1) mg/dL Total Bilirubin 0.8 (0.2-1.0) mg/dL AST 28 (15-37) U/L ALT 22 (16-63) U/L Alkaline Phosphatase 39 L (46-116) U/L Total Protein 4.8 L (6.4-8.2) g/dl Albumin 2.1 L (3.4-5.0) g/dl Globulin 2.7 gm/dL Albumin/Globulin Ratio 0.8 L (1-2) Procalcitonin 0.14 H ng/mL MRSA (PCR) 12/13/20 12/13/20 12/14/20 Range/Units 17:22 23:15 06:20 WBC 10.64 H 8.29 (4.23-9.07) K/mm3 RBC 3.48 L 3.06 L (4.63-6.08) M/mm3 Hgb 11.0 L 9.6 L (13.7-17.5) gm/dl Hct 33.1 L 29.3 L (40.1-51.0) % MCV 95.1 H 95.8 H (79.0-92.2) fl MCH 31.6 31.4 (25.7-32.2) pg MCHC 33.2 32.8 (32.2-35.5) g/dl RDW Std Deviation 43.8 43.7 (35.1-43.9) fL Plt Count 125 L 126 L (163-337) K/mm3 MPV 10.6 10.3 (9.4-12.3) fl Neut % (Auto) 74.8 H 78.3 H (34.0-67.9) % Lymph % (Auto) 8.2 L 6.0 L (21.8-53.1) % [place] % (Auto) 14.8 H 12.1 (5.3-12.2) % Eos % (Auto) 1.0 2.5 (0.8-7.0) Baso % (Auto) 0.2 0.1 (0.1-1.2) % Neut # (Auto) 7.95 H 6.49 H (1.78-5.38) K/mm3 Lymph # (Auto) 0.87 L 0.50 L (1.32-3.57) K/mm3 [place] # (Auto) 1.58 H 1.00 H (0.30-0.82) K/mm3 Eos # (Auto) 0.11 0.21 (0.04-0.54) K/mm3 Baso # (Auto) 0.02 0.01 (0.01-0.08) K/mm3 Manual Slide Review Abnormal smear Sodium (136-145) mEq/L Potassium (3.5-5.1) mEq/L Chloride (98-107) mEq/L Carbon Dioxide (21-32) mEq/L Anion Gap (5-15) BUN (7-18) mg/dL Creatinine (0.7-1.3) mg/dL Est Cr Clr Drug Dosing mL/min Estimated GFR (MDRD) (>60) mL/min BUN/Creatinine Ratio (14-18) Glucose (70-99) mg/dL Lactic Acid (0.4-2.0) mmol/L Calcium (8.5-10.1) mg/dL Total Bilirubin (0.2-1.0) mg/dL AST (15-37) U/L ALT (16-63) U/L Alkaline Phosphatase (46-116) U/L Total Protein (6.4-8.2) g/dl Albumin (3.4-5.0) g/dl Globulin gm/dL Albumin/Globulin Ratio (1-2) Procalcitonin ng/mL MRSA (PCR) Negative 12/14/20 Range/Units 06:20 WBC (4.23-9.07) K/mm3 RBC (4.63-6.08) M/mm3 Hgb (13.7-17.5) gm/dl Hct (40.1-51.0) % MCV (79.0-92.2) fl MCH (25.7-32.2) pg MCHC (32.2-35.5) g/dl RDW Std Deviation (35.1-43.9) fL Plt Count (163-337) K/mm3 MPV (9.4-12.3) fl Neut % (Auto) (34.0-67.9) % Lymph % (Auto) (21.8-53.1) % [place] % (Auto) (5.3-12.2) % Eos % (Auto) (0.8-7.0) Baso % (Auto) (0.1-1.2) % Neut # (Auto) (1.78-5.38) K/mm3 Lymph # (Auto) (1.32-3.57) K/mm3 [place] # (Auto) (0.30-0.82) K/mm3 Eos # (Auto) (0.04-0.54) K/mm3 Baso # (Auto) (0.01-0.08) K/mm3 Manual Slide Review Sodium 137 (136-145) mEq/L Potassium 3.9 (3.5-5.1) mEq/L Chloride 106 (98-107) mEq/L Carbon Dioxide 21 (21-32) mEq/L Anion Gap 13.9 (5-15) BUN 26 H (7-18) mg/dL Creatinine 0.7 (0.7-1.3) mg/dL Est Cr Clr Drug Dosing 85.16 mL/min Estimated GFR (MDRD) > 60 (>60) mL/min BUN/Creatinine Ratio 37.1 H (14-18) Glucose 109 H (70-99) mg/dL Lactic Acid (0.4-2.0) mmol/L Calcium 7.4 L (8.5-10.1) mg/dL Total Bilirubin 0.8 (0.2-1.0) mg/dL AST 26 (15-37) U/L ALT 25 (16-63) U/L Alkaline Phosphatase 40 L (46-116) U/L Total Protein 4.9 L (6.4-8.2) g/dl Albumin 2.2 L (3.4-5.0) g/dl Globulin 2.7 gm/dL Albumin/Globulin Ratio 0.8 L (1-2) Procalcitonin ng/mL MRSA (PCR) Result Diagrams: 12/14/20 06:20 12/14/20 06:20 [place]eno Results Last 24 hrs: Microbiology 12/13/20 16:30 Stool Occult Blood (NENO) - Final Stool / Feces 12/11/20 15:36 Blood Culture - Preliminary Blood - Venous - Iv Start 12/11/20 15:33 Blood Culture - Preliminary Blood - Venous - Lab Draw Sepsis Event Note - Evaluation Sepsis Screening Result: No Definite Risk - Focused Exam Vital Signs: Vital Signs Temp Temp Pulse Pulse Resp BP BP 12/14/20 09:24 124/65 12/14/20 08:38 97.3 F 67 16 124/65 12/14/20 04:22 97.5 F 71 20 146/73 H 146/73 H 12/14/20 01:43 98.6 F 72 20 125/77 Pulse Ox 12/14/20 09:24 12/14/20 08:38 100 12/14/20 04:22 96 12/14/20 01:43 96 - Problem List & Annotations (1) CAP (community acquired pneumonia) SNOMED Code(s): 102480004 Code(s): J18.9 - PNEUMONIA, UNSPECIFIED ORGANISM Status: Acute Current Visit: Yes (2) Delirium SNOMED Code(s): 1279097 Code(s): R41.0 - DISORIENTATION, UNSPECIFIED Status: Acute Current Visit: Yes (3) Dilutional hyponatremia SNOMED Code(s): 087775315 Code(s): E87.1 - HYPO-OSMOLALITY AND HYPONATREMIA Status: Acute Current Visit: Yes (4) Left lower lobe pneumonia SNOMED Code(s): 988495933 Code(s): J18.9 - PNEUMONIA, UNSPECIFIED ORGANISM Status: Acute Current Visit: Yes Qualifiers: Pneumonia type: due to unspecified organism Qualified Code(s): J18.9 - Pneumonia, unspecified organism - Problem List Review Problem List Initiated/Reviewed/Updated: Yes - My Orders Last 24 Hours: My Active Orders 12/13/20 12:30 Doxycycline [Vibramycin] 100 mg Sodium Chloride 0.9% [Normal Saline] 100 ml IV Q12H 12/13/20 16:20 Urinary Catheter Assessment [RC] 10,16,22,04 12/13/20 16:30 Insert Urinary Catheter [OM.PC] Q24H 12/13/20 19:30 Sodium Chloride 0.9% [Normal Saline] 1,000 ml IV ASDIRECTED 12/14/20 08:06 Renew/Continue Urinary Catheter [OM.PC] Routine 12/14/20 Lunch Full Liquid Diet [DIET] 12/14/20 21:00 Latanoprost [Xalatan 0.005% Ophth Soln] 0 ml EYEBOTH BEDTIME 12/15/20 05:11 CMP [COMPREHENSIVE METABOLIC PN,CMP] [CHEM] AM 12/15/20 09:00 timoloL maleate [Timoptic 0.5% Ophth Soln] 0 ml EYEBOTH DAILY 12/16/20 05:11 CMP [COMPREHENSIVE METABOLIC PN,CMP] [CHEM] AM - Plan Plan:: GI bleed Hemoglobin dropped from 15-11.2-> today 9.6 -Today's decrease may be due to hemodilution -Stopped enoxaparin and switch to SCDs -Switched Protonix from p.o. to 40 mg twice daily IV -Recheck hemoglobin this afternoon. Community acquired pneumonia -Rocephin and doxycyline. -Blood cultures pending, but neg so far Sepsis due to pneumonia -resolved -Continue IV antibiotics -started on vanc, but MRSA screen was negative. -procalcitonin=0.14 -stop vancomycin ELSIE-resolved BUN to creatinine ratio is still greater than 20, likely due to upper GI bleed Given fluids yesterday 2/2 concerns for sepsis Sepsis ruled out. Stop IV fluids Follow bun/cr. Avoid nephrotoxins. Hyponatremia resolved Sodium is up to 137. Continue to monitor Hypertension Continuing home meds Blood pressure improved this morning to 120/60 Continue to monitor Presbycusis Try to get hearing aids from family Prolonged QT Avoid QT prolonging medications. DNR status DVT propylaxis SCDs Patient is hospitalized for >96 hours due to severity of illness, comorbidities, and age.
[2020-12-14] MEDS: Simvastatin 10 MG Tab PO SCH (21:10)
[2020-12-14] MEDS: Verapamil 120 MG Cap.ER PO SCH (21:11)
[2020-12-14] MEDS: Latanoprost 0.005% Ophth Soln 2.5 ML Bottle EYEBOTH SCH (21:13)
[2020-12-15] MEDS: Doxycycline 100 MG in Sodium Chloride 0.9% 100 ML IV SCH ×2 (00:40→13:08)
[2020-12-15] MEDS ORDERED: Potassium Chloride 20 MEQ Tab.ER PO ONE (07:28)
[2020-12-15] MEDS: Lisinopril 10 MG Tab PO SCH (08:34)
[2020-12-15] MEDS: Pantoprazole 40 MG Vial IVPUSH SCH ×2 (08:36→21:44)
[2020-12-15] MEDS: Timolol Maleate 0.5% Ophth Soln 5 ML Bottle EYEBOTH SCH (08:36)
--- NOTE | 2020-12-15 10:43 | PCM.PN ---
- General Info Date of Service: 12/15/20 Admission Dx/Problem (Free Text): Admission Diagnosis/Problem Admission Diagnosis/Problem Generalized weakness, Fall. Subjective Update: Patient is doing well and more talkative. He is significantly improved from yesterday in regards to his mentation. He currently has no complaints. Denies any fever, chills, pain. Functional Status: Reports: Pain Controlled - Review of Systems General: Reports: No Symptoms HEENT: Reports: No Symptoms Pulmonary: Reports: No Symptoms Cardiovascular: Reports: No Symptoms Gastrointestinal: Reports: No Symptoms Musculoskeletal: Reports: No Symptoms Neurological: Reports: No Symptoms - Patient Data Vitals - Most Recent: Last Vital Signs Temp 98.1 F 12/15/20 08:06 Pulse 76 12/15/20 08:06 Resp 18 12/15/20 08:06 BP 119/69 12/15/20 08:34 Pulse Ox 99 12/15/20 08:06 Weight - Most Recent: 186 lb 4.8 oz I&O - Last 24 Hours: Intake & Output 12/14/20 12/15/20 12/15/20 22:59 06:59 14:59 Intake Total 1578 300 Output Total 1050 400 Balance 528 -100 Lab Results Last 24 Hours: Laboratory Results - last 24 hr 12/14/20 12/15/20 12/15/20 Range/Units 16:25 05:03 05:03 WBC 7.70 (4.23-9.07) K/mm3 RBC 2.67 L (4.63-6.08) M/mm3 Hgb 10.1 L 8.4 L D (13.7-17.5) gm/dl Hct 30.0 L 25.3 L (40.1-51.0) % MCV 94.8 H (79.0-92.2) fl MCH 31.5 (25.7-32.2) pg MCHC 33.2 (32.2-35.5) g/dl RDW Std Deviation 42.3 (35.1-43.9) fL Plt Count 141 L (163-337) K/mm3 MPV 10.0 (9.4-12.3) fl Neut % (Auto) 76.2 H (34.0-67.9) % Lymph % (Auto) 6.6 L (21.8-53.1) % [place] % (Auto) 13.4 H (5.3-12.2) % Eos % (Auto) 3.0 (0.8-7.0) Baso % (Auto) 0.3 (0.1-1.2) % Neut # (Auto) 5.87 H (1.78-5.38) K/mm3 Lymph # (Auto) 0.51 L (1.32-3.57) K/mm3 [place] # (Auto) 1.03 H (0.30-0.82) K/mm3 Eos # (Auto) 0.23 (0.04-0.54) K/mm3 Baso # (Auto) 0.02 (0.01-0.08) K/mm3 Sodium 134 L (136-145) mEq/L Potassium 3.3 L (3.5-5.1) mEq/L Chloride 104 (98-107) mEq/L Carbon Dioxide 21 (21-32) mEq/L Anion Gap 12.3 (5-15) BUN 17 (7-18) mg/dL Creatinine 0.7 (0.7-1.3) mg/dL Est Cr Clr Drug Dosing 85.16 mL/min Estimated GFR (MDRD) > 60 (>60) mL/min BUN/Creatinine Ratio 24.3 H (14-18) Glucose 117 H (70-99) mg/dL Calcium 7.5 L (8.5-10.1) mg/dL Total Bilirubin 0.8 (0.2-1.0) mg/dL AST 20 (15-37) U/L ALT 23 (16-63) U/L Alkaline Phosphatase 42 L (46-116) U/L Total Protein 4.7 L (6.4-8.2) g/dl Albumin 2.1 L (3.4-5.0) g/dl Globulin 2.6 gm/dL Albumin/Globulin Ratio 0.8 L (1-2) Med Orders - Current: Current Medications Docusate Sodium (Docusate Sodium 100 Mg Cap) 100 mg PO Q12H PRN PRN Reason: Constipation Ceftriaxone Sodium 2 gm/ (Sodium Chloride) 100 mls @ 200 mls/hr IV Q24H [facility] Last Admin: 12/14/20 11:24 Dose: 200 mls/hr Documented by: Doxycycline Hyclate 100 mg/ (Sodium Chloride) 100 mls @ 100 mls/hr IV Q12H [facility] Last Admin: 12/15/20 00:40 Dose: 100 mls/hr Documented by: Latanoprost (Latanoprost 0.005% Ophth Soln 2.5 Ml Bottle) 0 ml EYEBOTH BEDTIME [facility] Last Admin: 12/14/20 21:13 Dose: 1 drop Documented by: Lisinopril (Lisinopril 10 Mg Tab) 10 mg PO DAILY [facility] Last Admin: 12/15/20 08:34 Dose: 10 mg Documented by: Ondansetron HCl (Ondansetron 4 Mg Tab.Dis) 4 mg PO Q4H PRN PRN Reason: nausea, able to take PO Pantoprazole Sodium (Pantoprazole 40 Mg Vial) 40 mg IVPUSH Q12H [facility] Last Admin: 12/15/20 08:36 Dose: 40 mg Documented by: Polyethylene Glycol (Polyethylene Glycol 3350 Powder 17 Gm Packet) 17 gm PO DAILY PRN PRN Reason: Constipation Simvastatin (Simvastatin 10 Mg Tab) 10 mg PO BEDTIME [facility] Last Admin: 12/14/20 21:10 Dose: 10 mg Documented by: Timolol Maleate (Timolol Maleate 0.5% Ophth Soln 5 Ml Bottle) 0 ml EYEBOTH DAILY [facility] Last Admin: 12/15/20 08:36 Dose: 1 drop Documented by: Verapamil HCl (Verapamil 120 Mg Cap.Er) 240 mg PO BEDTIME [facility] Last Admin: 12/14/20 21:11 Dose: 240 mg Documented by: Discontinued Medications Acetaminophen (Acetaminophen 325 Mg Tab) 650 mg PO ONETIME ONE Stop: 12/11/20 15:06 Last Admin: 12/11/20 15:40 Dose: 650 mg Documented by: Doxycycline Hyclate (Doxycycline 100 Mg Cap) 100 mg PO Q12HR [facility] Stop: 12/21/20 21:01 Last Admin: 12/13/20 10:18 Dose: Not Given Documented by: Enoxaparin Sodium (Enoxaparin 40 Mg/0.4 Ml Syringe) 40 mg SUBCUT Q24H [facility] Last Admin: 12/12/20 11:43 Dose: 40 mg Documented by: Dextrose/Sodium Chloride (Dextrose 5%-Normal Saline) 1,000 mls @ 250 mls/hr IV ASDIRECTED [facility] Last Admin: 12/11/20 15:40 Dose: 250 mls/hr Documented by: Ceftriaxone Sodium 2 gm/ (Sodium Chloride) 100 mls @ 200 mls/hr IV ONETIME ONE Stop: 12/11/20 17:06 Last Admin: 12/11/20 16:50 Dose: 200 mls/hr Documented by: Dextrose/Sodium Chloride (Dextrose 5%-1/2 Ns) 1,000 mls @ 75 mls/hr IV ASDIRECTED [facility] Stop: 12/12/20 09:31 Last Admin: 12/11/20 21:07 Dose: 75 mls/hr Documented by: Potassium Chloride 10 meq/ (Premix) 100 mls @ 100 mls/hr IV Q1H [facility] Stop: 12/12/20 11:59 Last Admin: 12/12/20 13:15 Dose: 100 mls/hr Documented by: Sodium Chloride (Normal Saline) 250 mls @ 100 mls/hr IV ASDIRECTED [facility] Last Admin: 12/12/20 12:55 Dose: 100 mls/hr Documented by: Sodium Chloride (Normal Saline) 500 mls @ 999 mls/hr IV .BOLUS ONE Stop: 12/13/20 10:20 Last Admin: 12/13/20 09:55 Dose: 999 mls/hr Documented by: Sodium Chloride (Normal Saline) Confirm Administered Dose 1,000 mls @ as directed .ROUTE .STK-MED ONE Stop: 12/13/20 09:53 Last Admin: 12/13/20 09:56 Dose: Not Given Documented by: Sodium Chloride (Normal Saline) 1,000 mls @ 125 mls/hr IV ASDIRECTED [facility] Last Admin: 12/13/20 13:32 Dose: 125 mls/hr Documented by: Sodium Chloride (Normal Saline) 1,000 mls @ 999 mls/hr IV ONETIME ONE Stop: 12/13/20 12:32 Last Admin: 12/13/20 12:52 Dose: 999 mls/hr Documented by: Vancomycin HCl 1.75 gm/ Sodium (Chloride) 500 mls @ 250 mls/hr IV ONETIME ONE Stop: 12/13/20 14:29 Last Admin: 12/13/20 12:54 Dose: 250 mls/hr Documented by: Vancomycin HCl 1 gm/Vancomycin HCl 250 mg/ Sodium Chloride 250 mls @ 166.667 mls/hr IV Q12H [facility] Last Admin: 12/14/20 01:16 Dose: 166.667 mls/hr Documented by: Sodium Chloride (Normal Saline) 500 mls @ 999 mls/hr IV .BOLUS ONE Stop: 12/13/20 12:10 Last Admin: 12/13/20 12:52 Dose: 999 mls/hr Documented by: Sodium Chloride (Normal Saline) 1,000 mls @ 50 mls/hr IV ASDIRECTED [facility] Last Admin: 12/14/20 01:15 Dose: 50 mls/hr Documented by: Metoclopramide HCl (Metoclopramide 10 Mg/2 Ml Sdv) 7.5 mg IVPUSH ONETIME ONE Stop: 12/11/20 15:06 Last Admin: 12/11/20 15:40 Dose: 7.5 mg Documented by: Pantoprazole Sodium (Pantoprazole 40 Mg Tab.Cr) 40 mg PO ACBREAKFAST [facility] Last Admin: 12/13/20 05:16 Dose: 40 mg Documented by: Potassium Chloride (Potassium Chloride 20 Meq Tab.Er) 40 meq PO ONETIME ONE Stop: 12/15/20 07:29 Last Admin: 12/15/20 08:34 Dose: 40 meq Documented by: Vancomycin HCl (Pharmacy To Dose - Vancomycin) 0 dose .XX ASDIRECTED PRN PRN Reason: RX TO DOSE VANCO - Exam Quality Assessment: No: Supplemental Oxygen Urinary Catheter Total Time: 1Days 2Hours General: Alert HEENT: Pupils Equal, Mucous Membr. Moist/[place]: Supple Lungs: Normal Respiratory Effort, Crackles (Minimal bibasilar) Cardiovascular: Regular Rate, Regular Rhythm GI/Abdominal Exam: Normal Bowel Sounds, Soft, Non-Tender, No Organomegaly, No Distention Extremities: Normal Inspection, Normal Range of Motion, Non-Tender, No Pedal Edema, Normal Capillary Refill Skin: Warm, Dry, Intact - Patient Data Lab Results Last 24 hrs: Laboratory Results - last 24 hr 12/14/20 12/15/20 12/15/20 Range/Units 16:25 05:03 05:03 WBC 7.70 (4.23-9.07) K/mm3 RBC 2.67 L (4.63-6.08) M/mm3 Hgb 10.1 L 8.4 L D (13.7-17.5) gm/dl Hct 30.0 L 25.3 L (40.1-51.0) % MCV 94.8 H (79.0-92.2) fl MCH 31.5 (25.7-32.2) pg MCHC 33.2 (32.2-35.5) g/dl RDW Std Deviation 42.3 (35.1-43.9) fL Plt Count 141 L (163-337) K/mm3 MPV 10.0 (9.4-12.3) fl Neut % (Auto) 76.2 H (34.0-67.9) % Lymph % (Auto) 6.6 L (21.8-53.1) % [place] % (Auto) 13.4 H (5.3-12.2) % Eos % (Auto) 3.0 (0.8-7.0) Baso % (Auto) 0.3 (0.1-1.2) % Neut # (Auto) 5.87 H (1.78-5.38) K/mm3 Lymph # (Auto) 0.51 L (1.32-3.57) K/mm3 [place] # (Auto) 1.03 H (0.30-0.82) K/mm3 Eos # (Auto) 0.23 (0.04-0.54) K/mm3 Baso # (Auto) 0.02 (0.01-0.08) K/mm3 Sodium 134 L (136-145) mEq/L Potassium 3.3 L (3.5-5.1) mEq/L Chloride 104 (98-107) mEq/L Carbon Dioxide 21 (21-32) mEq/L Anion Gap 12.3 (5-15) BUN 17 (7-18) mg/dL Creatinine 0.7 (0.7-1.3) mg/dL Est Cr Clr Drug Dosing 85.16 mL/min Estimated GFR (MDRD) > 60 (>60) mL/min BUN/Creatinine Ratio 24.3 H (14-18) Glucose 117 H (70-99) mg/dL Calcium 7.5 L (8.5-10.1) mg/dL Total Bilirubin 0.8 (0.2-1.0) mg/dL AST 20 (15-37) U/L ALT 23 (16-63) U/L Alkaline Phosphatase 42 L (46-116) U/L Total Protein 4.7 L (6.4-8.2) g/dl Albumin 2.1 L (3.4-5.0) g/dl Globulin 2.6 gm/dL Albumin/Globulin Ratio 0.8 L (1-2) Result Diagrams: 12/15/20 15:00 12/15/20 05:03 Sepsis Event Note - Evaluation Sepsis Screening Result: No Definite Risk - Focused Exam Vital Signs: Vital Signs Temp Pulse Resp BP Pulse Ox 12/15/20 08:34 119/69 12/15/20 08:06 98.1 F 76 18 135/104 H 99 12/15/20 05:14 98.2 F 75 20 143/91 H 96 - Problem List & Annotations (1) CAP (community acquired pneumonia) SNOMED Code(s): 368222134 Code(s): J18.9 - PNEUMONIA, UNSPECIFIED ORGANISM Status: Acute Current Visit: Yes (2) Delirium SNOMED Code(s): 8251604 Code(s): R41.0 - DISORIENTATION, UNSPECIFIED Status: Acute Current Visit: Yes (3) Dilutional hyponatremia SNOMED Code(s): 428558214 Code(s): E87.1 - HYPO-OSMOLALITY AND HYPONATREMIA Status: Acute Current Visit: Yes (4) Left lower lobe pneumonia SNOMED Code(s): 948356403 Code(s): J18.9 - PNEUMONIA, UNSPECIFIED ORGANISM Status: Acute Current Visit: Yes Qualifiers: Pneumonia type: due to unspecified organism Qualified Code(s): J18.9 - Pn eumonia, unspecified organism - Problem List Review Problem List Initiated/Reviewed/Updated: Yes - My Orders Last 24 Hours: My Active Orders 12/14/20 Lunch Full Liquid Diet [DIET] 12/14/20 21:00 Latanoprost [Xalatan 0.005% Ophth Soln] 0 ml EYEBOTH BEDTIME 12/15/20 09:00 timoloL maleate [Timoptic 0.5% Ophth Soln] 0 ml EYEBOTH DAILY 12/16/20 05:11 CMP [COMPREHENSIVE METABOLIC PN,CMP] [CHEM] AM - Plan Plan:: GI bleed Hemoglobin this morning decreased to 8.4, but repeat in the early afternoon was 9.7. -Stopped enoxaparin and switch to SCDs -Switched Protonix from p.o. to 40 mg twice daily IV -Recheck hemoglobin in a.m. -Advance diet to soft diet Community acquired pneumonia -Rocephin and doxycyline. -Blood cultures pending, but neg so far Sepsis due to pneumonia -resolved -Continue IV antibiotics -started on vanc, but MRSA screen was negative. -procalcitonin=0.14 -stop vancomycin ELSIE-resolved BUN to creatinine ratio is still greater than 20, likely due to upper GI bleed Given fluids yesterday 2/2 concerns for sepsis Sepsis ruled out. Stop IV fluids Follow bun/cr. Avoid nephrotoxins. Hyponatremia Sodium is up to 134. Continue to monitor Hypertension Continuing home meds Blood pressure improved this morning to 120/60 Continue to monitor Presbycusis Try to get hearing aids from family Prolonged QT Avoid QT prolonging medications. DNR status DVT propylaxis SCDs Patient is hospitalized for >96 hours due to severity of illness, comorbidities, and age.
[2020-12-15] MEDS: cefTRIAXone 2 GM in Sodium Chloride 0.9% 100 ML IV SCH (12:35)
[2020-12-15] MEDS: Simvastatin 10 MG Tab PO SCH (21:43)
[2020-12-15] MEDS: Verapamil 120 MG Cap.ER PO SCH (21:43)
[2020-12-15] MEDS: Latanoprost 0.005% Ophth Soln 2.5 ML Bottle EYEBOTH SCH (21:43)
[2020-12-16] MEDS: Doxycycline 100 MG in Sodium Chloride 0.9% 100 ML IV SCH (01:20)
[2020-12-16] MEDS: Lisinopril 10 MG Tab PO SCH (08:02)
[2020-12-16] MEDS: Timolol Maleate 0.5% Ophth Soln 5 ML Bottle EYEBOTH SCH (08:02)
[2020-12-16] MEDS: Pantoprazole 40 MG Vial IVPUSH SCH ×2 (09:51→20:58)
[2020-12-16] MEDS: Doxycycline 100 MG Cap PO SCH ×2 (09:54→20:59)
[2020-12-16] MEDS: cefTRIAXone 2 GM in Sodium Chloride 0.9% 100 ML IV SCH (10:53)
[2020-12-16] MEDS ORDERED: Potassium Chloride 20 MEQ Tab.ER PO ONE (14:12)
[2020-12-16] MEDS ORDERED: Magnesium Sulfate/Water 4 GM in Premix Bag 1 BAG IV ONE (14:12)
--- NOTE | 2020-12-16 14:19 | PCM.PN ---
- General Info Date of Service: 12/16/20 Admission Dx/Problem (Free Text): Admission Diagnosis/Problem Admission Diagnosis/Problem Generalized weakness, Fall. Subjective Update: Patient was resting comfortably. He states his appetite is improving. He is able to follow the conversation much better today. Functional Status: Reports: Pain Controlled - Review of Systems General: Reports: No Symptoms HEENT: Reports: No Symptoms Pulmonary: Reports: No Symptoms Cardiovascular: Reports: No Symptoms Musculoskeletal: Reports: No Symptoms - Patient Data Vitals - Most Recent: Last Vital Signs Temp 97.5 F 12/16/20 07:58 Pulse 70 12/16/20 07:58 Resp 18 12/16/20 07:58 BP 110/74 12/16/20 08:02 Pulse Ox 96 12/16/20 07:58 Weight - Most Recent: 185 lb 14.4 oz I&O - Last 24 Hours: Intake & Output 12/15/20 12/16/20 12/16/20 22:59 06:59 14:59 Intake Total 300 500 Output Total 1050 Balance 300 -550 Lab Results Last 24 Hours: Laboratory Results - last 24 hr 12/15/20 12/16/20 12/16/20 Range/Units 15:00 11:57 11:57 WBC 7.56 (4.23-9.07) K/mm3 RBC 2.82 L (4.63-6.08) M/mm3 Hgb 9.7 L 9.0 L (13.7-17.5) gm/dl Hct 26.9 L (40.1-51.0) % MCV 95.4 H (79.0-92.2) fl MCH 31.9 (25.7-32.2) pg MCHC 33.5 (32.2-35.5) g/dl RDW Std Deviation 42.6 (35.1-43.9) fL Plt Count 195 (163-337) K/mm3 MPV 9.8 (9.4-12.3) fl Neut % (Auto) 70.6 H (34.0-67.9) % Lymph % (Auto) 7.7 L (21.8-53.1) % Gregory % (Auto) 17.5 H (5.3-12.2) % Eos % (Auto) 3.0 (0.8-7.0) Baso % (Auto) 0.3 (0.1-1.2) % Neut # (Auto) 5.34 (1.78-5.38) K/mm3 Lymph # (Auto) 0.58 L (1.32-3.57) K/mm3 Gregory # (Auto) 1.32 H (0.30-0.82) K/mm3 Eos # (Auto) 0.23 (0.04-0.54) K/mm3 Baso # (Auto) 0.02 (0.01-0.08) K/mm3 Sodium 131 L (136-145) mEq/L Potassium 3.3 L (3.5-5.1) mEq/L Chloride 101 (98-107) mEq/L Carbon Dioxide 24 (21-32) mEq/L Anion Gap 9.3 (5-15) BUN 9 (7-18) mg/dL Creatinine 0.8 (0.7-1.3) mg/dL Est Cr Clr Drug Dosing 74.52 mL/min Estimated GFR (MDRD) > 60 (>60) mL/min BUN/Creatinine Ratio 11.3 L (14-18) Glucose 114 H (70-99) mg/dL Calcium 7.8 L (8.5-10.1) mg/dL Magnesium 1.5 L (1.8-2.4) mg/dL Med Orders - Current: Current Medications Docusate Sodium (Docusate Sodium 100 Mg Cap) 100 mg PO Q12H PRN PRN Reason: Constipation Doxycycline Hyclate (Doxycycline 100 Mg Cap) 100 mg PO Q12H [facility] Last Admin: 12/16/20 09:54 Dose: 100 mg Documented by: Ceftriaxone Sodium 2 gm/ (Sodium Chloride) 100 mls @ 200 mls/hr IV Q24H [facility] Last Admin: 12/16/20 10:53 Dose: 200 mls/hr Documented by: Magnesium Sulfate 4 gm/ Premix 50 mls @ 12.5 mls/hr IV ONETIME ONE Stop: 12/16/20 18:11 Latanoprost (Latanoprost 0.005% Ophth Soln 2.5 Ml Bottle) 0 ml EYEBOTH BEDTIME [facility] Last Admin: 12/15/20 21:43 Dose: 1 drop Documented by: Lisinopril (Lisinopril 10 Mg Tab) 10 mg PO DAILY [facility] Last Admin: 12/16/20 08:02 Dose: 10 mg Documented by: Ondansetron HCl (Ondansetron 4 Mg Tab.Dis) 4 mg PO Q4H PRN PRN Reason: nausea, able to take PO Pantoprazole Sodium (Pantoprazole 40 Mg Vial) 40 mg IVPUSH Q12H [facility] Last Admin: 12/16/20 09:51 Dose: 40 mg Documented by: Polyethylene Glycol (Polyethylene Glycol 3350 Powder 17 Gm Packet) 17 gm PO DAILY PRN PRN Reason: Constipation Potassium Chloride (Potassium Chloride 20 Meq Tab.Er) 40 meq PO ONETIME ONE Stop: 12/16/20 14:13 Simvastatin (Simvastatin 10 Mg Tab) 10 mg PO BEDTIME [facility] Last Admin: 12/15/20 21:43 Dose: 10 mg Documented by: Timolol Maleate (Timolol Maleate 0.5% Ophth Soln 5 Ml Bottle) 0 ml EYEBOTH DAILY [facility] Last Admin: 12/16/20 08:02 Dose: 1 drop Documented by: Verapamil HCl (Verapamil 120 Mg Cap.Er) 240 mg PO BEDTIME [facility] Last Admin: 12/15/20 21:43 Dose: 240 mg Documented by: Discontinued Medications Acetaminophen (Acetaminophen 325 Mg Tab) 650 mg PO ONETIME ONE Stop: 12/11/20 15:06 Last Admin: 12/11/20 15:40 Dose: 650 mg Documented by: Doxycycline Hyclate (Doxycycline 100 Mg Cap) 100 mg PO Q12HR [facility] Stop: 12/21/20 21:01 Last Admin: 12/13/20 10:18 Dose: Not Given Documented by: Enoxaparin Sodium (Enoxaparin 40 Mg/0.4 Ml Syringe) 40 mg SUBCUT Q24H [facility] Last Admin: 12/12/20 11:43 Dose: 40 mg Documented by: Dextrose/Sodium Chloride (Dextrose 5%-Normal Saline) 1,000 mls @ 250 mls/hr IV ASDIRECTED [facility] Last Admin: 12/11/20 15:40 Dose: 250 mls/hr Documented by: Ceftriaxone Sodium 2 gm/ (Sodium Chloride) 100 mls @ 200 mls/hr IV ONETIME ONE Stop: 12/11/20 17:06 Last Admin: 12/11/20 16:50 Dose: 200 mls/hr Documented by: Dextrose/Sodium Chloride (Dextrose 5%-1/2 Ns) 1,000 mls @ 75 mls/hr IV ASDIRECTED [facility] Stop: 12/12/20 09:31 Last Admin: 12/11/20 21:07 Dose: 75 mls/hr Documented by: Potassium Chloride 10 meq/ (Premix) 100 mls @ 100 mls/hr IV Q1H [facility] Stop: 12/12/20 11:59 Last Admin: 12/12/20 13:15 Dose: 100 mls/hr Documented by: Sodium Chloride (Normal Saline) 250 mls @ 100 mls/hr IV ASDIRECTED [facility] Last Admin: 12/12/20 12:55 Dose: 100 mls/hr Documented by: Sodium Chloride (Normal Saline) 500 mls @ 999 mls/hr IV .BOLUS ONE Stop: 12/13/20 10:20 Last Admin: 12/13/20 09:55 Dose: 999 mls/hr Documented by: Sodium Chloride (Normal Saline) Confirm Administered Dose 1,000 mls @ as direct ed .ROUTE .STK-MED ONE Stop: 12/13/20 09:53 Last Admin: 12/13/20 09:56 Dose: Not Given Documented by: Sodium Chloride (Normal Saline) 1,000 mls @ 125 mls/hr IV ASDIRECTED [facility] Last Admin: 12/13/20 13:32 Dose: 125 mls/hr Documented by: Sodium Chloride (Normal Saline) 1,000 mls @ 999 mls/hr IV ONETIME ONE Stop: 12/13/20 12:32 Last Admin: 12/13/20 12:52 Dose: 999 mls/hr Documented by: Vancomycin HCl 1.75 gm/ Sodium (Chloride) 500 mls @ 250 mls/hr IV ONETIME ONE Stop: 12/13/20 14:29 Last Admin: 12/13/20 12:54 Dose: 250 mls/hr Documented by: Vancomycin HCl 1 gm/Vancomycin HCl 250 mg/ Sodium Chloride 250 mls @ 166.667 mls/hr IV Q12H [facility] Last Admin: 12/14/20 01:16 Dose: 166.667 mls/hr Documented by: Doxycycline Hyclate 100 mg/ (Sodium Chloride) 100 mls @ 100 mls/hr IV Q12H [facility] Last Admin: 12/16/20 01:20 Dose: 100 mls/hr Documented by: Sodium Chloride (Normal Saline) 500 mls @ 999 mls/hr IV .BOLUS ONE Stop: 12/13/20 12:10 Last Admin: 12/13/20 12:52 Dose: 999 mls/hr Documented by: Sodium Chloride (Normal Saline) 1,000 mls @ 50 mls/hr IV ASDIRECTED [facility] Last Admin: 12/14/20 01:15 Dose: 50 mls/hr Documented by: Metoclopramide HCl (Metoclopramide 10 Mg/2 Ml Sdv) 7.5 mg IVPUSH ONETIME ONE Stop: 12/11/20 15:06 Last Admin: 12/11/20 15:40 Dose: 7.5 mg Documented by: Pantoprazole Sodium (Pantoprazole 40 Mg Tab.Cr) 40 mg PO ACBREAKFAST [facility] Last Admin: 12/13/20 05:16 Dose: 40 mg Documented by: Potassium Chloride (Potassium Chloride 20 Meq Tab.Er) 40 meq PO ONETIME ONE Stop: 12/15/20 07:29 Last Admin: 12/15/20 08:34 Dose: 40 meq Documented by: Vancomycin HCl (Pharmacy To Dose - Vancomycin) 0 dose .XX ASDIRECTED PRN PRN Reason: RX TO DOSE VANCO - Exam Quality Assessment: No: Supplemental Oxygen Urinary Catheter Total Time: 2Days 4Hours General: Alert, Oriented HEENT: Pupils Equal, Mucous Membr. Moist/[place] Neck: Supple Lungs: Normal Respiratory Effort, Rales (bibasilar) Cardiovascular: Regular Rate, Regular Rhythm GI/Abdominal Exam: Normal Bowel Sounds, Soft, Non-Tender, No Distention Extremities: Normal Inspection, Normal Range of Motion, Non-Tender, No Pedal Edema, Normal Capillary Refill Psy/Mental Status: Alert - Patient Data Lab Results Last 24 hrs: Laboratory Results - last 24 hr 12/15/20 12/16/20 12/16/20 Range/Units 15:00 11:57 11:57 WBC 7.56 (4.23-9.07) K/mm3 RBC 2.82 L (4.63-6.08) M/mm3 Hgb 9.7 L 9.0 L (13.7-17.5) gm/dl Hct 26.9 L (40.1-51.0) % MCV 95.4 H (79.0-92.2) fl MCH 31.9 (25.7-32.2) pg MCHC 33.5 (32.2-35.5) g/dl RDW Std Deviation 42.6 (35.1-43.9) fL Plt Count 195 (163-337) K/mm3 MPV 9.8 (9.4-12.3) fl Neut % (Auto) 70.6 H (34.0-67.9) % Lymph % (Auto) 7.7 L (21.8-53.1) % Gregory % (Auto) 17.5 H (5.3-12.2) % Eos % (Auto) 3.0 (0.8-7.0) Baso % (Auto) 0.3 (0.1-1.2) % Neut # (Auto) 5.34 (1.78-5.38) K/mm3 Lymph # (Auto) 0.58 L (1.32-3.57) K/mm3 Gregory # (Auto) 1.32 H (0.30-0.82) K/mm3 Eos # (Auto) 0.23 (0.04-0.54) K/mm3 Baso # (Auto) 0.02 (0.01-0.08) K/mm3 Sodium 131 L (136-145) mEq/L Potassium 3.3 L (3.5-5.1) mEq/L Chloride 101 (98-107) mEq/L Carbon Dioxide 24 (21-32) mEq/L Anion Gap 9.3 (5-15) BUN 9 (7-18) mg/dL Creatinine 0.8 (0.7-1.3) mg/dL Est Cr Clr Drug Dosing 74.52 mL/min Estimated GFR (MDRD) > 60 (>60) mL/min BUN/Creatinine Ratio 11.3 L (14-18) Glucose 114 H (70-99) mg/dL Calcium 7.8 L (8.5-10.1) mg/dL Magnesium 1.5 L (1.8-2.4) mg/dL Result Diagrams: 12/16/20 11:57 12/16/20 11:57 Sepsis Event Note - Evaluation Sepsis Screening Result: No Definite Risk - Focused Exam Vital Signs: Vital Signs Temp Pulse Resp BP Pulse Ox 12/16/20 08:02 110/74 12/16/20 07:58 97.5 F 70 18 110/74 96 09/18/21 04:54 98.2 F 79 13 146/91 H 95 - Problem List & Annotations (1) CAP (community acquired pneumonia) SNOMED Code(s): 159676637 Code(s): J18.9 - PNEUMONIA, UNSPECIFIED ORGANISM Status: Acute Current Visit: Yes (2) Delirium SNOMED Code(s): 0383846 Code(s): R41.0 - DISORIENTATION, UNSPECIFIED Status: Acute Current Visit: Yes (3) Dilutional hyponatremia SNOMED Code(s): 670708906 Code(s): E87.1 - HYPO-OSMOLALITY AND HYPONATREMIA Status: Acute Current Visit: Yes (4) Left lower lobe pneumonia SNOMED Code(s): 404522418 Code(s): J18.9 - PNEUMONIA, UNSPECIFIED ORGANISM Status: Acute Current Visit: Yes Qualifiers: Pneumonia type: due to unspecified organism Qualified Code(s): J18.9 - Pneumonia, unspecified organism - Problem List Review Problem List Initiated/Reviewed/Updated: Yes - My Orders Last 24 Hours: My Active Orders 12/15/20 Dinner Soft Diet [DIET] 12/16/20 10:00 Doxycycline [Vibramycin] 100 mg PO Q12H 12/16/20 11:24 Renew/Continue Urinary Catheter [OM.PC] Routine 12/16/20 11:41 Remove Perez Catheter [Urinary Catheter Removal] [RC] PER UNIT ROUTINE 12/16/20 14:12 Magnesium Sulfate/Water [Magnesium Sulfate in Water 4 GM/50 ML] 4 gm Premix Bag 1 bag IV ONETIME Potassium Chloride [Klor-Con M20] 40 meq PO ONETIME ONE 12/17/20 05:11 CBC WITH AUTO DIFF [HEME] AM CMP [COMPREHENSIVE METABOLIC PN,CMP] [CHEM] AM MAGNESIUM [CHEM] AM PHOSPHORUS [CHEM] AM - Plan Plan:: GI bleed Hemoglobin 9.0 -Stopped enoxaparin and switch to SCDs -Switched Protonix from p.o. to 40 mg twice daily IV -Recheck hemoglobin in a.m. -Advance diet as tolerated Community acquired pneumonia -Rocephin and doxycyline. -Blood cultures neg Sepsis due to pneumonia -resolved -Continue antibiotics -procalcitonin=0.14 -stop vancomycin ELSIE-resolved BUN to creatinine ratio is still greater than 20, likely due to upper GI bleed Given fluids yesterday 2/2 concerns for sepsis Sepsis ruled out. Stop IV fluids Follow bun/cr. Avoid nephrotoxins. Hyponatremia Sodium is up to 131 Continue to monitor Hypokalemia Hypomagnesemia replace and repeat. Hypertension Continuing home meds Blood pressure improved Continue to monitor Presbycusis Try to get hearing aids from family Prolonged QT Avoid QT prolonging medications. DNR status DVT propylaxis SCDs Patient is hospitalized for >96 hours due to severity of illness, comorbidities, and age.
[2020-12-16] MEDS: Latanoprost 0.005% Ophth Soln 2.5 ML Bottle EYEBOTH SCH (20:58)
[2020-12-16] MEDS: Verapamil 120 MG Cap.ER PO SCH (20:59)
[2020-12-16] MEDS: Simvastatin 10 MG Tab PO SCH (21:00)
[2020-12-16] MEDS ORDERED: Doxycycline 100 MG Cap PO SCH (21:00)
[2020-12-17] MEDS: Timolol Maleate 0.5% Ophth Soln 5 ML Bottle EYEBOTH SCH (08:33)
[2020-12-17] MEDS: Pantoprazole 40 MG Vial IVPUSH SCH ×2 (08:33→20:47)
[2020-12-17] MEDS: Lisinopril 10 MG Tab PO SCH (08:34)
[2020-12-17] MEDS: Doxycycline 100 MG Cap PO SCH ×2 (10:59→20:47)
[2020-12-17] MEDS: cefTRIAXone 2 GM in Sodium Chloride 0.9% 100 ML IV SCH (11:32)
--- NOTE | 2020-12-17 16:27 | PCM.PN ---
- General Info Date of Service: 12/17/20 Admission Dx/Problem (Free Text): Admission Diagnosis/Problem Admission Diagnosis/Problem Generalized weakness, Fall. Subjective Update: Aga is an 85 y/o Male brought to the ED by the [facility] for generalized weakness and a fall at home. Patient does not have any complaints. No melena or hematochezia. No abdominal pain, nausea, vomiting or diarrhea. - Review of Systems Systems Review Comment:: General: Reports: No Symptoms HEENT: Reports: No Symptoms Pulmonary: Reports: No Symptoms Cardiovascular: Reports: No Symptoms Musculoskeletal: Reports: No Symptoms - Patient Data Vitals - Most Recent: Last Vital Signs Temp 36.6 C 12/17/20 15:00 Pulse 78 12/17/20 15:00 Resp 20 12/17/20 15:00 BP 124/45 L 12/17/20 15:00 Pulse Ox 97 12/17/20 15:00 Weight - Most Recent: 83.098 kg I&O - Last 24 Hours: Intake & Output 12/17/20 12/17/20 12/17/20 06:59 14:59 22:59 Intake Total 800 900 Output Total 1400 1200 Balance -600 -300 Lab Results Last 24 Hours: Laboratory Results - last 24 hr 12/17/20 12/17/20 Range/Units 04:50 04:50 WBC 7.76 (4.23-9.07) K/mm3 RBC 2.97 L (4.63-6.08) M/mm3 Hgb 9.4 L (13.7-17.5) gm/dl Hct 28.4 L (40.1-51.0) % MCV 95.6 H (79.0-92.2) fl MCH 31.6 (25.7-32.2) pg MCHC 33.1 (32.2-35.5) g/dl RDW Std Deviation 43.9 (35.1-43.9) fL Plt Count 224 (163-337) K/mm3 MPV 10.1 (9.4-12.3) fl Neut % (Auto) 64.4 (34.0-67.9) % Lymph % (Auto) 11.0 L (21.8-53.1) % [place] % (Auto) 19.2 H (5.3-12.2) % Eos % (Auto) 3.9 (0.8-7.0) Baso % (Auto) 0.3 (0.1-1.2) % Neut # (Auto) 5.01 (1.78-5.38) K/mm3 Lymph # (Auto) 0.85 L (1.32-3.57) K/mm3 [place] # (Auto) 1.49 H (0.30-0.82) K/mm3 Eos # (Auto) 0.30 (0.04-0.54) K/mm3 Baso # (Auto) 0.02 (0.01-0.08) K/mm3 Sodium 133 L (136-145) mEq/L Potassium 3.7 (3.5-5.1) mEq/L Chloride 102 (98-107) mEq/L Carbon Dioxide 23 (21-32) mEq/L Anion Gap 11.7 (5-15) BUN 7 (7-18) mg/dL Creatinine 0.7 (0.7-1.3) mg/dL Est Cr Clr Drug Dosing 85.16 mL/min Estimated GFR (MDRD) > 60 (>60) mL/min BUN/Creatinine Ratio 10.0 L (14-18) Glucose 102 H (70-99) mg/dL Calcium 7.9 L (8.5-10.1) mg/dL Phosphorus 3.2 (2.6-4.7) mg/dL Magnesium 1.9 (1.8-2.4) mg/dL Total Bilirubin 0.5 (0.2-1.0) mg/dL AST 18 (15-37) U/L ALT 21 (16-63) U/L Alkaline Phosphatase 49 (46-116) U/L Total Protein 5.4 L (6.4-8.2) g/dl Albumin 2.3 L (3.4-5.0) g/dl Globulin 3.1 gm/dL Albumin/Globulin Ratio 0.7 L (1-2) Neno Results Last 24 Hours: Microbiology 12/11/20 15:36 Blood Culture - Final Blood - Venous - Iv Start 12/11/20 15:33 Blood Culture - Final Blood - Venous - Lab Draw Med Orders - Current: Current Medications Docusate Sodium (Docusate Sodium 100 Mg Cap) 100 mg PO Q12H PRN PRN Reason: Constipation Doxycycline Hyclate (Doxycycline 100 Mg Cap) 100 mg PO Q12H [facility] Last Admin: 12/17/20 10:59 Dose: 100 mg Documented by: Ceftriaxone Sodium 2 gm/ (Sodium Chloride) 100 mls @ 200 mls/hr IV Q24H [facility] Last Admin: 12/17/20 11:32 Dose: 200 mls/hr Documented by: Latanoprost (Latanoprost 0.005% Ophth Soln 2.5 Ml Bottle) 0 ml EYEBOTH BEDTIME [facility] Last Admin: 12/16/20 20:58 Dose: 1 drop Documented by: Lisinopril (Lisinopril 10 Mg Tab) 10 mg PO DAILY [facility] Last Admin: 12/17/20 08:34 Dose: 10 mg Documented by: Ondansetron HCl (Ondansetron 4 Mg Tab.Dis) 4 mg PO Q4H PRN PRN Reason: nausea, able to take PO Pantoprazole Sodium (Pantoprazole 40 Mg Vial) 40 mg IVPUSH Q12H [facility] Last Admin: 12/17/20 08:33 Dose: 40 mg Documented by: Polyethylene Glycol (Polyethylene Glycol 3350 Powder 17 Gm Packet) 17 gm PO DAILY PRN PRN Reason: Constipation Simvastatin (Simvastatin 10 Mg Tab) 10 mg PO BEDTIME [facility] Last Admin: 12/16/20 21:00 Dose: 10 mg Documented by: Timolol Maleate (Timolol Maleate 0.5% Ophth Soln 5 Ml Bottle) 0 ml EYEBOTH DAILY [facility] Last Admin: 12/17/20 08:33 Dose: 1 drop Documented by: Verapamil HCl (Verapamil 120 Mg Cap.Er) 240 mg PO BEDTIME [facility] Last Admin: 12/16/20 20:59 Dose: 240 mg Documented by: Discontinued Medications Acetaminophen (Acetaminophen 325 Mg Tab) 650 mg PO ONETIME ONE Stop: 12/11/20 15:06 Last Admin: 12/11/20 15:40 Dose: 650 mg Documented by: Doxycycline Hyclate (Doxycycline 100 Mg Cap) 100 mg PO Q12HR [facility] Stop: 12/21/20 21:01 Last Admin: 12/13/20 10:18 Dose: Not Given Documented by: Enoxaparin Sodium (Enoxaparin 40 Mg/0.4 Ml Syringe) 40 mg SUBCUT Q24H [facility] Last Admin: 12/12/20 11:43 Dose: 40 mg Documented by: Dextrose/Sodium Chloride (Dextrose 5%-Normal Saline) 1,000 mls @ 250 mls/hr IV ASDIRECTED [facility] Last Admin: 12/11/20 15:40 Dose: 250 mls/hr Documented by: Ceftriaxone Sodium 2 gm/ (Sodium Chloride) 100 mls @ 200 mls/hr IV ONETIME ONE Stop: 12/11/20 17:06 Last Admin: 12/11/20 16:50 Dose: 200 mls/hr Documented by: Dextrose/Sodium Chloride (Dextrose 5%-1/2 Ns) 1,000 mls @ 75 mls/hr IV ASDIRECTED [facility] Stop: 12/12/20 09:31 Last Admin: 12/11/20 21:07 Dose: 75 mls/hr Documented by: Potassium Chloride 10 meq/ (Premix) 100 mls @ 100 mls/hr IV Q1H [facility] Stop: 12/12/20 11:59 Last Admin: 12/12/20 13:15 Dose: 100 mls/hr Documented by: Sodium Chloride (Normal Saline) 250 mls @ 100 mls/hr IV ASDIRECTED [facility] Last Admin: 12/12/20 12:55 Dose: 100 mls/hr Documented by: Sodium Chloride (Normal Saline) 500 mls @ 999 mls/hr IV .BOLUS ONE Stop: 12/13/20 10:20 Last Admin: 12/13/20 09:55 Dose: 999 mls/hr Documented by: Sodium Chloride (Normal Saline) Confirm Administered Dose 1,000 mls @ as directed .ROUTE .STK-MED ONE Stop: 12/13/20 09:53 Last Admin: 12/13/20 09:56 Dose: Not Given Documented by: Sodium Chloride (Normal Saline) 1,000 mls @ 125 mls/hr IV ASDIRECTED [facility] Last Admin: 12/13/20 13:32 Dose: 125 mls/hr Documented by: Sodium Chloride (Normal Saline) 1,000 mls @ 999 mls/hr IV ONETIME ONE Stop: 12/13/20 12:32 Last Admin: 12/13/20 12:52 Dose: 999 mls/hr Documented by: Vancomycin HCl 1.75 gm/ Sodium (Chloride) 500 mls @ 250 mls/hr IV ONETIME ONE Stop: 12/13/20 14:29 Last Admin: 12/13/20 12:54 Dose: 250 mls/hr Documented by: Vancomycin HCl 1 gm/Vancomycin HCl 250 mg/ Sodium Chloride 250 mls @ 166.667 mls/hr IV Q12H [facility] Last Admin: 12/14/20 01:16 Dose: 166.667 mls/hr Documented by: Doxycycline Hyclate 100 mg/ (Sodium Chloride) 100 mls @ 100 mls/hr IV Q12H [facility] Last Admin: 12/16/20 01:20 Dose: 100 mls/hr Documented by: Sodium Chloride (Normal Saline) 500 mls @ 999 mls/hr IV .BOLUS ONE Stop: 12/13/20 12:10 Last Admin: 12/13/20 12:52 Dose: 999 mls/hr Documented by: Sodium Chloride (Normal Saline) 1,000 mls @ 50 mls/hr IV ASDIRECTED [facility] Last Admin: 12/14/20 01:15 Dose: 50 mls/hr Documented by: Magnesium Sulfate 4 gm/ Premix 50 mls @ 12.5 mls/hr IV ONETIME ONE Stop: 12/16/20 18:11 Last Admin: 12/16/20 15:13 Dose: 12.5 mls/hr Documented by: Metoclopramide HCl (Metoclopramide 10 Mg/2 Ml Sdv) 7.5 mg IVPUSH ONETIME ONE Stop: 12/11/20 15:06 Last Admin: 12/11/20 15:40 Dose: 7.5 mg Documented by: Pantoprazole Sodium (Pantoprazole 40 Mg Tab.Cr) 40 mg PO ACBREAKFAST [facility] Last Admin: 12/13/20 05:16 Dose: 40 mg Documented by: Potassium Chloride (Potassium Chloride 20 Meq Tab.Er) 40 meq PO ONETIME ONE Stop: 12/15/20 07:29 Last Admin: 12/15/20 08:34 Dose: 40 meq Documented by: Potassium Chloride (Potassium Chloride 20 Meq Tab.Er) 40 meq PO ONETIME ONE Stop: 12/16/20 14:13 Last Admin: 12/16/20 15:13 Dose: 40 meq Documented by: Vancomycin HCl (Pharmacy To Dose - Vancomycin) 0 dose .XX ASDIRECTED PRN PRN Reason: RX TO DOSE VANCO - Exam Urinary Catheter Total Time: 2Days 4Hours Physical Findings Comments:: General: Alert, Oriented, no acute distress HEENT: Pupils Equal, Mucous Membr. Moist/[place] Neck: Supple Lungs: Normal Respiratory Effort, Rales (bibasilar) Cardiovascular: Regular Rate, Regular Rhythm GI/Abdominal Exam: Normal Bowel Sounds, Soft, Non-Tender, No Distention Extremities: Normal Inspection, Normal Range of Motion, Non-Tender, No Pedal Edema, Normal Capillary Refill Psy/Mental Status: Alert, mood normal - Patient Data Lab Results Last 24 hrs: Laboratory Results - last 24 hr 12/17/20 12/17/20 Range/Units 04:50 04:50 WBC 7.76 (4.23-9.07) K/mm3 RBC 2.97 L (4.63-6.08) M/mm3 Hgb 9.4 L (13.7-17.5) gm/dl Hct 28.4 L (40.1-51.0) % MCV 95.6 H (79.0-92.2) fl MCH 31.6 (25.7-32.2) pg MCHC 33.1 (32.2-35.5) g/dl RDW Std Deviation 43.9 (35.1-43.9) fL Plt Count 224 (163-337) K/mm3 MPV 10.1 (9.4-12.3) fl Neut % (Auto) 64.4 (34.0-67.9) % Lymph % (Auto) 11.0 L (21.8-53.1) % [place] % (Auto) 19.2 H (5.3-12.2) % Eos % (Auto) 3.9 (0.8-7.0) Baso % (Auto) 0.3 (0.1-1.2) % Neut # (Auto) 5.01 (1.78-5.38) K/mm3 Lymph # (Auto) 0.85 L (1.32-3.57) K/mm3 [place] # (Auto) 1.49 H (0.30-0.82) K/mm3 Eos # (Auto) 0.30 (0.04-0.54) K/mm3 Baso # (Auto) 0.02 (0.01-0.08) K/mm3 Sodium 133 L (136-145) mEq/L Potassium 3.7 (3.5-5.1) mEq/L Chloride 102 (98-107) mEq/L Carbon Dioxide 23 (21-32) mEq/L Anion Gap 11.7 (5-15) BUN 7 (7-18) mg/dL Creatinine 0.7 (0.7-1.3) mg/dL Est Cr Clr Drug Dosing 85.16 mL/min Estimated GFR (MDRD) > 60 (>60) mL/min BUN/Creatinine Ratio 10.0 L (14-18) Glucose 102 H (70-99) mg/dL Calcium 7.9 L (8.5-10.1) mg/dL Phosphorus 3.2 (2.6-4.7) mg/dL Magnesium 1.9 (1.8-2.4) mg/dL Total Bilirubin 0.5 (0.2-1.0) mg/dL AST 18 (15-37) U/L ALT 21 (16-63) U/L Alkaline Phosphatase 49 (46-116) U/L Total Protein 5.4 L (6.4-8.2) g/dl Albumin 2.3 L (3.4-5.0) g/dl Globulin 3.1 gm/dL Albumin/Globulin Ratio 0.7 L (1-2) Result Diagrams: 12/17/20 04:50 12/17/20 04:50 Neno Results Last 24 hrs: Microbiology 12/11/20 15:36 Blood Culture - Final Blood - Venous - Iv Start 12/11/20 15:33 Blood Culture - Final Blood - Venous - Lab Draw Sepsis Event Note - Evaluation Sepsis Screening Result: No Definite Risk - Focused Exam Vital Signs: Vital Signs Temp Pulse Resp BP Pulse Ox 12/17/20 15:00 36.6 C 78 20 124/45 L 97 12/17/20 08:34 36.6 C 77 18 132/80 97 12/17/20 05:05 36.8 C 78 16 146/86 H 98 - Problem List Review Problem List Initiated/Reviewed/Updated: Yes - Plan Plan:: Aga is an 85 y/o Male brought to the ED by the [facility] for generalized weakness and a fall at home. He was admitted on 12/11/20 GI bleed Hemoglobin 9.4 today -Stopped enoxaparin and switch to SCDs -Switched Protonix from p.o. to 40 mg twice daily IV -Recheck hemoglobin in a.m. -Advance diet as tolerated Community acquired pneumonia -Rocephin (since 12/13) and doxycyline (since 12/16). -Blood cultures neg Sepsis due to pneumonia -resolved -Continue antibiotics -procalcitonin=0.14 -stop vancomycin ELSIE-resolved BUN to creatinine ratio is still greater than 20, likely due to upper GI bleed Given fluids yesterday 2/2 concerns for sepsis Sepsis ruled out. Stop IV fluids Follow bun/cr. Avoid nephrotoxins. Hyponatremia Sodium is up to 133 Continue to monitor Hypokalemia Hypomagnesemia replace and repeat. Hypertension Continuing home meds Blood pressure improved Continue to monitor Presbycusis Try to get hearing aids from family Prolonged QT Avoid QT prolonging medications. DNR status DVT propylaxis SCDs Disposition: possibly tomorrow Needs pcp and GI/Surg Patient is hospitalized for >96 hours due to severity of illness, comorbidities, and age.
[2020-12-17] MEDS: Latanoprost 0.005% Ophth Soln 2.5 ML Bottle EYEBOTH SCH (20:47)
[2020-12-17] MEDS: Simvastatin 10 MG Tab PO SCH (20:47)
[2020-12-17] MEDS: Verapamil 120 MG Cap.ER PO SCH (20:47)
[2020-12-18] MEDS: Doxycycline 100 MG Cap PO SCH (06:51)
[2020-12-18] MEDS: Pantoprazole 40 MG Vial IVPUSH SCH (08:29)
[2020-12-18] MEDS: Timolol Maleate 0.5% Ophth Soln 5 ML Bottle EYEBOTH SCH (08:29)
[2020-12-18] MEDS: Lisinopril 10 MG Tab PO SCH (08:31)
[2020-12-18 08:32] VITALS: BP 122/90
[2020-12-18] MEDS ORDERED: Doxycycline 100 MG Cap PO SCH (09:00)
[2020-12-18 09:03] VITALS: PULSE 73
[2020-12-18] MEDS: cefTRIAXone 2 GM in Sodium Chloride 0.9% 100 ML IV SCH (10:01)
--- NOTE | 2020-12-18 12:23 | PCM.DCSUM1 ---
Discharge Summary - Hospital Course Free Text/Narrative:: Aga is an 85 y/o Male brought to the ED by the [facility] for generalized weakness and a fall at home. He was admitted on 12/11/20 GI bleed Hemoglobin 9.4 today, stable -Stopped enoxaparin and switch to SCDs -will discontinue Protonix from p.o. to 40 mg twice daily IV and discharge him on pantoprazole 40 mg p.o. daily -Recheck hemoglobin in 3 days -Follow with the PCP in 3 days and GI/surgeon within 1 week Community acquired pneumonia -Completed course of Rocephin and doxycyline. -Blood cultures neg Sepsis due to pneumonia -resolved -Continue antibiotics -procalcitonin=0.14 -stop vancomycin ELSIE-resolved BUN to creatinine ratio is still greater than 20, likely due to upper GI bleed Given fluids yesterday / concerns for sepsis Sepsis ruled out. Stop IV fluids Follow bun/cr. Avoid nephrotoxins. Hyponatremia Sodium is up to 133 Continue to monitor Hypokalemia Hypomagnesemia Resolved Hypertension Continuing home meds Blood pressure improved Continue to monitor Presbycusis Try to get hearing aids from family Prolonged QT Avoid QT prolonging medications. Today patient does not have any complaint. Vital signs are stable and acceptable. PT OT and CM recommended home health with PT OT. Patient would like to go home today. Hemoglobin has been stable. No more bleeding. He will be discharged home today with home health to follow with the PCP in 3 days and GI/surgeon within 1 week. Repeat a CBC, CMP, and a electrolytes in 3 days. Continue PT OT. Do not drive until approval from MD. Go to the ER immediately or call PCP if bleeding occurs. Call PCP for medical issues. HPI Initial Comments: Aga is an 85 y/o Male brought to the ED by the [facility] for generalized weakness and a fall at home. His called the ambulance because he fell at home while ambulating. He is very hard of hearing and unable to give a good history. Most of the information was obtained from the and the ED staff. The patient has had a non productive cough for a couple of days. He has also had a poor appetite the last for at least the same amount of time. He received both his vaccine shots earlier this year. He lives with his and she has had no respiratory symptoms. He also denies having been around any sick contacts. His COVID 19 test in the ED was negative. In the ED he was noted to have a low grade temperature. Diagnosis: Stroke: No - Discharge Data Discharge Date: 12/18/20 Discharge Disposition: Home, W Home Health Agency 06 Condition: Fair - Referral to Home Health Date of Face to Face Encounter: 12/18/20 Reason for Homebound Status: GI bleed. Community acquired pneumonia. Sepsis due to pneumonia. ELSIE-resolved. Hyponatremia. Hypokalemia. Hypomagnesemia. Hypertension. Presbycusis. Prolonged QT Primary Care Physician: Charlie Wilkerson MD Skilled Need: GI bleed. Community acquired pneumonia. Sepsis due to pneumonia. ELSIE-resolved. Hyponatremia. Hypokalemia. Hypomagnesemia. Hypertension. Presbycusis. Prolonged QT - Patient Summary/Data Consults: Consultations 12/11/20 20:25 OT Evaluation and Treatment [CONS] Routine PT Evaluation and Treatment [CONS] Routine Recommended Follow-up Testing/Procedures: follow with the PCP in 3 days and GI/surgeon within 1 week. Repeat a CBC, CMP, and a electrolytes in 3 days. Continue PT OT. Do not drive until approval from MD. Go to the ER immediately or call PCP if bleeding occurs. Call PCP for medical issues. - Patient Instructions Diet: Diabetic Diet Activity: As Tolerated - Discharge Plan *PRESCRIPTION DRUG MONITORING PROGRAM REVIEWED*: Yes *COPY OF PRESCRIPTION DRUG MONITORING REPORT IN PATIENT MAIRA: Yes Prescriptions/Med Rec: Docusate Sodium [Colace] 100 mg PO BID PRN #60 cap PRN Reason: Constipation Pantoprazole Sodium [Protonix] 40 mg PO DAILY #30 tablet. Home Medications: Home Meds Moexipril [Univasc] 15 mg PO DAILY 10/31/16 [History] Verapamil HCl [Verelan] 240 mg PO BEDTIME 10/31/16 [History] Polyethylene Glycol 3350 [MiraLAX] 1 pack PO DAILY PRN 12/18/16 [History] Lovastatin 1 tab PO BEDTIME 12/11/20 [History] Latanoprost/Pf [Latanoprost 0.005% Eye Drop] 1 drop EYEBOTH BID 12/14/20 [History] Timolol Maleate/PF [Timolol Maleate 0.5% Eye Drop] 1 drop EYEBOTH DAILY 12/14/20 [History] Docusate Sodium [Colace] 100 mg PO BID PRN #60 cap 12/18/20 [Rx] Pantoprazole Sodium [Protonix] 40 mg PO DAILY #30 tablet. 12/18/20 [Rx] Patient Handouts: Community-Acquired Pneumonia, Adult, [id number], Sepsis, Self Care, Adult Forms: ED Department Discharge Referrals: Devora Garibay MD [Physician] - 12/29/20 8:45 am (Dr. Wilkerson is out until further notice so you will see Dr. Garibay. this is your check in time for your 09:00 appointment) see, pcp in 3 days [Other] see, GI/surgeon within 1 week [Other] - Discharge Summary/Plan Comment DC Time >30 min.: Yes Total # of Minutes for Discharge Time: 90 minutes - General Info Date of Service: 12/18/20 Admission Dx/Problem (Free Text: Admission Diagnosis/Problem Admission Diagnosis/Problem Generalized weakness, Fall. Subjective Update: Aga is an 85 y/o Male brought to the ED by the [facility] for generalized weakness and a fall at home. Patient does not have any complaints. No melena or hematochezia. No abdominal pain, nausea, vomiting or diarrhea. - Review of Systems General: Reports: No Symptoms HEENT: Reports: No Symptoms Pulmonary: Reports: No Symptoms Cardiovascular: Reports: No Symptoms Gastrointestinal: Reports: No Symptoms Genitourinary: Reports: No Symptoms Musculoskeletal: Reports: No Symptoms Skin: Reports: No Symptoms Neurological: Reports: No Symptoms Psychiatric: Reports: No Symptoms - Patient Data Vitals - Most Recent: Last Vital Signs Temp 36.4 C 12/18/20 08:31 Pulse 73 12/18/20 08:31 Resp 18 12/18/20 08:31 BP 122/90 12/18/20 08:31 Pulse Ox 96 12/18/20 08:31 Weight - Most Recent: 83.642 kg I&O - Last 24 hours: Intake & Output 12/17/20 12/18/20 12/18/20 22:59 06:59 14:59 Intake Total 1140 500 240 Output Total 1200 500 Balance -60 0 240 MARYCARMEN Results - Last 24 hrs: Microbiology 12/11/20 15:36 Blood Culture - Final Blood - Venous - Iv Start 12/11/20 15:33 Blood Culture - Final Blood - Venous - Lab Draw Med Orders - Current: Current Medications Docusate Sodium (Docusate Sodium 100 Mg Cap) 100 mg PO Q12H PRN PRN Reason: Constipation Doxycycline Hyclate (Doxycycline 100 Mg Cap) 100 mg PO Q12H [facility] Last Admin: 12/18/20 08:29 Dose: 100 mg Documented by: Ceftriaxone Sodium 2 gm/ (Sodium Chloride) 100 mls @ 200 mls/hr IV Q24H [facility] Last Admin: 12/18/20 10:01 Dose: 200 mls/hr Documented by: Latanoprost (Latanoprost 0.005% Ophth Soln 2.5 Ml Bottle) 0 ml EYEBOTH BEDTIME [facility] Last Admin: 12/17/20 20:47 Dose: 1 drop Documented by: Lisinopril (Lisinopril 10 Mg Tab) 10 mg PO DAILY [facility] Last Admin: 12/18/20 08:31 Dose: 10 mg Documented by: Ondansetron HCl (Ondansetron 4 Mg Tab.Dis) 4 mg PO Q4H PRN PRN Reason: nausea, able to take PO Pantoprazole Sodium (Pantoprazole 40 Mg Vial) 40 mg IVPUSH Q12H [facility] Last Admin: 12/18/20 08:29 Dose: 40 mg Documented by: Polyethylene Glycol (Polyethylene Glycol 3350 Powder 17 Gm Packet) 17 gm PO DAILY PRN PRN Reason: Constipation Simvastatin (Simvastatin 10 Mg Tab) 10 mg PO BEDTIME [facility] Last Admin: 12/17/20 20:47 Dose: 10 mg Documented by: Timolol Maleate (Timolol Maleate 0.5% Ophth Soln 5 Ml Bottle) 0 ml EYEBOTH DAILY [facility] Last Admin: 12/18/20 08:29 Dose: 1 drop Documented by: Verapamil HCl (Verapamil 120 Mg Cap.Er) 240 mg PO BEDTIME [facility] Last Admin: 12/17/20 20:47 Dose: 240 mg Documented by: Discontinued Medications Acetaminophen (Acetaminophen 325 Mg Tab) 650 mg PO ONETIME ONE Stop: 12/11/20 15:06 Last Admin: 12/11/20 15:40 Dose: 650 mg Documented by: Doxycycline Hyclate (Doxycycline 100 Mg Cap) 100 mg PO Q12HR [facility] Stop: 12/21/20 21:01 Last Admin: 12/13/20 10:18 Dose: Not Given Documented by: Doxycycline Hyclate (Doxycycline 100 Mg Cap) 100 mg PO Q12H [facility] Last Admin: 12/18/20 06:51 Dose: Not Given Documented by: Enoxaparin Sodium (Enoxaparin 40 Mg/0.4 Ml Syringe) 40 mg SUBCUT Q24H [facility] Last Admin: 12/12/20 11:43 Dose: 40 mg Documented by: Dextrose/Sodium Chloride (Dextrose 5%-Normal Saline) 1,000 mls @ 250 mls/hr IV ASDIRECTED [facility] Last Admin: 12/11/20 15:40 Dose: 250 mls/hr Documented by: Ceftriaxone Sodium 2 gm/ (Sodium Chloride) 100 mls @ 200 mls/hr IV ONETIME ONE Stop: 12/11/20 17:06 Last Admin: 12/11/20 16:50 Dose: 200 mls/hr Documented by: Dextrose/Sodium Chloride (Dextrose 5%-1/2 Ns) 1,000 mls @ [facility]: 12/12/20 09:31 Last Admin: 12/11/20 21:07 Dose: 75 mls/hr Documented by: Potassium Chloride 10 meq/ (Premix) 100 mls @ 100 mls/hr IV Q1H [facility] Stop: 12/12/20 11:59 Last Admin: 12/12/20 13:15 Dose: 100 mls/hr Documented by: Sodium Chloride (Normal Saline) 250 mls @ 100 mls/hr IV ASDIRECTED [facility] Last Admin: 12/12/20 12:55 Dose: 100 mls/hr Documented by: Sodium Chloride (Normal Saline) 500 mls @ 999 mls/hr IV .BOLUS ONE Stop: 12/13/20 10:20 Last Admin: 12/13/20 09:55 Dose: 999 mls/hr Documented by: Sodium Chloride (Normal Saline) Confirm Administered Dose 1,000 mls @ as directed .ROUTE .STK-MED ONE Stop: 12/13/20 09:53 Last Admin: 12/13/20 09:56 Dose: Not Given Documented by: Sodium Chloride (Normal Saline) 1,000 mls @ 125 mls/hr IV ASDIRECTED [facility] Last Admin: 12/13/20 13:32 Dose: 125 mls/hr Documented by: Sodium Chloride (Normal Saline) 1,000 mls @ 999 mls/hr IV ONETIME ONE Stop: 12/13/20 12:32 Last Admin: 12/13/20 12:52 Dose: 999 mls/hr Documented by: Vancomycin HCl 1.75 gm/ Sodium (Chloride) 500 mls @ 250 mls/hr IV ONETIME ONE Stop: 12/13/20 14:29 Last Admin: 12/13/20 12:54 Dose: 250 mls/hr Documented by: Vancomycin HCl 1 gm/Vancomycin HCl 250 mg/ Sodium Chloride 250 mls @ 166.667 mls/hr IV Q12H [facility] Last Admin: 12/14/20 01:16 Dose: 166.667 mls/hr Documented by: Doxycycline Hyclate 100 mg/ (Sodium Chloride) 100 mls @ 100 mls/hr IV Q12H [facility] Last Admin: 12/16/20 01:20 Dose: 100 mls/hr Documented by: Sodium Chloride (Normal Saline) 500 mls @ 999 mls/hr IV .BOLUS ONE Stop: 12/13/20 12:10 Last Admin: 12/13/20 12:52 Dose: 999 mls/hr Documented by: Sodium Chloride (Normal Saline) 1,000 mls @ 50 mls/hr IV ASDIRECTED [facility] Last Admin: 12/14/20 01:15 Dose: 50 mls/hr Documented by: Magnesium Sulfate 4 gm/ Premix 50 mls @ 12.5 mls/hr IV ONETIME ONE Stop: 12/16/20 18:11 Last Admin: 12/16/20 15:13 Dose: 12.5 mls/hr Documented by: Metoclopramide HCl (Metoclopramide 10 Mg/2 Ml Sdv) 7.5 mg IVPUSH ONETIME ONE Stop: 12/11/20 15:06 Last Admin: 12/11/20 15:40 Dose: 7.5 mg Documented by: Pantoprazole Sodium (Pantoprazole 40 Mg Tab.Cr) 40 mg PO ACBREAKFAST [facility] Last Admin: 12/13/20 05:16 Dose: 40 mg Documented by: Potassium Chloride (Potassium Chloride 20 Meq Tab.Er) 40 meq PO ONETIME ONE Stop: 12/15/20 07:29 Last Admin: 12/15/20 08:34 Dose: 40 meq Documented by: Potassium Chloride (Potassium Chloride 20 Meq Tab.Er) 40 meq PO ONETIME ONE Stop: 12/16/20 14:13 Last Admin: 12/16/20 15:13 Dose: 40 meq Documented by: Vancomycin HCl (Pharmacy To Dose - Vancomycin) 0 dose .XX ASDIRECTED PRN PRN Reason: RX TO DOSE VANCO - Exam Physical Findings Comments:: General: Alert, Oriented, no acute distress HEENT: Pupils Equal, Mucous Membr. Moist/[place] Neck: Supple Lungs: Normal Respiratory Effort, Rales (bibasilar) Cardiovascular: Regular Rate, Regular Rhythm GI/Abdominal Exam: Normal Bowel Sounds, Soft, Non-Tender, No Distention Extremities: Normal Inspection, Normal Range of Motion, Non-Tender, No Pedal Edema, Normal Capillary Refill Psy/Mental Status: Alert, mood normal
== END 2020-12-18 13:30 | disposition home health service (06) | DRG 194 ==
LOC: JD.ED 14:47 → JD.MS 19:13
PROVIDERS: ADMIT Hospitalist; ATTEND Hospitalist
DX: J18.9 Pneumonia, unspecified organism (principal); R50.9 Fever, unspecified; R09.02 Hypoxemia; K92.2 Gastrointestinal hemorrhage, unspecified; R41.0 Disorientation, unspecified; N17.9 Acute kidney failure, unspecified; E87.1 Hypo-osmolality and hyponatremia; E87.6 Hypokalemia; E83.42 Hypomagnesemia; I10 Essential (primary) hypertension; D64.9 Anemia, unspecified; H91.10 Presbycusis, unspecified ear; R94.31 Abnormal electrocardiogram [ECG] [EKG]; W19.XXXA Unspecified fall, initial encounter; H91.90 Unspecified hearing loss, unspecified ear; E78.00 Pure hypercholesterolemia, unspecified; G89.29 Other chronic pain; M54.9 Dorsalgia, unspecified; Z96.659 Presence of unspecified artificial knee joint; Z79.899 Other long term (current) drug therapy; Y92.009 Unspecified place in unspecified non-institutional (private) residence as the place of occurrence of the external cause; Z98.1 Arthrodesis status; Z20.822 Contact with and (suspected) exposure to COVID-19
CPT/HCPCS: 36415; 71045; 71250; 80053; 81001; 83605; 83735; 83880; 84484; 85007; 85027; 85610; 85730; 86140; 87040 ×2; 93005; 96365; 96375; 99285; A9270; J0696; J2765; J7042; U0002; 51701; 51702; 51798; 80048; 82272; 84100; 84145; 85014; 85018; 85025; 87641; 93010; 94760; 97110-GP; 97116-GP; 97161-GP; 97530-GP; C9113; J1650; J3370; J3475; J3480; J3490; J7030; J7040; J7050

== ENCOUNTER 2021-04-21 06:27 | Inpatient (IN) | payer MEDICARE, OTHER ==
[2021-04-21] MEDS ORDERED: Sodium Chloride 0.9% 10 ML Syringe FLUSH PRN (08:04)
[2021-04-21] MEDS ORDERED: HYDROmorphone 0.5 MG/0.5 ML Syringe IVPUSH ONE ×2 (08:12→10:37)
[2021-04-21] MEDS ORDERED: Promethazine 12.5 MG in Sodium Chloride 0.9% 50 ML IV PRN (14:32)
[2021-04-21] MEDS ORDERED: Albuterol/Ipratropium 3.0-0.5 MG/3 ML Neb Soln NEB PRN (14:32)
[2021-04-21] MEDS ORDERED: Morphine 2 MG/ML SYRINGE IVPUSH PRN (14:32)
[2021-04-21] MEDS ORDERED: hydrALAZINE 20 MG/ML SDV IVPUSH PRN (14:42)
[2021-04-21] MEDS: oxyCODONE 5 MG Tab PO PRN ×2 (16:18→20:48)
[2021-04-21] MEDS: Latanoprost 0.005% Ophth Soln 2.5 ML Bottle EYEBOTH SCH (20:48)
[2021-04-21] MEDS: Verapamil 120 MG Cap.ER PO SCH (20:49)
[2021-04-21] MEDS: Acetaminophen 325 MG Tab PO PRN (20:50)
[2021-04-21] MEDS: Pravastatin 20 MG Tab PO SCH (20:51)
[2021-04-21] MEDS: Pantoprazole 40 MG Tab.CR PO SCH (20:51)
[2021-04-21] MEDS ORDERED: Pravastatin 20 MG Tab PO SCH (21:00)
[2021-04-22] MEDS: oxyCODONE 5 MG Tab PO PRN ×5 (06:23→23:06)
[2021-04-22] MEDS: Sodium Chloride 0.9% 1,000 ML IV SCH ×2 (06:39→22:36)
[2021-04-22] MEDS: Enoxaparin 40 MG/0.4 ML Syringe SUBCUT SCH (08:50)
[2021-04-22] MEDS: Hydrochlorothiazide 25 MG Tab PO SCH (08:50)
[2021-04-22] MEDS: Lisinopril 10 MG Tab PO SCH (08:51)
[2021-04-22] MEDS: Latanoprost 0.005% Ophth Soln 2.5 ML Bottle EYEBOTH SCH ×2 (08:53→21:13)
[2021-04-22] MEDS: Timolol Maleate 0.5% Ophth Soln 5 ML Bottle EYEBOTH SCH (09:01)
[2021-04-22] MEDS: Polyethylene Glycol 3350 Powder 17 GM Packet PO PRN (14:13)
[2021-04-22] MEDS ORDERED: Metoclopramide 10 MG/2 ML SDV IVPUSH PRN (18:38)
[2021-04-22] MEDS: Verapamil 120 MG Cap.ER PO SCH (21:12)
[2021-04-22] MEDS: Pravastatin 20 MG Tab PO SCH (21:12)
[2021-04-22] MEDS: Pantoprazole 40 MG Tab.CR PO SCH (21:12)
[2021-04-23] MEDS: oxyCODONE 5 MG Tab PO PRN ×4 (05:17→21:29)
[2021-04-23] MEDS: Hydrochlorothiazide 25 MG Tab PO SCH (08:13)
[2021-04-23] MEDS: Timolol Maleate 0.5% Ophth Soln 5 ML Bottle EYEBOTH SCH (08:14)
[2021-04-23] MEDS: Latanoprost 0.005% Ophth Soln 2.5 ML Bottle EYEBOTH SCH ×2 (08:15→21:16)
[2021-04-23] MEDS: Lisinopril 10 MG Tab PO SCH (08:17)
[2021-04-23] MEDS: Enoxaparin 40 MG/0.4 ML Syringe SUBCUT SCH (08:17)
[2021-04-23] MEDS ORDERED: Bupivacaine 0.25% 10 ML SDV ONE (11:35)
[2021-04-23] MEDS ORDERED: ceFAZolin 1 GM Vial ONE (11:53)
[2021-04-23] MEDS ORDERED: Propofol 200 MG/20 ML SDV ONE (11:53)
[2021-04-23] MEDS ORDERED: fentaNYL 100 MCG/2 ML SDV ONE (11:54)
[2021-04-23] MEDS ORDERED: Rocuronium 50 MG/5 ML Vial ONE (12:35)
[2021-04-23] MEDS ORDERED: ePHEDrine 50 MG/ML SDV ONE (12:37)
[2021-04-23] MEDS ORDERED: Lactated Ringers 1,000 ML ONE ×2 (13:03→13:06)
[2021-04-23] MEDS ORDERED: fentaNYL 100 MCG/2 ML SDV IVPUSH PRN (14:11)
[2021-04-23] MEDS ORDERED: HYDROmorphone 0.5 MG/0.5 ML Syringe IVPUSH PRN (14:11)
[2021-04-23] MEDS ORDERED: Ondansetron 4 MG/2 ML SDV IVPUSH PRN (14:11)
[2021-04-23] MEDS ORDERED: Lisinopril 10 MG Tab PO ONE (16:00)
[2021-04-23] MEDS ORDERED: Morphine 2 MG/ML SYRINGE IVPUSH PRN (17:23)
[2021-04-23] MEDS: Ketorolac 15 MG/ML SDV IVPUSH PRN (18:07)
[2021-04-23] MEDS: Verapamil 120 MG Cap.ER PO SCH (21:12)
[2021-04-23] MEDS: Pantoprazole 40 MG Tab.CR PO SCH (21:16)
[2021-04-23] MEDS: Pravastatin 20 MG Tab PO SCH (21:16)
[2021-04-23] MEDS: Docusate Sodium 100 MG Cap PO PRN (21:30)
[2021-04-24] MEDS: oxyCODONE 5 MG Tab PO PRN ×4 (03:56→20:35)
[2021-04-24] MEDS: Acetaminophen 325 MG Tab PO PRN (10:13)
[2021-04-24] MEDS: Lisinopril 10 MG Tab PO SCH (10:16)
[2021-04-24] MEDS: Docusate Sodium 100 MG Cap PO PRN (10:16)
[2021-04-24] MEDS: Hydrochlorothiazide 25 MG Tab PO SCH (10:17)
[2021-04-24] MEDS: Enoxaparin 40 MG/0.4 ML Syringe SUBCUT SCH (10:17)
[2021-04-24] MEDS: Latanoprost 0.005% Ophth Soln 2.5 ML Bottle EYEBOTH SCH ×2 (10:19→20:37)
[2021-04-24] MEDS: Timolol Maleate 0.5% Ophth Soln 5 ML Bottle EYEBOTH SCH (10:20)
[2021-04-24] MEDS: Polyethylene Glycol 3350 Powder 17 GM Packet PO PRN (10:24)
[2021-04-24] MEDS: Ketorolac 15 MG/ML SDV IVPUSH PRN (16:48)
[2021-04-24] MEDS: Pantoprazole 40 MG Tab.CR PO SCH (20:34)
[2021-04-24] MEDS: Verapamil 120 MG Cap.ER PO SCH (20:34)
[2021-04-24] MEDS: Pravastatin 20 MG Tab PO SCH (20:35)
[2021-04-25] MEDS: Enoxaparin 40 MG/0.4 ML Syringe SUBCUT SCH (08:49)
[2021-04-25] MEDS: Hydrochlorothiazide 25 MG Tab PO SCH (08:49)
[2021-04-25] MEDS: oxyCODONE 5 MG Tab PO PRN ×3 (08:50→20:36)
[2021-04-25] MEDS: Acetaminophen 325 MG Tab PO PRN (08:53)
[2021-04-25] MEDS: Docusate Sodium 100 MG Cap PO PRN (08:53)
[2021-04-25] MEDS: Latanoprost 0.005% Ophth Soln 2.5 ML Bottle EYEBOTH SCH ×2 (08:54→20:36)
[2021-04-25] MEDS: Timolol Maleate 0.5% Ophth Soln 5 ML Bottle EYEBOTH SCH (08:54)
[2021-04-25] MEDS: Lisinopril 10 MG Tab PO SCH (09:03)
[2021-04-25] MEDS: Verapamil 120 MG Cap.ER PO SCH (20:34)
[2021-04-25] MEDS: Pravastatin 20 MG Tab PO SCH (20:36)
[2021-04-25] MEDS: Pantoprazole 40 MG Tab.CR PO SCH (20:36)
[2021-04-26] MEDS: oxyCODONE 5 MG Tab PO PRN ×4 (02:00→14:38)
[2021-04-26] MEDS: Timolol Maleate 0.5% Ophth Soln 5 ML Bottle EYEBOTH SCH (10:16)
[2021-04-26] MEDS: Enoxaparin 40 MG/0.4 ML Syringe SUBCUT SCH (10:16)
[2021-04-26] MEDS: Lisinopril 10 MG Tab PO SCH (10:18)
[2021-04-26] MEDS: Hydrochlorothiazide 25 MG Tab PO SCH (10:18)
[2021-04-26] MEDS: Latanoprost 0.005% Ophth Soln 2.5 ML Bottle EYEBOTH SCH ×2 (10:23→20:57)
[2021-04-26] MEDS ORDERED: Nystatin Crm 30 GM Tube TOP SCH (17:00)
[2021-04-26] MEDS: Nystatin Topical Powder 15 GM Bottle TOP SCH ×2 (18:03→20:32)
[2021-04-26] MEDS: Verapamil 120 MG Cap.ER PO SCH (20:32)
[2021-04-26] MEDS: Docusate Sodium 100 MG Cap PO PRN (20:32)
[2021-04-26] MEDS: Pantoprazole 40 MG Tab.CR PO SCH (20:34)
[2021-04-26] MEDS: Pravastatin 20 MG Tab PO SCH (20:34)
[2021-04-27] MEDS: Ketorolac 15 MG/ML SDV IVPUSH PRN (08:49)
[2021-04-27] MEDS: Polyethylene Glycol 3350 Powder 17 GM Packet PO PRN (08:50)
[2021-04-27] MEDS: Nystatin Topical Powder 15 GM Bottle TOP SCH ×4 (08:50→21:50)
[2021-04-27] MEDS: Hydrochlorothiazide 25 MG Tab PO SCH (08:50)
[2021-04-27] MEDS: Timolol Maleate 0.5% Ophth Soln 5 ML Bottle EYEBOTH SCH (08:50)
[2021-04-27] MEDS: Latanoprost 0.005% Ophth Soln 2.5 ML Bottle EYEBOTH SCH ×2 (08:50→21:46)
[2021-04-27] MEDS: Lisinopril 10 MG Tab PO SCH (08:52)
[2021-04-27] MEDS: Enoxaparin 40 MG/0.4 ML Syringe SUBCUT SCH (08:52)
[2021-04-27] MEDS: Tamsulosin 0.4 MG Cap.ER PO SCH (11:28)
[2021-04-27] MEDS: Acetaminophen 325 MG Tab PO PRN ×2 (15:03→21:44)
[2021-04-27] MEDS: Pravastatin 20 MG Tab PO SCH (21:43)
[2021-04-27] MEDS: Pantoprazole 40 MG Tab.CR PO SCH (21:45)
[2021-04-27] MEDS: Verapamil 120 MG Cap.ER PO SCH (21:45)
[2021-04-28] MEDS: Acetaminophen 325 MG Tab PO PRN ×3 (04:28→20:35)
[2021-04-28] MEDS: Nystatin Topical Powder 15 GM Bottle TOP SCH ×4 (08:52→20:37)
[2021-04-28] MEDS: Enoxaparin 40 MG/0.4 ML Syringe SUBCUT SCH (08:52)
[2021-04-28] MEDS: Timolol Maleate 0.5% Ophth Soln 5 ML Bottle EYEBOTH SCH (08:53)
[2021-04-28] MEDS: Latanoprost 0.005% Ophth Soln 2.5 ML Bottle EYEBOTH SCH ×2 (08:53→20:37)
[2021-04-28] MEDS: Tamsulosin 0.4 MG Cap.ER PO SCH (09:04)
[2021-04-28] MEDS: Iron Polysaccharides Complex 150 MG Cap PO SCH (15:53)
[2021-04-28] MEDS: Docusate Sodium 100 MG Cap PO PRN (18:16)
[2021-04-28] MEDS: Pravastatin 20 MG Tab PO SCH (20:36)
[2021-04-28] MEDS: Pantoprazole 40 MG Tab.CR PO SCH (20:36)
[2021-04-28] MEDS: Verapamil 120 MG Cap.ER PO SCH (20:36)
[2021-04-29] MEDS: Acetaminophen 325 MG Tab PO PRN ×3 (02:14→23:14)
[2021-04-29] MEDS: Timolol Maleate 0.5% Ophth Soln 5 ML Bottle EYEBOTH SCH (08:43)
[2021-04-29] MEDS: Latanoprost 0.005% Ophth Soln 2.5 ML Bottle EYEBOTH SCH ×2 (08:44→20:43)
[2021-04-29] MEDS: Nystatin Topical Powder 15 GM Bottle TOP SCH ×4 (08:44→20:43)
[2021-04-29] MEDS: Enoxaparin 40 MG/0.4 ML Syringe SUBCUT SCH (08:44)
[2021-04-29] MEDS: Iron Polysaccharides Complex 150 MG Cap PO SCH (08:44)
[2021-04-29] MEDS: Tamsulosin 0.4 MG Cap.ER PO SCH (09:18)
[2021-04-29] MEDS ORDERED: Sodium Chloride 0.9% 250 ML IV SCH (12:45)
[2021-04-29] MEDS: Verapamil 120 MG Cap.ER PO SCH (20:43)
[2021-04-29] MEDS: Pravastatin 20 MG Tab PO SCH (20:44)
[2021-04-29] MEDS: Pantoprazole 40 MG Tab.CR PO SCH (20:44)
[2021-04-30] MEDS: Acetaminophen 325 MG Tab PO PRN ×2 (06:30→14:29)
[2021-04-30] MEDS: Iron Polysaccharides Complex 150 MG Cap PO SCH (08:40)
[2021-04-30] MEDS: Enoxaparin 40 MG/0.4 ML Syringe SUBCUT SCH (08:41)
[2021-04-30] MEDS: Timolol Maleate 0.5% Ophth Soln 5 ML Bottle EYEBOTH SCH (08:41)
[2021-04-30] MEDS: Latanoprost 0.005% Ophth Soln 2.5 ML Bottle EYEBOTH SCH (08:41)
[2021-04-30] MEDS: Nystatin Topical Powder 15 GM Bottle TOP SCH ×2 (08:42→13:02)
[2021-04-30 08:48] VITALS: BP 148/72; PULSE 82
[2021-04-30] MEDS: Tamsulosin 0.4 MG Cap.ER PO SCH (09:54)
== END 2021-04-30 14:52 | DRG 481 ==
LOC: JD.ED 06:27 → JD.MS 10:05
PROVIDERS: ADMIT Internal Medicine; ATTEND Internal Medicine
PROC: 0QS706Z Reposition Left Upper Femur with Intramedullary Internal Fixation Device, Open Approach (ICD-10-PCS; principal; 2021-04-23)
PROC: 30233N1 Transfusion of Nonautologous Red Blood Cells into Peripheral Vein, Percutaneous Approach (ICD-10-PCS; 2021-04-29)
DX: S72.002A Fracture of unspecified part of neck of left femur, initial encounter for closed fracture (principal); W19.XXXA Unspecified fall, initial encounter; H91.90 Unspecified hearing loss, unspecified ear; H54.7 Unspecified visual loss; E78.00 Pure hypercholesterolemia, unspecified; I10 Essential (primary) hypertension; S72.142A Displaced intertrochanteric fracture of left femur, initial encounter for closed fracture; D62 Acute posthemorrhagic anemia; E46 Unspecified protein-calorie malnutrition; J98.11 Atelectasis; E78.5 Hyperlipidemia, unspecified; F03.90 Unspecified dementia, unspecified severity, without behavioral disturbance, psychotic disturbance, mood disturbance, and anxiety; R00.1 Bradycardia, unspecified; Z96.652 Presence of left artificial knee joint; W18.30XA Fall on same level, unspecified, initial encounter; R53.1 Weakness; Z20.822 Contact with and (suspected) exposure to COVID-19; I11.0 Hypertensive heart disease with heart failure; I50.9 Heart failure, unspecified; R50.9 Fever, unspecified; N99.89 Other postprocedural complications and disorders of genitourinary system; R33.8 Other retention of urine; Z68.27 Body mass index [BMI] 27.0-27.9, adult; Z87.19 Personal history of other diseases of the digestive system; Y92.002 Bathroom of unspecified non-institutional (private) residence as the place of occurrence of the external cause; Z79.899 Other long term (current) drug therapy; Z98.1 Arthrodesis status
CPT/HCPCS: 01210; 36415; 36430; 51701; 51798; 71046; 71046-26; 73502-26-LT; 73502-LT; 73560-26-LT; 73560-LT; 76000; 76000-26; 76700; 76700-26; 80053; 82550; 83540; 83735; 84484; 85025; 85610; 85730; 86140; 86850; 86900; 86901; 86922; 87641; 93005; 93010; 94761; 96374; 97110-GP; 97116-GP; 97162-GP; 97530-GP; 99100; 99222; 99231; 99232; 99285; 99285-25; A9270-GY; C1713; C1776; J0690; J1170; J1650; J1885; J2704; J2765; J3010; J3490; J7030; J7050; J7120; P9016; U0002

== ENCOUNTER → 2021-10-04 | Day surgery (SDC) | payer MEDICARE, OTHER ==
[~2021-10-04] MED LIST changes: +Lactated Ringers 1,000 ML IV SCH; +Lidocaine 1%/Sod Bicarbonate in NS 8.4% 1 ML Syringe IDERM PRN; +Morphine 8 MG, EPINEPHrine 0.3 MG, Cefuroxime 750 MG, Ketorolac 30 MG, Sodium Chloride ... PRN; -Polyethylene Glycol/Electrolytes 4,000 ML Bottle PO ONE; +Sodium Chloride 0.9% 10 ML Syringe FLUSH PRN; +Sodium Chloride 0.9% 10 ML Syringe FLUSH SCH; +Vancomycin 1 GM SDV ONE
== END | disposition home or self-care (01) ==
LOC: JD.SDS 08:45
PROVIDERS: ATTEND Orthopaedic Surgery
DX: I10 Essential (primary) hypertension (principal); Z53.09 Procedure and treatment not carried out because of other contraindication
CPT/HCPCS: J3370

== ENCOUNTER 2021-10-10 08:09 | Inpatient (IN) | payer MEDICARE, OTHER ==
[~2021-10-10 08:09] MED LIST changes: -Lactated Ringers 1,000 ML IV SCH; -Sodium Chloride 0.9% 10 ML Syringe FLUSH SCH; -Vancomycin 1 GM SDV ONE
[2021-10-10] MEDS: Lactated Ringers 1,000 ML IV SCH ×2 (08:25→17:33)
[2021-10-10] MEDS ORDERED: Ondansetron 4 MG/2 ML SDV ONE (08:53)
[2021-10-10] MEDS ORDERED: Propofol 200 MG/20 ML SDV ONE ×2 (08:53→13:08)
[2021-10-10] MEDS ORDERED: ceFAZolin 2 GM Vial ONE (08:53)
[2021-10-10] MEDS ORDERED: Lidocaine 1% 6 ML ONE (08:53)
[2021-10-10] MEDS ORDERED: ePHEDrine 50 MG/ML SDV ONE ×2 (08:53→14:02)
[2021-10-10] MEDS ORDERED: Lactated Ringers 1,000 ML ONE ×2 (08:53→13:38)
[2021-10-10] MEDS ORDERED: Ketorolac 15 MG/ML SDV ONE (08:53)
[2021-10-10] MEDS ORDERED: Phenylephrine 1% 10 MG/ML SDV ONE ×2 (08:53→12:08)
[2021-10-10] MEDS ORDERED: fentaNYL 100 MCG/2 ML SDV ONE (08:54)
[2021-10-10] MEDS ORDERED: Vancomycin 1 GM SDV ONE (10:22)
[2021-10-10] MEDS ORDERED: Acetaminophen/HYDROcodone 325-5 MG Tab PO SCH (10:58)
[2021-10-10] MEDS ORDERED: fentaNYL 100 MCG/2 ML SDV IVPUSH PRN (11:54)
[2021-10-10] MEDS ORDERED: HYDROmorphone 0.5 MG/0.5 ML Syringe IVPUSH PRN (11:54)
[2021-10-10] MEDS ORDERED: ePHEDrine 50 MG/ML SDV IVPUSH PRN (11:54)
[2021-10-10] MEDS ORDERED: Phenylephrine 1% 10 MG/ML SDV IVPUSH PRN (11:54)
[2021-10-10] MEDS ORDERED: Ondansetron 4 MG/2 ML SDV IVPUSH PRN (12:00)
[2021-10-10] MEDS ORDERED: diphenhydrAMINE 50 MG/ML SDV IVPUSH PRN (12:00)
[2021-10-10] MEDS ORDERED: Sodium Chloride 0.9% 100 ML ONE (12:08)
[2021-10-10] MEDS ORDERED: Ketamine 500 mg/10 ML MDV ONE (12:36)
[2021-10-10] MEDS ORDERED: Midazolam 1 MG/ML 2 ML SDV ONE (12:37)
[2021-10-10] MEDS ORDERED: HYDROmorphone 0.5 MG/0.5 ML Syringe ONE (13:24)
[2021-10-10] MEDS: Sodium Chloride 0.9% 10 ML Syringe FLUSH SCH (18:22)
[2021-10-10] MEDS: Acetaminophen/HYDROcodone 325-5 MG Tab PO PRN (21:00)
[2021-10-11] MEDS: Acetaminophen/HYDROcodone 325-5 MG Tab PO PRN ×3 (03:17→15:00)
[2021-10-11] MEDS ORDERED: Sodium Chloride 0.9% 1,000 ML ONE (09:03)
[2021-10-11] MEDS ORDERED: Lactated Ringers 500 ML IV ONE (09:26)
[2021-10-11] MEDS ORDERED: Sodium Chloride 0.9% 500 ML IV ONE (09:30)
[2021-10-11] MEDS ORDERED: Docusate Sodium 100 MG Cap PO PRN (13:19)
[2021-10-11] MEDS ORDERED: Acetaminophen 325 MG Tab PO PRN (13:31)
[2021-10-11] MEDS: Apixaban 2.5 MG Tab PO SCH ×2 (15:01→20:34)
[2021-10-11] MEDS: Pantoprazole 40 MG Tab.CR PO SCH (15:01)
[2021-10-11] MEDS: Timolol Maleate 0.5% Ophth Soln 5 ML Bottle EYEBOTH SCH (20:34)
[2021-10-11] MEDS: Pravastatin 20 MG Tab PO SCH (20:34)
[2021-10-11] MEDS: Latanoprost 0.005% Ophth Soln 2.5 ML Bottle EYEBOTH SCH ×2 (20:35→20:36)
[2021-10-12] MEDS: Acetaminophen/HYDROcodone 325-5 MG Tab PO PRN ×4 (06:20→21:10)
[2021-10-12] MEDS ORDERED: Timolol Maleate 0.5% Ophth Soln 5 ML Bottle EYEBOTH SCH (09:00)
[2021-10-12] MEDS: Apixaban 2.5 MG Tab PO SCH ×2 (09:53→20:38)
[2021-10-12] MEDS: Pantoprazole 40 MG Tab.CR PO SCH (09:53)
[2021-10-12] MEDS: Timolol Maleate 0.5% Ophth Soln 5 ML Bottle EYEBOTH SCH ×2 (09:54→20:37)
[2021-10-12] MEDS: Pravastatin 20 MG Tab PO SCH (20:39)
[2021-10-12] MEDS: Latanoprost 0.005% Ophth Soln 2.5 ML Bottle EYEBOTH SCH (20:41)
[2021-10-12] MEDS ORDERED: Verapamil 120 MG Cap.ER PO SCH (21:00)
[2021-10-13] MEDS: Timolol Maleate 0.5% Ophth Soln 5 ML Bottle EYEBOTH SCH (09:01)
[2021-10-13] MEDS: Apixaban 2.5 MG Tab PO SCH (09:01)
[2021-10-13] MEDS: Pantoprazole 40 MG Tab.CR PO SCH (09:01)
[2021-10-13] MEDS: Acetaminophen/HYDROcodone 325-5 MG Tab PO PRN (10:37)
[2021-10-13 11:33] VITALS: BP 138/71; PULSE 86
== END 2021-10-13 15:20 | disposition home or self-care (01) | DRG 312 ==
LOC: JD.SDS 08:09 → JD.MS 17:03 → JD.SDS 10-11 14:03
PROVIDERS: ADMIT Orthopaedic Surgery; ATTEND Orthopaedic Surgery
DX: I95.1 Orthostatic hypotension (principal); J96.01 Acute respiratory failure with hypoxia; E87.1 Hypo-osmolality and hyponatremia; N17.9 Acute kidney failure, unspecified; I10 Essential (primary) hypertension; E78.5 Hyperlipidemia, unspecified; Z96.642 Presence of left artificial hip joint; R00.1 Bradycardia, unspecified; Z91.81 History of falling
CPT/HCPCS: 01214; 36415; 71045; 71045-26; 73501-26-LT; 73501-LT; 76000; 80048; 80053; 82947; 85025; 85027; 86850; 86900; 86901; 93005; 97110-GP; 97116-GP; 97161-GP; 97162-GP; 97166-GO; 97530-GP; 99100; A9270-GY; C1713; C1776; J0171; J0690; J0697; J1170; J1885; J2250; J2270; J2370; J2405; J2704; J3010; J3370; J3490; J7030; J7120

== ENCOUNTER 2021-10-17 05:53 | Emergency (ER) | payer MEDICARE, OTHER ==
[2021-10-17 05:57] VITALS: BP 151/78; PULSE 76
[2021-10-17] MEDS ORDERED: Tamsulosin 0.4 MG Cap.ER PO ONE (06:58)
== END 2021-10-17 07:30 | disposition home or self-care (01) ==
LOC: JD.ED 05:53
DX: N13.9 Obstructive and reflux uropathy, unspecified (principal); E78.00 Pure hypercholesterolemia, unspecified; I10 Essential (primary) hypertension; Z79.899 Other long term (current) drug therapy; Z79.01 Long term (current) use of anticoagulants
CPT/HCPCS: 51702; 51798; 74018; 99284; A9270

== ENCOUNTER 2021-10-27 15:06 | Observation (INO) | payer MEDICARE, OTHER ==
[2021-10-27] MEDS ORDERED: Sodium Chloride 0.9% 10 ML Syringe FLUSH PRN (15:59)
[2021-10-27] MEDS ORDERED: Sodium Chloride 0.9% 500 ML IV ONE (17:17)
[2021-10-27] MEDS ORDERED: Potassium Chloride 10 MEQ in Premix Bag 1 BAG IV ONE (17:20)
[2021-10-27] MEDS ORDERED: Magnesium Sulfate/Water 4 GM in Premix Bag 1 BAG IV ONE (17:21)
[2021-10-27] MEDS ORDERED: Acetaminophen 325 MG Tab PO PRN (18:15)
[2021-10-27] MEDS ORDERED: Morphine 2 MG/ML SYRINGE IVPUSH PRN (18:15)
[2021-10-27] MEDS ORDERED: oxyCODONE 5 MG Tab PO PRN (18:15)
[2021-10-27] MEDS ORDERED: Temazepam 7.5 MG Cap PO PRN (18:15)
[2021-10-27] MEDS ORDERED: Docusate Sodium 100 MG Cap PO PRN (18:15)
[2021-10-27] MEDS: Lactated Ringers 1,000 ML IV SCH (20:38)
[2021-10-28] MEDS: Lactated Ringers 1,000 ML IV SCH ×2 (05:48→16:55)
[2021-10-28] MEDS ORDERED: Magnesium Sulfate/Water 2 GM/50 ML BAG IV ONE (07:12)
[2021-10-28] MEDS ORDERED: Potassium Bicarbonate/Cit Ac 20 MEQ Effervescent Tab PO ONE (07:12)
[2021-10-28] MEDS: cefTRIAXone 2 GM in Sodium Chloride 0.9% 100 ML IV SCH (08:37)
[2021-10-28] MEDS ORDERED: Aluminum Hydroxide/Magnesium Hydroxide/Simethicone Susp 30 ML Cup PO ONE (18:53)
[2021-10-28] MEDS: [UNRECOGNIZED DRUG - OTHER] EYEBOTH SCH (20:34)
[2021-10-28] MEDS: APIXABAN 2.5 MG PO SCH (20:34)
[2021-10-28] MEDS ORDERED: Latanoprost 0.005% Ophth Soln 2.5 ML Bottle EYEBOTH SCH (21:00)
[2021-10-28] MEDS ORDERED: VERAPAMIL 240 MG PO SCH (21:00)
[2021-10-29] MEDS: Lactated Ringers 1,000 ML IV SCH (03:29)
[2021-10-29] MEDS ORDERED: HYDROCHLOROTHIAZIDE PO SCH (06:00)
[2021-10-29] MEDS ORDERED: LOSARTAN PO SCH (06:00)
[2021-10-29] MEDS ORDERED: Lactated Ringers 1,000 ML IV SCH (06:30)
[2021-10-29] MEDS ORDERED: TAMSULOSIN 0.4 MG PO SCH (08:00)
[2021-10-29] MEDS: APIXABAN 2.5 MG PO SCH (08:58)
[2021-10-29] MEDS: cefTRIAXone 2 GM in Sodium Chloride 0.9% 100 ML IV SCH (08:58)
[2021-10-29] MEDS: [UNRECOGNIZED DRUG - OTHER] EYEBOTH SCH (08:59)
[2021-10-29] MEDS ORDERED: Hydrochlorothiazide 12.5 MG Cap PO SCH (09:00)
[2021-10-29] MEDS ORDERED: Losartan 50 MG Tab PO SCH (09:00)
[2021-10-29 12:09] VITALS: BP 126/58; PULSE 51
== END 2021-10-29 13:52 | disposition home or self-care (01) ==
LOC: JD.ED 15:06 → JD.MS 18:05
PROVIDERS: ADMIT Internal Medicine; ATTEND Internal Medicine
DX: I95.1 Orthostatic hypotension (principal); E87.1 Hypo-osmolality and hyponatremia; N39.0 Urinary tract infection, site not specified; B96.20 Unspecified Escherichia coli [E. coli] as the cause of diseases classified elsewhere; I10 Essential (primary) hypertension; E87.8 Other disorders of electrolyte and fluid balance, not elsewhere classified; E78.00 Pure hypercholesterolemia, unspecified; N40.0 Benign prostatic hyperplasia without lower urinary tract symptoms; H40.9 Unspecified glaucoma; M19.90 Unspecified osteoarthritis, unspecified site; D64.9 Anemia, unspecified; I82.409 Acute embolism and thrombosis of unspecified deep veins of unspecified lower extremity; E83.42 Hypomagnesemia; Z98.890 Other specified postprocedural states; Z98.1 Arthrodesis status; Z79.01 Long term (current) use of anticoagulants; Z20.822 Contact with and (suspected) exposure to COVID-19; Z79.84 Long term (current) use of oral hypoglycemic drugs; Z79.899 Other long term (current) drug therapy
CPT/HCPCS: 36415; 71045; 80053; 81001; 83605; 83735; 83930; 85025; 86140; 87040; 87086; 87088; 87186; 93005; 97116; 97161; 97166; 97535; A9270; J0696; J3475; J3480; J3490; J7030; J7120; U0002; 99217; 99219; 99225

== ENCOUNTER → 2021-11-28 | Day surgery (SDC) | payer MEDICARE, OTHER ==
[~2021-11-28] MED LIST changes: +Acetaminophen 325 MG Tab PO ONE; +HYDROmorphone 0.5 MG/0.5 ML Syringe IVPUSH PRN; +Lactated Ringers 1,000 ML IV SCH; +Midazolam 1 MG/ML 2 ML SDV ONE; +Ondansetron 4 MG/2 ML SDV IVPUSH PRN; +Phenylephrine HCl In 0.9% NaCl 1 MG/10 ML Vial ONE; +Propofol 200 MG/20 ML SDV ONE; +Sodium Chloride 0.9% 10 ML Syringe FLUSH SCH; +Vancomycin 1 GM SDV ONE; +ceFAZolin 2 GM Vial ONE; +ePHEDrine 50 MG/ML SDV ONE; +fentaNYL 100 MCG/2 ML SDV IVPUSH PRN; +fentaNYL 100 MCG/2 ML SDV ONE
[2021-11-28 15:17] VITALS: PULSE 68
[2021-11-28 15:41] VITALS: BP 122/88
== END | disposition home or self-care (01) ==
LOC: JD.SDS 10:10
PROVIDERS: ATTEND Orthopaedic Surgery
DX: T84.031A Mechanical loosening of internal left hip prosthetic joint, initial encounter (principal); T84.84XA Pain due to internal orthopedic prosthetic devices, implants and grafts, initial encounter; I10 Essential (primary) hypertension; N40.0 Benign prostatic hyperplasia without lower urinary tract symptoms; D50.9 Iron deficiency anemia, unspecified; E78.00 Pure hypercholesterolemia, unspecified; Z79.899 Other long term (current) drug therapy
CPT/HCPCS: 27138; 36415; 73501; 86850; 86900; 86901; 97116; 97161; A9270; C1713; C1776; J0171; J0690; J0697; J1885; J2250; J2270; J3010; J3370; 99100; J2704